=== PATIENT | male | born 1960 | race Caucasian/White ===

== ENCOUNTER 2016-04-23 15:05 | Outpatient (CLI) | payer BC | END 2016-04-23 15:06 | disposition home or self-care (01) | DX: R23.4 Changes in skin texture (principal) ==

== ENCOUNTER 2016-09-26 16:27 | Outpatient (CLI) | payer BC ==
--- NOTE | 2016-09-27 14:02 | MRI Report ---
EXAM: RIGHT SHOULDER MRI WITHOUT CONTRAST EXAM DATE: 09/26/2016 06:11 PM. CLINICAL HISTORY: Complete rotator cuff tear or rupture. COMPARISON: None. TECHNIQUE: Multiplanar, multisequence T1-weighted and fluid-sensitive sequences of the shoulder witho ut contrast. Other: None. FINDINGS: Acromioclavicular Region: The acromion is type III. There is moderate acromioclavicular joint osteoar thritis and joint effusion. There is a moderate-sized bursal effusion. Glenohumeral Region: The humeral head is superiorly subluxed in keeping with the rotator cuff tears. There is mild to moderate thickening of the glenohumeral hyaline cartilage. Humeral head osteophytes are noted. The findings are consistent with osteoarthritis. Bone Marrow: No fracture, marrow edema or bone lesions. Labrum: The labrum is unremarkable on this nonarthrographic study. Musculature/Rotator Cuff: There is severe tendinosis and high-grade partial-thickness tearing of both the humeral and bursal surface fibers of supraspinatus. There is a 10 x 10 mm full-thickness tear of the anteriormost fibers of supraspinatus. There is high-grade partial thickness tearing of the deep and superficial fibers of subscapularis. Infraspinatus appears unremarkable. There is moderate atroph y of both supraspinatus and subscapularis. Biceps Tendon: The long head of biceps tendon is medially subluxed out of the bicipital groove, with high-grade partial-thickness tearing. Other: The subcutaneous tissues are unremarkable. IMPRESSION: 1. Type III acromion. Moderate acromioclavicular joint osteoarthritis with a joint effusion. 2. High-grade partial-thickness tear of supraspinatus with small full-thickness component and moderat e atrophy. 3. High-grade partial-thickness tear of subscapularis with medial subluxation and tearing of the long head of biceps. 4. Superior subluxation of the humeral head with mild glenohumeral osteoarthritis. 5. Moderate acromioclavicular joint osteoarthritis. [facility] MUSCULOSKELETAL RADIOLOGY SECTION Referring Provider Line: [phone] SITE ID: [id number]
== END 2016-09-26 16:28 | disposition home or self-care (01) ==
LOC: DI 16:27
PROVIDERS: ATTEND Orthopaedic Surgery
DX: M75.121 Complete rotator cuff tear or rupture of right shoulder, not specified as traumatic (principal); M19.011 Primary osteoarthritis, right shoulder; M25.511 Pain in right shoulder; M75.101 Unspecified rotator cuff tear or rupture of right shoulder, not specified as traumatic; S46.811A Strain of other muscles, fascia and tendons at shoulder and upper arm level, right arm, initial encounter; S46.111A Strain of muscle, fascia and tendon of long head of biceps, right arm, initial encounter; M25.411 Effusion, right shoulder

== ENCOUNTER 2016-10-13 15:10 | Outpatient (CLI) | payer BC ==
--- NOTE | 2016-10-14 10:10 | Ultrasound Report ---
RENAL ULTRASOUND: 10/13/2016 CLINICAL INDICATION: Neurogenic bladder. TECHNIQUE: Real-time scanning was performed with ambulatory service representative static images obtained. FINDINGS: The right kidney measures 12.0 x 5.9 x 5.3 cm. There is a 1.5 cm parapelvic cyst. No hyd ronephrosis or solid renal lesion is seen. The left kidney measures 11.5 x 5.6 x 5.2 cm. Multiple parapelvic cysts and cortical cysts are prese nt, the largest measuring 1.3 cm. No hydronephrosis or solid renal lesion is appreciated. The urinary bladder measures 13.1 x 10.6 x 6.8 cm, yielding a volume of 494 mL. Bilateral ureteral j ets are visualized. No focal bladder wall lesion is seen. The patient did not bring catheterization supplies, so a post-catheterization image could not be obtained. IMPRESSION: NO EVIDENCE OF HYDRONEPHROSIS. NO FOCAL RENAL LESION. JOB #: [id number] EXT JOB #:[id number]
== END 2016-10-13 15:11 | disposition home or self-care (01) ==
LOC: DI 15:10
PROVIDERS: ATTEND Internal Medicine
DX: N31.9 Neuromuscular dysfunction of bladder, unspecified (principal)
CPT/HCPCS: 76770

== ENCOUNTER 2017-05-05 17:02 | Inpatient (IN) | payer MEDICARE, BC ==
--- NOTE | 2017-05-05 18:09 | ED Physician Documentation ---
PD HPI SKIN - Stated complaint Stated Complaint: L ANKLE WOUND - Chief complaint Chief Complaint: Wound - History obtained from History obtained from: Patient - History of Present Illness Timing - onset: Today (he just noted redness and swelling of the left ankle today when a sore broke open and leaked a lot of pus and blood. He then noted skin red as well up to davidson. He was not aware of it prior as has cord injury with normally no sensation nor movement from thoracic area down. So he does not know how long it has been developing.) Timing - details: Gradual onset Location: LLE (around ankle medially and lower leg) Quality / character: Discolored (red), Swelling, Draining Associated symptoms: Myalgias. No: Fever, N/V/D Similar symptoms before: Has not had sx before Recently seen: Clinic (went to PMD today and referred to ER.) Review of Systems Constitutional: reports: Myalgias. denies: Fever, Chills Nose: denies: Rhinorrhea / runny nose, Congestion Throat: denies: Sore throat Cardiac: denies: Chest pain / pressure Respiratory: denies: Cough GI: denies: Nausea, Vomiting Skin: reports: Lesions (at the ankle) PD PAST MEDICAL HISTORY - Past Medical History Cardiovascular: Hypertension Neuro: Other : Other Musculoskeletal: Paraplegia, Other - Past Surgical History Ortho: Spine surgery - Present Medications Home Medications: Ambulatory Orders Medication Instructions Recorded Confirmed Baclofen 15 mg PO BID 01/05/17 01/05/17 Cholecalciferol (Vitamin D3) 2,000 unit PO DAILY 01/05/17 01/05/17 [Vitamin D] Furosemide 20 mg PO QDBREAKFAST 01/05/17 01/05/17 Gabapentin 900 mg PO BID 01/05/17 01/05/17 Lisinopril 40 mg PO DAILY 01/05/17 01/05/17 Multivitamin [Multiple Vitamins] 1 ea PO DAILY 01/05/17 01/05/17 Sennosides/Docusate Sodium [Stool 1 each PO DAILY 01/05/17 01/05/17 Softener-Stimulant Lax] Solifenacin Succinate [Vesicare] 10 mg PO DAILY 01/05/17 01/05/17 amLODIPine [Norvasc] 5 mg PO DAILY 01/05/17 01/05/17 - Allergies Allergies/Adverse Reactions: Allergies Allergy/AdvReac Type Severity Reaction Status Date / Time carbenicillin Allergy Respiratory Verified 01/05/17 15:55 [From Geocillin] clindamycin Allergy Rash Verified 01/05/17 15:55 Latex, Natural Rubber Allergy Unknown Verified 01/05/17 15:55 - Social History Smoking Status: Smoker current status unk PD ED PE NORMAL - Vitals Vital signs reviewed: Yes - General General: Alert and oriented X 3, Well developed/nourished (wheelchair bound. ) - Cardiac Cardiac: RRR, No murmur - Respiratory Respiratory: Clear bilaterally - Derm Derm: Normal color (generally but with notable cellulitis left ankle and lower leg up to mid tibial area. ), Warm and dry - Extremities Extremities: Other (left medial high ankle with area of skin erosion and drainage of bloody/purulent material. There is a fingertip sized hole present. Local swelling which extends up to davidson and the foot is also with some edema. ) - Neuro Neuro: Alert and oriented X 3, Other (he has cord injury so normally without sensation nor movement of the legs/feet. ) Results - Vitals Vitals: Vital Signs - 24 hr 05/05/17 05/05/17 17:20 20:12 Temperature 36.4 C L 36.4 C L Heart Rate 93 87 Respiratory 18 19 Rate Blood Pressure 131/80 H 146/77 H O2 Saturation 99 98 Oxygen O2 Source Room air - Labs Labs: Microbiology 05/05/17 18:24 Wound Culture - Preliminary Foot - Left Laboratory Tests 05/05/17 05/05/17 05/05/17 18:51 18:51 18:51 WBC 15.1 H RBC 4.63 L Hgb 13.2 L Hct 40.5 L MCV 87.4 MCH 28.4 MCHC 32.5 RDW 15.1 H Plt Count 272 MPV 7.6 Neut # 10.9 H Lymph # 2.7 [place] # 1.1 H Eos # 0.1 Baso # 0.2 H Absolute Nucleated RBC 0.00 Nucleated RBC % 0.0 ESR 66 H Sodium 134 L Potassium 3.6 Chloride 99 L Carbon Dioxide 23 Anion Gap 12.0 BUN 9 Creatinine 0.6 Estimated GFR (MDRD) 139 Glucose 91 Calcium 8.6 Total Bilirubin 0.6 AST 24 ALT 23 Alkaline Phosphatase 83 Total Protein 7.7 Albumin 3.4 Globulin 4.3 H Albumin/Globulin Ratio 0.8 L Lipase 14 L - Rads (name of study) ankle Radiology: Prelim report reviewed, EMP read contemporaneously (no bony lesions; soft tissue swelling) PD MEDICAL DECISION MAKING - ED course Complexity details: reviewed results, considered differential (there is more than adequate opening for the abscess so no further I&D needed. Culture obtained. I am concerned for degree of cellulitis, elevated WBC, and the abscess itself (which might benefit from debridement, could consult Ortho). I feel he needs IV meds and further evaluation in hospital. ), d/w patient Departure - Departure Disposition: [address] [facility] DC/Xfer Clinical Impression: Ankle abscess, Cellulitis, leg Discharge Date/Time: 05/05/17 21:05
[2017-05-05] MEDS ORDERED: VANCOMYCIN INJ 1 GM in SODIUM CHLORIDE 0.9% 250 ML IV STA (18:20)
[2017-05-05] MEDS ORDERED: cefTRIAXone 1 GM VIAL IVP STA (18:20)
[2017-05-05 19:03] LABS: BASOPHILS # (AUTO) 0.2 10^3/uL (0.0-0.1); BASOPHILS % (AUTO) 1.5 %; EOSINOPHILS # (AUTO) 0.1 10^3/uL (0.0-0.7); HGB - HEMOGLOBIN 13.2 g/dL (14.0-18.0); LYMPHOCYTES # (AUTO) 2.7 10^3/uL (1.5-3.5); LYMPHOCYTES % (AUTO) 17.7 %; MEAN CORPUSCULAR HEMOGLOBIN 28.4 pg (27.0-31.0); MEAN CORPUSCULAR HGB CONC 32.5 g/dL (32.0-36.0); MEAN CORPUSCULAR VOLUME 87.4 fL (80.0-94.0); MEAN PLATELET VOLUME 7.6 fL (7.4-11.4); MONOCYTES # (AUTO) 1.1 10^3/uL (0.0-1.0); MONOCYTES % (AUTO) 7.6 %; NEUTROPHILS # (AUTO) 10.9 10^3/uL (1.5-6.6); NEUTROPHILS % (AUTO) 72.2 %; PLT - PLATELET COUNT 272 10^3/uL (130-450); RED BLOOD COUNT 4.63 10^6/uL (4.70-6.10); RED CELL DISTRIBUTION WIDTH 15.1 % (12.0-15.0); WHITE BLOOD COUNT 15.1 x10^3/uL (4.8-10.8)
[2017-05-05 19:13] LABS: ALBUMIN 3.4 g/dL (3.2-5.5); ALBUMIN/GLOBULIN RATIO 0.8 (1.0-2.2); BILIRUBIN,TOTAL 0.6 mg/dL (0.2-1.0); CALCIUM 8.6 mg/dL (8.5-10.3); CREATININE 0.6 mg/dL (0.6-1.2); TOTAL PROTEIN 7.7 g/dL (6.7-8.2)
--- NOTE | 2017-05-05 19:13 | XRAY Preliminary Report ---
Exam: XR ANKLE 3 VIEW LT IMPRESSION: No evidence of osteomyelitis or acute bony abnormality. [facility] SITE ID: [id number]
--- NOTE | 2017-05-05 19:14 | XRAY Report ---
EXAM: LEFT ANKLE RADIOGRAPHY EXAM DATE: 05/05/2017 06:54 PM. CLINICAL HISTORY: Heel wound and drainage. COMPARISON: None. TECHNIQUE: 3 views. FINDINGS: Bones: No evidence of fracture. No destructive bone lesions. Joints: Normal. No effusion. No subluxations. The ankle mortise is normally aligned. Soft Tissues: Diffuse soft tissue swelling. There is a soft tissue defect plantar aspect of the heel. IMPRESSION: No evidence of osteomyelitis or acute bony abnormality. [facility] Referring Provider Line: [phone] SITE ID: [id number]
[2017-05-05] MEDS ORDERED: ONDANSETRON 4 MG/2 ML VIAL IVP PRN (20:31)
[2017-05-05] MEDS ORDERED: TEMAZEPAM 15 MG CAPSULE PO PRN (20:31)
[2017-05-05] MEDS ORDERED: SODIUM CHLORIDE FLUSH 0.9% 10 ML SYRINGE IVP PRN (20:31)
[2017-05-05] MEDS ORDERED: HYDROmorphone 1 MG/ML SYRINGE IVP PRN (20:31)
[2017-05-05] MEDS ORDERED: ACETAMINOPHEN 325 MG TABLET PO PRN (20:31)
[2017-05-05] MEDS: BACLOFEN 10 MG TABLET PO SCH (22:20)
[2017-05-05] MEDS: GABAPENTIN 300 MG CAPSULE PO SCH (22:21)
[2017-05-05] MEDS: NICOTINE 21 MG PATCH TOP SCH (23:46)
--- NOTE | 2017-05-06 00:40 | HISTORY & PHYSICAL EXAMINATION ---
DATE OF SERVICE: 05/05/2017 Physician: Michell Salvador MD HISTORY OF PRESENT ILLNESS: This is a 57-year-old white male with a history of paraplegia, hypertension, prior spinal surgery and abscesses around his anus. The patient has been seen in this [facility] once for a left heel wound and states that he did not follow the advice and care for that wound. This morning he awoke with an open draining area near the left medial malleolus area. He states that "the leg is in pain because he can see how it is twitching," but he does not feel any pain because of his paraplegia. He denies any fever or rigors. He presented to the emergency room and has been admitted for treatment of cellulitis and the wound. REVIEW OF SYSTEMS: A comprehensive review of systems was performed and the pertinent positives are as above, all others are negative. FAMILY HISTORY: Positive family history of heart disease in his father and lung cancer in his sister. ALLERGIES 1. CARBENICILLIN. 2. CLINDAMYCIN. 3. LATEX. 4. NATURAL RUBBER. MEDICATIONS AT HOME 1. Amlodipine 5 mg daily. 2. Lisinopril 40 mg daily. 3. Gabapentin 900 p.o. b.i.d. 4. Furosemide 20 mg daily. 5. Vitamin D3 2000 units daily. 6. Baclofen 15 mg p.o. b.i.d. 7. VESIcare 10 mg p.o. daily. 8. Stool softener. SOCIAL HISTORY: The patient smokes 1 pack per day, uses no drugs and no alcohol. The patient lives independently and alone, he has a wheelchair with additional functions that make him independent. 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 PHYSICAL EXAMINATION GENERAL: White male in no distress, sitting upright in bed. VITAL SIGNS: Blood pressure 145/75, pulse of 108, afebrile, room air saturation 97%. HEENT: Reveals pa complexion. Oral mucosa is moist. NECK: No JVD or carotid bruits. LUNGS: Clear. HEART: Heart sounds normal. No audible murmurs. ABDOMEN: Soft, decreased bowel sounds, nontender. EXTREMITIES: 2+ edema with warmth of the left lower extremity to the knee. Trace edema of the right foot and ankle. The left ankle is bandaged with gauze and there is red serous drainage saturating through the bandage on the medial aspect. NEUROLOGIC: No sensation or movement below the mid abdomen. Otherwise, grossly intact. LABORATORY DATA: Sodium 134, potassium 3.6. Normal BUN and creatinine. Normal liver tests. White blood count 15.1 with a left shift, hemoglobin 13.2, platelet count normal at 272. No INR was done. No chest x-ray was done. Left ankle x-ray showed diffuse soft tissue swelling and a soft tissue defect on the plantar aspect of the heel. IMPRESSION/DIAGNOSES: 1. Open, draining wound of the left ankle and recent wound of the left heel. Rule out osteomyelitis. 2. Cellulitis with asymmetrical swelling and warmth of the left davidson. 3. Hypertension, on medications, well controlled. 4. Paraplegia. 5. Tobacco use. PLAN: Admit the patient for IV antibiotics. Continue with IV ceftriaxone and IV vancomycin as administered starting in the emergency room. We obtained a wound culture and will also obtain blood cultures. Follow his CBC. Obtain a foot MRI to evaluate for osteomyelitis. Continue his blood pressure medications and a low salt diet. A Nicoderm patch will be ordered for nicotine urges. DEEP VENOUS THROMBOSIS PROPHYLAXIS: Sequential compression devices. CODE STATUS: FULL CODE. ATTESTATION: The patient is expected to be discharged or transferred to another facility within 96 hours: Yes. TD: 05/06/2017 00:38 LIEN
[2017-05-06 05:30] LABS: BASOPHILS # (AUTO) 0.1 10^3/uL (0.0-0.1); BASOPHILS % (AUTO) 0.6 %; EOSINOPHILS # (AUTO) 0.4 10^3/uL (0.0-0.7); EOSINOPHILS % (AUTO) 3.8 %; HGB - HEMOGLOBIN 11.8 g/dL (14.0-18.0); LYMPHOCYTES # (AUTO) 2.3 10^3/uL (1.5-3.5); LYMPHOCYTES % (AUTO) 25.1 %; MEAN CORPUSCULAR HEMOGLOBIN 29.3 pg (27.0-31.0); MEAN CORPUSCULAR HGB CONC 32.9 g/dL (32.0-36.0); MEAN CORPUSCULAR VOLUME 89.2 fL (80.0-94.0); MEAN PLATELET VOLUME 7.5 fL (7.4-11.4); MONOCYTES # (AUTO) 0.9 10^3/uL (0.0-1.0); MONOCYTES % (AUTO) 9.3 %; NEUTROPHILS # (AUTO) 5.6 10^3/uL (1.5-6.6); NEUTROPHILS % (AUTO) 61.2 %; PLT - PLATELET COUNT 251 10^3/uL (130-450); RED BLOOD COUNT 4.02 10^6/uL (4.70-6.10); RED CELL DISTRIBUTION WIDTH 15.3 % (12.0-15.0); WHITE BLOOD COUNT 9.2 x10^3/uL (4.8-10.8)
[2017-05-06] MEDS: SODIUM CHLORIDE FLUSH 0.9% 10 ML SYRINGE IVP SCH ×3 (06:43→17:51)
[2017-05-06] MEDS ORDERED: GADOBUTROL 10 MMOL/10 ML VIAL ONE (07:57)
[2017-05-06] MEDS: VANCOMYCIN 1.5 GM/NS 500 ML 1.5 GM/500 ML BAG IV SCH ×2 (08:29→19:52)
[2017-05-06] MEDS: NICOTINE 21 MG PATCH TOP SCH (09:52)
[2017-05-06] MEDS: FAMOTIDINE 20 MG TABLET PO SCH (09:53)
[2017-05-06] MEDS: MULTIVITAMIN TABLET PO SCH (09:53)
[2017-05-06] MEDS: BACLOFEN 10 MG TABLET PO SCH ×2 (09:53→20:14)
[2017-05-06] MEDS: LISINOPRIL 20 MG TABLET PO SCH (09:53)
[2017-05-06] MEDS: amLODIPine 5 MG TABLET PO SCH (09:53)
[2017-05-06] MEDS: GABAPENTIN 300 MG CAPSULE PO SCH ×2 (09:53→20:14)
[2017-05-06] MEDS: CHOLECALCIFEROL 1,000 UNIT TABLET PO SCH (09:53)
[2017-05-06] MEDS: POLYETHYLENE GLYCOL 3350 17 GM PACKET PO SCH (09:54)
[2017-05-06] MEDS ORDERED: BISACODYL 10 MG SUPP PR SCH ×2 (11:00→12:00)
[2017-05-06] MEDS ORDERED: GADOBUTROL 10 MMOL/10 ML VIAL IVP ONE (16:01)
--- NOTE | 2017-05-06 16:59 | PROVIDER PROGRESS NOTE ---
Subjective - Prog Note Date Prog Note Date: 05/06/17 Prog Note Time: 14:20 - Subjective Pt reports feeling: No change (The patient is a paraplegic and cannot feel his lower extremities.He denies any new problems, fever or chills. He has been eating and moving his bowels.) Current Medications - Current Medications Current Medications: Acetaminophen, amlodipine, baclofen, ceftriaxone, cholecalciferol, famotidine, gabapentin, hydromorphone, lisinopril, multivitamin, nicotine patch, ondansetron , polyethylene glycol, sodium chloride,Temazepam, vancomycin Objective - Vital Signs/Intake & Output Reviewed Vital Signs: Yes Intake & Output: Intake & Output 05/03/17 05/04/17 05/05/17 05/06/17 23:59 23:59 23:59 23:59 Intake Total 450 960 Output Total 475 700 Balance -25 260 - Objective General Appearance: positive: No acute distress, Alert Eyes Bilateral: positive: Normal inspection, PERRL, EOMI, No lid inflammation, Conjunctivae nml, No scleral icterus ENT: positive: ENT inspection nml, Pharynx nml, No signs of dehydration Neck: positive: Nml inspection, Thyroid nml, No JVD, Trachea midline. negative : Thyromegaly Respiratory: positive: Chest non-tender, No respiratory distress, Breath sounds nml. negative: Wheezes, Rales, Rhonchi Cardiovascular: positive: Regular rate & rhythm, No murmur, No gallop Abdomen: positive: Non-tender, No organomegaly, Nml bowel sounds, No distention. negative: Guarding, Rebound Back: positive: Nml inspection. negative: CVA tenderness (R), CVA tenderness (L ) Skin: positive: Color nml, No rash, Warm, Dry. negative: Cyanosis Extremities: positive: Non-tender, Full ROM, Nml appearance, Pedal edema Neurologic/Psychiatric: positive: Oriented x3, CN's nml (2-12), Other (The patient is a paraplegic since age 16) - Lab Results Fish Bones: 05/06/17 05:10 05/05/17 18:51 Other Labs: Lab Results x24hrs 05/06/17 Range/Units 05:10 WBC 9.2 (4.8-10.8) x10^3/uL RBC 4.02 L (4.70-6.10) 10^6/uL Hgb 11.8 L (14.0-18.0) g/dL Hct 35.9 L (42.0-52.0) % MCV 89.2 (80.0-94.0) fL MCH 29.3 (27.0-31.0) pg MCHC 32.9 (32.0-36.0) g/dL RDW 15.3 H (12.0-15.0) % Plt Count 251 (130-450) 10^3/uL MPV 7.5 (7.4-11.4) fL Neut # 5.6 (1.5-6.6) 10^3/uL Lymph # 2.3 (1.5-3.5) 10^3/uL [place] # 0.9 (0.0-1.0) 10^3/uL Eos # 0.4 (0.0-0.7) 10^3/uL Baso # 0.1 (0.0-0.1) 10^3/uL Absolute Nucleated RBC 0.01 x10^3/uL Nucleated RBC % 0.1 /100WBC - Diagnostic Imaging Diagnostic Imaging Results: positive: Final report reviewed Diagnostic Imaging Comments: EXAM: LEFT ANKLE RADIOGRAPHY EXAM DATE: 05/05/2017 06:54 PM. CLINICAL HISTORY: Heel wound and drainage. COMPARISON: None. TECHNIQUE: 3 views. FINDINGS: Bones: No evidence of fracture. No destructive bone lesions. Joints: Normal. No effusion. No subluxations. The ankle mortise is normally aligned. Soft Tissues: Diffuse soft tissue swelling. There is a soft tissue defect plantar aspect of the heel. IMPRESSION: No evidence of osteomyelitis or acute bony abnormality. Assessment/Plan - Problem List (1) Cellulitis of left foot Impression: The wound to the top of the malleolus and the very superficial decubitus ulcer to the patient's heel appear to be communicating. I am awaiting the results of the MRI to see whether or not there is any bone involvement at this time. Currently the patient is taking vancomycin and ceftriaxone and these appear to be preventing the cellulitis from getting any worse but it is too early to see any improvement yet. I am awaiting the wound culture results and will tailor the antibiotics to the sensitivities as they arise. Otherwise continue present care. (2) Hypertension Impression: Blood pressure 134/70. Continue lisinopril and amlodipine. (3) History of paraplegia Impression: Patient states that he knew he had a decubitus ulcer on his left heel however choose to do nothing about this until he had the abscess which spurted blood and purulent drainage shortly before his admission. We have the patient on SCDs and DAWSON hose for DVT prophylaxis.
[2017-05-06] MEDS ORDERED: cefTRIAXone 1 GM in SODIUM CHLORIDE 0.9% MINIBAG 100 ML IV SCH (18:00)
--- NOTE | 2017-05-06 18:06 | MRI Report ---
EXAM: LEFT MIDFOOT AND HINDFOOT MRI WITHOUT AND WITH CONTRAST EXAM DATE: 05/06/2017 04:14 PM. CLINICAL HISTORY: Eval for osteomyelitis. COMPARISON: 3 views left foot 05/05/2017.. TECHNIQUE: Multiplanar, multisequence T1-weighted and fluid-sensitive sequences of the midfoot and hi ndfoot before and after administration of intravenous contrast. IV contrast: 9 cc Gadavist. Other: No ne. FINDINGS: Bones: Osteolysis inferior calcaneal tuberosity. Associated decreased marrow signal inferior calcanea l tuberosity T1-weighted sequence without contrast with adjacent marrow edema and enhancement followi ng contrast. Findings are consistent with inferior calcaneal tuberosity osteomyelitis. Joints: Small fluid collection anterior ankle. Small fluid collection subtalar joint. Tendons: The flexor and extensor tendons are unremarkable. Musculature: Diffuse muscle atrophy and fatty replacement. Other: Extensive edema dorsum of foot with no discrete abscess identified. There is a large 5.0 x 2.6 cm in transverse dimension (image 29 series 1601) and 10 cm in height abscess posterior aspect of th e Achilles tendon. Partial disruption of proximal plantar aponeurosis. IMPRESSION: 1. Full-thickness ulceration and osteomyelitis with osteolysis calcaneal tuberosity. 2. At the posterior medial ankle and heel is a large subcutaneous 10 cm in height and 5.0 x 2.6 cm in transverse dimension abscess which is superficial to the Achilles tendon at the lateral aspect absce ss. 3. Extensive dorsum foot cellulitis with no discrete abscess identified. [facility] MUSCULOSKELETAL RADIOLOGY SECTION Referring Provider Line: [phone] SITE ID: [id number]
[2017-05-06] MEDS: SOLIFENACIN SUCCINATE 10 MG PO SCH (18:34)
[2017-05-06] MEDS ORDERED: VANCOMYCIN PER PHARMACY 100 GM in SODIUM CHLORIDE 0.9% 250 ML IV SCH (19:00)
[2017-05-07] MEDS: SODIUM CHLORIDE FLUSH 0.9% 10 ML SYRINGE IVP SCH ×2 (00:32→10:29)
[2017-05-07 07:44] LABS: CALCIUM 8.2 mg/dL (8.5-10.3); CREATININE 0.5 mg/dL (0.6-1.2)
[2017-05-07 07:46] LABS: HGB - HEMOGLOBIN 11.7 g/dL (14.0-18.0); MEAN CORPUSCULAR HEMOGLOBIN 29.1 pg (27.0-31.0); MEAN CORPUSCULAR HGB CONC 33.3 g/dL (32.0-36.0); MEAN CORPUSCULAR VOLUME 87.4 fL (80.0-94.0); MEAN PLATELET VOLUME 7.4 fL (7.4-11.4); RED BLOOD COUNT 4.04 10^6/uL (4.70-6.10); RED CELL DISTRIBUTION WIDTH 15.2 % (12.0-15.0); WHITE BLOOD COUNT 7.6 x10^3/uL (4.8-10.8)
[2017-05-07] MEDS: LISINOPRIL 20 MG TABLET PO SCH (09:16)
[2017-05-07] MEDS: CHOLECALCIFEROL 1,000 UNIT TABLET PO SCH (09:16)
[2017-05-07] MEDS: GABAPENTIN 300 MG CAPSULE PO SCH ×2 (09:16→22:43)
[2017-05-07] MEDS: BACLOFEN 10 MG TABLET PO SCH ×2 (09:16→22:44)
[2017-05-07] MEDS: amLODIPine 5 MG TABLET PO SCH (09:17)
[2017-05-07] MEDS: MULTIVITAMIN TABLET PO SCH (09:17)
[2017-05-07] MEDS: FAMOTIDINE 20 MG TABLET PO SCH (09:17)
[2017-05-07] MEDS: NICOTINE 21 MG PATCH TOP SCH (10:28)
[2017-05-07] MEDS: VANCOMYCIN 1.5 GM/NS 500 ML 1.5 GM/500 ML BAG IV SCH ×2 (10:28→23:33)
[2017-05-07] MEDS: POLYETHYLENE GLYCOL 3350 17 GM PACKET PO SCH (10:28)
[2017-05-07] MEDS: SOLIFENACIN SUCCINATE 10 MG PO SCH (10:29)
[2017-05-07] MEDS ORDERED: cefTRIAXone 1 GM in SODIUM CHLORIDE 0.9% MINIBAG 100 ML IV SCH ×2 (11:04→18:00)
--- NOTE | 2017-05-07 14:31 | PROVIDER PROGRESS NOTE ---
Subjective - Prog Note Date Prog Note Date: 05/07/17 Prog Note Time: 13:10 - Subjective Pt reports feeling: No change (The patient feels well. He has never had any discomfort in his lower extremities as he has paraplegia. He says he has been eating well and moving his bowels, he says he slept fairly well last night and he denies any shortness of breath.) Current Medications - Current Medications Current Medications: Acetaminophen, amlodipine, baclofen, ceftriaxone, cholecalciferol, famotidine, gabapentin, hydromorphone, lisinopril, multivitamin, nicotine patch, ondansetron , polyethylene glycol, sodium chloride,Temazepam, vancomycin Objective - Vital Signs/Intake & Output Reviewed Vital Signs: Yes Vital Signs: Vital Signs x48h Temp Pulse Resp BP Pulse Ox 05/07/17 07:45 36.5 C 85 20 136/78 H 95 Intake & Output: Intake & Output 05/04/17 05/05/17 05/06/17 05/07/17 23:59 23:59 23:59 23:59 Intake Total 450 2078 600 Output Total 475 1700 Balance -25 378 600 - Objective General Appearance: positive: No acute distress, Alert, Mild distress Eyes Bilateral: positive: Normal inspection, PERRL, EOMI, No lid inflammation, Conjunctivae nml, No scleral icterus ENT: positive: ENT inspection nml, Pharynx nml, No signs of dehydration Neck: positive: Nml inspection, Thyroid nml, No JVD, Trachea midline. negative : Thyromegaly Respiratory: positive: Chest non-tender, No respiratory distress, Breath sounds nml. negative: Wheezes, Rales, Rhonchi Cardiovascular: positive: Regular rate & rhythm, No murmur, No gallop Abdomen: positive: Non-tender, No organomegaly, Nml bowel sounds, No distention. negative: Tenderness Back: positive: Nml inspection. negative: CVA tenderness (R), CVA tenderness (L ) Skin: positive: Color nml, No rash, Warm, Dry. negative: Cyanosis Extremities: positive: Non-tender, Full ROM, Nml appearance, Other (Swelling and drainage to the patient's left foot) Neurologic/Psychiatric: positive: Oriented x3, CN's nml (2-12), Motor nml, Sensation nml, Mood/affect nml - Lab Results Fish Bones: 05/07/17 07:28 05/07/17 07:28 Other Labs: Lab Results x24hrs 05/07/17 05/07/17 Range/Units 07:28 07:28 WBC 7.6 (4.8-10.8) x10^3/uL RBC 4.04 L (4.70-6.10) 10^6/uL Hgb 11.7 L (14.0-18.0) g/dL Hct 35.3 L (42.0-52.0) % MCV 87.4 (80.0-94.0) fL MCH 29.1 (27.0-31.0) pg MCHC 33.3 (32.0-36.0) g/dL RDW 15.2 H (12.0-15.0) % Plt Count 254 (130-450) 10^3/uL MPV 7.4 (7.4-11.4) fL Sodium 138 (135-145) mmol/L Potassium 3.7 (3.5-5.0) mmol/L Chloride 107 (101-111) mmol/L Carbon Dioxide 23 (21-32) mmol/L Anion Gap 8.0 (6-13) BUN 8 (6-20) mg/dL Creatinine 0.5 L (0.6-1.2) mg/dL Estimated GFR (MDRD) 171 (>89) Glucose 114 H (70-100) mg/dL Calcium 8.2 L (8.5-10.3) mg/dL - Diagnostic Imaging Diagnostic Imaging Comments: EXAM: LEFT MIDFOOT AND HINDFOOT MRI WITHOUT AND WITH CONTRAST EXAM DATE: 05/06/2017 04:14 PM. CLINICAL HISTORY: Eval for osteomyelitis. COMPARISON: 3 views left foot 05/05/2017.. TECHNIQUE: Multiplanar, multisequence T1-weighted and fluid-sensitive sequences of the midfoot and hindfoot before and after administration of intravenous contrast. IV contrast: 9 cc Gadavist. Other : None. FINDINGS: Bones: Osteolysis inferior calcaneal tuberosity. Associated decreased marrow signal inferior calcaneal tuberosity T1-weighted sequence without contrast with adjacent marrow edema and enhancement following contrast. Findings are consistent with inferior calcaneal tuberosity osteomyelitis. Joints: Small fluid collection anterior ankle. Small fluid collection subtalar joint. Tendons: The flexor and extensor tendons are unremarkable. Musculature: Diffuse muscle atrophy and fatty replacement. Other: Extensive edema dorsum of foot with no discrete abscess identified. There is a large 5.0 x 2.6 cm in transverse dimension (image 29 series 1601) and 10 cm in height abscess posterior aspect of the Achilles tendon. Partial disruption of proximal plantar aponeurosis. IMPRESSION: 1. Full-thickness ulceration and osteomyelitis with osteolysis calcaneal tuberosity. 2. At the posterior medial ankle and heel is a large subcutaneous 10 cm in height and 5.0 x 2.6 cm in transverse dimension abscess which is superficial to the Achilles tendon at the lateral aspect abscess. 3. Extensive dorsum foot cellulitis with no discrete abscess identified. Assessment/Plan - Problem List (1) Osteomyelitis of ankle or foot, left, acute Impression: Patient has a large communicating wound from the left heel to the left medial malleolus and associated swelling and tenderness. This has come back positive for osteomyelitis in the left foot and ankle and we will start the patient on IV antibiotics, namely ceftriaxone and vancomycin. The patient will be discharged to a half-way facility or will have to come into the mobile ambulatory clinic for 6 weeks of IV antibiotics. (2) Hypertension Impression: Blood pressure is well-managed, 136/78. Continue present care. (3) History of paraplegia Impression: Patient states that he knew he had a decubitus ulcer on his left heel however choose to do nothing about this until he had the abscess which spurted blood and purulent drainage shortly before his admission. We have the patient on SCDs and DAWSON hose for DVT prophylaxis.
[2017-05-07 19:36] LABS: VANCOMYCIN,TROUGH 12.8 ug/mL (5.0-15.0)
[2017-05-07] MEDS ORDERED: VANCOMYCIN 1 GM VIAL ONE (23:19)
[2017-05-07] MEDS ORDERED: SODIUM CHLORIDE 0.9% 500 ML IV ONE (23:20)
[2017-05-08] MEDS: SODIUM CHLORIDE FLUSH 0.9% 10 ML SYRINGE IVP SCH ×3 (01:14→09:50)
[2017-05-08 06:11] LABS: CALCIUM 8.3 mg/dL (8.5-10.3); CREATININE 0.4 mg/dL (0.6-1.2)
[2017-05-08 06:12] LABS: HGB - HEMOGLOBIN 11.7 g/dL (14.0-18.0); MEAN CORPUSCULAR HEMOGLOBIN 29.6 pg (27.0-31.0); MEAN CORPUSCULAR VOLUME 89.8 fL (80.0-94.0); MEAN PLATELET VOLUME 7.3 fL (7.4-11.4); RED BLOOD COUNT 3.94 10^6/uL (4.70-6.10); RED CELL DISTRIBUTION WIDTH 14.9 % (12.0-15.0); WHITE BLOOD COUNT 9.3 x10^3/uL (4.8-10.8)
[2017-05-08 08:04] VITALS: BP 148/82
[2017-05-08] MEDS: NICOTINE 21 MG PATCH TOP SCH (09:49)
[2017-05-08] MEDS: amLODIPine 5 MG TABLET PO SCH (09:49)
[2017-05-08] MEDS: FAMOTIDINE 20 MG TABLET PO SCH (09:49)
[2017-05-08] MEDS: LISINOPRIL 20 MG TABLET PO SCH (09:49)
[2017-05-08] MEDS: GABAPENTIN 300 MG CAPSULE PO SCH (09:49)
[2017-05-08] MEDS: MULTIVITAMIN TABLET PO SCH (09:49)
[2017-05-08] MEDS: BACLOFEN 10 MG TABLET PO SCH (09:49)
[2017-05-08] MEDS: CHOLECALCIFEROL 1,000 UNIT TABLET PO SCH (09:50)
[2017-05-08] MEDS: POLYETHYLENE GLYCOL 3350 17 GM PACKET PO SCH (09:50)
[2017-05-08] MEDS: SOLIFENACIN SUCCINATE 10 MG PO SCH (09:51)
--- NOTE | 2017-05-08 10:46 | Discharge Plan ---
Discharge Plan Disposition: 01 Home, Self Care Condition: Fair Prescriptions: Ciprofloxacin [Cipro] 750 mg PO BID #84 tablet Diet: Regular Activity Restrictions: Activity as Tolerated Shower Restrictions: No Driving Restrictions: No Assistance Devices: Wheelchair Weight Bearing: Pt is paraplegic No Smoking: If you smoke, Please STOP! Call for help. Follow-up with: Ruby Varghese MD [Primary Care Provider] -
[2017-05-08] MEDS ORDERED: CIPROFLOXACIN 250 MG TABLET PO SCH (11:00)
[2017-05-08] MEDS: VANCOMYCIN 1.5 GM/NS 500 ML 1.5 GM/500 ML BAG IV SCH (11:18)
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
== END 2017-05-08 12:12 | disposition home or self-care (01) | DRG 539 ==
LOC: ED 17:02 → MS2 20:31
PROVIDERS: ADMIT Internal Medicine; ATTEND Hospitalist
DX: L02.416 Cutaneous abscess of left lower limb (principal); M86.172 Other acute osteomyelitis, left ankle and foot; L89.623 Pressure ulcer of left heel, stage 3; L03.116 Cellulitis of left lower limb; G82.20 Paraplegia, unspecified; Z99.3 Dependence on wheelchair; L02.612 Cutaneous abscess of left foot; S91.002A Unspecified open wound, left ankle, initial encounter; X58.XXXA Exposure to other specified factors, initial encounter; B95.1 Streptococcus, group B, as the cause of diseases classified elsewhere; I10 Essential (primary) hypertension; Z72.0 Tobacco use; T14.8XXS Other injury of unspecified body region, sequela
CPT/HCPCS: 36415; 80048; 80053; 82947; 83036; 83690; 85025; 85651; 87040; 87070; 87205; 87640; 96365; 96375; 99283; 99284

== ENCOUNTER 2017-05-06 08:00 | Outpatient (CLI) | payer MEDICARE, BC ==
[2017-05-06 09:34] LABS: HB2 TOTAL 12.1 g/dL; HEMOGLOBIN A1C 0.43 g/dL; HEMOGLOBIN A1C % 5.4 % (4.6-6.2)
== END 2017-05-06 08:01 ==
LOC: LAB.R 08:00
PROVIDERS: ATTEND Internal Medicine
DX: I73.01 Raynaud's syndrome with gangrene (principal); R73.01 Impaired fasting glucose
CPT/HCPCS: 82947; 83036

== ENCOUNTER 2017-06-30 14:39 | Emergency (ER) | payer MEDICARE, BC ==
--- NOTE | 2017-06-30 16:30 | ED Physician Documentation ---
PD HPI SKIN - Stated complaint Stated Complaint: LEFT HEAL WOUND CHECK - Chief complaint Chief Complaint: Wound - History obtained from History obtained from: Patient - History of Present Illness Associated symptoms: No: Fever, Myalgias Similar symptoms before: Diagnosis (ongoing foot ulcer with recurrent infection. ) Recently seen: Clinic (had had staph MSSA infection and on Cipro and seemed clearer. Then culture from office showing staph epidermidis, and not sure if contaminant or true infection, so his ID specialist put him on DOxy based on C& S results. Just started that yesterday. Seen at [facility] wound care and had large amount of purulent drainage from wound so sent to ER. The wound was irrigated some there but not alot.) Review of Systems Constitutional: denies: Fever, Chills GI: denies: Nausea, Vomiting, Diarrhea PD PAST MEDICAL HISTORY - Past Medical History Cardiovascular: Hypertension Respiratory: None Neuro: Other Endocrine/Autoimmune: None GI: None : Other HEENT: None Psych: None Musculoskeletal: Paraplegia, Other Derm: None - Past Surgical History Past Surgical History: Yes Ortho: Spine surgery - Present Medications Home Medications: Ambulatory Orders Medication Instructions Recorded Confirmed Baclofen 15 mg PO BID 01/05/17 05/12/17 Cholecalciferol (Vitamin D3) 2,000 unit PO DAILY 01/05/17 05/12/17 [Vitamin D3] Gabapentin 900 mg PO BID 01/05/17 05/12/17 Lisinopril 40 mg PO DAILY 01/05/17 05/12/17 Multivitamin [Multiple Vitamins] 1 tab PO DAILY 01/05/17 05/12/17 Solifenacin Succinate [Vesicare] 10 mg PO DAILY 01/05/17 05/12/17 amLODIPine [Norvasc] 5 mg PO DAILY 01/05/17 05/12/17 Docusate Sodium 100 mg PO DAILY 05/06/17 05/12/17 Levofloxacin [Levaquin] 1 tab PO UD 05/12/17 05/12/17 - Allergies Allergies/Adverse Reactions: Allergies Allergy/AdvReac Type Severity Reaction Status Date / Time carbenicillin Allergy Respiratory Verified 06/30/17 14:54 [From Geocillin] clindamycin Allergy Rash Verified 06/30/17 14:54 Latex, Natural Rubber Allergy Unknown Verified 06/30/17 14:54 - Social History Does the pt smoke?: No Smoking Status: Current every day smoker PD ED PE NORMAL - Vitals Vital signs reviewed: Yes - General General: Alert and oriented X 3, Well developed/nourished - Derm Derm: Normal color, Warm and dry - Extremities Extremities: Other (left ankle with deep ulcerative lesion with some brown/ creamy drainage that was cultured in [facility] today. It is irrigated by nursing here. There is small hole above that about 5 cm with drainage too, and palpation along the line between them gets pus out either end, so c/w fistulous tract. ) - Neuro Neuro: Other (has no motor nor sensation c/w prior paraplegia. ) Results - Vitals Vitals: Vital Signs - 24 hr 06/30/17 06/30/17 14:48 17:31 Temperature 36.2 C L Heart Rate 76 69 Respiratory 15 15 Rate Blood Pressure 143/88 H 170/98 H O2 Saturation 100 98 Oxygen O2 Source Room air PD MEDICAL DECISION MAKING - ED course Complexity details: considered differential (seems like deep ulceration with infection, and has fistula tract to up higher. I could not pass probe the length of it, but did get some iodoform into both ends to act as wicking. Presume surgically will want to have channel cleansed and likely tubing or such to keep channel patent/draining, but Dr. Kim will take care of that tomorrow. ), d/w technical marketing consultant (Dr. Kim [phone] Cell, office - He would like us to give IV dose Daptomycin based off culture result from his office from last week. Has appt in office tomorrow and Dr. Kim will see if he thinks needs debridement/continued IV dosing/etc. Culture was obtained at [facility] clinic today and prelim is showing Gram of Gram possitive cocci. ) Departure - Departure Disposition: 01 Home, Self Care Clinical Impression: History of paraplegia, Ankle abscess Condition: Stable Record reviewed to determine appropriate education?: Yes Comments: Continue the doxycycline he had been prescribed. Follow-up with Dr. Kim tomorrow as planned. Keep the area dressing on intact. Discharge Date/Time: 06/30/17 18:50
[2017-06-30 17:32] VITALS: BP 170/98
== END 2017-06-30 18:50 | disposition home or self-care (01) ==
LOC: ED 14:39
DX: L02.416 Cutaneous abscess of left lower limb (principal); I10 Essential (primary) hypertension; G82.20 Paraplegia, unspecified; F17.200 Nicotine dependence, unspecified, uncomplicated
CPT/HCPCS: 96365; 99283

== ENCOUNTER 2017-12-14 13:44 | Outpatient (CLI) | payer MEDICARE, BC | END 2017-12-14 13:45 | disposition home or self-care (01) | LOC: SC 13:44 | PROVIDERS: ATTEND Internal Medicine Pulmonary Disease | DX: G47.33 Obstructive sleep apnea (adult) (pediatric) (principal); G47.20 Circadian rhythm sleep disorder, unspecified type | CPT/HCPCS: 99203; G0463; 99212 ==

== ENCOUNTER 2018-01-31 15:31 | Inpatient (IN) | payer MEDICARE, BC ==
[2018-01-31] MEDS ORDERED: SODIUM CHLORIDE 0.9% 2,700 ML IV ONE (15:45)
[2018-01-31 16:02] LABS: INR 1.3 (0.8-1.2); PT - PROTHROMBIN TIME 14.5 secs (9.9-12.6)
[2018-01-31 16:10] LABS: ALBUMIN 3.5 g/dL (3.2-5.5); ALBUMIN/GLOBULIN RATIO 0.9 (1.0-2.2); BILIRUBIN,TOTAL 1.9 mg/dL (0.2-1.0); CALCIUM 8.3 mg/dL (8.5-10.3); CREATININE 1.6 mg/dL (0.6-1.2); TOTAL PROTEIN 7.2 g/dL (6.7-8.2)
--- NOTE | 2018-01-31 16:11 | ED Physician Documentation ---
History of Present Illness - Stated complaint Stated Complaint: SHAKY - Chief complaint Chief Complaint: Fever - History obtained from History obtained from: Patient - History of Present Illness Timing: How many days ago (2) Pain level max: 0 Pain level now: 0 Improved by: nothing Worsened by: nothing - Additonal information Additional information: 57-year-old male, paraplegic who self catheterizes. Noted chills for the past 2 days. Worsen shaking today. Came in for evaluation. States he has had a mild cough. No vomiting. No changes in his medications. Nothing makes it better or worse Review of Systems Ten Systems: 10 systems reviewed and negative Constitutional: reports: Fever, Chills Ears: denies: Ear pain Nose: denies: Rhinorrhea / runny nose, Congestion Throat: denies: Sore throat Cardiac: denies: Chest pain / pressure Respiratory: reports: Cough GI: denies: Vomiting Skin: reports: Other (skin breakdown on buttocks from wheelchair) Musculoskeletal: denies: Neck pain, Back pain Neurologic: denies: Headache PD PAST MEDICAL HISTORY - Past Medical History Past Medical History: Yes Cardiovascular: Hypertension Respiratory: None Endocrine/Autoimmune: None GI: None : Other HEENT: None Psych: None Musculoskeletal: Paraplegia, Other Derm: None - Past Surgical History Past Surgical History: Yes Ortho: Spine surgery - Present Medications Home Medications: Ambulatory Orders Medication Instructions Recorded Confirmed Baclofen 15 mg PO BID 01/05/17 07/08/17 Cholecalciferol (Vitamin D3) 2,000 unit PO DAILY 01/05/17 07/08/17 [Vitamin D3] Gabapentin 900 mg PO BID 01/05/17 07/08/17 Lisinopril 40 mg PO DAILY 01/05/17 07/08/17 Multivitamin [Multiple Vitamins] 1 tab PO DAILY 01/05/17 07/08/17 Solifenacin Succinate [Vesicare] 10 mg PO DAILY 01/05/17 07/08/17 amLODIPine [Norvasc] 5 mg PO DAILY 01/05/17 07/08/17 - Allergies Allergies/Adverse Reactions: Allergies Allergy/AdvReac Type Severity Reaction Status Date / Time carbenicillin Allergy Respiratory Verified 01/31/18 15:43 [From Geocillin] clindamycin Allergy Rash Verified 01/31/18 15:43 Latex, Natural Rubber Allergy Unknown Verified 01/31/18 15:43 - Social History Does the pt smoke?: No Smoking Status: Never smoker Does the pt drink ETOH?: No Does the pt have substance abuse?: No - Immunizations Immunizations are current?: Yes - POLST Patient has POLST: No PD ED PE NORMAL - Vitals Vital signs reviewed: Yes - General General: Alert and oriented X 3, No acute distress - HEENT HEENT: Moist mucous membranes - Neck Neck: Supple, no meningeal sign - Cardiac Cardiac: Other (tachycardic) - Respiratory Respiratory: No respiratory distress, Clear bilaterally - Abdomen Abdomen: Soft, Non tender, Non distended - Back Back: No CVA TTP, No spinal TTP - Derm Derm: Warm and dry - Extremities Extremities: Other (mild skin breakdown on the buttocks.) - Neuro Neuro: Alert and oriented X 3 Results - Vitals Vitals: Vital Signs - 24 hr 01/31/18 01/31/18 01/31/18 15:40 16:03 16:24 Temperature 103.2 C H 39.9 C H Heart Rate 152 H 147 H 135 H Respiratory 24 23 28 H Rate Blood Pressure 160/62 H 124/83 H 135/92 H O2 Saturation 92 95 95 01/31/18 16:25 Temperature Heart Rate 138 H Respiratory 32 H Rate Blood Pressure 107/90 H O2 Saturation 94 Oxygen O2 Source Room air - Labs Labs: Laboratory Tests 01/31/18 01/31/18 01/31/18 15:50 15:50 15:50 WBC 5.2 RBC 4.61 L Hgb 13.3 L Hct 40.9 L MCV 88.6 MCH 28.9 MCHC 32.6 RDW 16.5 H Plt Count 149 MPV 7.9 Neut # (Auto) Not Reportable Lymph # (Auto) Not Reportable [place] # (Auto) Not Reportable Eos # (Auto) Not Reportable Baso # (Auto) Not Reportable Absolute Nucleated RBC Not Reportable Total Counted 100 Band Neuts % (Manual) 29 H Abnorm Lymph % (Manual) 0 Metamyelocytes % 1 H Nucleated RBC % Not Reportable Neutrophils # (Manual) 3.9 Lymphocytes # (Manual) 1.1 L Monocytes # (Manual) 0.1 Eosinophils # (Manual) 0.1 Basophils # (Manual) 0.0 Differential Comment MANUAL DIFFERENTIAL Manual Slide Review Indicated Platelet Estimate NORMAL (130-450,000) Platelet Morphology 1+ GIANT PLATELETS RBC Morph Micro Appear NORMAL APPEARANCE PT 14.5 H INR 1.3 H APTT 28.8 Sodium 134 L Potassium 3.9 Chloride 99 L Carbon Dioxide 19 L Anion Gap 16.0 H BUN 27 H Creatinine 1.6 H Estimated GFR (MDRD) 45 L Glucose 109 H Lactic Acid Calcium 8.3 L Total Bilirubin 1.9 H AST 45 H ALT 24 Alkaline Phosphatase 96 Total Protein 7.2 Albumin 3.5 Globulin 3.7 Albumin/Globulin Ratio 0.9 L Lipase 23 Urine Color Urine Clarity Urine pH Ur Specific [place] Urine Protein Urine Glucose (UA) Urine Ketones Urine Occult Blood Urine Nitrite Urine Bilirubin Urine Urobilinogen Ur Leukocyte Esterase Urine RBC Urine WBC Ur Squamous Epith Cells Urine Bacteria Ur Microscopic Review Urine Culture Comments 01/31/18 01/31/18 15:50 16:21 WBC RBC Hgb Hct MCV MCH MCHC RDW Plt Count MPV Neut # (Auto) Lymph # (Auto) [place] # (Auto) Eos # (Auto) Baso # (Auto) Absolute Nucleated RBC Total Counted Band Neuts % (Manual) Abnorm Lymph % (Manual) Metamyelocytes % Nucleated RBC % Neutrophils # (Manual) Lymphocytes # (Manual) Monocytes # (Manual) Eosinophils # (Manual) Basophils # (Manual) Differential Comment Manual Slide Review Platelet Estimate Platelet Morphology RBC Morph Micro Appear PT INR APTT Sodium Potassium Chloride Carbon Dioxide Anion Gap BUN Creatinine Estimated GFR (MDRD) Glucose Lactic Acid 5.3 H* Calcium Total Bilirubin AST ALT Alkaline Phosphatase Total Protein Albumin Globulin Albumin/Globulin Ratio Lipase Urine Color YELLOW Urine Clarity SL. CLOUDY Urine pH 6.0 Ur Specific [place] 1.020 Urine Protein 30 H Urine Glucose (UA) NEGATIVE Urine Ketones NEGATIVE Urine Occult Blood MODERATE H Urine Nitrite NEGATIVE Urine Bilirubin NEGATIVE Urine Urobilinogen 0.2 (NORMAL) Ur Leukocyte Esterase MODERATE H Urine RBC 0-5 Urine WBC >25 H Ur Squamous Epith Cells RARE Squamous Urine Bacteria Rare Ur Microscopic Review INDICATED Urine Culture Comments INDICATED PD MEDICAL DECISION MAKING - ED course Complexity details: reviewed results, re-evaluated patient, considered differential, d/w patient, d/w freight traffic consultant ED course: 57-year-old male with urosepsis. 2 IV lines were placed, blood cultures drawn. Elevated lactate present. Given 30 mL/kg boluses of IV fluids. Started on broad-spectrum antibiotics. Will admit the patient to the ICU for sepsis. Discussed the case with Dr. Salvador, hospitalist who accepts. This document was made in part using voice recognition software. While efforts are made to proofread this document, sound alike and grammatical errors may occur. - Critical Care Time(min): 45 Time Includes: Direct patient care, Document care, Coordinate care, Medical consult Data interpretation: See progress note Procedures included in critical care time: See progress note Procedures excluded from critical care time: See progress note - Sepsis Event Current Stage of Sepsis: Sepsis Possible source of Sepsis: Genitourinary Mental/Cognitive Status: Alert/Oriented X3 Capillary refill: Less than 2 seconds Departure - Departure Disposition: 66 [facility] DC/Xfer Clinical Impression: Fever Qualifiers: Fever type: unspecified Qualified Code(s): R50.9 - Fever, unspecified Sepsis Qualifiers: Sepsis type: sepsis due to unspecified organism Qualified Code(s): A41.9 - Sepsis, unspecified organism UTI (urinary tract infection) Qualifiers: Urinary tract infection type: acute cystitis Hematuria presence: without hematuria Qualified Code(s): N30.00 - Acute cystitis without hematuria Condition: Stable
[2018-01-31] MEDS ORDERED: SODIUM CHLORIDE 0.9% 1,000 ML IV ONE ×2 (16:21→23:16)
[2018-01-31 16:24] LABS: ABNORMAL LYMPHS % (MANUAL) 0 %; BASOPHILS % (AUTO) 0.6 %; EOSINOPHILS % (AUTO) 0.1 %; HGB - HEMOGLOBIN 13.3 g/dL (14.0-18.0); LYMPHOCYTES % (AUTO) 15.6 %; MEAN CORPUSCULAR HEMOGLOBIN 28.9 pg (27.0-31.0); MEAN CORPUSCULAR HGB CONC 32.6 g/dL (32.0-36.0); MEAN CORPUSCULAR VOLUME 88.6 fL (80.0-94.0); MEAN PLATELET VOLUME 7.9 fL (7.4-11.4); MONOCYTES % (AUTO) 0.9 %; NEUTROPHILS % (AUTO) 82.8 %; PLT - PLATELET COUNT 149 10^3/uL (130-450); RED BLOOD COUNT 4.61 10^6/uL (4.70-6.10); RED CELL DISTRIBUTION WIDTH 16.5 % (12.0-15.0); WHITE BLOOD COUNT 5.2 x10^3/uL (4.8-10.8)
[2018-01-31] MEDS ORDERED: VANCOMYCIN INJ 2.25 GM in SODIUM CHLORIDE 0.9% 500 ML IV STA (16:24)
[2018-01-31 16:25] LABS: BAND NEUTROPHILS % (MANUAL) 29 %; EOSINOPHILS # (MANUAL) 0.1 10^3/uL (0-0.7); LYMPHOCYTES # (MANUAL) 1.1 10^3/uL (1.5-3.5); LYMPHOCYTES % (MANUAL) 22 %; METAMYELOCYTES % (MANUAL) 1 %; MONOCYTES # (MANUAL) 0.1 10^3/uL (0.0-1.0); NEUTROPHILS # (MANUAL) 3.9 10^3/uL (1.5-6.6); NEUTROPHILS % (MANUAL) 46 %
[2018-01-31 16:26] LABS: DIFFERENTIAL COMMENT MANUAL DIFFERENTIAL; PLATELET ESTIMATE, MANUAL NORMAL (130-450,000) (NORMAL); PLATELET MORPHOLOGY 1+ GIANT PLATELETS (NORMAL); RBC MORPHOLOGY (MULTIPLE) NORMAL APPEARANCE (NORMAL)
--- NOTE | 2018-01-31 16:29 | XRAY Report ---
Reason: fever Procedure Date: 01/31/2018 Accession Number: [id number] / [id number] Procedure: XR - Chest 1 View X-Ray CPT Code: 40440 FULL RESULT: EXAM: CHEST RADIOGRAPHY EXAM DATE: 01/31/2018 04:04 PM. CLINICAL HISTORY: Fever. COMPARISON: None available. TECHNIQUE: 1 view. FINDINGS: Cardiac leads overlie the chest. Heart size is normal. Small calcified plaques in the aortic arch. Lung volumes are low. There are patchy and streaky opacities in the left lung base, which likely represent atelectasis and/or scarring. Dextroconvex scoliotic curvature of the thoracic spine. Tendon anchor devices project over the left humeral head. IMPRESSION: Low lung volumes. Streaky opacities in the left lung base, likely atelectasis and/or scarring. No evidence of focal pneumonia. RADIA
[2018-01-31 16:32] LABS: BILIRUBIN,URINE NEGATIVE (NEGATIVE); GLUCOSE, URINE (UA) NEGATIVE (NEGATIVE); KETONES,URINE (UA) NEGATIVE (NEGATIVE); LEUKOCYTE ESTERASE, URINE MODERATE (NEGATIVE); NITRITE,URINE NEGATIVE (NEGATIVE); OCCULT BLOOD,URINE MODERATE (NEGATIVE); PROTEIN,URINE 30 mg/dL (NEGATIVE); UROBILINOGEN,URINE 0.2 (NORMAL) E.U./dL (NORMAL)
[2018-01-31] MEDS ORDERED: CEFEPIME 2 GM in SODIUM CHLORIDE 0.9% MINIBAG 100 ML IV STA (16:33)
[2018-01-31] MEDS ORDERED: metroNIDAZOLE 500 MG/100 ML 500 MG/100 ML BAG IV STA ×2 (16:33→17:45)
[2018-01-31 16:47] LABS: CLARITY,URINE SL. CLOUDY (CLEAR)
[2018-01-31 16:48] LABS: BACTERIA,URINE Rare /HPF (None Seen); RBC,URINE 0-5 /HPF (0-5); SQUAMOUS EPITHELIAL CELL,UR RARE Squamous (<= Few)
[2018-01-31] MEDS ORDERED: CEFEPIME 2 GM in SODIUM CHLORIDE 0.9% MINIBAG 100 ML IV SCH ×2 (17:00→23:55)
[2018-01-31] MEDS ORDERED: metroNIDAZOLE 500 MG/100 ML 500 MG/100 ML BAG IV SCH (17:00)
[2018-01-31] MEDS ORDERED: PROCHLORPERAZINE 10 MG/2 ML VIAL IVP PRN (17:37)
[2018-01-31] MEDS ORDERED: VANCOMYCIN PER PHARMACY 0.1 GM in SODIUM CHLORIDE 0.9% 250 ML IV SCH (17:45)
[2018-01-31] MEDS: diltiaZEM 30 MG TABLET PO SCH (20:50)
[2018-01-31] MEDS: ACETAMINOPHEN 325 MG TABLET PO PRN (20:55)
[2018-01-31] MEDS: GABAPENTIN 300 MG CAPSULE PO SCH (20:55)
[2018-01-31] MEDS: BACLOFEN 10 MG TABLET PO SCH (20:55)
[2018-01-31] MEDS: PANTOPRAZOLE 40 MG VIAL IVP SCH (20:56)
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
[2018-01-31] MEDS ORDERED: SODIUM CHLORIDE 0.9% 500 ML IV ONE (21:44)
[2018-01-31] MEDS ORDERED: SODIUM CHLORIDE 0.9% 1,000 ML IV SCH ×2 (22:00→23:17)
[2018-02-01] MEDS: SODIUM CHLORIDE FLUSH 0.9% 10 ML SYRINGE IVP SCH ×4 (02:09→21:20)
[2018-02-01] MEDS: metroNIDAZOLE 500 MG/100 ML 500 MG/100 ML BAG IV SCH ×3 (03:00→19:30)
[2018-02-01] MEDS: CEFEPIME 2 GM in SODIUM CHLORIDE 0.9% MINIBAG 100 ML IV SCH ×2 (05:08→16:50)
[2018-02-01 05:36] LABS: BASOPHILS % (AUTO) 0.3 %; HGB - HEMOGLOBIN 11.3 g/dL (14.0-18.0); LYMPHOCYTES # (AUTO) 1.3 10^3/uL (1.5-3.5); LYMPHOCYTES % (AUTO) 9.1 %; MEAN CORPUSCULAR HEMOGLOBIN 29.9 pg (27.0-31.0); MEAN CORPUSCULAR HGB CONC 32.1 g/dL (32.0-36.0); MEAN CORPUSCULAR VOLUME 93.1 fL (80.0-94.0); MEAN PLATELET VOLUME 8.3 fL (7.4-11.4); MONOCYTES # (AUTO) 0.9 10^3/uL (0.0-1.0); MONOCYTES % (AUTO) 6.5 %; NEUTROPHILS # (AUTO) 11.9 10^3/uL (1.5-6.6); NEUTROPHILS % (AUTO) 84.1 %; PLT - PLATELET COUNT 104 10^3/uL (130-450); RED BLOOD COUNT 3.78 10^6/uL (4.70-6.10); RED CELL DISTRIBUTION WIDTH 16.8 % (12.0-15.0); WHITE BLOOD COUNT 14.1 x10^3/uL (4.8-10.8)
[2018-02-01 05:48] LABS: ALBUMIN 2.7 g/dL (3.2-5.5); ALBUMIN/GLOBULIN RATIO 0.9 (1.0-2.2); BILIRUBIN,TOTAL 1.2 mg/dL (0.2-1.0); CALCIUM 7.1 mg/dL (8.5-10.3); CREATININE 1.3 mg/dL (0.6-1.2); MAGNESIUM 1.8 mg/dL (1.7-2.8); PHOSPHORUS 3.4 mg/dL (2.5-4.6); TOTAL PROTEIN 5.6 g/dL (6.7-8.2)
[2018-02-01] MEDS: SODIUM CHLORIDE 0.9% 1,000 ML IV SCH ×3 (07:35→19:30)
[2018-02-01] MEDS ORDERED: PSYLLIUM PACKET PO PRN (07:52)
[2018-02-01] MEDS ORDERED: MIN OIL/DIMETHICON/COCONUT OIL 92 GM TUBE TOP PRN (08:03)
[2018-02-01] MEDS: BACLOFEN 10 MG TABLET PO SCH ×2 (08:16→21:22)
[2018-02-01] MEDS: GABAPENTIN 300 MG CAPSULE PO SCH ×2 (08:17→21:21)
[2018-02-01] MEDS: PANTOPRAZOLE 40 MG VIAL IVP SCH ×2 (08:20→21:20)
[2018-02-01] MEDS: diltiaZEM 30 MG TABLET PO SCH ×2 (08:21→21:21)
[2018-02-01] MEDS: ENOXAPARIN 40 MG/0.4 ML SYRINGE SUBQ SCH (08:21)
[2018-02-01] MEDS ORDERED: BISACODYL 5 MG TABLET PO SCH (09:00)
[2018-02-01] MEDS ORDERED: BISACODYL 10 MG SUPP PR SCH (09:00)
--- NOTE | 2018-02-01 10:33 | PROVIDER PROGRESS NOTE ---
Assessment/Plan - Problem List (1) Septic shock Assessment/Plan: He had a normal BP at presentation in the ER, but developed shock in the ICU overnight. The BP responded to large amounts of iv crystalloids (he got >3L in 6-8 hours). This am his BP is normal and HR is slightly better as well. Continue to monitor lactic acid levels, which did increase this am, after starting to correct initially. Continue broad-spectrum iv antibiotics. Await urine and blood culture results and adjust antibiotics accordingly. Continue iv fluids at a slower rate (250/hr >> 150/hr). Remain in ICU, as he was in critical condition overnight. (2) Gram-negative bacteremia Assessment/Plan: Blood culture turned (+) in < 12 hours. The UTI appears to be the source. Continue broad-spectrum iv antibiotics. Await urine and blood culture results and adjust antibiotics accordingly. (3) UTI (urinary tract infection) Qualifiers: Urinary tract infection type: acute cystitis Hematuria presence: without hematuria Qualified Code(s): N30.00 - Acute cystitis without hematuria Assessment/Plan: This appears to be the source of the bacteremia and sepsis, causing septic shock. He currently has a Lombardo and no need to self-catheterize. Continue iv antibiotics. (4) Thrombocytopenia Assessment/Plan: This most likely is hemodilutional, since he required >3L of crystalloids for resuscitation when he was in shock. But consider DIC, since he has (+) bacteremia. He is on Lovenox, not Heparin, to consider HIT. Monitor CBC daily. (5) JOANNE (acute kidney injury) Assessment/Plan: Improved BUN/creat after volume replacement and treating the infection. Avoid nephrotoxins. Continue iv hydration. (6) Hypomagnesemia Assessment/Plan: Low-normal Mg, probably due to hemodilution. Monitor daily Mag. The Chemist Instrumentation also recommended MOV with minerals and Vit D daily. (7) Paraplegia Assessment/Plan: Stable (8) Wound, open, toe Qualifiers: Encounter type: initial encounter Qualified Code(s): S91.109A - Unspecified open wound of unspecified toe(s) without damage to nail, initial encounter Assessment/Plan: The ICU nurse reported several open wounds: toes bilaterally, sacrum, R davidson. He reported a wound opening in a crease in his groin. Will request Wound Care consult. (9) Neurogenic bladder Assessment/Plan: He now has a Lombardo. Self-catheterization creates his risk for UTIs, unfortunately. (10) Neurogenic bowel Assessment/Plan: The patient uses Dulcolax supp QOD, and Metamucil bid scheduled, not prn. Will order these. (11) Hx of essential hypertension Assessment/Plan: Currently all his BP meds are on hold, due to shock. Will resume these as vital signs necessitate. - Current Meds Current Meds: Current Medications Generic Name Dose Route Start Last Admin Trade Name Freq PRN Reason Stop Dose Admin Acetaminophen 650 mg 01/31/18 17:37 01/31/18 20:55 Tylenol PO 650 mg Q4HR PRN Administration Pain or Fever > 38C (100.4F) Baclofen 15 mg 01/31/18 21:00 02/01/18 08:16 Lioresal PO 15 mg BID EMORY Administration Bisacodyl 10 mg 02/01/18 09:00 02/01/18 08:49 Dulcolax PO Not Given DAILY EMORY Bisacodyl 10 mg 02/01/18 09:00 02/01/18 09:04 Dulcolax Supp NM 10 mg DAILY EMORY Administration Diltiazem HCl 60 mg 01/31/18 21:00 02/01/18 08:21 Cardizem PO 60 mg BID EMORY Administration Enoxaparin Sodium 40 mg 02/01/18 09:00 02/01/18 08:21 Lovenox SUBQ 40 mg DAILY EMORY Administration Gabapentin 900 mg 01/31/18 21:00 02/01/18 08:17 Neurontin PO 900 mg BID EMORY Administration Metronidazole 500 mg in 100 mls @ 100 mls/hr 02/01/18 03:00 02/01/18 06:53 Flagyl 500 Mg/100 Ml IV Infused Q8H EMORY Infusion Cefepime HCl 2 gm/ Sodium 100 mls @ 200 mls/hr 02/01/18 05:00 02/01/18 06:53 Chloride IV Infused Q12H EMORY Infusion Sodium Chloride 1,000 mls @ 150 mls/hr 02/01/18 06:57 02/01/18 09:07 Normal Saline 0.9% IV 150 mls/hr .Q6H40M EMORY Administration Pantoprazole Sodium 40 mg 01/31/18 21:00 02/01/18 08:20 Protonix IVP 40 mg BID EMORY Administration Psyllium Hydrophilic Mucilloid 1 packet 02/01/18 07:52 02/01/18 09:04 Metamucil PO 1 packet DAILY PRN Administration Constipation Sodium Chloride 10 ml 02/01/18 01:00 02/01/18 08:21 Normal Saline Flush 0.9% IVP 10 ml 0100,0900,1700 EMORY Administration - Lab Result Fish Bone Diagrams: 02/01/18 05:26 02/01/18 05:26 - Additional Planning My Orders: My Active Orders 01/31/18 17:37 Activity Orders [RC] Routine Daily Weight [RC] 0600 IO [RC] Q1HR IV Insert [RC] ONCE Initiate Bowel Care Protocol [RC] QSHIFT Initiate ICU Electrolyte Prot. [RC] .protocol Initiate Line Care Protocol [RC] .protocol Initiate Line Care Protocol [RC] .protocol Initiate Personal Care Protoco [RC] .protocol Vital Signs [RC] Q1HR Acetaminophen [Tylenol] 650 mg PO Q4HR PRN Prochlorperazine Inj [Compazine Inj] 10 mg IVP Q6HR PRN Sodium Chloride Flush 0.9% [Normal Saline Flush 0.9%] 10 ml IVP PRN PRN Code Status [OTHERS] Routine Condition of Patient [OTHERS] Routine DVT Prophylaxis [OTHERS] Routine 01/31/18 17:41 Lombardo Insertion [RC] Routine Oral Care - Nursing [RC] Routine Oxygen Therapy [RC] .PRN Telemetry- [RC] Routine 01/31/18 17:45 Vancomycin Per Pharmacy [Vancomycin-Pharmacy To Dose] 0.1 gm Sodium Chloride 0.9% [Normal Saline 0.9%] 250 ml IV Q24H 01/31/18 21:00 Baclofen [Lioresal] 15 mg PO BID Gabapentin [Neurontin] 900 mg PO BID Pantoprazole [Protonix] 40 mg IVP BID diltiaZEM [Cardizem] 60 mg PO BID 01/31/18 21:17 Nutrition Consult [CONS] Routine 01/31/18 Dinner Low Sodium Diet [DIET] 02/01/18 01:00 Sodium Chloride Flush 0.9% [Normal Saline Flush 0.9%] 10 ml IVP 0100,0900,1700 02/01/18 03:00 metroNIDAZOLE 500 MG/100 ML [Flagyl 500 mg/100 ml] 500 mg in 100 ml IV Q8H 02/01/18 05:00 Cefepime 2 gm Sodium Chloride 0.9% Minibag [Normal Saline 0.9% Minibag] 100 ml IV Q12H 02/01/18 08:03 Min Oil/Dimeth/Coconut Oil Crm [Cavilon] 1 applic TOP PRN PRN 02/01/18 09:00 Bisacodyl Supp [Dulcolax Supp] 10 mg NM DAILY Enoxaparin [Lovenox] 40 mg SUBQ DAILY 02/01/18 11:00 Vancomycin Inj [Vancomycin] 1.25 gm Sodium Chloride 0.9% [Normal Saline 0.9%] 250 ml IV Q18H 02/02/18 05:00 CBC - COMP BLD CT W/AUTO DIFF [HEME] DAILYLAB COMPREHENSIVE METABOLIC PANEL [CHEM] DAILYLAB MAGNESIUM [CHEM] DAILYLAB 02/03/18 05:00 CBC - COMP BLD CT W/AUTO DIFF [HEME] DAILYLAB COMPREHENSIVE METABOLIC PANEL [CHEM] DAILYLAB 02/04/18 05:00 CBC - COMP BLD CT W/AUTO DIFF [HEME] DAILYLAB COMPREHENSIVE METABOLIC PANEL [CHEM] DAILYLAB 02/05/18 05:00 CBC - COMP BLD CT W/AUTO DIFF [HEME] DAILYLAB COMPREHENSIVE METABOLIC PANEL [CHEM] DAILYLAB Subjective - Subjective Patient Reports: Feeling Better, Other (His own grunting awakens him. He cannot remember bits and pieces of the past [address] did drive himself here yesterday, in the ER at 4pm.) Objective Vital Signs: Vital Signs - 24 hr 01/31/18 01/31/18 01/31/18 15:40 16:03 16:24 Temperature 103.2 C H 39.9 C H Heart Rate 152 H 147 H 135 H Heart Rate [ Monitoring electrodes] Respiratory 24 23 28 H Rate Blood Pressure 160/62 H 124/83 H 135/92 H Blood Pressure [Right Brachial artery] O2 Saturation 92 95 95 01/31/18 01/31/18 01/31/18 16:25 16:54 17:24 Temperature Heart Rate 138 H 126 H 121 H Heart Rate [ Monitoring electrodes] Respiratory 32 H 33 H 33 H Rate Blood Pressure 107/90 H 157/86 H 139/83 H Blood Pressure [Right Brachial artery] O2 Saturation 94 93 91 L 01/31/18 01/31/18 01/31/18 17:30 18:00 18:06 Temperature 102.4 C H Heart Rate 121 H 125 H 129 H Heart Rate [ Monitoring electrodes] Respiratory 32 H 30 H 32 H Rate Blood Pressure 139/83 H 149/80 H 149/80 H Blood Pressure [Right Brachial artery] O2 Saturation 94 93 95 01/31/18 01/31/18 01/31/18 18:30 19:00 19:58 Temperature 41.3 C H Heart Rate 125 H 133 H 136 H Heart Rate [ Monitoring electrodes] Respiratory 34 H 32 H 29 H Rate Blood Pressure 149/80 H 137/92 H 138/66 H Blood Pressure [Right Brachial artery] O2 Saturation 93 93 93 01/31/18 01/31/18 01/31/18 20:35 20:45 20:50 Temperature 39.5 C H Heart Rate Heart Rate [ 138 H 135 H Monitoring electrodes] Respiratory 33 H 36 H Rate Blood Pressure 92/57 L Blood Pressure 90/58 L 92/57 L [Right Brachial artery] O2 Saturation 94 93 01/31/18 01/31/18 01/31/18 21:00 21:15 21:30 Temperature Heart Rate Heart Rate [ 127 H 126 H 119 H Monitoring electrodes] Respiratory 34 H 21 33 H Rate Blood Pressure Blood Pressure 86/60 L 91/56 L 86/59 L [Right Brachial artery] O2 Saturation 93 93 93 01/31/18 01/31/18 01/31/18 22:00 22:45 23:00 Temperature 39.0 C H Heart Rate Heart Rate [ 116 H 102 H 99 Monitoring electrodes] Respiratory 33 H 23 20 Rate Blood Pressure Blood Pressure 81/63 L 77/51 L 88/54 L [Right Brachial artery] O2 Saturation 95 93 96 01/31/18 01/31/18 02/01/18 23:19 23:34 00:00 Temperature 36.8 C Heart Rate Heart Rate [ 99 99 90 Monitoring electrodes] Respiratory 19 21 15 Rate Blood Pressure Blood Pressure 94/61 106/71 94/64 [Right Brachial artery] O2 Saturation 94 93 94 02/01/18 02/01/18 02/01/18 01:00 02:00 03:00 Temperature Heart Rate Heart Rate [ 83 79 78 Monitoring electrodes] Respiratory 10 L 10 L 10 L Rate Blood Pressure Blood Pressure 101/65 91/61 103/70 [Right Brachial artery] O2 Saturation 95 95 94 02/01/18 02/01/18 02/01/18 04:00 05:00 06:00 Temperature 36.8 C Heart Rate Heart Rate [ 74 83 86 Monitoring electrodes] Respiratory 12 20 22 Rate Blood Pressure Blood Pressure 99/69 113/88 H 106/71 [Right Brachial artery] O2 Saturation 95 97 96 02/01/18 02/01/18 02/01/18 07:30 08:21 09:00 Temperature 37.1 C Heart Rate Heart Rate [ 89 99 Monitoring electrodes] Respiratory 25 H 22 Rate Blood Pressure 139/84 H Blood Pressure 104/60 133/70 H [Right Brachial artery] O2 Saturation 95 95 02/01/18 10:00 Temperature Heart Rate Heart Rate [ 95 Monitoring electrodes] Respiratory 22 Rate Blood Pressure Blood Pressure 140/67 H [Right Brachial artery] O2 Saturation 96 Oxygen O2 Source Nasal cannula I&O (Last 24 Hrs): Intake and Output Totals x24h 01/30/18 01/31/18 02/01/18 23:59 23:59 23:59 Intake Total 3760 5515 Output Total 710 1820 Balance 3050 3695 General: Alert, Oriented x3 HEENT: Mucous membr. moist/pink Neck: Supple, No JVD Neuro: Other (Paraplegia) Cardiovascular: Regular rate, No murmurs Respiratory: No respiratory distress, Breath sounds nml Abdomen: Soft Extremities: Other (1+ edema) - Results Results: Laboratory Results WBC 14.1 x10^3/uL (4.8-10.8) H 02/01/18 05:26 RBC 3.78 10^6/uL (4.70-6.10) L 02/01/18 05:26 Hgb 11.3 g/dL (14.0-18.0) L 02/01/18 05:26 Hct 35.2 % (42.0-52.0) L 02/01/18 05:26 MCV 93.1 fL (80.0-94.0) 02/01/18 05:26 MCH 29.9 pg (27.0-31.0) 02/01/18 05:26 MCHC 32.1 g/dL (32.0-36.0) 02/01/18 05:26 RDW 16.8 % (12.0-15.0) H 02/01/18 05:26 Plt Count 104 10^3/uL (130-450) L 02/01/18 05:26 MPV 8.3 fL (7.4-11.4) 02/01/18 05:26 Neut # (Auto) 11.9 10^3/uL (1.5-6.6) H 02/01/18 05:26 Lymph # (Auto) 1.3 10^3/uL (1.5-3.5) L 02/01/18 05:26 [place] # (Auto) 0.9 10^3/uL (0.0-1.0) 02/01/18 05:26 Eos # (Auto) 0.0 10^3/uL (0.0-0.7) 02/01/18 05:26 Baso # (Auto) 0.0 10^3/uL (0.0-0.1) 02/01/18 05:26 Absolute Nucleated RBC 0.00 x10^3/uL 02/01/18 05:26 Total Counted 100 01/31/18 15:50 Band Neuts % (Manual) 29 % (0-10) H 01/31/18 15:50 Abnorm Lymph % (Manual) 0 % 01/31/18 15:50 Metamyelocytes % 1 % (-0) H 01/31/18 15:50 Nucleated RBC % 0.0 /100WBC 02/01/18 05:26 Neutrophils # (Manual) 3.9 10^3/uL (1.5-6.6) 01/31/18 15:50 Lymphocytes # (Manual) 1.1 10^3/uL (1.5-3.5) L 01/31/18 15:50 Monocytes # (Manual) 0.1 10^3/uL (0.0-1.0) 01/31/18 15:50 Eosinophils # (Manual) 0.1 10^3/uL (0-0.7) 01/31/18 15:50 Basophils # (Manual) 0.0 10^3/uL (0-0.1) 01/31/18 15:50 Differential Comment MANUAL DIFFERENTIAL 01/31/18 15:50 Manual Slide Review Indicated 01/31/18 15:50 Platelet Estimate NORMAL (130-450,000) (NORMAL) 01/31/18 15:50 Platelet Morphology 1+ GIANT PLATELETS (NORMAL) 01/31/18 15:50 RBC Morph Micro Appear NORMAL APPEARANCE (NORMAL) 01/31/18 15:50 PT 14.5 secs (9.9-12.6) H 01/31/18 15:50 INR 1.3 (0.8-1.2) H 01/31/18 15:50 APTT 28.8 secs (24.9-33.3) 01/31/18 15:50 Sodium 138 mmol/L (135-145) 02/01/18 05:26 Potassium 3.6 mmol/L (3.5-5.0) 02/01/18 05:26 Chloride 110 mmol/L (101-111) 02/01/18 05:26 Carbon Dioxide 20 mmol/L (21-32) L 02/01/18 05:26 Anion Gap 8.0 (6-13) 02/01/18 05:26 BUN 23 mg/dL (6-20) H 02/01/18 05:26 Creatinine 1.3 mg/dL (0.6-1.2) H 02/01/18 05:26 Estimated GFR (MDRD) 57 (>89) L 02/01/18 05:26 Glucose 103 mg/dL (70-100) H 02/01/18 05:26 Lactic Acid 2.0 mmol/L (0.5-2.2) 02/01/18 05:26 Calcium 7.1 mg/dL (8.5-10.3) L 02/01/18 05:26 Phosphorus 3.4 mg/dL (2.5-4.6) 02/01/18 05:26 Magnesium 1.8 mg/dL (1.7-2.8) 02/01/18 05:26 Total Bilirubin 1.2 mg/dL (0.2-1.0) H 02/01/18 05:26 AST 68 IU/L (10-42) H 02/01/18 05:26 ALT 31 IU/L (10-60) 02/01/18 05:26 Alkaline Phosphatase 55 IU/L (42-121) 02/01/18 05:26 C-Reactive Protein 22.2 mg/dL (0-1.0) H 01/31/18 15:44 Total Protein 5.6 g/dL (6.7-8.2) L 02/01/18 05:26 Albumin 2.7 g/dL (3.2-5.5) L 02/01/18 05:26 Globulin 2.9 g/dL (2.1-4.2) 02/01/18 05:26 Albumin/Globulin Ratio 0.9 (1.0-2.2) L 02/01/18 05:26 Lipase 23 U/L (22-51) 01/31/18 15:50 Urine Color YELLOW 01/31/18 16:21 Urine Clarity SL. CLOUDY (CLEAR) 01/31/18 16:21 Urine pH 6.0 PH (5.0-7.5) 01/31/18 16:21 Ur Specific [place] 1.020 (1.002-1.030) 01/31/18 16:21 Urine Protein 30 mg/dL (NEGATIVE) H 01/31/18 16:21 Urine Glucose (UA) NEGATIVE mg/dL (NEGATIVE) 01/31/18 16:21 Urine Ketones NEGATIVE mg/dL (NEGATIVE) 01/31/18 16:21 Urine Occult Blood MODERATE (NEGATIVE) H 01/31/18 16:21 Urine Nitrite NEGATIVE (NEGATIVE) 01/31/18 16:21 Urine Bilirubin NEGATIVE (NEGATIVE) 01/31/18 16:21 Urine Urobilinogen 0.2 (NORMAL) E.U./dL (NORMAL) 01/31/18 16:21 Ur Leukocyte Esterase MODERATE (NEGATIVE) H 01/31/18 16:21 Urine RBC 0-5 /HPF (0-5) 01/31/18 16:21 Urine WBC >25 /HPF (0-3) H 01/31/18 16:21 Ur Squamous Epith Cells RARE Squamous (<= Few) 01/31/18 16:21 Urine Bacteria Rare /HPF (None Seen) 01/31/18 16:21 Ur Microscopic Review INDICATED 01/31/18 16:21 Urine Culture Comments INDICATED 01/31/18 16:21 Sepsis Event Note (H) - Evaluation Possible source of Sepsis: positive: Genitourinary
[2018-02-01] MEDS ORDERED: VANCOMYCIN INJ 1.25 GM in SODIUM CHLORIDE 0.9% 250 ML IV SCH ×5 (11:00→12:00)
[2018-02-01] MEDS: ACETAMINOPHEN 325 MG TABLET PO PRN ×3 (11:50→21:22)
[2018-02-01] MEDS: BISACODYL 10 MG SUPP PR SCH (12:34)
[2018-02-01] MEDS: SACCHAROMYCES BOULARDII 250 MG CAPSULE PO SCH ×2 (12:38→16:50)
[2018-02-01] MEDS: MULTIVITAMIN W/MINERALS TABLET PO SCH (12:38)
[2018-02-01] MEDS: CHOLECALCIFEROL 1,000 UNIT TABLET PO SCH (12:38)
[2018-02-01] MEDS: PSYLLIUM PACKET PO SCH (21:21)
[2018-02-02] MEDS: VANCOMYCIN INJ 1 GM in SODIUM CHLORIDE 0.9% 250 ML IV SCH ×2 (00:01→11:57)
[2018-02-02] MEDS: ACETAMINOPHEN 325 MG TABLET PO PRN (01:53)
[2018-02-02] MEDS: SODIUM CHLORIDE 0.9% 1,000 ML IV SCH ×3 (02:59→14:14)
[2018-02-02] MEDS: metroNIDAZOLE 500 MG/100 ML 500 MG/100 ML BAG IV SCH ×2 (02:59→10:49)
[2018-02-02] MEDS: CEFEPIME 2 GM in SODIUM CHLORIDE 0.9% MINIBAG 100 ML IV SCH ×2 (04:52→16:36)
[2018-02-02] MEDS: LORazepam 2 MG/ML VIAL IVP PRN ×5 (04:52→20:53)
[2018-02-02 05:13] LABS: BASOPHILS # (AUTO) 0.1 10^3/uL (0.0-0.1); BASOPHILS % (AUTO) 0.7 %; EOSINOPHILS # (AUTO) 0.1 10^3/uL (0.0-0.7); EOSINOPHILS % (AUTO) 0.7 %; HGB - HEMOGLOBIN 10.8 g/dL (14.0-18.0); LYMPHOCYTES # (AUTO) 0.8 10^3/uL (1.5-3.5); MEAN CORPUSCULAR VOLUME 90.9 fL (80.0-94.0); MEAN PLATELET VOLUME 8.2 fL (7.4-11.4); MONOCYTES # (AUTO) 0.9 10^3/uL (0.0-1.0); MONOCYTES % (AUTO) 9.8 %; NEUTROPHILS # (AUTO) 7.3 10^3/uL (1.5-6.6); NEUTROPHILS % (AUTO) 79.8 %; PLT - PLATELET COUNT 86 10^3/uL (130-450); RED BLOOD COUNT 3.61 10^6/uL (4.70-6.10); RED CELL DISTRIBUTION WIDTH 16.5 % (12.0-15.0); WHITE BLOOD COUNT 9.1 x10^3/uL (4.8-10.8)
[2018-02-02 05:27] LABS: ALBUMIN 2.5 g/dL (3.2-5.5); ALBUMIN/GLOBULIN RATIO 0.8 (1.0-2.2); BILIRUBIN,TOTAL 0.9 mg/dL (0.2-1.0); CALCIUM 7.3 mg/dL (8.5-10.3); CREATININE 0.9 mg/dL (0.6-1.2); MAGNESIUM 1.9 mg/dL (1.7-2.8); TOTAL PROTEIN 5.5 g/dL (6.7-8.2)
[2018-02-02] MEDS: SODIUM CHLORIDE FLUSH 0.9% 10 ML SYRINGE IVP SCH ×2 (08:00→16:40)
[2018-02-02] MEDS: diltiaZEM 30 MG TABLET PO SCH ×2 (08:37→20:53)
[2018-02-02] MEDS: GABAPENTIN 300 MG CAPSULE PO SCH ×2 (08:37→20:53)
[2018-02-02] MEDS: MULTIVITAMIN W/MINERALS TABLET PO SCH (08:39)
[2018-02-02] MEDS: BACLOFEN 10 MG TABLET PO SCH ×2 (08:39→20:55)
[2018-02-02] MEDS: SACCHAROMYCES BOULARDII 250 MG CAPSULE PO SCH ×2 (08:39→16:42)
[2018-02-02] MEDS: CHOLECALCIFEROL 1,000 UNIT TABLET PO SCH (08:39)
[2018-02-02] MEDS: ENOXAPARIN 40 MG/0.4 ML SYRINGE SUBQ SCH ×2 (08:40→10:53)
[2018-02-02] MEDS: PANTOPRAZOLE 40 MG VIAL IVP SCH ×2 (08:41→20:59)
[2018-02-02] MEDS: PSYLLIUM PACKET PO SCH ×2 (08:41→21:00)
[2018-02-02 11:45] LABS: VANCOMYCIN,TROUGH 13.2 ug/mL (10.0-20.0)
--- NOTE | 2018-02-02 13:46 | PROVIDER PROGRESS NOTE ---
Subjective - Prog Note Date Prog Note Date: 02/02/18 Prog Note Time: 13:58 - Subjective Subjective: He was asleep when I walked into the ICU this morning. When I asked him how he was feeling he said he was just short of breath. He said that was his main problem over the last couple of days. He just feels like he cannot breathe and is getting more more short of breath just sitting in this bed. He is sleeping upright. I asked him if he always sleeps upright and he says he does. He says is too much of an exertion to get in and out of bed at home so he sleeps upright in a chair. He denies chest pain, palpitations. He is developed a new mild int ermittent cough. Nonproductive. No fever no chills. 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 Abdullahi Kim, call from [facility]. Mr. Slater had wanted to make sure we knew about his previous infections and Dr. Kim had some recommendations as dictated below in the assessment and plan. Mr. Slater has now been hemodynamically stable for 24 hours since being in the ICU, and decompensating with septic shock. Current Medications - Current Medications Current Medications: Active Medications Acetaminophen (Tylenol) 650 mg PO Q4HR PRN PRN Reason: Pain or Fever > 38C (100.4F) Last Admin: 02/02/18 01:53 Dose: 650 mg Baclofen (Lioresal) 15 mg PO BID [facility] Last Admin: 02/02/18 08:39 Dose: 15 mg Bisacodyl (Dulcolax Supp) 10 mg AK Q48H [facility] Last Admin: 02/01/18 12:34 Dose: Not Given Cholecalciferol (Vitamin D3) 1,000 unit PO DAILY [facility] Last Admin: 02/02/18 08:39 Dose: 1,000 unit Diltiazem HCl (Cardizem) 60 mg PO BID [facility] Last Admin: 02/02/18 08:37 Dose: 60 mg Enoxaparin Sodium (Lovenox) 40 mg SUBQ DAILY [facility] Gabapentin (Neurontin) 900 mg PO BID [facility] Last Admin: 02/02/18 08:37 Dose: 900 mg Cefepime HCl 2 gm/ Sodium (Chloride) 100 mls @ 200 mls/hr IV Q12H [facility] Last Infusion: 02/02/18 05:27 Dose: Infused Vancomycin HCl 1 gm/ Sodium (Chloride) 250 mls @ 167 mls/hr IV Q12H [facility] Last Admin: 02/02/18 11:57 Dose: 167 mls/hr Sodium Chloride (Normal Saline 0.9%) 1,000 mls @ 85 mls/hr IV .[id number] [facility] Last Admin: 02/02/18 09:46 Dose: 85 mls/hr Lorazepam (Ativan Inj (Vial)) 1 mg IVP Q2H PRN PRN Reason: Anxiety Last Admin: 02/02/18 08:00 Dose: 1 mg Mineral Oil (Cavilon) 1 applic TOP PRN PRN PRN Reason: Skin Care Multivitamins/Minerals (Theragran M) 1 tab PO DAILYWM [facility] Last Admin: 02/02/18 08:39 Dose: 1 tab Pantoprazole Sodium (Protonix) 40 mg IVP BID [facility] Last Admin: 02/02/18 08:41 Dose: 40 mg Prochlorperazine Edisylate (Compazine Inj) 10 mg IVP Q6HR PRN PRN Reason: Nausea / Vomiting Psyllium Hydrophilic Mucilloid (Metamucil) 1 packet PO BID [facility] Last Admin: 02/02/18 08:41 Dose: 1 packet Saccharomyces Boulardii (Florastor) 500 mg PO BIDWM [facility] Last Admin: 02/02/18 08:39 Dose: 500 mg Sodium Chloride (Normal Saline Flush 0.9%) 10 ml IVP 0100,0900,1700 [facility] Last Admin: 02/02/18 08:00 Dose: 10 ml Sodium Chloride (Normal Saline Flush 0.9%) 10 ml IVP PRN PRN PRN Reason: NEEDED PER PROVIDER ORDERS Baclofen 15 mg PO BID 01/05/17 Cholecalciferol (Vitamin D3) [Vitamin D3] 2,000 unit PO DAILY 01/05/17 Gabapentin 900 mg PO TID 01/05/17 Lisinopril 40 mg PO DAILY 01/05/17 Multivitamin [Multiple Vitamins] 1 tab PO DAILY 01/05/17 Solifenacin Succinate [Vesicare] 10 mg PO DAILY 01/05/17 amLODIPine [Norvasc] 5 mg PO DAILY 01/05/17 Furosemide 20 mg PO DAILY 02/01/18 Objective - Vital Signs/Intake & Output Reviewed Vital Signs: Yes Vital Signs: Vital Signs Temp Pulse Resp BP Pulse Ox 02/02/18 12:47 37.1 C 90 24 134/78 H 94 Intake & Output: Intake & Output 01/30/18 01/31/18 02/01/18 02/02/18 23:59 23:59 23:59 23:59 Intake Total 3760 8575 3430 Output Total 710 3420 1490 Balance 3050 5155 1940 - Objective General Appearance: positive: Alert, Mild distress (From cough and shortness of breath at rest) Eyes Bilateral: positive: PERRL, EOMI ENT: positive: Dry mucous membranes Neck: positive: No JVD. negative: Stiff neck, Carotid bruit Respiratory: positive: Chest non-tender, Rales, Rhonchi. negative: Wheezes Cardiovascular: positive: Regular rate & rhythm, Systolic murmur. negative: Gallop/S4, Friction rub Abdomen: positive: Non-tender, No organomegaly, Nml bowel sounds, No distention, Other (Lombardo in place from neurogenic bladder) Skin: positive: Pallor, Other (Skin tear is noted by RN. Discussion with wound clinic nurse read) Extremities: positive: Non-tender, Pedal edema Neurologic/Psychiatric: positive: Oriented x3, CN's nml (2-12). negative: Motor nml (Legs are weak from paraplegia) - Lab Results Fish Bones: 02/02/18 04:57 02/02/18 04:57 Other Labs: Lab Results x24hrs 02/02/18 02/02/18 02/02/18 Range/Units 11:25 11:25 04:57 WBC (4.8-10.8) x10^3/uL RBC (4.70-6.10) 10^6/uL Hgb (14.0-18.0) g/dL Hct (42.0-52.0) % MCV (80.0-94.0) fL MCH (27.0-31.0) pg MCHC (32.0-36.0) g/dL RDW (12.0-15.0) % Plt Count (130-450) 10^3/uL MPV (7.4-11.4) fL Neut # (Auto) (1.5-6.6) 10^3/uL Lymph # (Auto) (1.5-3.5) 10^3/uL Pacific # (Auto) (0.0-1.0) 10^3/uL Eos # (Auto) (0.0-0.7) 10^3/uL Baso # (Auto) (0.0-0.1) 10^3/uL Absolute Nucleated RBC x10^3/uL Nucleated RBC % /100WBC Sodium 138 (135-145) mmol/L Potassium 3.5 (3.5-5.0) mmol/L Chloride 111 (101-111) mmol/L Carbon Dioxide 18 L (21-32) mmol/L Anion Gap 9.0 (6-13) BUN 17 (6-20) mg/dL Creatinine 0.9 (0.6-1.2) mg/dL Estimated GFR (MDRD) 87 L (>89) Glucose 118 H (70-100) mg/dL Calcium 7.3 L (8.5-10.3) mg/dL Magnesium 1.9 (1.7-2.8) mg/dL Total Bilirubin 0.9 (0.2-1.0) mg/dL AST 57 H (10-42) IU/L ALT 37 (10-60) IU/L Alkaline Phosphatase 65 (42-121) IU/L B-Natriuretic Peptide 170 H (5-100) pg/mL Total Protein 5.5 L (6.7-8.2) g/dL Albumin 2.5 L (3.2-5.5) g/dL Globulin 3.0 (2.1-4.2) g/dL Albumin/Globulin Ratio 0.8 L (1.0-2.2) Last Dose Date 02/02/18 Last Dose Time 11:57 Vancomycin Trough 13.2 (10.0-20.0) ug/mL 02/02/18 Range/Units 04:57 WBC 9.1 (4.8-10.8) x10^3/uL RBC 3.61 L (4.70-6.10) 10^6/uL Hgb 10.8 L (14.0-18.0) g/dL Hct 32.8 L (42.0-52.0) % MCV 90.9 (80.0-94.0) fL MCH 30.0 (27.0-31.0) pg MCHC 33.0 (32.0-36.0) g/dL RDW 16.5 H (12.0-15.0) % Plt Count 86 L (130-450) 10^3/uL MPV 8.2 (7.4-11.4) fL Neut # (Auto) 7.3 H (1.5-6.6) 10^3/uL Lymph # (Auto) 0.8 L (1.5-3.5) 10^3/uL Pacific # (Auto) 0.9 (0.0-1.0) 10^3/uL Eos # (Auto) 0.1 (0.0-0.7) 10^3/uL Baso # (Auto) 0.1 (0.0-0.1) 10^3/uL Absolute Nucleated RBC 0.00 x10^3/uL Nucleated RBC % 0.0 /100WBC Sodium (135-145) mmol/L Potassium (3.5-5.0) mmol/L Chloride (101-111) mmol/L Carbon Dioxide (21-32) mmol/L Anion Gap (6-13) BUN (6-20) mg/dL Creatinine (0.6-1.2) mg/dL Estimated GFR (MDRD) (>89) Glucose (70-100) mg/dL Calcium (8.5-10.3) mg/dL Magnesium (1.7-2.8) mg/dL Total Bilirubin (0.2-1.0) mg/dL AST (10-42) IU/L ALT (10-60) IU/L Alkaline Phosphatase (42-121) IU/L B-Natriuretic Peptide (5-100) pg/mL Total Protein (6.7-8.2) g/dL Albumin (3.2-5.5) g/dL Globulin (2.1-4.2) g/dL Albumin/Globulin Ratio (1.0-2.2) Last Dose Date Last Dose Time Vancomycin Trough (10.0-20.0) ug/mL Sepsis Event Note (H) - Evaluation Possible source of Sepsis: positive: Genitourinary Assessment/Plan - Problem List (1) Septic shock Impression: Resolved. He had a normal BP at presentation in the ER, but developed shock in the ICU overnight. The BP responded to large amounts of iv crystalloids (he got >3L in 6-8 hours). By 12/10 am BP was normal and HR is slightly better as well.He has remained hemodynamically stable now for 24 hours. Lactic acid 5.3> 2.3> 1.2> 2.0> 2.0 On broad-spectrum iv antibiotics with cefipime and flagyl. Urine culture is now showing Klebsiella. Resistant to ampicillin and inte rmediate response to nitrofurantoin. But sensitive to all else. His blood culture showed gram-negative bacilli with identity still pending on all 4 bottles. Continue iv fluids at a slower rate (250/hr >> 150/hr). Transfer from ICU to [facility]. (2) Gram-negative bacteremia Assessment/Plan: Blood culture turned (+) in < 12 hours. Gram neg baccili. 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 Abdullahi Kim, call from [facility] today. I discussed the case with him. He feels that cefepime, at this time, is enough for what we are seen. We can stop the Flagyl and the vancomycin. If he were not doing well hemodynamically he would request a change to ertapenem. But he seems stable to continue the cefepime, day #3 The UTI appears to be the source. Klebsiella is the organism. Sensitivities as above (3) Klebsiella UTI (urinary tract infection) Qualifiers: Urinary tract infection type: acute cystitis Hematuria presence: without hematuria Qualified Code(s): N30.00 - Acute cystitis without hematuria Assessment/Plan: This appears to be the source of the bacteremia and sepsis, causing septic shock. He currently has a Lombardo and no need to self-catheterize. Continue iv antibiotics. (4) Thrombocytopenia Assessment/Plan: This most likely is hemodilutional, since he required >3L of crystalloids for resuscitation when he was in shock. But consider DIC, since he has (+) bacteremia. He is on Lovenox, not Heparin, to consider HIT. Platelets continue to drop. He was initially 149, then 104-day #2, and is now 86-day #3. Stop Lovenox and use DAWSON hose and sequential compression device Monitor CBC daily. (5) JOANNE (acute kidney injury) Assessment/Plan: Improved BUN/creat after volume replacement and treating the infection.Creatinine 1.6> 1.3> 0.9 today Avoid nephrotoxins. Continue iv hydration. (6) Hypomagnesemia Assessment/Plan: Low-normal Mg, probably due to hemodilution. Monitor daily Mag. Normal today. The Regional Marketing Manager also recommended MOV with minerals and Vit D daily. (7) Paraplegia Assessment/Plan: Stable (8) Wound, open, toe Qualifiers: Encounter type: initial encounter Qualified Code(s): S91.109A - Unspecified open wound of unspecified toe(s) without damage to nail, initial encounter Assessment/Plan: The ICU nurse reported several open wounds: toes bilaterally, sacrum, R davidson. He reported a wound opening in a crease in his groin. 02/01/18 14:54 - MAC Note by Giuliana Becker Num: [id number] : 1960 Patient Age: 57 1430: Spoke with BECCA Null about wound consult request. Tennille said I did not need to see pt as she was able to apply barrier cream to buttocks and tips of toes. She placed a Mepitel 1 on davidson wound and covered which seems appropriate after seeing photos in notes. Tennille also reports there is a superficial tear on buttocks after bedpan use today. Advised to use barrier cream and monitor. May need to use Mepitel 1 on this wound as well. (9) Neurogenic bladder Assessment/Plan: He now has a Lombardo. Self-catheterization creates his risk for UTIs, unfortunately. (10) Neurogenic bowel Assessment/Plan: The patient uses Dulcolax supp QOD, and Metamucil bid scheduled, not prn. Will order these. (11) Hx of essential hypertension Assessment/Plan: Currently all his BP meds are on hold, due to shock. Will resume these as vital signs necessitate. Yesterday and today his blood pressure has been stable in the 112-125 region. This afternoon he is 134 systolic. We will keep a close eye on this. If he starts creeping above 138 systolic will resume his amlodipine 5 mg daily. If blood pressure still warranted will also resume lisinopril 40 mg daily. Last to be resumed will be the Lasix 20 mg daily. (12) Shortness of breath. He says this is a chronic complaint for him. He is always short of breath if he tries to do anything too hard. Right now he lives alone, and is managed to transfer himself to a wheelchair to than do his activities of daily living. Right now he is too weak he cannot even move up and down the bed without the nurse help being him. He prefers to sleep upright in a chair. He says that getting in and out of the bed is too much of an exertion for him so he sleeps in a chair at home. Plan: This seems to be some acuteness to this shortness of breath this admission. D- dimer will be elevated because of infection. We will go ahead and order CT pulmonary angiogram for making sure he does not have a PE BNP is minimally elevated at 170. I do not suspect him to have congestive heart failure Check chest x-ray to make sure patchy infiltrate seen on admission are not wo rsening
[2018-02-02] MEDS ORDERED: SODIUM CHLORIDE FLUSH 0.9% 10 ML SYRINGE ONE (14:04)
[2018-02-02] MEDS ORDERED: IOVERSOL 320 100 ML VIAL IVP ONE ×2 (14:16→15:05)
--- NOTE | 2018-02-02 15:48 | CT Report ---
Reason: new shortness of breath Procedure Date: 02/02/2018 Accession Number: [id number] / [id number] Procedure: CT - Chest Angio (PE) CPT Code: FULL RESULT: EXAM: CT ANGIOGRAM CHEST EXAM DATE: 02/02/2018 02:52 PM. CLINICAL HISTORY: New shortness of breath. COMPARISON: None. TECHNIQUE: Routine helical imaging was performed through the chest in the pulmonary arterial phase. IV Contrast: 72 mL of Optiray 320. Reconstructions: Coronal 3-D MIP reconstructions.Sagittal and coronal. In accordance with CT protocol optimization, one or more of the following dose reduction techniques were utilized for this exam: automated exposure control, adjustment of mA and/or KV based on patient size, or use of iterative reconstructive technique. FINDINGS: Pulmonary Arteries: Diagnostic quality: Adequate through the proximal segmental arteries for occlusive thrombus. There is no large proximal pulmonary embolism. Limitations stem from photon attenuation due to patient body habitus as well as contrast bolus timing. RV/LV is within normal limits. There is no interventricular septal bowing. There is no reflux of contrast material in the IVC. Lungs/Pleura: There is bilateral groundglass opacity in a nondependent distribution as well as dependent consolidation and moderate bilateral pleural effusions, mildly loculated in the right fissure. Mediastinum: There is biventricular cardiomegaly in the setting of a borderline enlarged main pulmonary artery, 3 cm. No pericardial effusion. Thoracic Aorta: Unremarkable. Upper Abdomen: Unremarkable. Other: None. IMPRESSION: Bilateral pulmonary consolidation with pleural effusions. Biventricular cardiomegaly and proximal pulmonary arterial enlargement. Limited study with no occlusive proximal pulmonary embolism to the level of the proximal segmental arteries. RADIA
[2018-02-03] MEDS: VANCOMYCIN INJ 1 GM in SODIUM CHLORIDE 0.9% 250 ML IV SCH (00:47)
[2018-02-03] MEDS: SODIUM CHLORIDE FLUSH 0.9% 10 ML SYRINGE IVP PRN ×2 (00:58→05:00)
[2018-02-03] MEDS: LORazepam 2 MG/ML VIAL IVP PRN ×3 (00:59→18:50)
[2018-02-03] MEDS: SODIUM CHLORIDE FLUSH 0.9% 10 ML SYRINGE IVP SCH ×3 (02:46→17:48)
[2018-02-03] MEDS: CEFEPIME 2 GM in SODIUM CHLORIDE 0.9% MINIBAG 100 ML IV SCH ×2 (04:32→17:48)
[2018-02-03 05:09] LABS: BASOPHILS # (AUTO) 0.1 10^3/uL (0.0-0.1); BASOPHILS % (AUTO) 0.5 %; EOSINOPHILS % (AUTO) 0.1 %; HGB - HEMOGLOBIN 11.9 g/dL (14.0-18.0); LYMPHOCYTES % (AUTO) 9.6 %; MEAN CORPUSCULAR HEMOGLOBIN 30.1 pg (27.0-31.0); MEAN CORPUSCULAR HGB CONC 32.8 g/dL (32.0-36.0); MEAN CORPUSCULAR VOLUME 91.7 fL (80.0-94.0); MEAN PLATELET VOLUME 8.4 fL (7.4-11.4); MONOCYTES # (AUTO) 0.9 10^3/uL (0.0-1.0); MONOCYTES % (AUTO) 9.3 %; NEUTROPHILS # (AUTO) 8.2 10^3/uL (1.5-6.6); NEUTROPHILS % (AUTO) 80.5 %; PLT - PLATELET COUNT 115 10^3/uL (130-450); RED BLOOD COUNT 3.96 10^6/uL (4.70-6.10); RED CELL DISTRIBUTION WIDTH 16.4 % (12.0-15.0); WHITE BLOOD COUNT 10.2 x10^3/uL (4.8-10.8)
[2018-02-03 05:17] LABS: ALBUMIN 2.8 g/dL (3.2-5.5); ALBUMIN/GLOBULIN RATIO 0.8 (1.0-2.2); BILIRUBIN,TOTAL 1.2 mg/dL (0.2-1.0); CALCIUM 7.8 mg/dL (8.5-10.3); TOTAL PROTEIN 6.4 g/dL (6.7-8.2)
[2018-02-03 05:37] LABS: PLATELET ESTIMATE, MANUAL NORMAL (130-450,000) (NORMAL); PLATELET MORPHOLOGY NORMAL APPEARANCE (NORMAL)
--- NOTE | 2018-02-03 07:50 | PROVIDER PROGRESS NOTE ---
Subjective - Prog Note Date Prog Note Date: 02/03/18 Prog Note Time: 10:18 - Subjective Subjective: He has been having grunting respirations during the day as he struggles to breathe. That was yesterday. He has a little bit during sleep. He was transferred from the ICU to the floor and I find him asleep again. A little bit of use of accessory muscles with his abdominal wall but no grunting. He is a mouth breather when asleep, and a nose breather when awake. Mask is being adjusted accordingly to maintain sats. When I wake him up, he continues to complain that he just cannot breathe. He does share with me that he has no diaphragmatic excursion because of his T-spine injury and paraplegia. So when he gets short of breath and struggles to breathe he has to use his abdominal wall muscles. That is getting steadily worse. He is maintaining his O2 sats, and I am not having to increase oxygen need. I did a CT pulmonary angiogram yesterday looking for pulmonary emboli. He does not have that but he does have bilateral pleural effusions, lung consolidation, and groundglass opacities. Current Medications - Current Medications Current Medications: Active Medications Acetaminophen (Tylenol) 650 mg PO Q4HR PRN PRN Reason: Pain or Fever > 38C (100.4F) Last Admin: 02/02/18 01:53 Dose: 650 mg Baclofen (Lioresal) 15 mg PO BID [facility] Last Admin: 02/03/18 08:14 Dose: 15 mg Bisacodyl (Dulcolax Supp) 10 mg [place] Q48H [facility] Last Admin: 02/01/18 12:34 Dose: Not Given Cholecalciferol (Vitamin D3) 1,000 unit PO DAILY [facility] Last Admin: 02/03/18 08:16 Dose: 1,000 unit Diltiazem HCl (Cardizem) 60 mg PO BID [facility] Last Admin: 02/03/18 08:16 Dose: 60 mg Enoxaparin Sodium (Lovenox) 40 mg SUBQ DAILY [facility] Last Admin: 02/03/18 08:16 Dose: 40 mg Gabapentin (Neurontin) 900 mg PO BID [facility] Last Admin: 02/03/18 08:15 Dose: 900 mg Cefepime HCl 2 gm/ Sodium (Chloride) 100 mls @ 200 mls/hr IV Q12H [facility] Last Admin: 02/03/18 04:32 Dose: 200 mls/hr Vancomycin HCl 1 gm/ Sodium (Chloride) 250 mls @ 167 mls/hr IV Q12H [facility] Last Infusion: 02/03/18 02:20 Dose: Infused Sodium Chloride (Normal Saline 0.9%) 1,000 mls @ 85 mls/hr IV .[id number] [facility] Last Admin: 02/03/18 07:52 Dose: 85 mls/hr Lorazepam (Ativan Inj (Vial)) 1 mg IVP Q2H PRN PRN Reason: Anxiety Last Admin: 02/03/18 05:00 Dose: 1 mg Mineral Oil (Cavilon) 1 applic TOP PRN PRN PRN Reason: Skin Care Multivitamins/Minerals (Theragran M) 1 tab PO DAILYWM [facility] Last Admin: 02/03/18 08:16 Dose: 1 tab Pantoprazole Sodium (Protonix) 40 mg IVP BID [facility] Last Admin: 02/03/18 08:16 Dose: 40 mg Prochlorperazine Edisylate (Compazine Inj) 10 mg IVP Q6HR PRN PRN Reason: Nausea / Vomiting Psyllium Hydrophilic Mucilloid (Metamucil) 1 packet PO BID [facility] Last Admin: 02/03/18 08:17 Dose: 1 packet Saccharomyces Boulardii (Florastor) 500 mg PO BIDWM [facility] Last Admin: 02/03/18 08:15 Dose: 500 mg Sodium Chloride (Normal Saline Flush 0.9%) 10 ml IVP 0100,0900,1700 [facility] Last Admin: 02/03/18 08:17 Dose: 10 ml Sodium Chloride (Normal Saline Flush 0.9%) 10 ml IVP PRN PRN PRN Reason: NEEDED PER PROVIDER ORDERS Last Admin: 02/03/18 05:00 Dose: 10 ml Baclofen 15 mg PO BID 01/05/17 Cholecalciferol (Vitamin D3) [Vitamin D3] 2,000 unit PO DAILY 01/05/17 Gabapentin 900 mg PO TID 01/05/17 Lisinopril 40 mg PO DAILY 01/05/17 Multivitamin [Multiple Vitamins] 1 tab PO DAILY 01/05/17 Solifenacin Succinate [Vesicare] 10 mg PO DAILY 01/05/17 amLODIPine [Norvasc] 5 mg PO DAILY 01/05/17 Furosemide 20 mg PO DAILY 02/01/18 Objective - Vital Signs/Intake & Output Reviewed Vital Signs: Yes Vital Signs: Vital Signs x48h Temp Pulse Pulse Resp BP Pulse Ox 02/03/18 05:08 90 134/75 H 02/03/18 04:41 36.7 C 105 H 20 155/90 H 97 02/03/18 00:50 37.2 C 108 H 21 157/81 H 95 Intake & Output: Intake & Output 01/31/18 02/01/18 02/02/18 02/03/18 23:59 23:59 23:59 23:59 Intake Total 3760 8575 4669.667 550 Output Total 710 3420 1740 2200 Balance 3050 5155 2929.606 -3790 - Objective General Appearance: positive: Alert, Mild distress Eyes Bilateral: positive: PERRL ENT: positive: Pharynx nml Neck: positive: No JVD. negative: Stiff neck, Carotid bruit Respiratory: positive: Chest non-tender, Rales, Rhonchi, Other (Grunting respiration when awake and trying to talk. He can only order 2 or 3 words before he runs out of breath and asked to take a grunting breath in and try and speak again. When he is asleep, he is much calmer, minimal use of accessory muscles.). negative: Wheezes Cardiovascular: positive: Regular rate & rhythm, Systolic murmur. negative: Gallop/S4, Friction rub Abdomen: positive: Non-tender, No organomegaly, Nml bowel sounds Skin: positive: Warm, Dry, Other (Cheeks are red. Better color than yesterday) Extremities: positive: Full ROM, Pedal edema Neurologic/Psychiatric: positive: Oriented x3, CN's nml (2-12), Weakness (At home he is able to transfer himself from a chair to a wheelchair and then use his arms to manipulate the wheelchair. Right now he is too weak to transfer himself.). negative: Motor nml (Paraplegia of lower extremities starting at T- spine. He is not able to use his diaphragm for deep breathing) - Lab Results Fish Bones: 02/03/18 04:35 02/03/18 04:35 Other Labs: Lab Results x24hrs 02/03/18 02/03/18 02/02/18 Range/Units 04:35 04:35 11:25 WBC 10.2 (4.8-10.8) x10^3/uL RBC 3.96 L (4.70-6.10) 10^6/uL Hgb 11.9 L (14.0-18.0) g/dL Hct 36.4 L (42.0-52.0) % MCV 91.7 (80.0-94.0) fL MCH 30.1 (27.0-31.0) pg MCHC 32.8 (32.0-36.0) g/dL RDW 16.4 H (12.0-15.0) % Plt Count 115 L (130-450) 10^3/uL MPV 8.4 (7.4-11.4) fL Neut # (Auto) 8.2 H (1.5-6.6) 10^3/uL Lymph # (Auto) 1.0 L (1.5-3.5) 10^3/uL [place] # (Auto) 0.9 (0.0-1.0) 10^3/uL Eos # (Auto) 0.0 (0.0-0.7) 10^3/uL Baso # (Auto) 0.1 (0.0-0.1) 10^3/uL Absolute Nucleated RBC 0.00 x10^3/uL Nucleated RBC % 0.0 /100WBC Platelet Estimate NORMAL (130-450,000) (NORMAL) Platelet Morphology NORMAL APPEARANCE (NORMAL) Sodium 137 (135-145) mmol/L Potassium 3.5 (3.5-5.0) mmol/L Chloride 111 (101-111) mmol/L Carbon Dioxide 18 L (21-32) mmol/L Anion Gap 8.0 (6-13) BUN 15 (6-20) mg/dL Creatinine 1.0 (0.6-1.2) mg/dL Estimated GFR (MDRD) 77 L (>89) Glucose 105 H (70-100) mg/dL Calcium 7.8 L (8.5-10.3) mg/dL Total Bilirubin 1.2 H (0.2-1.0) mg/dL AST 40 (10-42) IU/L ALT 39 (10-60) IU/L Alkaline Phosphatase 92 (42-121) IU/L B-Natriuretic Peptide 170 H (5-100) pg/mL Total Protein 6.4 L (6.7-8.2) g/dL Albumin 2.8 L (3.2-5.5) g/dL Globulin 3.6 (2.1-4.2) g/dL Albumin/Globulin Ratio 0.8 L (1.0-2.2) Last Dose Date Last Dose Time Vancomycin Trough (10.0-20.0) ug/mL 02/02/18 Range/Units 11:25 WBC (4.8-10.8) x10^3/uL RBC (4.70-6.10) 10^6/uL Hgb (14.0-18.0) g/dL Hct (42.0-52.0) % MCV (80.0-94.0) fL MCH (27.0-31.0) pg MCHC (32.0-36.0) g/dL RDW (12.0-15.0) % Plt Count (130-450) 10^3/uL MPV (7.4-11.4) fL Neut # (Auto) (1.5-6.6) 10^3/uL Lymph # (Auto) (1.5-3.5) 10^3/uL [place] # (Auto) (0.0-1.0) 10^3/uL Eos # (Auto) (0.0-0.7) 10^3/uL Baso # (Auto) (0.0-0.1) 10^3/uL Absolute Nucleated RBC x10^3/uL Nucleated RBC % /100WBC Platelet Estimate (NORMAL) Platelet Morphology (NORMAL) Sodium (135-145) mmol/L Potassium (3.5-5.0) mmol/L Chloride (101-111) mmol/L Carbon Dioxide (21-32) mmol/L Anion Gap (6-13) BUN (6-20) mg/dL Creatinine (0.6-1.2) mg/dL Estimated GFR (MDRD) (>89) Glucose (70-100) mg/dL Calcium (8.5-10.3) mg/dL Total Bilirubin (0.2-1.0) mg/dL AST (10-42) IU/L ALT (10-60) IU/L Alkaline Phosphatase (42-121) IU/L B-Natriuretic Peptide (5-100) pg/mL Total Protein (6.7-8.2) g/dL Albumin (3.2-5.5) g/dL Globulin (2.1-4.2) g/dL Albumin/Globulin Ratio (1.0-2.2) Last Dose Date 02/02/18 Last Dose Time 11:57 Vancomycin Trough 13.2 (10.0-20.0) ug/mL ABX Reporting Has patient been on IV antibiotics over the past 48 hours?: Yes Sepsis Event Note (H) - Evaluation Current Stage of Sepsis: Resolved Possible source of Sepsis: positive: Genitourinary Assessment/Plan - Problem List (1) Septic shock Impression: Resolved. Transferred from ICU status to [facility] status 02/02 He had a normal BP at presentation in the ER, but developed shock in the ICU overnight. The BP responded to large amounts of iv crystalloids (he got >3L in 6-8 hours). By 12 am BP was normal and HR is slightly better as well.He has remained hemodynamically stable now for 48 hours. Lactic acid 5.3> 2.3> 1.2> 2.0> 2.0 On broad-spectrum iv antibiotics with cefipime and flagyl. see below. Urine culture is now showing Klebsiella. Resistant to ampicillin and intermediate response to nitrofurantoin. But sensitive to all else. His blood culture showed gram-negative bacilli with identity that was pending on all 4 bottles. Today identity is Klebsiella Continue iv fluids at a slower rate (250/hr >> 150/hr>>85 cc). Transferred from ICU to [facility] on 02/02. today he is stable but still struggles w O2 requirement (2) Klebsiella bacteremia Assessment/Plan: Blood culture turned (+) in < 12 hours. Gram neg baccili that was identified as Klebsiella this morning. Same sensitivites as urine results. He is infectious disease statistical consultant, Dr. Abdullahi Kim, called from [facility] 02/02. I discussed the case with him. He feels that cefepime, at this time, is enough for what we are seen. We can stop the Flagyl and the vancomycin. If he were not doing well hemodynamically he would request a change to ertapenem. But he seems stable to continue the cefepime, day #4. Plan for 7-10 days depending on his clinical course The UTI appears to be the source. Klebsiella is the organism. Sensitivities as above (3) Klebsiella UTI (urinary tract infection) Qualifiers: Urinary tract infection type: acute cystitis Hematuria presence: without hematuria Qualified Code(s): N30.00 - Acute cystitis without hematuria Assessment/Plan: This appears to be the source of the bacteremia and sepsis, causing septic shock. He currently has a Lombardo and no need to self-catheterize. Continue iv antibiotics. (4) Thrombocytopenia Assessment/Plan: This most likely is hemodilutional, since he required >3L of crystalloids for resuscitation when he was in shock. But considered DIC, since he has (+) bacteremia. He is on Lovenox, not Heparin, to consider HIT. Platelets continued to drop. He was initially 149, then 104-day #2, then 86-day #3. Today 115. I considered stopping Lovenox and using DAWSON hose and sequential compression device but kept him on lovenox. Monitor CBC daily. (5) JOANNE (acute kidney injury) Assessment/Plan: Improved BUN/creat after volume replacement and treating the infection.Creatinine 1.6> 1.3> 0.9>1.0 today Avoid nephrotoxins. Continue iv hydration. (6) Hypomagnesemia Assessment/Plan: Low-normal Mg, probably due to hemodilution. Monitor daily Mag. Normal today. The Psychic Reader also recommended MOV with minerals and Vit D daily. (7) Paraplegia Assessment/Plan: Stable (8) Wound, open, toe Qualifiers: Encounter type: initial encounter Qualified Code(s): S91.109A - Unspecified open wound of unspecified toe(s) without damage to nail, initial encounter Assessment/Plan: The ICU nurse reported several open wounds: toes bilaterally, sacrum, R davidson. He reported a wound opening in a crease in his groin. 02/01/18 14:54 - MAC Note by Giuliana Becker Acct Num: [id number] : 1960 Patient Age: 57 1430: Spoke with BECCA Null about wound consult request. Tennille said I did not need to see pt as she was able to apply barrier cream to buttocks and tips of toes. She placed a Mepitel 1 on davidson wound and covered which seems appropriate after seeing photos in notes. Tennille also reports there is a superficial tear on buttocks after bedpan use today. Advised to use barrier cream and monitor. May need to use Mepitel 1 on this wound as well. (9) Neurogenic bladder Assessment/Plan: He now has a Lombardo. Self-catheterization creates his risk for UTIs, unfortunately. (10) Neurogenic bowel Assessment/Plan: The patient uses Dulcolax supp QOD, and Metamucil bid scheduled, not prn. Will order these. (11) Hx of essential hypertension Assessment/Plan: Currently all his BP meds are on hold, due to shock. Will resume these as vital signs necessitate. 02/01 and 02/02 his blood pressure had been stable in the 112-125 region. Yesterday afternoon he was 134 systolic. If he started creeping above 138 systolic will resume his amlodipine 5 mg daily. It was 153-155 systolic by last night. If blood pressure still warranted will also resume lisinopril 40 mg karen y. Last to be resumed will be the Lasix 20 mg daily. (12) Pneumonia with shortness of breath with hypoxia. He says this is a chronic complaint for him. He is always short of breath if he tries to do anything too hard. Right now he lives alone, and is managed to transfer himself to a wheelchair to than do his activities of daily living. Right now he is too weak he cannot even move up and down the bed without the nurse help being him. He prefers to sleep upright in a chair. He says that getting in and out of the bed is too much of an exertion for him so he sleeps in a chair at home. This seems to be some acuteness to this shortness of breath this admission. D-dimer will be elevated because of infection so I didn't order. I went ahead and ordered CT pulmonary angiogram for making sure he does not have a PE and no PE but he did have ground glass opacities and consolidation indicating pneumonia. BNP is minimally elevated at 170. I do not suspect him to have congestive heart failure He is starting to get a little bit more confused. Struggles to breathe more. So even though his sepsis has resolved and his bacteremia is adequately being treated with a correct antibiotic, I think his lung status is starting to slowly deteriorate. His lack of diaphragmatic excursion certainly is not helping. I do believe he is beyond the capacity of our respiratory therapy team, and our overall program to be able to take care of him here. I am going to start se eking out possible transfer solution.
[2018-02-03] MEDS: SODIUM CHLORIDE 0.9% 1,000 ML IV SCH (07:52)
[2018-02-03] MEDS: BACLOFEN 10 MG TABLET PO SCH (08:14)
[2018-02-03] MEDS: GABAPENTIN 300 MG CAPSULE PO SCH (08:15)
[2018-02-03] MEDS: SACCHAROMYCES BOULARDII 250 MG CAPSULE PO SCH (08:15)
[2018-02-03] MEDS: MULTIVITAMIN W/MINERALS TABLET PO SCH (08:16)
[2018-02-03] MEDS: PANTOPRAZOLE 40 MG VIAL IVP SCH (08:16)
[2018-02-03] MEDS: CHOLECALCIFEROL 1,000 UNIT TABLET PO SCH (08:16)
[2018-02-03] MEDS: diltiaZEM 30 MG TABLET PO SCH (08:16)
[2018-02-03] MEDS: PSYLLIUM PACKET PO SCH (08:17)
[2018-02-03] MEDS ORDERED: ENOXAPARIN 40 MG/0.4 ML SYRINGE SUBQ SCH (09:00)
[2018-02-03] MEDS: BISACODYL 10 MG SUPP PR SCH (14:14)
--- NOTE | 2018-02-03 16:31 | Discharge Plan ---
Discharge Plan Disposition: 02 Transfer Acute Care Hosp Condition: Fair Diet: Regular Activity Restrictions: Activity as Tolerated Assistance Devices: Wheelchair No Smoking: If you smoke, Please STOP! Call for help. Follow-up with: Ruby Varghese MD [Primary Care Provider] -
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
[2018-02-03 18:44] VITALS: BP 156/80
== END 2018-02-03 20:05 | disposition short-term general hospital (02) | DRG 871 ==
LOC: ED 15:31 → ICU 17:37 → MS2 02-02 10:30 → ICU 02-02 10:50 → MS2 02-02 14:30
PROVIDERS: ADMIT Internal Medicine; ATTEND Internal Medicine
DX: A41.89 Other specified sepsis (principal); R65.21 Severe sepsis with septic shock; J15.9 Unspecified bacterial pneumonia; N17.9 Acute kidney failure, unspecified; N30.00 Acute cystitis without hematuria; G82.20 Paraplegia, unspecified; K59.2 Neurogenic bowel, not elsewhere classified; I10 Essential (primary) hypertension; D69.6 Thrombocytopenia, unspecified; E83.42 Hypomagnesemia; S91.109A Unspecified open wound of unspecified toe(s) without damage to nail, initial encounter; S24.109S Unspecified injury at unspecified level of thoracic spinal cord, sequela; X58.XXXS Exposure to other specified factors, sequela; Z99.3 Dependence on wheelchair; N31.9 Neuromuscular dysfunction of bladder, unspecified; R09.02 Hypoxemia
CPT/HCPCS: 36415; 51700; 51702; 71045; 71275; 80053; 80202; 81001; 81003; 82803; 83605; 83690; 83735; 83880; 84100; 85025; 85610; 85730; 86140; 87040; 87077; 87086; 87150; 87181; 93005; 93306; 96365; 96367; 99284; 99291

== ENCOUNTER 2018-03-18 12:13 | Outpatient (CLI) | payer MEDICARE, BC ==
[2018-03-18 13:01] LABS: BASOPHILS # (AUTO) 0.1 10^3/uL (0.0-0.1); BASOPHILS % (AUTO) 0.8 %; EOSINOPHILS % (AUTO) 0.2 %; HGB - HEMOGLOBIN 11.3 g/dL (14.0-18.0); LYMPHOCYTES # (AUTO) 2.1 10^3/uL (1.5-3.5); LYMPHOCYTES % (AUTO) 16.7 %; MEAN CORPUSCULAR HEMOGLOBIN 30.7 pg (27.0-31.0); MEAN CORPUSCULAR HGB CONC 34.1 g/dL (32.0-36.0); MEAN CORPUSCULAR VOLUME 90.1 fL (80.0-94.0); MONOCYTES # (AUTO) 1.1 10^3/uL (0.0-1.0); MONOCYTES % (AUTO) 8.9 %; NEUTROPHILS % (AUTO) 73.4 %; PLT - PLATELET COUNT 187 10^3/uL (130-450); RED BLOOD COUNT 3.67 10^6/uL (4.70-6.10); RED CELL DISTRIBUTION WIDTH 17.1 % (12.0-15.0); WHITE BLOOD COUNT 12.3 x10^3/uL (4.8-10.8)
[2018-03-18 13:20] LABS: BILIRUBIN,URINE NEGATIVE (NEGATIVE); GLUCOSE, URINE (UA) NEGATIVE (NEGATIVE); KETONES,URINE (UA) TRACE mg/dL (NEGATIVE); LEUKOCYTE ESTERASE, URINE LARGE (NEGATIVE); NITRITE,URINE NEGATIVE (NEGATIVE); OCCULT BLOOD,URINE SMALL (NEGATIVE); PROTEIN,URINE TRACE mg/dL (NEGATIVE); UROBILINOGEN,URINE 0.2 (NORMAL) E.U./dL (NORMAL)
[2018-03-18 13:22] LABS: CLARITY,URINE CLOUDY (CLEAR)
[2018-03-18 13:44] LABS: BACTERIA,URINE Few /HPF (None Seen); RBC,URINE 0-5 /HPF (0-5); SQUAMOUS EPITHELIAL CELL,UR FEW Squamous (<= Few)
== END 2018-03-18 12:14 | disposition home or self-care (01) ==
LOC: LAB 12:13
PROVIDERS: ATTEND Internal Medicine
DX: R50.9 Fever, unspecified (principal)
CPT/HCPCS: 36415; 81001; 81003; 85025; 87040; 87086

== ENCOUNTER 2018-03-18 13:03 | Outpatient (CLI) | payer MEDICARE, BC ==
--- NOTE | 2018-03-18 15:32 | XRAY Report ---
Reason: FEVER Procedure Date: 03/18/2018 Accession Number: [id number] / [id number] Procedure: XR - Chest 2 View X-Ray CPT Code: 40270 FULL RESULT: EXAM: CHEST RADIOGRAPHY EXAM DATE: 03/18/2018 01:29 PM. CLINICAL HISTORY: FEVER. COMPARISON: CHEST 1 VIEW 01/31/2018 3:55 PM. TECHNIQUE: 2 views. FINDINGS: Lungs/Pleura: No focal opacities evident. No pleural effusion. No pneumothorax. Normal volumes. Mediastinum: Heart and mediastinal contours are unremarkable. Other: There is scoliotic curvature and focal kyphosis of the mid thoracic spine. IMPRESSION: No acute intrathoracic plain film abnormality. RADIA
== END 2018-03-18 13:04 | disposition home or self-care (01) ==
LOC: DI 13:03
PROVIDERS: ATTEND Internal Medicine
DX: R50.9 Fever, unspecified (principal)
CPT/HCPCS: 36415; 71046; 81001; 85025; 87040; 87077; 87086; 87181

== ENCOUNTER 2018-03-19 14:14 | Inpatient (IN) | payer MEDICARE, BC ==
[2018-03-19 14:38] LABS: BASOPHILS # (AUTO) 0.2 10^3/uL (0.0-0.1); BASOPHILS % (AUTO) 1.3 %; EOSINOPHILS % (AUTO) 0.1 %; HGB - HEMOGLOBIN 10.9 g/dL (14.0-18.0); LYMPHOCYTES % (AUTO) 14.1 %; MEAN CORPUSCULAR HEMOGLOBIN 29.8 pg (27.0-31.0); MEAN CORPUSCULAR HGB CONC 33.9 g/dL (32.0-36.0); MEAN CORPUSCULAR VOLUME 88.1 fL (80.0-94.0); MEAN PLATELET VOLUME 7.8 fL (7.4-11.4); MONOCYTES # (AUTO) 1.5 10^3/uL (0.0-1.0); MONOCYTES % (AUTO) 10.8 %; NEUTROPHILS # (AUTO) 10.5 10^3/uL (1.5-6.6); NEUTROPHILS % (AUTO) 73.7 %; PLT - PLATELET COUNT 197 10^3/uL (130-450); RED BLOOD COUNT 3.66 10^6/uL (4.70-6.10); RED CELL DISTRIBUTION WIDTH 16.8 % (12.0-15.0); WHITE BLOOD COUNT 14.3 x10^3/uL (4.8-10.8)
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
[2018-03-19] MEDS ORDERED: ONDANSETRON 4 MG/2 ML VIAL IVP PRN (14:43)
[2018-03-19] MEDS ORDERED: ONDANSETRON ODT 4 MG TABLET TL PRN (14:43)
[2018-03-19] MEDS ORDERED: ACETAMINOPHEN 325 MG TABLET PO PRN (14:43)
[2018-03-19] MEDS ORDERED: oxyCODONE 5 MG TABLET PO PRN (14:43)
[2018-03-19 14:51] LABS: ALBUMIN 3.1 g/dL (3.2-5.5); ALBUMIN/GLOBULIN RATIO 0.8 (1.0-2.2); BILIRUBIN,TOTAL 0.7 mg/dL (0.2-1.0); CALCIUM 8.3 mg/dL (8.5-10.3); CREATININE 1.3 mg/dL (0.6-1.2); TOTAL PROTEIN 7.2 g/dL (6.7-8.2)
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
[2018-03-19] MEDS: SODIUM CHLORIDE 0.9% 1,000 ML IV SCH (16:01)
[2018-03-19] MEDS: SODIUM CHLORIDE FLUSH 0.9% 10 ML SYRINGE IVP PRN (16:02)
[2018-03-19] MEDS: levoFLOXacin 750 MG/150 ML 750 MG/150 ML BAG IV SCH (16:02)
[2018-03-19] MEDS: SODIUM CHLORIDE FLUSH 0.9% 10 ML SYRINGE IVP SCH (17:10)
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
[2018-03-19] MEDS ORDERED: CHERRY SYRUP 10 ML UDC PO ONE (20:45)
[2018-03-19] MEDS: BACLOFEN 10 MG TABLET PO SCH (21:59)
[2018-03-19] MEDS: GABAPENTIN 300 MG CAPSULE PO SCH (21:59)
[2018-03-19] MEDS: MIN OIL/DIMETHICON/COCONUT OIL 92 GM TUBE TOP PRN (22:23)
[2018-03-20] MEDS: IBUPROFEN 400 MG TABLET PO PRN (02:42)
[2018-03-20] MEDS: SODIUM CHLORIDE 0.9% 1,000 ML IV SCH (02:46)
[2018-03-20] MEDS: SODIUM CHLORIDE FLUSH 0.9% 10 ML SYRINGE IVP SCH ×3 (02:48→16:26)
[2018-03-20] MEDS: GABAPENTIN 300 MG CAPSULE PO SCH ×3 (06:09→22:07)
[2018-03-20 06:44] LABS: BASOPHILS # (AUTO) 0.1 10^3/uL (0.0-0.1); BASOPHILS % (AUTO) 1.2 %; EOSINOPHILS # (AUTO) 0.1 10^3/uL (0.0-0.7); EOSINOPHILS % (AUTO) 0.5 %; HGB - HEMOGLOBIN 10.5 g/dL (14.0-18.0); LYMPHOCYTES # (AUTO) 2.3 10^3/uL (1.5-3.5); LYMPHOCYTES % (AUTO) 22.2 %; MEAN CORPUSCULAR HEMOGLOBIN 29.3 pg (27.0-31.0); MEAN CORPUSCULAR HGB CONC 32.9 g/dL (32.0-36.0); MEAN CORPUSCULAR VOLUME 89.2 fL (80.0-94.0); MEAN PLATELET VOLUME 8.1 fL (7.4-11.4); MONOCYTES % (AUTO) 10.2 %; NEUTROPHILS # (AUTO) 6.7 10^3/uL (1.5-6.6); NEUTROPHILS % (AUTO) 65.9 %; PLT - PLATELET COUNT 189 10^3/uL (130-450); RED BLOOD COUNT 3.58 10^6/uL (4.70-6.10); RED CELL DISTRIBUTION WIDTH 16.5 % (12.0-15.0); WHITE BLOOD COUNT 10.2 x10^3/uL (4.8-10.8)
[2018-03-20 06:53] LABS: CALCIUM 8.1 mg/dL (8.5-10.3); CREATININE 1.2 mg/dL (0.6-1.2)
[2018-03-20] MEDS: amLODIPine 5 MG TABLET PO SCH (09:06)
[2018-03-20] MEDS: BACLOFEN 10 MG TABLET PO SCH ×2 (09:06→22:05)
[2018-03-20] MEDS: MULTIVITAMIN TABLET PO SCH (09:08)
[2018-03-20] MEDS: CHOLECALCIFEROL 1,000 UNIT TABLET PO SCH (09:08)
[2018-03-20] MEDS: LISINOPRIL 20 MG TABLET PO SCH (09:08)
[2018-03-20] MEDS: TOLTERODINE LA 2 MG CAPSULE PO SCH (09:09)
[2018-03-20] MEDS: POLYETHYLENE GLYCOL 3350 17 GM PACKET PO SCH (09:11)
[2018-03-20 09:17] LABS: MEAN RETIC VALUE 97.2; RED BLOOD COUNT 3.45 10^6/uL (4.70-6.10)
[2018-03-20 09:37] LABS: % IRON SATURATION 11 % (20-50); IRON 21 ug/dL (45-182); TOTAL IRON BINDING CAPACITY 196 ug/dL (250-450); TRANSFERRIN 140 mg/dL (180-329)
--- NOTE | 2018-03-20 11:20 | PROVIDER PROGRESS NOTE ---
Subjective - Prog Note Date Prog Note Date: 03/20/18 Prog Note Time: 11:26 - Subjective Subjective: he feels like he's been run over. Tired. Mild aches all over. Fever last night. Cultures reviewed and they are growing out Klebsiella likely did in January. Nurses have observed him doing poor hygiene technique for self-catheterization. May be the source of the problem. I asked about doing a rectal exam today and he is still not wanting me to do that but would like to discuss bowel protocol. Current Medications - Current Medications Current Medications: Active Medications Acetaminophen (Tylenol) 650 mg PO Q4HR PRN PRN Reason: Pain 1 to 4 Last Admin: 03/20/18 00:39 Dose: 650 mg Amlodipine Besylate (Norvasc) 5 mg PO DAILY [facility] Last Admin: 03/20/18 09:06 Dose: 5 mg Baclofen (Lioresal) 15 mg PO BID [facility] Last Admin: 03/20/18 09:06 Dose: 15 mg Cholecalciferol (Vitamin D3) 2,000 unit PO DAILY [facility] Last Admin: 03/20/18 09:08 Dose: 2,000 unit Gabapentin (Neurontin) 900 mg PO TID [facility] Last Admin: 03/20/18 06:09 Dose: 900 mg Levofloxacin (Levaquin 750 Mg/150 Ml) 750 mg in 150 mls @ 100 mls/hr IV Q24H [facility] Last Infusion: 03/19/18 17:32 Dose: Infused Ibuprofen (Motrin) 400 mg PO Q6HR PRN PRN Reason: FEVER > 100.5 F Last Admin: 03/20/18 02:42 Dose: 400 mg Lisinopril (Zestril) 40 mg PO DAILY [facility] Last Admin: 03/20/18 09:08 Dose: 40 mg Mineral Oil (Cavilon) 1 applic TOP PRN PRN PRN Reason: Skin Care Stop: 03/26/18 16:14 Last Admin: 03/19/18 22:23 Dose: 1 applic Multivitamins (Theragran) 1 tab PO DAILYWM [facility] Last Admin: 03/20/18 09:08 Dose: 1 tab Ondansetron HCl (Zofran Inj) 4 mg IVP Q6HR PRN PRN Reason: Nausea / Vomiting Ondansetron HCl (Zofran Odt) 4 mg TL Q6HR PRN PRN Reason: Nausea / Vomiting Oxycodone HCl (Roxicodone) 5 mg PO Q4HR PRN PRN Reason: Pain 5 to 7 Polyethylene Glycol (Miralax) 17 gm PO DAILY [facility] Last Admin: 03/20/18 09:11 Dose: Not Given Sodium Chloride (Normal Saline Flush 0.9%) 10 ml IVP PRN PRN PRN Reason: NEEDED PER PROVIDER ORDERS Last Admin: 03/19/18 16:02 Dose: 10 ml Sodium Chloride (Normal Saline Flush 0.9%) 10 ml IVP 0100,0900,1700 [facility] Last Admin: 03/20/18 02:48 Dose: Not Given Tolterodine Tartrate (Detrol La) 4 mg PO DAILY [facility] Last Admin: 03/20/18 09:09 Dose: 4 mg Baclofen 15 mg PO BID 01/05/17 Cholecalciferol (Vitamin D3) [Vitamin D3] 2,000 unit PO DAILY 01/05/17 Gabapentin 900 mg PO TID 01/05/17 Lisinopril 40 mg PO DAILY 01/05/17 Multivitamin [Multiple Vitamins] 1 tab PO DAILY 01/05/17 Solifenacin Succinate [Vesicare] 10 mg PO DAILY 01/05/17 amLODIPine [Norvasc] 5 mg PO DAILY 01/05/17 Furosemide 20 mg PO DAILY 02/01/18 Objective - Vital Signs/Intake & Output Reviewed Vital Signs: Yes Vital Signs: Vital Signs x48h Temp Pulse Resp BP Pulse Ox 03/20/18 08:00 36.4 C L 76 14 114/65 94 03/20/18 03:54 37.5 C Intake & Output: Intake & Output 03/17/18 03/18/18 03/19/18 03/20/18 23:59 23:59 23:59 23:59 Intake Total 4930.252 6550.333 Output Total 500 1000 Balance 588.667 423.333 - Objective General Appearance: positive: No acute distress, Alert Eyes Bilateral: positive: PERRL, EOMI ENT: positive: Pharynx nml Neck: positive: No JVD. negative: Stiff neck, Carotid bruit Respiratory: positive: Chest non-tender, No respiratory distress, Rales (At the very beginning. By the third breath they have cleared. They were present in both lung bases.). negative: Wheezes, Rhonchi Cardiovascular: positive: Regular rate & rhythm. negative: Systolic murmur, Gallop/S4, Friction rub Abdomen: positive: No organomegaly, Nml bowel sounds, No distention Skin: positive: Warm, Dry Extremities: positive: No pedal edema Neurologic/Psychiatric: positive: Oriented x3, CN's nml (2-12). negative: Motor nml (Plegia of lower extremities), Facial droop, Slurred/abnml speech - Lab Results Fish Bones: 03/20/18 06:27 03/20/18 06:27 Other Labs: Lab Results x24hrs 03/20/18 03/20/18 03/20/18 Range/Units 09:07 09:07 09:07 WBC (4.8-10.8) x10^3/uL RBC 3.45 L (4.70-6.10) 10^6/uL Hgb (14.0-18.0) g/dL Hct (42.0-52.0) % MCV (80.0-94.0) fL MCH (27.0-31.0) pg MCHC (32.0-36.0) g/dL RDW (12.0-15.0) % Plt Count (130-450) 10^3/uL MPV (7.4-11.4) fL Reticulocyte % (Auto) 1.32 (0.5-2.3) % Neut # (Auto) (1.5-6.6) 10^3/uL Lymph # (Auto) (1.5-3.5) 10^3/uL [place] # (Auto) (0.0-1.0) 10^3/uL Eos # (Auto) (0.0-0.7) 10^3/uL Baso # (Auto) (0.0-0.1) 10^3/uL Absolute Nucleated RBC x10^3/uL Nucleated RBC % /100WBC Absolute Retic 0.046 (0.020-0.110) 10^6/uL Sodium (135-145) mmol/L Potassium (3.5-5.0) mmol/L Chloride (101-111) mmol/L Carbon Dioxide (21-32) mmol/L Anion Gap (6-13) BUN (6-20) mg/dL Creatinine (0.6-1.2) mg/dL Estimated GFR (MDRD) (>89) Glucose (70-100) mg/dL Lactic Acid (0.5-2.2) mmol/L Calcium (8.5-10.3) mg/dL Iron 21 L (45-182) ug/dL TIBC 196 L (250-450) ug/dL % Saturation 11 L (20-50) % Transferrin 140 L (180-329) mg/dL Ferritin (23.9-336.2) ng/mL Total Bilirubin (0.2-1.0) mg/dL AST (10-42) IU/L ALT (10-60) IU/L Alkaline Phosphatase (42-121) IU/L Lactate Dehydrogenase (91-225) IU/L Total Protein (6.7-8.2) g/dL Albumin (3.2-5.5) g/dL Globulin (2.1-4.2) g/dL Albumin/Globulin Ratio (1.0-2.2) Lipase (22-51) U/L PSA Screen (0.000-2.000) ng/mL Vitamin B12 294 (180-914) pg/mL 03/20/18 03/20/18 03/20/18 Range/Units 06:27 06:27 06:27 WBC (4.8-10.8) x10^3/uL RBC (4.70-6.10) 10^6/uL Hgb (14.0-18.0) g/dL Hct (42.0-52.0) % MCV (80.0-94.0) fL MCH (27.0-31.0) pg MCHC (32.0-36.0) g/dL RDW (12.0-15.0) % Plt Count (130-450) 10^3/uL MPV (7.4-11.4) fL Reticulocyte % (Auto) (0.5-2.3) % Neut # (Auto) (1.5-6.6) 10^3/uL Lymph # (Auto) (1.5-3.5) 10^3/uL [place] # (Auto) (0.0-1.0) 10^3/uL Eos # (Auto) (0.0-0.7) 10^3/uL Baso # (Auto) (0.0-0.1) 10^3/uL Absolute Nucleated RBC x10^3/uL Nucleated RBC % /100WBC Absolute Retic (0.020-0.110) 10^6/uL Sodium 137 (135-145) mmol/L Potassium 4.1 (3.5-5.0) mmol/L Chloride 107 (101-111) mmol/L Carbon Dioxide 22 (21-32) mmol/L Anion Gap 8.0 (6-13) BUN 24 H (6-20) mg/dL Creatinine 1.2 (0.6-1.2) mg/dL Estimated GFR (MDRD) 62 L (>89) Glucose 121 H (70-100) mg/dL Lactic Acid (0.5-2.2) mmol/L Calcium 8.1 L (8.5-10.3) mg/dL Iron (45-182) ug/dL TIBC (250-450) ug/dL % Saturation (20-50) % Transferrin (180-329) mg/dL Ferritin 245.2 (23.9-336.2) ng/mL Total Bilirubin (0.2-1.0) mg/dL AST (10-42) IU/L ALT (10-60) IU/L Alkaline Phosphatase (42-121) IU/L Lactate Dehydrogenase 133 (91-225) IU/L Total Protein (6.7-8.2) g/dL Albumin (3.2-5.5) g/dL Globulin (2.1-4.2) g/dL Albumin/Globulin Ratio (1.0-2.2) Lipase (22-51) U/L PSA Screen (0.000-2.000) ng/mL Vitamin B12 (180-914) pg/mL 03/20/18 03/20/18 03/19/18 Range/Units 06:27 06:27 14:35 WBC 10.2 (4.8-10.8) x10^3/uL RBC 3.58 L (4.70-6.10) 10^6/uL Hgb 10.5 L (14.0-18.0) g/dL Hct 32.0 L (42.0-52.0) % MCV 89.2 (80.0-94.0) fL MCH 29.3 (27.0-31.0) pg MCHC 32.9 (32.0-36.0) g/dL RDW 16.5 H (12.0-15.0) % Plt Count 189 (130-450) 10^3/uL MPV 8.1 (7.4-11.4) fL Reticulocyte % (Auto) (0.5-2.3) % Neut # (Auto) 6.7 H (1.5-6.6) 10^3/uL Lymph # (Auto) 2.3 (1.5-3.5) 10^3/uL [place] # (Auto) 1.0 (0.0-1.0) 10^3/uL Eos # (Auto) 0.1 (0.0-0.7) 10^3/uL Baso # (Auto) 0.1 (0.0-0.1) 10^3/uL Absolute Nucleated RBC 0.00 x10^3/uL Nucleated RBC % 0.0 /100WBC Absolute Retic (0.020-0.110) 10^6/uL Sodium (135-145) mmol/L Potassium (3.5-5.0) mmol/L Chloride (101-111) mmol/L Carbon Dioxide (21-32) mmol/L Anion Gap (6-13) BUN (6-20) mg/dL Creatinine (0.6-1.2) mg/dL Estimated GFR (MDRD) (>89) Glucose (70-100) mg/dL Lactic Acid 1.9 (0.5-2.2) mmol/L Calcium (8.5-10.3) mg/dL Iron (45-182) ug/dL TIBC (250-450) ug/dL % Saturation (20-50) % Transferrin (180-329) mg/dL Ferritin (23.9-336.2) ng/mL Total Bilirubin (0.2-1.0) mg/dL AST (10-42) IU/L ALT (10-60) IU/L Alkaline Phosphatase (42-121) IU/L Lactate Dehydrogenase (91-225) IU/L Total Protein (6.7-8.2) g/dL Albumin (3.2-5.5) g/dL Globulin (2.1-4.2) g/dL Albumin/Globulin Ratio (1.0-2.2) Lipase (22-51) U/L PSA Screen 0.844 (0.000-2.000) ng/mL Vitamin B12 (180-914) pg/mL 03/19/18 03/19/18 Range/Units 14:35 14:35 WBC 14.3 H (4.8-10.8) x10^3/uL RBC 3.66 L (4.70-6.10) 10^6/uL Hgb 10.9 L (14.0-18.0) g/dL Hct 32.2 L (42.0-52.0) % MCV 88.1 (80.0-94.0) fL MCH 29.8 (27.0-31.0) pg MCHC 33.9 (32.0-36.0) g/dL RDW 16.8 H (12.0-15.0) % Plt Count 197 (130-450) 10^3/uL MPV 7.8 (7.4-11.4) fL Reticulocyte % (Auto) (0.5-2.3) % Neut # (Auto) 10.5 H (1.5-6.6) 10^3/uL Lymph # (Auto) 2.0 (1.5-3.5) 10^3/uL [place] # (Auto) 1.5 H (0.0-1.0) 10^3/uL Eos # (Auto) 0.0 (0.0-0.7) 10^3/uL Baso # (Auto) 0.2 H (0.0-0.1) 10^3/uL Absolute Nucleated RBC 0.02 x10^3/uL Nucleated RBC % 0.1 /100WBC Absolute Retic (0.020-0.110) 10^6/uL Sodium 133 L (135-145) mmol/L Potassium 3.5 (3.5-5.0) mmol/L Chloride 100 L (101-111) mmol/L Carbon Dioxide 24 (21-32) mmol/L Anion Gap 9.0 (6-13) BUN 25 H (6-20) mg/dL Creatinine 1.3 H (0.6-1.2) mg/dL Estimated GFR (MDRD) 57 L (>89) Glucose 127 H (70-100) mg/dL Lactic Acid (0.5-2.2) mmol/L Calcium 8.3 L (8.5-10.3) mg/dL Iron (45-182) ug/dL TIBC (250-450) ug/dL % Saturation (20-50) % Transferrin (180-329) mg/dL Ferritin (23.9-336.2) ng/mL Total Bilirubin 0.7 (0.2-1.0) mg/dL AST 31 (10-42) IU/L ALT 28 (10-60) IU/L Alkaline Phosphatase 82 (42-121) IU/L Lactate Dehydrogenase (91-225) IU/L Total Protein 7.2 (6.7-8.2) g/dL Albumin 3.1 L (3.2-5.5) g/dL Globulin 4.1 (2.1-4.2) g/dL Albumin/Globulin Ratio 0.8 L (1.0-2.2) Lipase 27 (22-51) U/L PSA Screen (0.000-2.000) ng/mL Vitamin B12 (180-914) pg/mL ABX Reporting Has patient been on IV antibiotics over the past 48 hours?: Yes Assessment/Plan - Problem List (1) Bacteremia due to Klebsiella pneumoniae Impression: Source in blood cultures and urine cultures is Klebsiella Plan: Inpatient status IV antibiotic therapy with Levaquin, today will be day #2 Sensitivities show quinolone is appropriate. Make sure gram-negative bacteremia is not from another source such as prostate and will need to do rectal exam. He is not happy about that again and wants to defer. Can't say why. Aim for IV antibiotic therapy until he is afebrile, transition to oral. I do n ot think he still need IV antibiotic therapy for the duration of 10 days for bacteremia since the source is known and po Levaquin will have good soft tissue penetration. I sent a copy of H&P note to Dr. Abdullahi Kim, his infectious disease visit physician from [facility] that took care of him with his previous episode of sepsis with UTI. (2) UTI due to Klebsiella species Impression: Source on blood cultures and urine cultures appears to be gram-negative, as sociated with urinary pathogens in view of the positive UTI. Plan: Inpatient status IV antibiotic therapy with Levaquin, today will be day #1 Adjust antibiotics on the basis of this current sensitivities. I chose my antibiotics in the basis of January sensitivities Make sure gram-negative bacteremia is not from another source such as prostate and will do rectal exam. He is not happy about that. Aim for IV antibiotic therapy until he is afebrile, transition to oral. I do not think he still need IV antibiotic therapy for the duration of 10 days for bacteremia since the source is known and Levaquin will have good soft tissue penetration. He would like me to send a copy of this note to Dr. Abdullahi Kim, his infectious disease visit physician from [facility] that took care of him with his previous episode of sepsis with UTI. He declines a PICC line at this time As in problem #1, I made sure prostate is not involved in a patient who is sedentary and sits in a chair all day long. PSA today is low so not prostatitis. I am also going to look for fistula in a patient who sits in chair all day long, has hx of perirectal abcess. He is not comfortable with me doing a rectal exam yesterday or today. I asked if I could order a CT pelvis w contrast and he wants to discuss further. Qualifiers: Urinary tract infection type: acute cystitis Hematuria presence: without hematuria Qualified Code(s): N30.00 - Acute cystitis without hematuria (3) JOANNE (acute kidney injury) Conclusion/Plan: Most likely cause is going to be fever, fluid loss from insensate losses in the face of fever. There is no hypotension. Plan: Started IV fluids. Give 2 L max. BMP in the morning shows a creat of 1.2 Since there is improvement in BUN and creatinine, no imaging study to evaluate for hydronephrosis. 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 Patient lives alone and is independent. Has a regular bowel protocol that he will explained to the nurses so we can follow that here. He also self catheterizes. The nurses have observed him doing his self cath. He is not doing it under hygienic techniques. This may be the source of his bladder infection. ACP conversation under separate notes. Plan: Emphasized need for sterile technique for self-catheterization Emphasized need for continued exercise and to get off of his coccyx (5) Hypertension Conclusion/Plan: Resume his usual Norvasc and lisinopril. Monitor blood pressure every shift. If becomes hypotensive will hold medication. Will hold for systolic less than 110 and diastolic less than 60 Qualifiers: Hypertension type: essential hypertension Qualified Code(s): I10 - Essential (primary) hypertension (6) Normocytic anemia Conclusion/Plan: April 2017 he was 13 g of hemoglobin. He stayed anywhere between 11-13. In January he dropped to 10.8, and today's 10.9. Both of these were associated with severe infection. He may have bone marrow suppression from infection. Laboratory Tests 03/20/18 03/20/18 03/20/18 06:27 06:27 09:07 Reticulocyte % (Auto) 1.32 Absolute Retic 0.046 Iron TIBC % Saturation Transferrin Ferritin 245.2 Lactate Dehydrogenase 133 Vitamin B12 03/20/18 03/20/18 09:07 09:07 Reticulocyte % (Auto) Absolute Retic Iron 21 L TIBC 196 L % Saturation 11 L Transferrin 140 L Ferritin Lactate Dehydrogenase Vitamin B12 294 Plan: start iron supplement and request he follow up with his PCP for colonscopy, EGD and if those are negative, reassess his diet (7) CLAUDIO (obstructive sleep apnea) Conclusion/Plan: will report to pm RN to watch for signs and symptoms. If severe, may need overnight oxymetry . (8) Coccyx decubiti Conclusion/Plan: due to patient sitting it chair or falling asleep in chair. Wound care consult with Wound service.
[2018-03-20] MEDS: levoFLOXacin 750 MG/150 ML 750 MG/150 ML BAG IV SCH (16:26)
[2018-03-21] MEDS: IBUPROFEN 400 MG TABLET PO PRN (00:52)
[2018-03-21] MEDS: SODIUM CHLORIDE FLUSH 0.9% 10 ML SYRINGE IVP SCH ×4 (00:53→23:48)
[2018-03-21] MEDS: MIN OIL/DIMETHICON/COCONUT OIL 92 GM TUBE TOP PRN ×2 (00:56→13:12)
[2018-03-21 06:28] LABS: BASOPHILS % (AUTO) 0.6 %; EOSINOPHILS # (AUTO) 0.1 10^3/uL (0.0-0.7); EOSINOPHILS % (AUTO) 1.5 %; HGB - HEMOGLOBIN 10.2 g/dL (14.0-18.0); LYMPHOCYTES # (AUTO) 1.8 10^3/uL (1.5-3.5); LYMPHOCYTES % (AUTO) 27.3 %; MEAN CORPUSCULAR HEMOGLOBIN 29.6 pg (27.0-31.0); MEAN CORPUSCULAR HGB CONC 32.4 g/dL (32.0-36.0); MEAN CORPUSCULAR VOLUME 91.2 fL (80.0-94.0); MONOCYTES # (AUTO) 0.6 10^3/uL (0.0-1.0); MONOCYTES % (AUTO) 9.4 %; NEUTROPHILS # (AUTO) 4.1 10^3/uL (1.5-6.6); NEUTROPHILS % (AUTO) 61.2 %; PLT - PLATELET COUNT 185 10^3/uL (130-450); RED BLOOD COUNT 3.45 10^6/uL (4.70-6.10); RED CELL DISTRIBUTION WIDTH 16.6 % (12.0-15.0); WHITE BLOOD COUNT 6.7 x10^3/uL (4.8-10.8)
[2018-03-21 06:35] LABS: CALCIUM 8.3 mg/dL (8.5-10.3)
--- NOTE | 2018-03-21 07:39 | PROVIDER PROGRESS NOTE ---
Subjective - Prog Note Date Prog Note Date: 03/21/18 Prog Note Time: 08:03 - Subjective Pt reports feeling: Improved Subjective: He says and other than being tired, he feels okay. It is time for his bowel protocol and he would like to do bisacodyl 10 mg per rectum today. And asked me to order that. Overnight vitals been stable, no fever spikes. No events. Current Medications - Current Medications Current Medications: Active Medications Acetaminophen (Tylenol) 650 mg PO Q4HR PRN PRN Reason: Pain 1 to 4 Last Admin: 03/20/18 00:39 Dose: 650 mg Amlodipine Besylate (Norvasc) 5 mg PO DAILY [facility] Last Admin: 03/20/18 09:06 Dose: 5 mg Ascorbic Acid (Vitamin C) 500 mg PO DAILY [facility] Baclofen (Lioresal) 15 mg PO BID [facility] Last Admin: 03/20/18 22:05 Dose: 15 mg Bisacodyl (Dulcolax Supp) 10 mg CA ONCE ONE Stop: 03/21/18 08:04 Cholecalciferol (Vitamin D3) 2,000 unit PO DAILY [facility] Last Admin: 03/20/18 09:08 Dose: 2,000 unit Ferrous Gluconate (Fergon) 324 mg PO DAILYWM [facility] Gabapentin (Neurontin) 900 mg PO BID [facility] Ibuprofen (Motrin) 400 mg PO Q6HR PRN PRN Reason: FEVER > 100.5 F Last Admin: 03/21/18 00:52 Dose: 400 mg Levofloxacin (Levaquin) 750 mg PO DAILY@1200 [facility] Lisinopril (Zestril) 40 mg PO DAILY [facility] Last Admin: 03/20/18 09:08 Dose: 40 mg Mineral Oil (Cavilon) 1 applic TOP PRN PRN PRN Reason: Skin Care Stop: 03/26/18 16:14 Last Admin: 03/21/18 00:56 Dose: 1 applic Multivitamins (Theragran) 1 tab PO DAILYWM [facility] Last Admin: 03/20/18 09:08 Dose: 1 tab Ondansetron HCl (Zofran Inj) 4 mg IVP Q6HR PRN PRN Reason: Nausea / Vomiting Ondansetron HCl (Zofran Odt) 4 mg TL Q6HR PRN PRN Reason: Nausea / Vomiting Oxycodone HCl (Roxicodone) 5 mg PO Q4HR PRN PRN Reason: Pain 5 to 7 Polyethylene Glycol (Miralax) 17 gm PO DAILY [facility] Last Admin: 03/20/18 09:11 Dose: Not Given Sodium Chloride (Normal Saline Flush 0.9%) 10 ml IVP PRN PRN PRN Reason: NEEDED PER PROVIDER ORDERS Last Admin: 03/19/18 16:02 Dose: 10 ml Sodium Chloride (Normal Saline Flush 0.9%) 10 ml IVP 0100,0900,1700 [facility] Last Admin: 03/21/18 00:53 Dose: 10 ml Tolterodine Tartrate (Detrol La) 4 mg PO DAILY [facility] Last Admin: 03/20/18 09:09 Dose: 4 mg Baclofen 15 mg PO BID 01/05/17 Cholecalciferol (Vitamin D3) [Vitamin D3] 2,000 unit PO DAILY 01/05/17 Gabapentin 900 mg PO TID 01/05/17 Lisinopril 40 mg PO DAILY 01/05/17 Multivitamin [Multiple Vitamins] 1 tab PO DAILY 01/05/17 Solifenacin Succinate [Vesicare] 10 mg PO DAILY 01/05/17 amLODIPine [Norvasc] 5 mg PO DAILY 01/05/17 Furosemide 20 mg PO DAILY 02/01/18 Objective - Vital Signs/Intake & Output Reviewed Vital Signs: Yes Vital Signs: Vital Signs x48h Temp Pulse Resp BP Pulse Ox 03/20/18 23:35 37.5 C 96 20 112/51 L 93 Intake & Output: Intake & Output 03/18/18 03/19/18 03/20/18 03/21/18 23:59 23:59 23:59 23:59 Intake Total 3471.021 1225.333 Output Total 500 2500 500 Balance 588.667 473.333 -500 - Objective General Appearance: positive: No acute distress, Alert, Other (angry affect, abrupt dismissive to aid and RN. gets very impatient when they try to help) Eyes Bilateral: positive: PERRL, EOMI ENT: positive: Pharynx nml Neck: positive: No JVD. negative: Stiff neck, Carotid bruit Respiratory: positive: Chest non-tender. negative: Wheezes, Rales, Rhonchi Cardiovascular: positive: Regular rate & rhythm. negative: Gallop/S4, Friction rub Abdomen: positive: No organomegaly, Nml bowel sounds, No distention Rectal: positive: Other (Exam that was done yesterday. He has large area of verrucous growth surrounding his entire anus for at least 3-4 cm. Outside of that platinum of growth, at the 10 to 12 o'clock position he has a stage I ulcer that is closed, healing. At the 2 o'clock position 1 of these verrucous gross has a stage I ulcer. No cellulitis no warmth. No fluctuance of the perineal tissue, no fluctuance of the buttocks or anus. No stool in the vault.) Skin: positive: Warm, Dry Extremities: positive: Pedal edema Neurologic/Psychiatric: positive: Oriented x3, CN's nml (2-12). negative: Motor nml (Plegic from the waist down. Legs are flaccid. He has to move them around using his hands and arms. But he is able to roll over on the bed, pull up sheets, reposition his legs.), Facial droop, Slurred/abnml speech - Lab Results Fish Bones: 03/21/18 06:13 03/21/18 06:13 Other Labs: Lab Results x24hrs 03/21/18 03/21/18 03/20/18 Range/Units 06:13 06:13 09:07 WBC 6.7 (4.8-10.8) x10^3/uL RBC 3.45 L (4.70-6.10) 10^6/uL Hgb 10.2 L (14.0-18.0) g/dL Hct 31.5 L (42.0-52.0) % MCV 91.2 (80.0-94.0) fL MCH 29.6 (27.0-31.0) pg MCHC 32.4 (32.0-36.0) g/dL RDW 16.6 H (12.0-15.0) % Plt Count 185 (130-450) 10^3/uL MPV 8.0 (7.4-11.4) fL Reticulocyte % (Auto) (0.5-2.3) % Neut # (Auto) 4.1 (1.5-6.6) 10^3/uL Lymph # (Auto) 1.8 (1.5-3.5) 10^3/uL Tift # (Auto) 0.6 (0.0-1.0) 10^3/uL Eos # (Auto) 0.1 (0.0-0.7) 10^3/uL Baso # (Auto) 0.0 (0.0-0.1) 10^3/uL Absolute Nucleated RBC 0.00 x10^3/uL Nucleated RBC % 0.1 /100WBC Absolute Retic (0.020-0.110) 10^6/uL Sodium 140 (135-145) mmol/L Potassium 3.9 (3.5-5.0) mmol/L Chloride 104 (101-111) mmol/L Carbon Dioxide 25 (21-32) mmol/L Anion Gap 11.0 (6-13) BUN 16 (6-20) mg/dL Creatinine 1.0 (0.6-1.2) mg/dL Estimated GFR (MDRD) 77 L (>89) Glucose 97 (70-100) mg/dL Calcium 8.3 L (8.5-10.3) mg/dL Iron (45-182) ug/dL TIBC (250-450) ug/dL % Saturation (20-50) % Transferrin (180-329) mg/dL Ferritin (23.9-336.2) ng/mL PSA Screen (0.000-2.000) ng/mL Vitamin B12 294 (180-914) pg/mL 03/20/18 03/20/18 03/20/18 Range/Units 09:07 09:07 06:27 WBC (4.8-10.8) x10^3/uL RBC 3.45 L (4.70-6.10) 10^6/uL Hgb (14.0-18.0) g/dL Hct (42.0-52.0) % MCV (80.0-94.0) fL MCH (27.0-31.0) pg MCHC (32.0-36.0) g/dL RDW (12.0-15.0) % Plt Count (130-450) 10^3/uL MPV (7.4-11.4) fL Reticulocyte % (Auto) 1.32 (0.5-2.3) % Neut # (Auto) (1.5-6.6) 10^3/uL Lymph # (Auto) (1.5-3.5) 10^3/uL Tift # (Auto) (0.0-1.0) 10^3/uL Eos # (Auto) (0.0-0.7) 10^3/uL Baso # (Auto) (0.0-0.1) 10^3/uL Absolute Nucleated RBC x10^3/uL Nucleated RBC % /100WBC Absolute Retic 0.046 (0.020-0.110) 10^6/uL Sodium (135-145) mmol/L Potassium (3.5-5.0) mmol/L Chloride (101-111) mmol/L Carbon Dioxide (21-32) mmol/L Anion Gap (6-13) BUN (6-20) mg/dL Creatinine (0.6-1.2) mg/dL Estimated GFR (MDRD) (>89) Glucose (70-100) mg/dL Calcium (8.5-10.3) mg/dL Iron 21 L (45-182) ug/dL TIBC 196 L (250-450) ug/dL % Saturation 11 L (20-50) % Transferrin 140 L (180-329) mg/dL Ferritin 245.2 (23.9-336.2) ng/mL PSA Screen (0.000-2.000) ng/mL Vitamin B12 (180-914) pg/mL 03/20/18 Range/Units 06:27 WBC (4.8-10.8) x10^3/uL RBC (4.70-6.10) 10^6/uL Hgb (14.0-18.0) g/dL Hct (42.0-52.0) % MCV (80.0-94.0) fL MCH (27.0-31.0) pg MCHC (32.0-36.0) g/dL RDW (12.0-15.0) % Plt Count (130-450) 10^3/uL MPV (7.4-11.4) fL Reticulocyte % (Auto) (0.5-2.3) % Neut # (Auto) (1.5-6.6) 10^3/uL Lymph # (Auto) (1.5-3.5) 10^3/uL Tift # (Auto) (0.0-1.0) 10^3/uL Eos # (Auto) (0.0-0.7) 10^3/uL Baso # (Auto) (0.0-0.1) 10^3/uL Absolute Nucleated RBC x10^3/uL Nucleated RBC % /100WBC Absolute Retic (0.020-0.110) 10^6/uL Sodium (135-145) mmol/L Potassium (3.5-5.0) mmol/L Chloride (101-111) mmol/L Carbon Dioxide (21-32) mmol/L Anion Gap (6-13) BUN (6-20) mg/dL Creatinine (0.6-1.2) mg/dL Estimated GFR (MDRD) (>89) Glucose (70-100) mg/dL Calcium (8.5-10.3) mg/dL Iron (45-182) ug/dL TIBC (250-450) ug/dL % Saturation (20-50) % Transferrin (180-329) mg/dL Ferritin (23.9-336.2) ng/mL PSA Screen 0.844 (0.000-2.000) ng/mL Vitamin B12 (180-914) pg/mL ABX Reporting Has patient been on IV antibiotics over the past 48 hours?: Yes Assessment/Plan - Problem List (1) Bacteremia due to Klebsiella pneumoniae Impression: Source in blood cultures and urine cultures is Klebsiella Plan: Inpatient status IV antibiotic therapy with Levaquin, He has had 2 days of IV and I will switch to po levaquin. Sensitivities show quinolone is appropriate. Make sure gram-negative bacteremia is not from another source such as prostate and he did not want me to do rectal exam. Yesterday, he was taken to the shower so he could have a bath. He said it was okay for me to examine him then. He has a large cauliflower deformation of the soft tissue area around his anus. 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 2 of the cauliflower growth have stage I ulcers. Between 1 0:00 and 12:00 approximately 1 cm away from the large cauliflower deformation he has superficial loss of skin that is dry, healing. PSA is normal. There is no surrounding fluctuance of the perineum or soft tissue around the anus or cauliflower deformity. He is afebrile and WBC nml for 24-36 hours, I will transition to oral. I do not think he still need IV antibiotic therapy for the duration of 10 days for bacteremia since the source is known and po Levaquin will have good soft tissue penetration. I sent a copy of H&P note to Dr. Abdullahi Kim, his infectious disease visit physician from [facility] that took care of him with his previous episode of sepsis with UTI. If afebrile today after po antiobiotics, home tomorrow. (2) UTI due to Klebsiella species Impression: Source of positive blood cultures Plan: Inpatient status IV antibiotic therapy with Levaquin, he is s/p 2 days of IV to be switched to po today. PSA negative. No fistula seen on exam yesterday and vault was negative of stool. He would like me to send a copy of this note to Dr. Abdullahi Kim, his infectious disease visit physician from [facility] that took care of him with his previous ep isode of sepsis with UTI. He declines a PICC line at this time No CT of pelvis since I was able to examine him. Qualifiers: Urinary tract infection type: acute cystitis Hematuria presence: without hematuria Qualified Code(s): N30.00 - Acute cystitis without hematuria (3) JOANNE (acute kidney injury) Conclusion/Plan: Most likely cause is going to be fever, fluid loss from insensate losses in the face of fever. There is no hypotension. Plan: Started IV fluids. Give 2 L max. Creat 1.3>1.2>1.0 today Since there is improvement in BUN and creatinine, no imaging study to evaluate for hydronephrosis. 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 Patient lives alone and is ind ependent. Has a regular bowel protocol that he will explained to the nurses so we can follow that here. He also self catheterizes. The nurses have observed him doing his self cath. He is not doing it under hygienic techniques. This may be the source of his bladder infection. ACP conversation under separate notes. Wishes to resume his usual bowel protocol Plan: Bisacodyl suppository today Emphasized need for sterile technique for self-catheterization Emphasized need for continued exercise and to get off of his coccyx I have also emphasized that he is starting to have some elements of self neglect. He is not doing his exercises, and he is sitting too long developing decubitus ulcers. He recognizes that. He cannot explain why. He denies being depressed. He also does not want any help in the home. He promises to reinvest in better self-care environmental services lead was already met with him. He is interested in seeking psychological help and stand, our social science research assistant has given him referrals. (5) Hypertension Conclusion/Plan: Resume his usual Norvasc and lisinopril. Monitor blood pressure every shift. If becomes hypotensive will hold medication. Will hold for systolic less than 110 and diastolic less than 60 Qualifiers: Hypertension type: essential hypertension Qualified Code(s): I10 - Essential (primary) hypertension (6) Normocytic anemia Conclusion/Plan: April 2017 he was 13 g of hemoglobin. He stayed anywhere between 11-13. In January he dropped to 10.8, and today's 10.9. Both of these were associated with severe infection. He may have bone marrow suppression from infection. Laboratory Tests 03/20/18 03/20/18 03/20/18 06:27 06:27 09:07 Reticulocyte % (Auto) 1.32 Absolute Retic 0.046 Iron TIBC % Saturation Transferrin Ferritin 245.2 Lactate Dehydrogenase 133 Vitamin B12 03/20/18 03/20/18 09:07 09:07 Reticulocyte % (Auto) Absolute Retic Iron 21 L TIBC 196 L % Saturation 11 L Transferrin 140 L Ferritin Lactate Dehydrogenase Vitamin B12 294 Plan: start iron supplement and request he follow up with his PCP for colonscopy, EGD and if those are negative, reassess his diet (7) CLAUDIO (obstructive sleep apnea) Conclusion/Plan: will report to pm RN to watch for signs and symptoms. If severe, may need overnight oxymetry . (8) Coccyx decubiti Conclusion/Plan: due to patient sitting it chair or falling asleep in chair. Wound care consult with Wound service.
[2018-03-21] MEDS ORDERED: BISACODYL 10 MG SUPP PR ONE (08:03)
[2018-03-21] MEDS: TOLTERODINE LA 2 MG CAPSULE PO SCH (08:52)
[2018-03-21] MEDS: LISINOPRIL 20 MG TABLET PO SCH (08:53)
[2018-03-21] MEDS: GABAPENTIN 300 MG CAPSULE PO SCH ×2 (08:53→22:05)
[2018-03-21] MEDS: MULTIVITAMIN TABLET PO SCH (08:53)
[2018-03-21] MEDS: CHOLECALCIFEROL 1,000 UNIT TABLET PO SCH (08:53)
[2018-03-21] MEDS: BACLOFEN 10 MG TABLET PO SCH ×2 (08:54→22:05)
[2018-03-21] MEDS: amLODIPine 5 MG TABLET PO SCH (08:55)
[2018-03-21] MEDS: FERROUS GLUCONATE 324 MG TABLET PO SCH (08:55)
[2018-03-21] MEDS: ASCORBIC ACID CHEW 500 MG TABLET PO SCH (08:56)
[2018-03-21] MEDS: SODIUM CHLORIDE FLUSH 0.9% 10 ML SYRINGE IVP PRN (09:01)
[2018-03-21] MEDS: POLYETHYLENE GLYCOL 3350 17 GM PACKET PO SCH (09:05)
[2018-03-21] MEDS ORDERED: BACITRACIN OINT TOP PRN (11:23)
[2018-03-21] MEDS ORDERED: CARBOXYMETHYLCELLULOSE OPHTH DROPS EACHEYE PRN (11:52)
[2018-03-21] MEDS ORDERED: levoFLOXacin 250 MG TABLET PO SCH (12:00)
[2018-03-22 05:28] LABS: BASOPHILS # (AUTO) 0.1 10^3/uL (0.0-0.1); BASOPHILS % (AUTO) 0.8 %; EOSINOPHILS # (AUTO) 0.1 10^3/uL (0.0-0.7); LYMPHOCYTES # (AUTO) 1.7 10^3/uL (1.5-3.5); LYMPHOCYTES % (AUTO) 24.3 %; MEAN CORPUSCULAR HEMOGLOBIN 29.5 pg (27.0-31.0); MEAN CORPUSCULAR HGB CONC 32.6 g/dL (32.0-36.0); MEAN CORPUSCULAR VOLUME 90.6 fL (80.0-94.0); MEAN PLATELET VOLUME 7.9 fL (7.4-11.4); MONOCYTES # (AUTO) 0.7 10^3/uL (0.0-1.0); MONOCYTES % (AUTO) 10.6 %; NEUTROPHILS # (AUTO) 4.3 10^3/uL (1.5-6.6); NEUTROPHILS % (AUTO) 62.3 %; PLT - PLATELET COUNT 212 10^3/uL (130-450); RED BLOOD COUNT 3.39 10^6/uL (4.70-6.10); RED CELL DISTRIBUTION WIDTH 16.2 % (12.0-15.0); WHITE BLOOD COUNT 6.9 x10^3/uL (4.8-10.8)
[2018-03-22 05:34] LABS: CALCIUM 8.3 mg/dL (8.5-10.3); CREATININE 0.8 mg/dL (0.6-1.2)
--- NOTE | 2018-03-22 06:42 | Discharge Plan ---
Discharge Plan Disposition: Home Health Service Condition: Good Prescriptions: Ascorbic Acid [Vitamin C] 500 mg PO DAILY #30 tablet Ferrous Gluconate 240 mg PO DAILY #30 tablet levoFLOXacin [Levaquin] 750 mg PO DAILY@1200 #7 tablet Diet: Regular Activity Restrictions: Activity as Tolerated Shower Restrictions: No Driving Restrictions: No Additional Instructions or Follow Up instructions: You were brought into the hospital after being seen in your primary care provider office for fever. She found you to have a urinary tract infection and subsequent blood cultures were positive for Klebsiella. Both the urine and the blood are positive for Klebsiella bacteria. Your white cell count was elevated; you had a fever to 39.2; and you had a slightly elevated creatinine indicating dehydration. All of these problems resolved once were placed on antibiotics and intravenous fluids for hydration. We used the antibiobitc levaquin and it does covers Klebsiella nicely. The only other thing we found while you were in the hospital was iron deficiency anemia. Would like you to take an iron tablet daily as well as vitamin C capsule daily. We find that the 2 in combination work well to help with iron deficiency anemia as well as wound healing. On examination you have stage I decubiti around your anus. You have cauliflower skin deformity that may need to be examined with a biopsy to make sure it is not a infection or neoplasm. If you could please have your primary care provider refer you to general surgery for a biopsy in their office. She may also want to do further workup for the iron deficiency anemia. Complete all of your antibiotics. Take a probiotic capsule daily if you develop diarrhea. See Dr. Kim Varghese in 1-2 weeks for follow-up. Follow-Up Care: Home Health - RN, Home Health - No Smoking: If you smoke, Please STOP! Call for help. Follow-up with: Ruby Varghese MD [Primary Care Provider] -
[2018-03-22] MEDS: LISINOPRIL 20 MG TABLET PO SCH (08:23)
[2018-03-22] MEDS: ASCORBIC ACID CHEW 500 MG TABLET PO SCH (08:23)
[2018-03-22] MEDS: FERROUS GLUCONATE 324 MG TABLET PO SCH (08:23)
[2018-03-22] MEDS: GABAPENTIN 300 MG CAPSULE PO SCH (08:24)
[2018-03-22] MEDS: amLODIPine 5 MG TABLET PO SCH (08:24)
[2018-03-22] MEDS: CHOLECALCIFEROL 1,000 UNIT TABLET PO SCH (08:24)
[2018-03-22] MEDS: TOLTERODINE LA 2 MG CAPSULE PO SCH (08:25)
[2018-03-22] MEDS: MULTIVITAMIN TABLET PO SCH (08:26)
[2018-03-22] MEDS: BACLOFEN 10 MG TABLET PO SCH (08:26)
[2018-03-22] MEDS: POLYETHYLENE GLYCOL 3350 17 GM PACKET PO SCH (08:30)
[2018-03-22 08:31] VITALS: BP 131/71
[2018-03-22] MEDS: SODIUM CHLORIDE FLUSH 0.9% 10 ML SYRINGE IVP SCH (08:31)
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
== END 2018-03-22 10:30 | disposition home health service (06) | DRG 690 ==
LOC: ED 14:14 → MS2 14:43
PROVIDERS: ADMIT Specialist; ATTEND Specialist
DX: A41.9 Sepsis, unspecified organism (principal); N30.00 Acute cystitis without hematuria; R78.81 Bacteremia; Z88.1 Allergy status to other antibiotic agents; Z91.040 Latex allergy status; G82.20 Paraplegia, unspecified; N17.9 Acute kidney failure, unspecified; B96.1 Klebsiella pneumoniae [K. pneumoniae] as the cause of diseases classified elsewhere; T14.8XXS Other injury of unspecified body region, sequela; I10 Essential (primary) hypertension; V29.9XXS Motorcycle rider (driver) (passenger) injured in unspecified traffic accident, sequela; N31.9 Neuromuscular dysfunction of bladder, unspecified; D50.9 Iron deficiency anemia, unspecified; G47.33 Obstructive sleep apnea (adult) (pediatric); L89.151 Pressure ulcer of sacral region, stage 1; G47.30 Sleep apnea, unspecified; H54.7 Unspecified visual loss; F32.9 Major depressive disorder, single episode, unspecified
CPT/HCPCS: 36415; 80048; 80053; 82607; 82728; 83540; 83605; 83615; 83690; 84153; 84466; 85025; 85044; 87040; 87077; 87181; 99283; 99284

== ENCOUNTER 2018-07-13 13:58 | Outpatient (CLI) | payer MEDICARE, BC ==
[2018-07-13 14:32] LABS: BASOPHILS # (AUTO) 0.1 10^3/uL (0.0-0.1); BASOPHILS % (AUTO) 1.1 %; EOSINOPHILS # (AUTO) 0.2 10^3/uL (0.0-0.7); EOSINOPHILS % (AUTO) 2.3 %; HGB - HEMOGLOBIN 14.2 g/dL (14.0-18.0); LYMPHOCYTES # (AUTO) 2.2 10^3/uL (1.5-3.5); MEAN CORPUSCULAR HGB CONC 34.2 g/dL (32.0-36.0); MEAN CORPUSCULAR VOLUME 90.6 fL (80.0-94.0); MEAN PLATELET VOLUME 8.3 fL (7.4-11.4); MONOCYTES # (AUTO) 0.6 10^3/uL (0.0-1.0); MONOCYTES % (AUTO) 7.7 %; NEUTROPHILS # (AUTO) 4.3 10^3/uL (1.5-6.6); NEUTROPHILS % (AUTO) 58.9 %; PLT - PLATELET COUNT 208 10^3/uL (130-450); RED BLOOD COUNT 4.58 10^6/uL (4.70-6.10); RED CELL DISTRIBUTION WIDTH 15.5 % (12.0-15.0); WHITE BLOOD COUNT 7.3 x10^3/uL (4.8-10.8)
[2018-07-13 15:00] LABS: FERRITIN 38.9 ng/mL (23.9-336.2)
[2018-07-13 15:03] LABS: % IRON SATURATION 15 % (20-50); IRON 63 ug/dL (45-182); TOTAL IRON BINDING CAPACITY 414 ug/dL (250-450); TRANSFERRIN 296 mg/dL (180-329)
[2018-07-13 15:04] LABS: FOLATE 24.04 ng/mL (5.90 - >24.8)
== END 2018-07-13 13:59 | disposition home or self-care (01) ==
LOC: LAB 13:58
PROVIDERS: ATTEND Internal Medicine
DX: D64.9 Anemia, unspecified (principal)
CPT/HCPCS: 36415; 82607; 82728; 82746; 83540; 84466; 85025

== ENCOUNTER 2018-11-25 09:23 | Day surgery (SDC) | payer MEDICARE, BC ==
[2018-11-25] MEDS ORDERED: MIDAZOLAM 2 MG/2 ML VIAL IVP ONE (09:24)
[2018-11-25] MEDS ORDERED: fentaNYL 250 MCG/5 ML VIAL IVP ONE (09:24)
[2018-11-25] MEDS ORDERED: LACTATED RINGERS 1,000 ML IV ONE (09:30)
[2018-11-25 12:06] VITALS: BP 132/79
== END 2018-11-25 09:24 | disposition home or self-care (01) ==
LOC: SDS 09:23
PROVIDERS: ATTEND Surgery
PROC: 0DBL8ZZ Excision of Transverse Colon, Via Natural or Artificial Opening Endoscopic (ICD-10-PCS; principal; 2018-11-25 10:30)
DX: K62.89 Other specified diseases of anus and rectum (principal); D12.3 Benign neoplasm of transverse colon; K64.4 Residual hemorrhoidal skin tags; K64.8 Other hemorrhoids; G82.21 Paraplegia, complete; L89.622 Pressure ulcer of left heel, stage 2; D64.9 Anemia, unspecified; I10 Essential (primary) hypertension; F17.210 Nicotine dependence, cigarettes, uncomplicated; G47.30 Sleep apnea, unspecified; G56.00 Carpal tunnel syndrome, unspecified upper limb
CPT/HCPCS: 45380; J3010; J7120

== ENCOUNTER 2019-03-16 09:57 | Day surgery (SDC) | payer MEDICARE, BC ==
[2019-03-16] MEDS ORDERED: MIDAZOLAM 2 MG/2 ML VIAL IVP ONE (09:58)
[2019-03-16] MEDS ORDERED: fentaNYL 250 MCG/5 ML VIAL IVP ONE (09:58)
[2019-03-16] MEDS ORDERED: LACTATED RINGERS 1,000 ML IV ONE (10:22)
[2019-03-16 12:48] VITALS: BP 120/84
== END 2019-03-16 09:58 | disposition home or self-care (01) ==
LOC: SDS 09:57
PROVIDERS: ATTEND Surgery
PROC: 0DBL8ZZ Excision of Transverse Colon, Via Natural or Artificial Opening Endoscopic (ICD-10-PCS; 2019-03-16)
PROC: 0DBP8ZZ Excision of Rectum, Via Natural or Artificial Opening Endoscopic (ICD-10-PCS; principal; 2019-03-16 11:45)
DX: Z12.11 Encounter for screening for malignant neoplasm of colon (principal); D12.3 Benign neoplasm of transverse colon; D12.8 Benign neoplasm of rectum; I10 Essential (primary) hypertension; G47.30 Sleep apnea, unspecified; G82.20 Paraplegia, unspecified; D64.9 Anemia, unspecified; F17.210 Nicotine dependence, cigarettes, uncomplicated
CPT/HCPCS: 45380; J3010; J7120

== ENCOUNTER 2019-07-08 11:15 | Outpatient (CLI) | payer MEDICARE, BC ==
[2019-07-08 11:43] LABS: BILIRUBIN,URINE NEGATIVE (NEGATIVE); GLUCOSE, URINE (UA) NEGATIVE (NEGATIVE); KETONES,URINE (UA) TRACE mg/dL (NEGATIVE); LEUKOCYTE ESTERASE, URINE LARGE (NEGATIVE); NITRITE,URINE POSITIVE (NEGATIVE); OCCULT BLOOD,URINE MODERATE (NEGATIVE); PROTEIN,URINE NEGATIVE (NEGATIVE); UROBILINOGEN,URINE 0.2 (NORMAL) E.U./dL (NORMAL)
[2019-07-08 11:47] LABS: CLARITY,URINE SL. CLOUDY (CLEAR)
[2019-07-08 11:50] LABS: BACTERIA,URINE Few /HPF (None Seen); RBC,URINE 0-5 /HPF (0-5); SQUAMOUS EPITHELIAL CELL,UR NONE SEEN (<= Few)
== END 2019-07-08 11:16 | disposition home or self-care (01) ==
LOC: LAB 11:15
PROVIDERS: ATTEND Specialist
DX: R31.9 Hematuria, unspecified (principal)
CPT/HCPCS: 81001; 81003; 87077; 87086; 87181

== ENCOUNTER 2019-08-10 10:45 | Outpatient (CLI) | payer MEDICARE, BC ==
[2019-08-10 11:14] LABS: BASOPHILS # (AUTO) 0.1 10^3/uL (0.0-0.1); BASOPHILS % (AUTO) 0.8 %; EOSINOPHILS # (AUTO) 0.1 10^3/uL (0.0-0.7); EOSINOPHILS % (AUTO) 0.9 %; HGB - HEMOGLOBIN 15.4 g/dL (14.0-18.0); LYMPHOCYTES # (AUTO) 2.9 10^3/uL (1.5-3.5); LYMPHOCYTES % (AUTO) 26.2 %; MEAN CORPUSCULAR HEMOGLOBIN 33.2 pg (27.0-31.0); MEAN CORPUSCULAR HGB CONC 34.4 g/dL (32.0-36.0); MEAN CORPUSCULAR VOLUME 96.6 fL (80.0-94.0); MONOCYTES # (AUTO) 0.9 10^3/uL (0.0-1.0); MONOCYTES % (AUTO) 8.1 %; NEUTROPHILS # (AUTO) 7.1 10^3/uL (1.5-6.6); NEUTROPHILS % (AUTO) 63.5 %; PLT - PLATELET COUNT 231 10^3/uL (130-450); RED BLOOD COUNT 4.64 10^6/uL (4.70-6.10); RED CELL DISTRIBUTION WIDTH 16.3 % (12.0-15.0); WHITE BLOOD COUNT 11.1 x10^3/uL (4.8-10.8)
[2019-08-10 11:33] LABS: ALBUMIN/GLOBULIN RATIO 1.2 (1.0-2.2); BILIRUBIN,TOTAL 0.8 mg/dL (0.2-1.0); CALCIUM 9.2 mg/dL (8.5-10.3); CREATININE 0.7 mg/dL (0.6-1.2); TOTAL PROTEIN 7.3 g/dL (6.7-8.2)
== END 2019-08-10 10:46 | disposition home or self-care (01) ==
LOC: LAB 10:45
PROVIDERS: ATTEND Physical Medicine & Rehabilitation Spinal Cord Injury Medicine
DX: K59.2 Neurogenic bowel, not elsewhere classified (principal); D50.8 Other iron deficiency anemias; N31.9 Neuromuscular dysfunction of bladder, unspecified; E55.9 Vitamin D deficiency, unspecified; G82.20 Paraplegia, unspecified
CPT/HCPCS: 36415; 80053; 81599; 82306; 82728; 83540; 84402; 84403; 84466; 85025

== ENCOUNTER 2019-08-12 16:04 | Outpatient (CLI) | payer MEDICARE, BC ==
--- NOTE | 2019-08-13 10:30 | Ultrasound Report ---
PROCEDURE: Retroperitoneal INDICATIONS: NEUROGENIC BLADDER TECHNIQUE: Real-time scanning was performed of the retroperitoneal organs, with image documentation. COMPARISON: None. FINDINGS: Kidneys: Kidneys are normal in size. Right kidney measures 11 cm long; left kidney measures 11.6 cm long. Right renal cortical thickness is 1.0 cm; left renal cortical thickness is 1.2 cm. Multiple c ysts are seen scattered in right kidney measures up to 3.3 x 1.9 x 2.2 cm in size in the upper pole o f right kidney. Moderate right-sided hydronephrosis is noted. Dilatation of proximal right ureter is also seen. Tiny nonobstructing microcalcifications are noted in right renal parenchyma. No left-sided hydronephrosis or nephrolithiasis. Tiny cysts are seen scattered in left renal parenchyma. Urinary bladder is partially distended and measures 45.2 mL in volume. Bilateral ureteral jets are vi sualized. IMPRESSION: 1. Moderate right-sided hydronephrosis and hydroureter. No definite obstructing renal stone or ureter al stone is seen. Multiple right renal cysts as above. Tiny nonobstructing stones are seen in right r enal parenchyma. 2. Tiny left renal cysts. No left-sided hydronephrosis or renal stone. 3. No gross abnormality is seen in partially distended urinary bladder. Reviewed by: Ad Woodard MD on 08/13/2019 10:29 AM PDT Approved by: Ad Woodard MD on 08/13/2019 10:29 AM PDT Station ID: [id number]
== END 2019-08-12 16:05 | disposition home or self-care (01) ==
LOC: DI 16:04
PROVIDERS: ATTEND Physical Medicine & Rehabilitation Spinal Cord Injury Medicine
DX: N13.30 Unspecified hydronephrosis (principal); N13.4 Hydroureter; N20.0 Calculus of kidney; N28.1 Cyst of kidney, acquired
CPT/HCPCS: 76770

== ENCOUNTER 2019-08-12 17:21 | Outpatient (CLI) | payer MEDICARE, BC ==
[2019-08-12 18:01] LABS: BILIRUBIN,URINE NEGATIVE (NEGATIVE); GLUCOSE, URINE (UA) NEGATIVE (NEGATIVE); KETONES,URINE (UA) NEGATIVE (NEGATIVE); LEUKOCYTE ESTERASE, URINE LARGE (NEGATIVE); NITRITE,URINE POSITIVE (NEGATIVE); OCCULT BLOOD,URINE NEGATIVE (NEGATIVE); PROTEIN,URINE TRACE mg/dL (NEGATIVE); UROBILINOGEN,URINE 0.2 (NORMAL) E.U./dL (NORMAL)
[2019-08-12 18:10] LABS: CLARITY,URINE TURBID (CLEAR)
[2019-08-12 18:11] LABS: BACTERIA,URINE Many /HPF (None Seen); MUCUS,URINE Moderate Strands; RBC,URINE 0-5 /HPF (0-5); SQUAMOUS EPITHELIAL CELL,UR RARE Squamous (<= Few)
== END 2019-08-12 17:22 | disposition home or self-care (01) ==
LOC: LAB 17:21
PROVIDERS: ATTEND Internal Medicine
DX: R39.9 Unspecified symptoms and signs involving the genitourinary system (principal)
CPT/HCPCS: 81001; 81003; 87077; 87086; 87181

== ENCOUNTER 2019-09-13 10:34 | Outpatient (CLI) | payer MEDICARE, BC ==
--- NOTE | 2019-09-13 15:39 | XRAY Report ---
PROCEDURE: Foot 3 View RT INDICATIONS: RT FOOT WOUNDS,EDEMA TECHNIQUE: 3 views of the foot were acquired. COMPARISON: None FINDINGS: Bones: Subacute or chronic fracture of the head of the fifth metatarsal. No suspicious bony lesions. Small dorsal calcaneal bone spur. Mild midfoot osteoarthritis. No osseous erosive changes. No periost eal reaction. Soft tissues: No tibiotalar joint effusion. Achilles tendon appears normal. Extensive soft tissue s welling noted suspicious for cellulitis. No soft tissue gas. IMPRESSION: 1. No jessica evidence of osteomyelitis. Please note plain from radiographs can be insensitive to chandra es of osteomyelitis in the initial 15 days. If there is clinical concern for osteomyelitis, a three-p hase nuclear medicine bone scan should be considered for further evaluation. 2. Subacute or chronic fracture of the fifth metatarsal head. Recommend correlation for point tendern ess. Reviewed by: Charleen Thao MD, PhD on 09/13/2019 3:38 PM PDT Approved by: Charleen Thao MD, PhD on 09/13/2019 3:38 PM PDT Station ID: [id number]
--- NOTE | 2019-09-13 15:41 | XRAY Report ---
PROCEDURE: Tib/Fib RT INDICATIONS: WOUNDS R FOOD, EDEMA TECHNIQUE: 2 views of the tibia and fibula were acquired. COMPARISON: None FINDINGS: Bones: Chronic-appearing depressed medial tibial plateau fracture noted. No periosteal reaction. No f rank osseous erosive changes. Soft tissues: No suspicious soft tissue calcifications or masses. Extensive soft tissue swelling not ed suspicious for cellulitis. No soft tissue gas. IMPRESSION: 1. No jessica osteomyelitis. Please note plain from radiographs can be insensitive to changes of osteom yelitis in the initial 15 days. If there is clinical concern for osteomyelitis, a three-phase nuclear medicine bone scan should be considered for further evaluation. 2. Chronic appearing medial tibial plateau fracture. Reviewed by: Charleen Thao MD, PhD on 09/13/2019 3:40 PM PDT Approved by: Charleen Thao MD, PhD on 09/13/2019 3:40 PM PDT Station ID: [id number]
== END 2019-09-13 10:35 | disposition home or self-care (01) ==
LOC: DI 10:34
PROVIDERS: ATTEND Internal Medicine
DX: S91.331A Puncture wound without foreign body, right foot, initial encounter (principal); R60.0 Localized edema; S92.351A Displaced fracture of fifth metatarsal bone, right foot, initial encounter for closed fracture; S82.141A Displaced bicondylar fracture of right tibia, initial encounter for closed fracture

== ENCOUNTER 2019-10-04 08:00 | Outpatient (CLI) | payer MEDICARE, BC | END 2019-10-04 23:59 | disposition home or self-care (01) | LOC: LAB.R 08:00 | PROVIDERS: ATTEND Internal Medicine | DX: R19.5 Other fecal abnormalities (principal) | CPT/HCPCS: 81599; 83630; 87045; 87046; 87177; 87209; 87329; 87427; 87493 ==

== ENCOUNTER 2019-10-17 13:13 | Outpatient (CLI) | payer MEDICARE, BC ==
[2019-10-17 13:32] LABS: BILIRUBIN,URINE NEGATIVE (NEGATIVE); GLUCOSE, URINE (UA) NEGATIVE (NEGATIVE); KETONES,URINE (UA) NEGATIVE (NEGATIVE); LEUKOCYTE ESTERASE, URINE TRACE (NEGATIVE); NITRITE,URINE NEGATIVE (NEGATIVE); OCCULT BLOOD,URINE NEGATIVE (NEGATIVE); PROTEIN,URINE NEGATIVE (NEGATIVE); UROBILINOGEN,URINE 0.2 (NORMAL) E.U./dL (NORMAL)
[2019-10-17 13:34] LABS: CLARITY,URINE CLEAR (CLEAR)
[2019-10-17 13:45] LABS: BACTERIA,URINE Rare /HPF (None Seen); RBC,URINE 0-5 /HPF (0-5); SQUAMOUS EPITHELIAL CELL,UR FEW Squamous (<= Few)
== END 2019-10-17 13:14 | disposition home or self-care (01) ==
LOC: LAB 13:13
PROVIDERS: ATTEND Internal Medicine
DX: R31.9 Hematuria, unspecified (principal)
CPT/HCPCS: 81001; 87077; 87086

== ENCOUNTER 2019-10-20 14:51 | Outpatient (CLI) | payer MEDICARE, BC ==
--- NOTE | 2019-10-20 17:01 | CT Report ---
PROCEDURE: Abdomen/Pelvis WO INDICATIONS: CALCULUS OF KIDNEY TECHNIQUE: Noncontrast 5 mm thick sections acquired from the diaphragms to the symphysis. 5 mm coronal and sagi ttal reformats were then performed. For radiation dose reduction, the following was used: automated exposure control, adjustment of mA and/or kV according to patient size. COMPARISON: 08/12/2019 retroperitoneal ultrasound, 02/02/2018 CT chest angiogram.. FINDINGS: Image quality: Excellent. ABDOMEN: Lung bases: Lung bases are clear. Heart size is normal. Solid organs: Liver and spleen are normal in size. Gallbladder appears normal Pancreas is normal i n contours. No adrenal nodules. Kidneys are asymmetric, larger in size on the right than the left, associated with prominent right-sided hydronephrosis and nephrolithiasis. The hydronephrosis is mult iple calculi is up to 3 cm. No left-sided urinary tract stone is found. Peritoneum and bowel: Unenhanced bowel loops demonstrate normal wall thickness and caliber. No free fluid or air. Nodes and vessels: No retroperitoneal or mesenteric adenopathy by size criteria. Aorta and inferior vena cava are normal in caliber. Miscellaneous: No ventral hernias. PELVIS: Genitourinary: Bladder wall thickness is normal. Miscellaneous: No inguinal hernias or adenopathy. Thickening of the cutaneous surface over the cocc yx area in this paraplegic patient raises concern for potential development of decubitus ulceration. A similar pattern is noted inferior to the right issue Bones: No suspicious bony lesions. No vertebral body compression fractures. IMPRESSION: 1. Moderately severe to severe hydronephrosis on the right but without perinephric edema that would s uggest presence of superimposed urinary tract infection. 2. Note is made of multiple calculi within the lower third collecting system of the right kidney none of which appear obstructed. However, there are additional right-sided urinary tract stones within th e distal right ureter superimposed, measuring up to 1 cm in maximal dimension, and associated in a li near fashion over a craniocaudad length in the distal ureter about to 3 cm. This size generally will not pass without urologic intervention. 3. No right-sided urinary tract stone is found. No evidence of underlying infection or neoplasm throu gh the abdomen and pelvis. Paraplegic patient, incidental note is made of cutaneous thickening over t he coccyx area and the right hip/facial tuberosity, perhaps decubitus ulcerations potentially develo ping. Please correlate clinically. Reviewed by: Mark Anthony Mckinley MD on 10/20/2019 4:59 PM PDT Approved by: Mark Anthony Mckinley MD on 10/20/2019 4:59 PM PDT Station ID: [id number]
== END 2019-10-20 14:52 | disposition home or self-care (01) ==
LOC: DI 14:51
PROVIDERS: ATTEND Specialist
DX: N13.2 Hydronephrosis with renal and ureteral calculous obstruction (principal)
CPT/HCPCS: 74176

== ENCOUNTER 2019-11-14 13:16 | Outpatient (CLI) | payer MEDICARE, BC ==
--- NOTE | 2019-11-14 16:14 | XRAY Report ---
PROCEDURE: Abdomen 1 View X-Ray INDICATIONS: KIDNEY STONES TECHNIQUE: 1 view of the abdomen were acquired. COMPARISON: CT abdomen pelvis 10/20/2019 FINDINGS: Surgical changes and devices: Right ureterovesicular stent is present. Bowel: No pneumoperitoneum. The bowel gas pattern demonstrates moderately dilated loops of colon wi th stool. Soft tissues: No masses; visualized solid organ contours appear normal in size. No suspicious abdom inal calcifications. No definitive calcifications are noted overlying the renal or ureteral shadows. Bones: No suspicious bony abnormalities. IMPRESSION: 1. No visualized calcification overlying the renal or ureteral shadows. 2. Moderately dilated loops of colon with stool. Developing obstruction cannot be excluded. Reviewed by: Jany Burdick MD on 11/14/2019 4:13 PM PDT Approved by: Jany Burdick MD on 11/14/2019 4:13 PM PDT Station ID: [id number]
== END 2019-11-14 13:17 | disposition home or self-care (01) ==
LOC: DI 13:16
PROVIDERS: ATTEND Specialist
DX: N20.0 Calculus of kidney (principal)
CPT/HCPCS: 74018

== ENCOUNTER 2020-04-18 15:56 | Outpatient (CLI) | payer MEDICARE, BC | END 2020-04-18 15:57 | disposition EMS.NT | LOC: EMS 15:56 | DX: S91.312A Laceration without foreign body, left foot, initial encounter (principal); W26.8XXA Contact with other sharp object(s), not elsewhere classified, initial encounter; Y93.89 Activity, other specified; Y92.512 Supermarket, store or market as the place of occurrence of the external cause ==

== ENCOUNTER 2020-04-18 17:21 | Emergency (ER) | payer MEDICARE, BC ==
[2020-04-18 17:31] VITALS: BP 134/83
[2020-04-18] MEDS ORDERED: LIDOCAINE 1%-EPI 1:100000 20 ML MDV SUBQ STA (17:41)
[2020-04-18] MEDS ORDERED: TETANUS/DIPHTHERIA/PERTUSSIS 0.5 ML SYRINGE IM ONE (17:57)
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
== END 2020-04-18 18:05 | disposition home or self-care (01) ==
LOC: ED 17:21
DX: S91.312A Laceration without foreign body, left foot, initial encounter (principal); W26.8XXA Contact with other sharp object(s), not elsewhere classified, initial encounter; Y93.89 Activity, other specified; Y92.512 Supermarket, store or market as the place of occurrence of the external cause; Z99.3 Dependence on wheelchair; G82.20 Paraplegia, unspecified; I10 Essential (primary) hypertension; F17.200 Nicotine dependence, unspecified, uncomplicated
CPT/HCPCS: 12002; 90471; 99282; 99283

== ENCOUNTER 2022-05-07 14:26 | Outpatient (CLI) | payer MEDICARE, BC ==
--- NOTE | 2022-05-07 15:32 | XRAY Report ---
PROCEDURE: Calcaneus LT INDICATIONS: EVAL FOR OSTEOMYELITIS TECHNIQUE: Two views of the calcaneus were acquired. COMPARISON: Left ankle radiographs 05/05/2017. FINDINGS: Bones: No fractures or dislocations. No osseous erosion is identified. Irregularity at the distal ti aleena or fibular shafts. Bones appear osteopenic. Soft tissues: No suspicious calcifications. Achilles tendon appears normal. IMPRESSION: No osseous erosion is identified to suggest osteomyelitis. MRI or CT could be considered for further evaluation. Irregularity at the distal tibia or fibular shafts. This could be the sequelae of prior fracture. Oss eous lesion with periosteal reaction cannot be excluded. Consider dedicated radiographs of the distal tibia/fibula. Reviewed by: Mynor Edwards MD on 05/07/2022 3:30 PM PDT Approved by: Mynor Edwards MD on 05/07/2022 3:30 PM PDT Station ID: [id number]
== END 2022-05-07 14:27 | disposition home or self-care (01) ==
LOC: DI 14:26
PROVIDERS: ATTEND Family Medicine
DX: L89.624 Pressure ulcer of left heel, stage 4 (principal); R93.6 Abnormal findings on diagnostic imaging of limbs

== ENCOUNTER 2022-07-18 15:35 | Outpatient (CLI) | payer MEDICARE, BC | END 2022-07-18 23:59 | disposition EMS.NT | LOC: EMS 15:35 | DX: Z03.89 Encounter for observation for other suspected diseases and conditions ruled out (principal) ==

== ENCOUNTER 2022-09-01 16:16 | Emergency (ER) | payer MEDICARE, BC ==
[2022-09-01] MEDS ORDERED: BACITRACIN ZINC OINT 1 PACKET TOP STA (16:49)
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
[2022-09-01 17:29] LABS: CALCIUM 8.9 mg/dL (8.5-10.3); CREATININE 1.3 mg/dL (0.6-1.2); CRP - C-REACTIVE PROTEIN 5.2 mg/dL (0-1.0); POTASSIUM 3.6 mmol/L (3.5-5.0)
[2022-09-01 17:36] LABS: BASOPHILS % (AUTO) 0.2 %; EOSINOPHILS # (AUTO) 0.2 10^3/uL (0.0-0.7); EOSINOPHILS % (AUTO) 2.2 %; HCT - HEMATOCRIT 38.3 % (42.0-52.0); HGB - HEMOGLOBIN 12.3 g/dL (14.0-18.0); LYMPHOCYTES # (AUTO) 2.2 10^3/uL (1.5-3.5); LYMPHOCYTES % (AUTO) 26.9 %; MEAN CORPUSCULAR HEMOGLOBIN 28.2 pg (27.0-31.0); MEAN CORPUSCULAR HGB CONC 32.1 g/dL (32.0-36.0); MEAN CORPUSCULAR VOLUME 87.8 fL (80.0-94.0); MEAN PLATELET VOLUME 9.8 fL (7.4-11.4); MONOCYTES # (AUTO) 0.6 10^3/uL (0.0-1.0); MONOCYTES % (AUTO) 7.3 %; NEUTROPHILS # (AUTO) 5.2 10^3/uL (1.5-6.6); PLT - PLATELET COUNT 287 10^3/uL (130-450); RED BLOOD COUNT 4.36 10^6/uL (4.70-6.10); WHITE BLOOD COUNT 8.2 x10^3/uL (4.8-10.8)
[2022-09-01 18:27] VITALS: BP 110/65
== END 2022-09-01 18:24 | disposition home or self-care (01) ==
LOC: ED 16:16
DX: L89.114 Pressure ulcer of right upper back, stage 4 (principal); T24.201A Burn of second degree of unspecified site of right lower limb, except ankle and foot, initial encounter; Z87.891 Personal history of nicotine dependence
CPT/HCPCS: 36415; 80048; 84145; 85025; 85651; 86140; 99281; 99283; A9270

== ENCOUNTER 2022-09-03 14:47 | Outpatient (CLI) | payer MEDICARE, BC ==
--- NOTE | 2022-09-03 17:26 | CT Report ---
PROCEDURE: ABDOMEN/PELVIS WO INDICATIONS: NEPHROLITHIASIS TECHNIQUE: A CT scan of the abdomen and pelvis was performed without the use of intravenous contrast. Images we re recorded and evaluated at appropriate window settings. Reformats: coronal and sagittal. For radiat ion dose reduction, the following was used: automated exposure control, adjustment of mA and/or kV ac cording to patient size. COMPARISON: X-ray abdomen 05/07/2022, CT abdomen and pelvis 10/20/2019 FINDINGS: Image quality: Excellent. Lung bases and heart: Dependent changes/minimal effusions are present within the bases, left greater than right. Liver: No solid mass. Gallbladder and biliary tree: Not visualized. Spleen: No splenomegaly. Pancreas: No pancreatic ductal dilation. Adrenals: No adrenal nodule. Kidneys and ureters: No left renal stones. There are 3 calcifications identified within the right kid osvaldo the largest in the inferior pole measuring 6 mm, Hounsfield units 381. There is no obstruction. C ompared to 2019, there are 4 calcifications with 3 in the inferior pole the largest measuring 1.1 cm. . No renal cystic lesion which requires follow up. No solid mass. Bowel and peritoneum: No bowel distension. No pathologic free fluid. Lymph nodes: No central or retroperitoneal adenopathy. Vessels: No infrarenal aortic aneurysm. PELVIS Reproductive organs: Unremarkable. Bladder: No wall thickness, accounting for underdistention. Pelvic lymph nodes: No pelvic adenopathy by size criteria. Bones: No aggressive osseous abnormality. Other: No significant ventral or inguinal hernia. IMPRESSION: No hydronephrosis or obstructing renal stone. Nonobstructing right renal calculi are present smaller numbering decreased in size compared to prior exam. Reviewed by: Jany Burdick MD on 09/03/2022 5:25 PM PDT Approved by: Jany Burdick MD on 09/03/2022 5:25 PM PDT Station ID: [id number]
== END 2022-09-03 14:48 | disposition home or self-care (01) ==
LOC: DI 14:47
PROVIDERS: ATTEND Urology
DX: N20.0 Calculus of kidney (principal)

== ENCOUNTER 2022-11-07 15:38 | Emergency (ER) | payer MEDICARE, BC ==
[2022-11-07 15:53] VITALS: BP 115/58; O2SAT 94
[2022-11-07] MEDS ORDERED: AMOX/CLAV 875 MG/125 MG TABLET PO STA (18:49)
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
--- NOTE | 2022-11-10 10:08 | ED Physician Documentation ---
ED Addendum - Addendum Addendum: 11/10/22 10:07 The patient's wound cultures came back showing 2 organisms, Proteus mirabilis and Staph aureus. The patient was prescribed Augmentin twice daily for 10 days. The Proteus is sensitive to ampicillin and cephalosporins so adequate coverage. However the Staph aureus is resistant to penicillin. It is sensitive to tetracycline and ciprofloxacin. My preference would be doxycycline. I sent a prescription for the doxycycline to his preferred pharmacy. We will have nursing staff call him to notify to add the doxycycline to the current Augmentin and take both.
== END 2022-11-07 19:16 | disposition home or self-care (01) ==
LOC: ED 15:38
DX: L89.113 Pressure ulcer of right upper back, stage 3 (principal); B96.4 Proteus (mirabilis) (morganii) as the cause of diseases classified elsewhere; B95.61 Methicillin susceptible Staphylococcus aureus infection as the cause of diseases classified elsewhere; Z16.11 Resistance to penicillins; G82.20 Paraplegia, unspecified; I10 Essential (primary) hypertension; Z87.891 Personal history of nicotine dependence; Z79.899 Other long term (current) drug therapy
CPT/HCPCS: 87070; 87077; 87181; 87205; 99283; A9270

== ENCOUNTER 2023-03-31 15:23 | Outpatient (CLI) | payer MEDICARE, BC | END 2023-03-31 15:24 | disposition critical access hospital (66) | LOC: EMS 15:23 | DX: R50.9 Fever, unspecified (principal); R00.0 Tachycardia, unspecified; M25.511 Pain in right shoulder | CPT/HCPCS: A0425; A0427 ==

== ENCOUNTER 2023-03-31 15:40 | Inpatient (IN) | payer MEDICARE, BC ==
--- NOTE | 2023-03-31 16:02 | ED Physician Documentation ---
History of Present Illness - Stated complaint Stated Complaint: FEVER/WEAKNESS - Chief complaint Chief Complaint: Fever - History obtained from History obtained from: Patient, EMS - History of Present Illness Timing: How many days ago Pain level max: 10 Pain level now: 10 - Additonal information Additional information: Patient is a 63-year-old male, history of a spinal cord injury causing paraplegia. He presents to the emergency department with a fever. He states he has mostly had a fever at night for the past several days. He also complains of right shoulder pain. He has chronic wounds in his pelvic area that are being managed by wound care at this hospital. He states they have not been infected recently. He does have a history of urosepsis. He states he has not really been coughing. No nausea or vomiting. No headache. He has been feeling generally more tired and rundown. No recent antibiotics. 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 - Present Medications Home Medications: Ambulatory Orders Medication Instructions Recorded Confirmed Cholecalciferol (Vitamin D3) 2,000 unit PO DAILY 01/05/17 03/19/23 [Vitamin D3] Multivitamin [Multiple Vitamins] 1 tab PO DAILY 01/05/17 03/19/23 amLODIPine [Norvasc] 10 mg PO DAILY 01/05/17 03/19/23 lisinopriL [Lisinopril] 40 mg PO DAILY 01/05/17 03/19/23 Baclofen 20 mg PO TID 10/04/19 03/19/23 Acetaminophen [Aphen] 650 mg PO Q4HR PRN 05/29/21 03/19/23 Cranberry Fruit Extract [Cranberry] 1 tab PO DAILY 05/29/21 03/19/23 Ferrous Sulfate 1 tab PO DAILY 05/29/21 03/19/23 Furosemide [Lasix] 40 mg PO DAILY 05/07/22 03/19/23 Solifenacin Succinate 10 mg PO DAILY 05/07/22 03/19/23 Ketoconazole [Nizoral A-D] See Rx Instructions .ROUTE 07/02/22 03/19/23 .COMPLEX #120 ml Bacitracin Zinc Oint 1 applic TOP BID #1 each 09/01/22 03/19/23 Gabapentin [Neurontin] 200 mg PO TID 03/19/23 03/19/23 Potassium Citrate [Potassium 10 meq PO DAILY 03/19/23 03/19/23 Citrate ER] - Allergies Allergies/Adverse Reactions: Allergies Allergy/AdvReac Type Severity Reaction Status Date / Time carbenicillin Allergy Respiratory Verified 03/31/23 15:51 [From Geocillin] clindamycin Allergy Rash Verified 03/31/23 15:51 Latex, Natural Rubber Allergy Unknown Verified 03/31/23 15:51 - Social History Does the pt smoke?: No Smoking Status: Never smoker Does the pt drink ETOH?: No Does the pt have substance abuse?: No - Immunizations Immunizations are current?: Yes - POLST Patient has POLST: No POLST Status: Full Code PD ED PE NORMAL - Vitals Vital signs reviewed: Yes - General General: Alert and oriented X 3, No acute distress - HEENT HEENT: PERRL, Ears normal, Moist mucous membranes - Neck Neck: Supple, no meningeal sign - Cardiac Cardiac: RRR, Strong equal pulses - Respiratory Respiratory: No respiratory distress, Clear bilaterally - Abdomen Abdomen: Soft, Non tender, Non distended - Back Back: No CVA TTP, No spinal TTP - Derm Derm: Warm and dry - Extremities Extremities: Other (chornic wounds to the posterior scrotum, buttocks and post right thigh Do not appear acutely infected. Using the R shoulder without difficulty in the ER, but complains of pain when moved. ) - Neuro Neuro: Alert and oriented X 3 - Psych Psych: Normal mood, Normal affect Results - Vitals Vitals: Vital Signs - 24 hr 03/31/23 03/31/23 03/31/23 15:51 15:58 16:56 Temperature 39.4 C H 37.0 C Heart Rate 141 H Respiratory 24 20 Rate Blood Pressure 150/81 H O2 Saturation 96 03/31/23 03/31/23 03/31/23 17:02 17:14 17:16 Temperature Heart Rate 115 H 87 Respiratory 20 27 H 18 Rate Blood Pressure 135/84 H O2 Saturation 92 96 03/31/23 03/31/23 03/31/23 17:30 18:00 18:30 Temperature 37.0 C Heart Rate 112 H 102 H 103 H Respiratory 24 22 24 Rate Blood Pressure 109/61 92/57 L 107/61 O2 Saturation 93 93 92 Oxygen O2 Source Room air - Labs Labs: Laboratory Tests 03/31/23 03/31/23 03/31/23 16:11 16:11 16:11 WBC 14.3 H RBC 3.91 L Hgb 9.5 L Hct 32.8 L MCV 83.9 MCH 24.3 L MCHC 29.0 L RDW 18.7 H Plt Count 453 H MPV 9.3 Neut # (Auto) 12.9 H Lymph # (Auto) 0.6 L [place] # (Auto) 0.7 Eos # (Auto) 0.0 Baso # (Auto) 0.0 Absolute Nucleated RBC 0.00 Nucleated RBC % 0.0 PT 16.5 H INR 1.6 H APTT 34.5 H Sodium 131 L Potassium 4.7 H Chloride 95 L Carbon Dioxide 24 Anion Gap 12.0 BUN 17 Creatinine 0.8 Estimated GFR (MDRD) 98 Glucose 146 H Lactic Acid Calcium 8.7 Total Bilirubin 0.6 AST 109 H ALT 66 H Alkaline Phosphatase 101 Total Protein 7.2 Albumin 2.8 L Globulin 4.4 H Albumin/Globulin Ratio 0.6 L Lipase < 10 L Urine Color Urine Clarity Urine pH Ur Specific [place] Urine Protein Urine Glucose (UA) Urine Ketones Urine Occult Blood Urine Nitrite Urine Bilirubin Urine Urobilinogen Ur Leukocyte Esterase Urine RBC Urine WBC Ur Squamous Epith Cells Urine Bacteria Urine Mucus Ur Microscopic Review Urine Culture Comments Nasal Adenovirus (PCR) Nasal B. parapertussis DNA (PCR) Nasal Coronavir 229E PCR Nasal Coronavir HKU1 PCR Nasal Coronavir NL63 PCR Nasal Coronavir OC43 PCR Nasal Enterovir/Rhinovir PCR Nasal Influenza B PCR Nasal Influenza A PCR Nasal Parainfluen 1 PCR Nasal Parainfluen 2 PCR Nasal Parainfluen 3 PCR Nasal Parainfluen 4 PCR Nasal RSV (PCR) Nasal B.pertussis DNA PCR Nasal C.pneumoniae (PCR) [place] Human Metapneumo PCR Nasal M.pneumoniae (PCR) Nasal SARS-CoV-2 (PCR) 03/31/23 03/31/2303/31/24 16:11 16:30 17:45 WBC RBC Hgb Hct MCV MCH MCHC RDW Plt Count MPV Neut # (Auto) Lymph # (Auto) [place] # (Auto) Eos # (Auto) Baso # (Auto) Absolute Nucleated RBC Nucleated RBC % PT INR APTT Sodium Potassium Chloride Carbon Dioxide Anion Gap BUN Creatinine Estimated GFR (MDRD) Glucose Lactic Acid 4.1 H* Calcium Total Bilirubin AST ALT Alkaline Phosphatase Total Protein Albumin Globulin Albumin/Globulin Ratio Lipase Urine Color YELLOW Urine Clarity HAZY Urine pH 7.5 Ur Specific [place] 1.010 Urine Protein 30 H Urine Glucose (UA) NEGATIVE Urine Ketones 15 H Urine Occult Blood TRACE-LYSE Urine Nitrite POSITIVE H Urine Bilirubin NEGATIVE Urine Urobilinogen 2 H Ur Leukocyte Esterase SMALL H Urine RBC 6-10 H Urine WBC >25 H Ur Squamous Epith Cells FEW Squamous Urine Bacteria Many H Urine Mucus Few Strands Ur Microscopic Review INDICATED Urine Culture Comments INDICATED Nasal Adenovirus (PCR) NOT DETECTED Nasal B. parapertussis DNA (PCR) NOT DETECTED Nasal Coronavir 229E PCR NOT DETECTED Nasal Coronavir HKU1 PCR NOT DETECTED Nasal Coronavir NL63 PCR NOT DETECTED Nasal Coronavir OC43 PCR NOT DETECTED Nasal Enterovir/Rhinovir PCR NOT DETECTED Nasal Influenza B PCR NOT DETECTED Nasal Influenza A PCR NOT DETECTED Nasal Parainfluen 1 PCR NOT DETECTED Nasal Parainfluen 2 PCR NOT DETECTED Nasal Parainfluen 3 PCR NOT DETECTED Nasal Parainfluen 4 PCR NOT DETECTED Nasal RSV (PCR) NOT DETECTED Nasal B.pertussis DNA PCR NOT DETECTED Nasal C.pneumoniae (PCR) NOT DETECTED [place] Human Metapneumo PCR NOT DETECTED Nasal M.pneumoniae (PCR) NOT DETECTED Nasal SARS-CoV-2 (PCR) NOT DETECTED 03/31/23 19:29 WBC RBC Hgb Hct MCV MCH MCHC RDW Plt Count MPV Neut # (Auto) Lymph # (Auto) [place] # (Auto) Eos # (Auto) Baso # (Auto) Absolute Nucleated RBC Nucleated RBC % PT INR APTT Sodium Potassium Chloride Carbon Dioxide Anion Gap BUN Creatinine Estimated GFR (MDRD) Glucose Lactic Acid 0.5 Calcium Total Bilirubin AST ALT Alkaline Phosphatase Total Protein Albumin Globulin Albumin/Globulin Ratio Lipase Urine Color Urine Clarity Urine pH Ur Specific [place] Urine Protein Urine Glucose (UA) Urine Ketones Urine Occult Blood Urine Nitrite Urine Bilirubin Urine Urobilinogen Ur Leukocyte Esterase Urine RBC Urine WBC Ur Squamous Epith Cells Urine Bacteria Urine Mucus Ur Microscopic Review Urine Culture Comments Nasal Adenovirus (PCR) Nasal B. parapertussis DNA (PCR) Nasal Coronavir 229E PCR Nasal Coronavir HKU1 PCR Nasal Coronavir NL63 PCR Nasal Coronavir OC43 PCR Nasal Enterovir/Rhinovir PCR Nasal Influenza B PCR Nasal Influenza A PCR Nasal Parainfluen 1 PCR Nasal Parainfluen 2 PCR Nasal Parainfluen 3 PCR Nasal Parainfluen 4 PCR Nasal RSV (PCR) Nasal B.pertussis DNA PCR Nasal C.pneumoniae (PCR) [place] Human Metapneumo PCR Nasal M.pneumoniae (PCR) Nasal SARS-CoV-2 (PCR) - Rads (name of study) cxr Relevant Findings:: Final report received, See rad report ct abd pelv Relevant Findings:: Final report received, See rad report PD Medical Decision Making - ED course Complexity details: reviewed results, re-evaluated patient, considered differential, d/w patient ED course: 63-year-old male with what appears to be pneumonia and urosepsis. Complicated by ureteral stones causing hydronephrosis cyst. Given IV Rocephin and azithrom ycin. His perineal wounds are chronic and do not appear acutely infected. Do not think these are the source of his fever. I discussed the case with Dr. Pineda, urology on-call, he will come and take the patient to the OR for stent placement. I then discussed the case with the nighttime hospitalist who accepts for sepsis. Patient was given 2 L IV fluids, heart rate decreased. Tylenol given for fever. I reviewed the images from his prior wound care and his chronic wounds do appear similar. The patient will be admitted for urosepsis with possible pneumonia. No hypoxia or respiratory distress. The patient does complain of shoulder pain, but uses the shoulder quite well to move himself around in bed. I do not think that this represents a septic joint. There is no warmth, redness or swelling of the joint. This document was made in part using voice recognition software. While efforts are made to proofread this document, sound alike and grammatical errors may occur. - Sepsis Event Sepsis Onset Date: 03/31/23 Sepsis Onset Time: 17:15 Current Stage of Sepsis: Sepsis Initial Hypotension: Not hypotensive Possible source of Sepsis: Pulmonary, Genitourinary Mental/Cognitive Status: Alert/Oriented X3 Reason for not giving 30ml/kg crystalloid fluids: Not in septic shock Capillary refill: Less than 2 seconds Peripheral Pulse Strength: 2+ Slightly Diminished Peripheral Pulse Location: Radial Bedside ultrasound performed: No Departure - Departure Disposition: 66 [facility] DC/Xfer Clinical Impression: Ureteral stone Sepsis Qualifiers: Sepsis type: sepsis due to unspecified organism Sepsis acute organ dysfunction status: without acute organ dysfunction Qualified Code(s): A41.9 - Sepsis, unspecified organism UTI (urinary tract infection) Qualifiers: Urinary tract infection type: acute pyelonephritis Qualified Code(s): N10 - Acute pyelonephritis Pneumonia Qualifiers: Pneumonia type: due to unspecified organism Laterality: bilateral Lung location: unspecified part of lung Qualified Code(s): J18.9 - Pneumonia, unspecified organism Pressure ulcer Qualifiers: Pressure injury location: unspecified location Pressure injury stage: unspecified pressure injury stage Qualified Code(s): L89.90 - Pressure ulcer of unspecified site, unspecified stage Condition: Stable Discharge Date/Time: 03/31/23 20:30
--- NOTE | 2023-03-31 16:12 | XRAY Report ---
PROCEDURE: Chest 1V INDICATIONS: fever TECHNIQUE: One view of the chest was acquired. COMPARISON: 03/18/2018 FINDINGS: Surgical changes and devices: None. Lungs and pleura: No pleural effusions or pneumothorax. Mild patchy bibasilar opacity.. Mediastinum: Mediastinal contours appear normal. Heart size is normal. Bones and chest wall: No suspicious bony lesions. Overlying soft tissues appear unremarkable. IMPRESSION: Bibasilar pneumonia. Follow-up PA and lateral chest x-rays or chest CT is recommended to ensure resolution, and to exclude underlying neoplasm. Reviewed by: Nir Gutierrez MD on 03/31/2023 4:10 PM PST Approved by: Nir Gutierrez MD on 03/31/2023 4:10 PM PST Station ID: [id number]
[2023-03-31] MEDS: SODIUM CHLORIDE 0.9% 2,000 ML IV STA (16:25)
[2023-03-31 16:26] LABS: BASOPHILS % (AUTO) 0.3 %; HCT - HEMATOCRIT 32.8 % (42.0-52.0); HGB - HEMOGLOBIN 9.5 g/dL (14.0-18.0); LYMPHOCYTES # (AUTO) 0.6 10^3/uL (1.5-3.5); LYMPHOCYTES % (AUTO) 4.2 %; MEAN CORPUSCULAR HEMOGLOBIN 24.3 pg (27.0-31.0); MEAN CORPUSCULAR VOLUME 83.9 fL (80.0-94.0); MEAN PLATELET VOLUME 9.3 fL (7.4-11.4); MONOCYTES # (AUTO) 0.7 10^3/uL (0.0-1.0); NEUTROPHILS # (AUTO) 12.9 10^3/uL (1.5-6.6); NEUTROPHILS % (AUTO) 89.6 %; PLT - PLATELET COUNT 453 10^3/uL (130-450); RED BLOOD COUNT 3.91 10^6/uL (4.70-6.10); RED CELL DISTRIBUTION WIDTH 18.7 % (12.0-15.0); WHITE BLOOD COUNT 14.3 x10^3/uL (4.8-10.8)
[2023-03-31] MEDS: ACETAMINOPHEN 325 MG TABLET PO STA (16:26)
[2023-03-31 16:33] LABS: PARTIAL THROMBOPLASTIN TIME 34.5 secs (24.9-33.3)
[2023-03-31 16:37] LABS: INR 1.6 (0.8-1.2); PT - PROTHROMBIN TIME 16.5 secs (9.9-12.6)
[2023-03-31 16:41] LABS: ALBUMIN 2.8 g/dL (3.2-5.5); ALBUMIN/GLOBULIN RATIO 0.6 (1.0-2.2); ALKALINE PHOSPHATASE 101 IU/L (42-121); ALT ALANINE AMINOTRANSFERASE 66 IU/L (10-60); AST ASPARTATE AMINOTRANSFERASE 109 IU/L (10-42); BILIRUBIN,TOTAL 0.6 mg/dL (0.2-1.0); BUN - BLOOD UREA NITROGEN 17 mg/dL (6-20); CALCIUM 8.7 mg/dL (8.5-10.3); CARBON DIOXIDE - CO2 24 mmol/L (21-32); CHLORIDE 95 mmol/L (101-111); CREATININE 0.8 mg/dL (0.6-1.3); GFR - MDRD 98 (>89); GLUCOSE 146 mg/dL (74-104); POTASSIUM 4.7 mmol/L (3.5-4.5); SODIUM 131 mmol/L (135-145); TOTAL PROTEIN 7.2 g/dL (6.4-8.9)
[2023-03-31 17:10] LABS: LACTIC ACID, VENOUS 4.1 mmol/L (0.5-2.2); LIPASE < 10 U/L (11-82)
[2023-03-31] MEDS: HYDROmorphone 1 MG/ML CARPUJECT IVP STA ×2 (17:30→20:13)
[2023-03-31 17:54] LABS: BILIRUBIN,URINE NEGATIVE (NEGATIVE); GLUCOSE, URINE (UA) NEGATIVE (NEGATIVE); KETONES,URINE (UA) 15 mg/dL (NEGATIVE); LEUKOCYTE ESTERASE, URINE SMALL (NEGATIVE); NITRITE,URINE POSITIVE (NEGATIVE); OCCULT BLOOD,URINE TRACE-LYSE (NEGATIVE); PH,URINE 7.5 PH (5.0-7.5); PROTEIN,URINE 30 mg/dL (NEGATIVE); UROBILINOGEN,URINE 2 E.U./dL (NORMAL)
[2023-03-31 17:56] LABS: CLARITY,URINE HAZY (CLEAR)
[2023-03-31 18:02] LABS: BACTERIA,URINE Many /HPF (None Seen); MUCUS,URINE Few Strands; SQUAMOUS EPITHELIAL CELL,UR FEW Squamous (<= Few); WBC,URINE >25 /HPF (0-3)
[2023-03-31] MEDS: AZITHROMYCIN INJ 500 MG in SODIUM CHLORIDE 0.9% 250 ML IV STA (18:08)
[2023-03-31] MEDS: cefTRIAXone 1 GM VIAL IVP STA (18:09)
[2023-03-31 18:26] LABS: B. PARAPERTUSSIS- RESP PCR PAN NOT DETECTED; B. PERTUSSIS- RESP PCR PANEL NOT DETECTED; C. PNEUMONIAE- RESP PCR PANEL NOT DETECTED; CORONAVIRUS 229E-RESP PCR NOT DETECTED; CORONAVIRUS HKU1-RESP PCR NOT DETECTED; CORONAVIRUS NL63-RESP PCR NOT DETECTED; CORONAVIRUS OC43-RESP PCR NOT DETECTED; HUMAN METAPNEUMOVIRUS NOT DETECTED; INFLUENZA A- RESP PCR PANEL NOT DETECTED; INFLUENZA B - RESP PCR PANEL NOT DETECTED; M. PNEUMONIAE- RESP PCR PANEL NOT DETECTED; PARAINFLUENZA VIRUS 1 NOT DETECTED; PARAINFLUENZA VIRUS 2 NOT DETECTED; PARAINFLUENZA VIRUS 3 NOT DETECTED; PARAINFLUENZA VIRUS 4 NOT DETECTED; RHINOVIRUS/ENTEROVIRUS NOT DETECTED; RSV- RESP PCR PANEL NOT DETECTED; SARS-CoV-2 -RESP PCR PANEL NOT DETECTED
[2023-03-31] MEDS ORDERED: iohexoL-300 100 ML VIAL ONE (18:28)
[2023-03-31] MEDS: iohexoL-300 100 ML VIAL IVP ONE (18:55)
[2023-03-31] MEDS: SODIUM CHLORIDE 0.9% 1,000 ML IV STA (19:11)
--- NOTE | 2023-03-31 19:18 | CT Report ---
PROCEDURE: Abdomen/Pelvis W INDICATIONS: fever, UTI CONTRAST: 100mL Omni 300 TECHNIQUE: After the administration of intravenous contrast, a CT scan of the abdomen and pelvis was performed. Images were recorded and evaluated at appropriate window settings. Reformats: coronal and sagittal. F or radiation dose reduction, the following was used: automated exposure control, adjustment of mA and /or kV according to patient size. COMPARISON: 09/03/2022, a 2720 FINDINGS: Image quality: Diagnostic. Lower chest: There is a small right-sided pleural effusion, with associated presumed overlying enhanc ing atelectasis. A small hiatal hernia is incidentally noted. Liver: No solid mass. Gallbladder and biliary tree: Within normal limits. Spleen: No splenomegaly. Pancreas: No pancreatic ductal dilation. Adrenals: No adrenal nodule. Kidneys and ureters: There is moderate right-sided hydroureter and hydronephrosis. There is a series of obstructing stone seen within the distal right ureter, measuring nearly 3 cm craniocaudal, and jah sured together. The appearance is similar to 2019. No definite nonobstructing stones are seen. Stomach, bowel and peritoneum: No bowel distension. No pathologic free fluid. And anastomotic staple line can be seen involving the right lower quadrant. Lymph nodes: No central or retroperitoneal adenopathy. Vessels: No infrarenal aortic aneurysm. Atherosclerotic calcification is seen. PELVIS Reproductive organs: Unremarkable. Bladder: Generalized moderate bladder wall thickening can be seen. Pelvic lymph nodes: No pelvic adenopathy by size criteria. Bones: No aggressive osseous abnormality. Remote right posterior rib fractures can be seen. Other: No significant ventral or inguinal hernia. There is a significant decubitus ulcers seen involving the right buttock, with abnormal gas seen, ext ending down to the right ischium. No jessica bony erosion can be seen of the right ischium. There is ch ronic remodeling change seen of the ischiofemoral both sides, which appears similar to the prior CT. Generalized surrounding inflammatory change can be seen. No jessica drainable abscess can be seen. IMPRESSION: Significant right buttock decubitus ulcer, with gas seen down to the right ischium. No d rainable abscess is seen. Prominent stranding inflammatory change can be seen. No jessica bony erosion can be seen of the right ischium at this time. Moderate generalized bladder wall thickening is seen. Please consider UTI. There is a small right-sided pleural effusion seen, with overlying presumed atelectasis. Numerous stable stones can be seen involving the distal right ureter, with associated right-sided hyd roureter and hydronephrosis. Additional findings: Small hiatal hernia Remote right posterior rib fractures There is a right lower quadrant and anastomotic staple line Reviewed by: Alphonso Jiménez MD on 03/31/2023 6:17 PM [place] Approved by: Alphonso Jiménez MD on 03/31/2023 6:17 PM [facility] Station ID: [id number]
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
[2023-03-31] MEDS ORDERED: LIDOCAINE 2% URO-JET 5 ML SYRINGE UR ONE (20:37)
--- NOTE | 2023-03-31 20:37 | ANESTHESIA ---
Pre-Anesthesia VS, & Labs - Diagnosis Diagnosis Right ureteral stones with hydronephrosis Sepsis of likely urinary source - Procedure cystoscopy with stent placement Vital Signs: Temp Pulse Resp BP Pulse Ox O2 Flow Rate 37.0 C 103 H 24 107/61 92 03/31/23 18:00 03/31/23 18:30 03/31/23 18:30 03/31/23 18:30 03/31/23 18:30 Height: 5 ft 7 in Weight (kg): 76.2 kg Body Mass Index: 26.3 BMI Classification: Overweight - NPO Other (pt NPO solids, not NPO liquids. Drinking all day up until 30 min ago) - Lab Results Current Lab Results: Laboratory Tests 03/31/23 19:29: Lactic Acid 0.5 03/31/23 16:11: Lactic Acid 4.1 H* 03/31/23 16:11: Sodium 131 L, Potassium 4.7 H, Chloride 95 L, Carbon Dioxide 24, Anion Gap 12.0, BUN 17, Creatinine 0.8, Estimated GFR (MDRD) 98, Glucose 146 H, Calcium 8.7, Total Bilirubin 0.6, AST 109 H, ALT 66 H, Alkaline Phosphatase 101, Total Protein 7.2, Albumin 2.8 L, Globulin 4.4 H, Albumin/Globulin Ratio 0.6 L, Lipase < 10 L 03/31/23 16:11: PT 16.5 H, INR 1.6 H, APTT 34.5 H 03/31/23 16:11: WBC 14.3 H, RBC 3.91 L, Hgb 9.5 L, Hct 32.8 L, MCV 83.9, MCH 24.3 L, MCHC 29.0 L, RDW 18.7 H, Plt Count 453 H, MPV 9.3, Neut # (Auto) 12.9 H, Lymph # (Auto) 0.6 L, Caroline # (Auto) 0.7, Eos # (Auto) 0.0, Baso # (Auto) 0.0, Absolute Nucleated RBC 0.00, Nucleated RBC % 0.0 Fish Bones: 03/31/23 16:11 03/31/23 16:11 Home Medications and Allergies Active Medications Sodium Chloride (Normal Saline 0.9%) 1,000 mls @ 150 mls/hr IV .Q6H40M STA Stop: 03/31/23 22:39 Last Admin: 03/31/23 19:11 Dose: 150 mls/hr Cholecalciferol (Vitamin D3) [Vitamin D3] 2,000 unit PO DAILY 01/05/17 Multivitamin [Multiple Vitamins] 1 tab PO DAILY 01/05/17 amLODIPine [Norvasc] 10 mg PO DAILY 01/05/17 lisinopriL [Lisinopril] 40 mg PO DAILY 01/05/17 Baclofen 20 mg PO TID 10/04/19 Acetaminophen [Aphen] 650 mg PO Q4HR PRN 05/29/21 Cranberry Fruit Extract [Cranberry] 1 tab PO DAILY 05/29/21 Ferrous Sulfate 1 tab PO DAILY 05/29/21 Furosemide [Lasix] 40 mg PO DAILY 05/07/22 Solifenacin Succinate 10 mg PO DAILY 05/07/22 Gabapentin [Neurontin] 200 mg PO TID 03/19/23 Potassium Citrate [Potassium Citrate ER] 10 meq PO DAILY 03/19/23 Allergies/Adverse Reactions: Allergies Allergy/AdvReac Type Severity Reaction Status Date / Time carbenicillin Allergy Respiratory Verified 03/31/23 15:51 [From Geocillin] clindamycin Allergy Rash Verified 03/31/23 15:51 Latex, Natural Rubber Allergy Unknown Verified 03/31/23 15:51 Anes History & Medical History - Anesthetic History Anesthesia Complications: reports: No previous complications Family history of Anesthesia Complications: Denies Family history of Malignant Hyperthermia: Denies - Medical History Cardiovascular: reports: Hypertension Pulmonary: reports: Pneumonia, Sleep apnea Gastrointestinal: reports: Colon polyps Urinary: reports: Other Neuro: reports: Other Musculoskeletal: reports: Paraplegia, Other (pt reports current pain in R shoulder, torn RC per pt) Endocrine/Autoimmune: reports: None Blood Disorders: reports: None Skin: reports: Other (current decubitus) Smoking Status: Former smoker Psychosocial: reports: Cannabis, Other (reports he quit ETOH on ) - Surgical History General: reports: Other Urologic: reports: Bladder surgery Gynecologic: reports: Other Orthopedic: reports: Rotator cuff repair, Carpal Tunnel surgery, Spine surgery, Other Exam General: Alert, Oriented x3, Cooperative Dental: Poor dentition Mouth Openin Fingerbreadth Neck Mobility: Reduced Mallampati classification: II Thyromental Distance: 4-6 cm Respiratory: Rhonchi Cardiovascular: Regular rate Plan Anesthesia Type: MAC Consent for Procedure(s) Verified and Reviewed: Yes Code Status: Attempt Resuscitation ASA classification: 4-Incapacitating disease Is this case an emergency?: Yes
[2023-03-31] MEDS: LIDOCAINE 2% URO-JET 5 ML SYRINGE UR ONE (21:00)
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
--- NOTE | 2023-03-31 21:55 | PROVIDER PROGRESS NOTE ---
Shear Grinder Operator Note - Shear Grinder Operator Note Shear Grinder Operator Note: pt is paraplegic with no in abdomen or legs. He self catheterizes at home. Will order jarrett catheter as well as wound care. I performed this consultation using real-nitza telehealth tools including a live video connection between my location and the patient's location. As the provider for this telehealth service, I attest that I introduced myself to the patient and/or the family, provided my credentials, disclosed my location and determined that based on my review of patient's chart and/or discussion with members of the patient's treatment team, telemedicine via real time, 2 way, interactive audio and video platform is an appropriate and effective means of providing service. The patient/family and I mutually agree that this visit is appropriate for telemedicine as well. Patients have been informed of and agreed to telemedicine management by partnership of [facility] and hospital administration, knowing the limitations of telemedicine. Some elements of this visit were assisted with the audiovisual technology and the bedside nurse. Total time is 45 minutes of which greater than 50% was spent in direct patient care. I answered all medical questions to the best of my ability.
--- NOTE | 2023-03-31 22:57 | XRAY Report ---
PROCEDURE: Shoulder 2+V RT INDICATIONS: pain TECHNIQUE: 3 views of the shoulder were acquired. COMPARISON: None. FINDINGS: Bones: No visible fractures. Slight superior subluxation humeral head and the glenoid fossa. There a re mild hypertrophic degenerative changes at the acromial clavicular joint. There is probable undersu rface spurring of the lateral acromion. Soft tissues: There are several calcifications adjacent to the rotator cuff insertion site on the gr eater tuberosity. Soft tissues and visible right lung are otherwise normal. IMPRESSION: No acute fracture, dislocation, or separation. Changes of prominent chronic calcific tendinitis of the rotator cuff and probable chronic rotator cuf f tear. Reviewed by: Kami Garza MD on 03/31/2023 10:56 PM PST Approved by: Kami Garza MD on 03/31/2023 10:56 PM PST Station ID: [id number]
[2023-03-31] MEDS ORDERED: VANCOMYCIN 1 GM VIAL ONE (23:15)
[2023-03-31] MEDS: PIPERACILLIN/TAZOBACTAM 3.375 GM in SODIUM CHLORIDE 0.9% MINIBAG 100 ML IV SCH (23:49)
[2023-04-01] MEDS: ZOLPIDEM 5 MG TABLET PO PRN (00:31)
[2023-04-01] MEDS: ACETAMINOPHEN 325 MG TABLET PO PRN (00:31)
[2023-04-01] MEDS: oxyCODONE 5 MG TABLET PO PRN (00:31)
[2023-04-01] MEDS: SODIUM CHLORIDE FLUSH 0.9% 10 ML SYRINGE IVP SCH (00:32)
[2023-04-01] MEDS ORDERED: SODIUM CHLORIDE 0.9% 500 ML IV ONE (00:38)
[2023-04-01] MEDS: VANCOMYCIN INJ 1.5 GM in SODIUM CHLORIDE 0.9% 500 ML IV STA (00:51)
[2023-04-01] MEDS: SODIUM CHLORIDE 0.9% 1,000 ML IV SCH (04:21)
[2023-04-01 05:14] LABS: CALCIUM, IONIZED 1.03 mmol/L (1.15-1.33); VBG PH 7.467 (7.31-7.41)
[2023-04-01 05:16] LABS: BASOPHILS % (AUTO) 0.3 %; HCT - HEMATOCRIT 27.8 % (42.0-52.0); HGB - HEMOGLOBIN 8.8 g/dL (14.0-18.0); LYMPHOCYTES % (AUTO) 7.7 %; MEAN CORPUSCULAR HEMOGLOBIN 28.2 pg (27.0-31.0); MEAN CORPUSCULAR HGB CONC 31.7 g/dL (32.0-36.0); MEAN CORPUSCULAR VOLUME 89.1 fL (80.0-94.0); MEAN PLATELET VOLUME 9.5 fL (7.4-11.4); MONOCYTES % (AUTO) 9.9 %; NEUTROPHILS % (AUTO) 81.3 %; PLT - PLATELET COUNT 316 10^3/uL (130-450); RED BLOOD COUNT 3.12 10^6/uL (4.70-6.10); RED CELL DISTRIBUTION WIDTH 20.6 % (12.0-15.0); WHITE BLOOD COUNT 15.3 x10^3/uL (4.8-10.8)
[2023-04-01 05:19] LABS: ABNORMAL LYMPHS % (MANUAL) 0 %
[2023-04-01 05:30] LABS: CALCIUM 7.8 mg/dL (8.5-10.3); CREATININE 0.5 mg/dL (0.6-1.3); MAGNESIUM 1.6 mg/dL (1.7-2.3); PHOSPHORUS 3.1 mg/dL (2.5-5.0)
[2023-04-01 06:15] LABS: BAND NEUTROPHILS % (MANUAL) 6 %; LYMPHOCYTES # (MANUAL) 1.1 10^3/uL (1.5-3.5); LYMPHOCYTES % (MANUAL) 7 %; MONOCYTES # (MANUAL) 1.1 10^3/uL (0.0-1.0); NEUTROPHILS # (MANUAL) 13.2 10^3/uL (1.5-6.6)
[2023-04-01 06:16] LABS: DIFFERENTIAL COMMENT MANUAL DIFFERENTIAL; PLATELET ESTIMATE, MANUAL NORMAL (130-450,000) (NORMAL)
[2023-04-01] MEDS: PIPERACILLIN/TAZOBACTAM 3.375 GM in SODIUM CHLORIDE 0.9% MINIBAG 100 ML IV SCH (06:20)
[2023-04-01] MEDS: CALCIUM CARBONATE CHEW 500 MG TABLET PO SCH ×2 (06:25→18:02)
--- NOTE | 2023-04-01 08:28 | OPERATIVE REPORT ---
Operative Report - General Admit Date: 03/31/23 Procedure Date: 03/31/23 Planned Procedure: Cystoscopy, right ureteral stent Pre-Op Diagnosis: Right ureteral stone, sepsis, neurogenic bladder Procedure Performed: Cystoscopy right ureteral stent, Lombardo placement Post Op Diagnosis: Right ureteral stone, sepsis, neurogenic bladder - Procedure Note Primary Surgeon: Edwin Anesthesia Provider: MEGHA Taveras Anesthesia Technique: Local Pathology: none Findings: Diffusely narrow urethra but could accommodate 22 Japanese cystoscope Bladder with known ileal augmentation Right ureteral stent placed No fluoroscopy available Complications: No fluoroscopy available - Other Other Information/Narrative: After informed consent was obtained the patient was brought to the OR and laid in supine position. At that point in time the patient was then placed in the dorsolithotomy position and prepped and draped in usual sterile fashion. He did not have systemic anesthesia as he is insensate below the ribs and we did not want to increase the chance of an issue with his pneumonia. Fluoroscopy was not available to come to the OR that late in the night. A formal timeout was performed reconfirming the patient, procedure and laterality. A 22 Japanese cystoscope was advanced easily into the urinary bladder. His urethra was noted to be diffusely narrowed but could accommodate the cystoscope. His bladder was inspected there were no masses lesions or other concerns however the dome of the bladder was consistent with an augmentation. His right ureteral orifice was identified and cannulated with a sensor wire. This passed fairly easily without resistance. A 6 Japanese 26 cm double-J stent was placed with good curling noted in the bladder. There was a jesus of effluent. A 16 Japanese Lombardo catheter was then placed with 10 cc balloon. The patient tolerated procedure well and was brought to the floor without further incident. All counts were correct. He had no pain from the surgery or issues during the procedure. He will be admitted to the medical team for further management. He will need definitive stone management in the future. I will obtain an x-ray on the floor to confirm placement.
[2023-04-01 08:29] LABS: ALBUMIN 2.4 g/dL (3.2-5.5); ALKALINE PHOSPHATASE 76 IU/L (42-121); ALT ALANINE AMINOTRANSFERASE 47 IU/L (10-60); AST ASPARTATE AMINOTRANSFERASE 49 IU/L (10-42); BILIRUBIN,DIRECT < 0.10 mg/dL (0.03-0.18); BILIRUBIN,TOTAL 0.4 mg/dL (0.2-1.0)
--- NOTE | 2023-04-01 08:30 | XRAY Report ---
PROCEDURE: Abdomen 1 V INDICATIONS: confirm right stent in place TECHNIQUE: One view of the abdomen acquired. COMPARISON: None. FINDINGS: Double-J ureteral stent projects over the right flank with proximal pigtail in the region of the righ t kidney and partially unfurled distal pigtail in the region of the midline pelvis. Partially visuali zed Lombardo catheter projects over the midline nonobstructive bowel gas pattern. Degenerative changes of the spine and bilateral hips. IMPRESSION: Double-J ureteral stent projects over the right flank with proximal pigtail in the region of the righ t kidney and partially unfurled distal pigtail in the region of the midline pelvis. Reviewed by: Rachel Akbar MD on 04/01/2023 8:29 AM PST Approved by: Rachel Akbar MD on 04/01/2023 8:29 AM PST Station ID: [id number]
[2023-04-01] MEDS: MAGNESIUM OXIDE 400 MG TABLET PO ONE ×2 (08:50→17:25)
[2023-04-01] MEDS: AZITHROMYCIN INJ 500 MG in SODIUM CHLORIDE 0.9% 250 ML IV SCH (08:51)
[2023-04-01] MEDS: FAMOTIDINE 20 MG/2 ML VIAL IVP SCH (08:53)
[2023-04-01] MEDS: SODIUM CHLORIDE FLUSH 0.9% 10 ML SYRINGE IVP PRN (08:53)
[2023-04-01] MEDS: ENOXAPARIN 40 MG/0.4 ML SYRINGE SUBQ SCH (08:54)
[2023-04-01] MEDS ORDERED: HEPARIN 5,000 UNIT/ML VIAL SUBQ SCH (09:00)
[2023-04-01] MEDS: MULTIVITAMIN W/MINERALS TABLET PO SCH (10:59)
[2023-04-01] MEDS: VANCOMYCIN INJ 1 GM in SODIUM CHLORIDE 0.9% 500 ML IV SCH ×2 (11:03→21:18)
--- NOTE | 2023-04-01 11:36 | PHARMACY PROGRESS NOTE ---
- Best Possible Medication History Admit Date and Time: 03/31/232029 Processed by: Pharmacy Medication History completed: Yes Patient Interview: Completed Secondary Source(s): Insurance records As the person ultimately responsible for medication therapy, providers are able to order a medication from an existing home medication list in [facility] via the "Reconcile Routine" prior to Confirmation of that medication by customer support associate. Such practice is discouraged except when the physician, in their clinical judgment, deems that a medical need exists for a medication without regard to previous use.
[2023-04-01] MEDS: KETOROLAC 30 MG/ML VIAL IVP PRN (13:20)
[2023-04-01] MEDS: BISACODYL 10 MG SUPP PR PRN (13:21)
[2023-04-01 15:22] LABS: CALCIUM, IONIZED 1.1 mmol/L (1.15-1.33); VBG PH 7.453 (7.31-7.41)
[2023-04-01] MEDS: MINERAL OIL ENEMA 133 ML BOTTLE RC SCH (16:12)
--- NOTE | 2023-04-01 17:23 | PHARMACY PROGRESS NOTE ---
- Therapy Status Vancomycin regimen day #: 1 Therapy status: Awaiting steady state Basis for treatment: Empirical Treatment indication: SEPSIS Trough goal: 15-20 Concurrent antibiotics: AZITHROMYCIN, ZOSYN - JOANNE Risk Risk level for Acute Kidney Injury: High Acute Kidney Injury risk factors: Other nephrotoxic agents, Piperacillin/Tozobactam, Goal trough >15, Admission to ICU, Sepsis - Monitoring and Recommendation Clinical response to treatment: I&O Previous 24 hours 03/30/23 03/31/23 04/01/23 23:59 23:59 23:59 Intake Total 2250 4490.0 Output Total 600 800 Balance 1650 3690.0 Lab Results 04/01/23 03/31/23 05:06 16:11 BUN 11 17 Creatinine 0.5 L 0.8 Estimated GFR (MDRD) 168 98 Cultures 03/31/23 16:16 Blood - Right Arm Blood Culture - Preliminary NO GROWTH AFTER 1 DAY 03/31/23 16:11 Blood - Left Arm Blood Culture - Preliminary NO GROWTH AFTER 1 DAY 03/31/23 17:45 Urine,Catheterized Urine Culture - Preliminary Escherichia Coli Monitoring plan: Daily serum creatinine Areas for additional monitoring: IV to PO when appropriate, Therapy de- escalation based on culture results Pharmacy recommendation: Continue current regime
[2023-04-01] MEDS: ZINC SULFATE 220 MG CAPSULE PO SCH (17:24)
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
[2023-04-02 04:53] LABS: BASOPHILS % (AUTO) 0.2 %; EOSINOPHILS # (AUTO) 0.1 10^3/uL (0.0-0.7); EOSINOPHILS % (AUTO) 0.7 %; HCT - HEMATOCRIT 27.6 % (42.0-52.0); HGB - HEMOGLOBIN 8.2 g/dL (14.0-18.0); LYMPHOCYTES # (AUTO) 1.3 10^3/uL (1.5-3.5); LYMPHOCYTES % (AUTO) 10.5 %; MEAN CORPUSCULAR HEMOGLOBIN 24.8 pg (27.0-31.0); MEAN CORPUSCULAR HGB CONC 29.7 g/dL (32.0-36.0); MEAN CORPUSCULAR VOLUME 83.4 fL (80.0-94.0); MEAN PLATELET VOLUME 9.1 fL (7.4-11.4); MONOCYTES # (AUTO) 0.9 10^3/uL (0.0-1.0); MONOCYTES % (AUTO) 7.1 %; NEUTROPHILS # (AUTO) 9.8 10^3/uL (1.5-6.6); NEUTROPHILS % (AUTO) 80.8 %; PLT - PLATELET COUNT 312 10^3/uL (130-450); RED BLOOD COUNT 3.31 10^6/uL (4.70-6.10); RED CELL DISTRIBUTION WIDTH 17.4 % (12.0-15.0); VBG PH 7.508 (7.31-7.41); WHITE BLOOD COUNT 12.1 x10^3/uL (4.8-10.8)
[2023-04-02 04:54] LABS: CALCIUM, IONIZED 1.1 mmol/L (1.15-1.33)
[2023-04-02 05:14] LABS: ALBUMIN 2.1 g/dL (3.2-5.5); ALBUMIN/GLOBULIN RATIO 0.6 (1.0-2.2); BILIRUBIN,TOTAL 0.3 mg/dL (0.2-1.0); CREATININE 0.5 mg/dL (0.6-1.3); MAGNESIUM 1.8 mg/dL (1.7-2.3); PHOSPHORUS 2.5 mg/dL (2.5-5.0); POTASSIUM 3.4 mmol/L (3.5-4.5); TOTAL PROTEIN 5.5 g/dL (6.4-8.9)
[2023-04-02] MEDS: POTASSIUM CHLORIDE 20 MEQ TABLET PO SCH (07:56)
--- NOTE | 2023-04-02 08:45 | PROVIDER PROGRESS NOTE ---
Subjective - General Admit Date: 03/31/23 Procedure Date: 03/31/23 Post Op Days: 2 Procedure Performed: Cystoscopy, right ureteral stent placement - Review of Systems General: positive: No symptoms Objective - Patient Data Reviewed Vital Signs: Yes Vital Signs: Vital Signs x48h Pulse Resp BP Pulse Ox 04/02/23 07:00 72 18 99/54 L 93 04/02/23 05:00 73 12 113/69 93 04/02/23 03:00 86 25 H 96/67 95 04/02/23 01:00 66 16 101/65 93 Weight: Weight 03/31/23 04/01/23 04/02/23 23:59 23:59 23:59 Weight (kg) 74 kg 74.5 kg 73.5 kg Intake & Output: Intake and Output Totals x24h 03/31/23 04/01/23 04/02/23 23:59 23:59 23:59 Intake Total 2250 4940.0 700 Output Total 600 2125 450 Balance 1650 2815.0 250 - Lab Results Lab Results: 04/02/23 04:46 04/02/23 04:46 Other Lab Results: Lab Results x24hrs 04/02/23 04/02/23 04/02/23 Range/Units 04:46 04:46 04:46 WBC 12.1 H (4.8-10.8) x10^3/uL RBC 3.31 L (4.70-6.10) 10^6/uL Hgb 8.2 L (14.0-18.0) g/dL Hct 27.6 L (42.0-52.0) % MCV 83.4 (80.0-94.0) fL MCH 24.8 L (27.0-31.0) pg MCHC 29.7 L (32.0-36.0) g/dL RDW 17.4 H (12.0-15.0) % Plt Count 312 (130-450) 10^3/uL MPV 9.1 (7.4-11.4) fL Neut # (Auto) 9.8 H (1.5-6.6) 10^3/uL Lymph # (Auto) 1.3 L (1.5-3.5) 10^3/uL [place] # (Auto) 0.9 (0.0-1.0) 10^3/uL Eos # (Auto) 0.1 (0.0-0.7) 10^3/uL Baso # (Auto) 0.0 (0.0-0.1) 10^3/uL Absolute Nucleated RBC 0.00 x10^3/uL Nucleated RBC % 0.0 /100WBC VBG pH 7.508 H (7.31-7.41) Ionized Calcium 1.10 L (1.15-1.33) mmol/L Sodium 136 (135-145) mmol/L Potassium 3.4 L (3.5-4.5) mmol/L Chloride 106 (101-111) mmol/L Carbon Dioxide 24 (21-32) mmol/L Anion Gap 6.0 (6-13) BUN 12 (6-20) mg/dL Creatinine 0.5 L (0.6-1.3) mg/dL Estimated GFR (MDRD) 168 (>89) Glucose 99 (74-104) mg/dL Calcium 8.0 L (8.5-10.3) mg/dL Phosphorus 2.5 (2.5-5.0) mg/dL Magnesium 1.8 (1.7-2.3) mg/dL Total Bilirubin 0.3 (0.2-1.0) mg/dL AST 16 (10-42) IU/L ALT 26 (10-60) IU/L Alkaline Phosphatase 63 (42-121) IU/L Total Protein 5.5 L (6.4-8.9) g/dL Albumin 2.1 L (3.2-5.5) g/dL Globulin 3.4 (2.1-4.2) g/dL Albumin/Globulin Ratio 0.6 L (1.0-2.2) Vitamin B12 (180-914) pg/mL 04/01/23 04/01/23 04/01/23 Range/Units 15:00 15:00 05:06 WBC (4.8-10.8) x10^3/uL RBC (4.70-6.10) 10^6/uL Hgb (14.0-18.0) g/dL Hct (42.0-52.0) % MCV (80.0-94.0) fL MCH (27.0-31.0) pg MCHC (32.0-36.0) g/dL RDW (12.0-15.0) % Plt Count (130-450) 10^3/uL MPV (7.4-11.4) fL Neut # (Auto) (1.5-6.6) 10^3/uL Lymph # (Auto) (1.5-3.5) 10^3/uL [place] # (Auto) (0.0-1.0) 10^3/uL Eos # (Auto) (0.0-0.7) 10^3/uL Baso # (Auto) (0.0-0.1) 10^3/uL Absolute Nucleated RBC x10^3/uL Nucleated RBC % /100WBC VBG pH 7.453 H (7.31-7.41) Ionized Calcium 1.10 L (1.15-1.33) mmol/L Sodium (135-145) mmol/L Potassium (3.5-4.5) mmol/L Chloride (101-111) mmol/L Carbon Dioxide (21-32) mmol/L Anion Gap (6-13) BUN (6-20) mg/dL Creatinine (0.6-1.3) mg/dL Estimated GFR (MDRD) (>89) Glucose (74-104) mg/dL Calcium (8.5-10.3) mg/dL Phosphorus (2.5-5.0) mg/dL Magnesium 1.6 L (1.7-2.3) mg/dL Total Bilirubin (0.2-1.0) mg/dL AST (10-42) IU/L ALT (10-60) IU/L Alkaline Phosphatase (42-121) IU/L Total Protein (6.4-8.9) g/dL Albumin (3.2-5.5) g/dL Globulin (2.1-4.2) g/dL Albumin/Globulin Ratio (1.0-2.2) Vitamin B12 599 (180-914) pg/mL - Current Medications Current Medications: Current Medications Generic Name Dose Route Start Last Admin Trade Name Freq PRN Reason Stop Dose Admin Acetaminophen 650 mg 04/01/23 00:12 04/01/23 21:18 Acetaminophen 325 Mg Tablet PO 650 mg Q6HR PRN Administration Pain or Fever > 38C (100.4F) Bisacodyl 10 mg 04/01/23 12:54 04/01/23 13:21 Bisacodyl 10 Mg Supp OK 10 mg DAILY PRN Administration Constipation Enoxaparin Sodium 40 mg 04/01/23 09:00 04/01/23 08:54 Enoxaparin 40 Mg/0.4 Ml Syringe SUBQ 40 mg DAILY EMORY Administration Famotidine 20 mg 04/01/23 09:00 04/01/23 21:17 Famotidine 20 Mg/2 Ml Vial IVP 20 mg BID EMORY Administration Azithromycin 500 mg/ Sodium 250 mls @ 250 mls/hr 04/01/23 09:00 04/01/23 09:55 Chloride IV Infused DAILY [facility] Infusion Piperacillin Sod/Tazobactam 100 mls @ 200 mls/hr 04/01/23 06:30 04/02/23 06:19 Sod 3.375 gm/ Sodium Chloride IV Infused Q6H [facility] Infusion Vancomycin HCl 1 gm/ Sodium 500 mls @ 250 mls/hr 04/01/23 22:00 04/02/23 05:26 Chloride IV Infused Q12H [facility] Infusion Ketorolac Tromethamine 30 mg 04/01/23 12:53 04/02/23 06:06 Ketorolac 30 Mg/Ml Vial IVP 04/06/23 12:52 30 mg Q6HR PRN Administration Severe Pain (Level 7-10) Multivitamins/Minerals 1 tab 04/01/23 10:00 04/02/23 07:53 Multivitamin W/Minerals Tablet PO 1 tab DAILYWM [facility]ORY Administration Potassium Chloride 20 meq 04/02/23 08:00 04/02/23 07:56 Potassium Chloride 20 Meq Tablet PO 04/02/23 10:01 Not Given Q2H [facility] Protocol Sodium Chloride 10 ml 04/01/23 01:00 04/02/23 01:25 Sodium Chloride Flush 0.9% 10 Ml Syringe IVP 10 ml 0100,0900,1700 EMORY Administration Sodium Chloride 10 ml 03/31/23 21:40 04/01/23 13:21 Sodium Chloride Flush 0.9% 10 Ml Syringe IVP 10 ml PRN PRN Administration NEEDED PER PROVIDER ORDERS Zinc Sulfate 220 mg 04/01/23 17:00 04/01/23 17:24 Zinc Sulfate 220 Mg Capsule PO 220 mg DAILY [facility] Administration Zolpidem Tartrate 5 mg 04/01/23 00:13 04/01/23 21:18 Zolpidem 5 Mg Tablet PO 5 mg QPM PRN Administration Insomnia - Physical Exam Abdomen: positive: Non-tender Impression/Plan - Problem List Problem List: Denny is slowly recovering from his sepsis episode. He is doing quite well. He remains in the ICU for advanced levels of care. He feels quite well except for his right shoulder which has been painful to him since before he presented to the hospital. His urine culture has grown out pansensitive E. coli. I recommend 2 weeks of antibiotics such as Keflex. I will have him follow-up with me in a few weeks. He has a ureteral stent in place on the right side. He will need definitive follow-up for his distal ureteral stones. his stent must be exchanged or removed within 3 months. He is aware of this His Lombardo catheter can be removed at the primary team discretion and he and the nursing team can start intermittent catheterization every 4-6 hours keeping residuals less than 400 cc. Urology signing off
[2023-04-02] MEDS: CALCIUM CARBONATE CHEW 500 MG TABLET PO SCH (09:21)
[2023-04-02] MEDS: CHOLECALCIFEROL 25 MCG TABLET PO SCH (09:22)
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
[2023-04-02] MEDS ORDERED: CHOLECALCIFEROL 25 MCG TABLET PO SCH (12:30)
[2023-04-02] MEDS ORDERED: NON FORMULARY MED (Ferrous Sulfate [Ferrous Sulfate] 325 MG Tablet.Dr) PO SCH (12:30)
[2023-04-02] MEDS ORDERED: NON FORMULARY MED (Multivitamin [Multivitamin] 1 EACH Tablet) PO SCH (12:30)
[2023-04-02] MEDS ORDERED: BACLOFEN 20 MG PO SCH (14:00)
[2023-04-02] MEDS: BISACODYL 10 MG SUPP PR SCH (14:11)
[2023-04-02] MEDS: POTASSIUM CITRATE 15 MEQ PO SCH (14:13)
[2023-04-02] MEDS: FERROUS SULFATE 325 MG TABLET PO SCH (14:24)
[2023-04-02] MEDS: BACLOFEN 10 MG TABLET PO SCH (14:25)
[2023-04-02] MEDS: GABAPENTIN 100 MG CAPSULE PO SCH (14:25)
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
[2023-04-02 18:38] LABS: CALCIUM, IONIZED 1.05 mmol/L (1.15-1.33); VBG PH 7.538 (7.31-7.41)
[2023-04-02] MEDS: FAMOTIDINE 20 MG TABLET PO SCH (22:41)
[2023-04-03 05:05] LABS: CALCIUM, IONIZED 1.08 mmol/L (1.15-1.33); VBG PH 7.533 (7.31-7.41)
[2023-04-03 05:06] LABS: BASOPHILS % (AUTO) 0.3 %; EOSINOPHILS # (AUTO) 0.1 10^3/uL (0.0-0.7); EOSINOPHILS % (AUTO) 0.5 %; HCT - HEMATOCRIT 22.6 % (42.0-52.0); HGB - HEMOGLOBIN 7.4 g/dL (14.0-18.0); LYMPHOCYTES # (AUTO) 1.6 10^3/uL (1.5-3.5); LYMPHOCYTES % (AUTO) 14.6 %; MEAN CORPUSCULAR HEMOGLOBIN 29.4 pg (27.0-31.0); MEAN CORPUSCULAR HGB CONC 32.7 g/dL (32.0-36.0); MEAN CORPUSCULAR VOLUME 89.7 fL (80.0-94.0); MEAN PLATELET VOLUME 9.1 fL (7.4-11.4); MONOCYTES # (AUTO) 0.6 10^3/uL (0.0-1.0); MONOCYTES % (AUTO) 5.8 %; NEUTROPHILS # (AUTO) 8.6 10^3/uL (1.5-6.6); NEUTROPHILS % (AUTO) 77.6 %; PLT - PLATELET COUNT 339 10^3/uL (130-450); RED BLOOD COUNT 2.52 10^6/uL (4.70-6.10); RED CELL DISTRIBUTION WIDTH 20.9 % (12.0-15.0); WHITE BLOOD COUNT 11.1 x10^3/uL (4.8-10.8)
[2023-04-03 05:11] LABS: SLIDE REVIEW? Indicated
[2023-04-03 05:23] LABS: ALBUMIN 2.1 g/dL (3.2-5.5); ALBUMIN/GLOBULIN RATIO 0.7 (1.0-2.2); BILIRUBIN,TOTAL 0.3 mg/dL (0.2-1.0); CALCIUM 7.9 mg/dL (8.5-10.3); CREATININE 0.6 mg/dL (0.6-1.3); MAGNESIUM 1.8 mg/dL (1.7-2.3); POTASSIUM 3.3 mmol/L (3.5-4.5); TOTAL PROTEIN 5.3 g/dL (6.4-8.9)
[2023-04-03 06:23] LABS: PLATELET ESTIMATE, MANUAL NORMAL (130-450,000) (NORMAL)
[2023-04-03] MEDS ORDERED: SOLIFENACIN SUCCINATE 10 MG PO SCH (09:00)
[2023-04-03] MEDS: SOLIFENACIN SUCCINATE 5 MG TABLET PO SCH (09:35)
[2023-04-03] MEDS: BACLOFEN 10 MG TABLET PO SCH (09:35)
[2023-04-03] MEDS: MULTIVITAMIN TABLET PO SCH (09:35)
[2023-04-03] MEDS: SACCHAROMYCES BOULARDII 250 MG CAPSULE PO SCH (10:32)
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
[2023-04-03] MEDS: MAGNESIUM SULFATE 2 GRAM 2 GM/50 ML BAG IV ONE (14:24)
[2023-04-04 05:42] LABS: BASOPHILS # (AUTO) 0.1 10^3/uL (0.0-0.1); BASOPHILS % (AUTO) 0.6 %; EOSINOPHILS # (AUTO) 0.2 10^3/uL (0.0-0.7); EOSINOPHILS % (AUTO) 2.5 %; HCT - HEMATOCRIT 22.7 % (42.0-52.0); HGB - HEMOGLOBIN 7.9 g/dL (14.0-18.0); MEAN CORPUSCULAR HEMOGLOBIN 31.5 pg (27.0-31.0); MEAN CORPUSCULAR HGB CONC 34.8 g/dL (32.0-36.0); MEAN CORPUSCULAR VOLUME 90.4 fL (80.0-94.0); MEAN PLATELET VOLUME 8.8 fL (7.4-11.4); MONOCYTES # (AUTO) 0.6 10^3/uL (0.0-1.0); MONOCYTES % (AUTO) 6.5 %; NEUTROPHILS # (AUTO) 6.5 10^3/uL (1.5-6.6); NEUTROPHILS % (AUTO) 67.7 %; PLT - PLATELET COUNT 323 10^3/uL (130-450); RED BLOOD COUNT 2.51 10^6/uL (4.70-6.10); RED CELL DISTRIBUTION WIDTH 21.7 % (12.0-15.0); WHITE BLOOD COUNT 9.5 x10^3/uL (4.8-10.8)
[2023-04-04 05:55] LABS: SLIDE REVIEW? Indicated
[2023-04-04 06:51] LABS: BUN - BLOOD UREA NITROGEN 12 mg/dL (6-20); CALCIUM 8.2 mg/dL (8.5-10.3); CARBON DIOXIDE - CO2 24 mmol/L (21-32); CHLORIDE 112 mmol/L (101-111); CREATININE 0.5 mg/dL (0.6-1.3); GFR - MDRD 168 (>89); GLUCOSE 106 mg/dL (74-104); IRON < 10 ug/dL (50-212); PHOSPHORUS 2.8 mg/dL (2.5-5.0); POTASSIUM 3.5 mmol/L (3.5-4.5); SODIUM 141 mmol/L (135-145); TOTAL IRON BINDING CAPACITY 113 ug/dL (250-450); TRANSFERRIN 81 mg/dL (203-362)
[2023-04-04 07:11] LABS: RBC MORPHOLOGY (MULTIPLE) 1+ ANISOCYTOSIS (NORMAL)
[2023-04-04 07:12] LABS: PLATELET ESTIMATE, MANUAL NORMAL (130-450,000) (NORMAL); PLATELET MORPHOLOGY NORMAL APPEARANCE (NORMAL)
[2023-04-04] MEDS: IRON DEXTRAN 1,000 MG in SODIUM CHLORIDE 0.9% 250 ML IV ONE ×2 (10:39→13:43)
[2023-04-04] MEDS: POTASSIUM BICARB 25 MEQ TABLET PO SCH (11:01)
[2023-04-04] MEDS: POTASSIUM CITRATE 15 MEQ PO SCH (13:43)
[2023-04-04] MEDS: oxyCODONE 5 MG TABLET PO PRN (16:19)
--- NOTE | 2023-04-04 17:15 | XRAY Report ---
PROCEDURE: Shoulder 2+V RT INDICATIONS: R shoulder pain, smilar to old L rotator cuff tear TECHNIQUE: 2 views of the shoulder were acquired. COMPARISON: 03/31/2023 FINDINGS: Study limited by positioning Bones: No acute fractures or dislocations. No suspicious bony lesions. Visualized ribs appear inta ct. Old healed rib fractures Soft tissues: Supraspinatus tendon calcification IMPRESSION: No acute fracture or dislocation. Probable supraspinatus calcific tendinitis, similar to prior Reviewed by: Blaine Kim MD on 04/04/2023 4:13 PM [place] Approved by: Blaine Kim MD on 04/04/2023 4:13 PM [place] Station ID: [id number]
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
[2023-04-05 06:03] LABS: BASOPHILS # (AUTO) 0.1 10^3/uL (0.0-0.1); BASOPHILS % (AUTO) 0.7 %; EOSINOPHILS # (AUTO) 0.3 10^3/uL (0.0-0.7); EOSINOPHILS % (AUTO) 2.9 %; HCT - HEMATOCRIT 23.7 % (42.0-52.0); HGB - HEMOGLOBIN 7.8 g/dL (14.0-18.0); LYMPHOCYTES # (AUTO) 2.4 10^3/uL (1.5-3.5); LYMPHOCYTES % (AUTO) 25.3 %; MEAN CORPUSCULAR HEMOGLOBIN 28.8 pg (27.0-31.0); MEAN CORPUSCULAR HGB CONC 32.9 g/dL (32.0-36.0); MEAN CORPUSCULAR VOLUME 87.5 fL (80.0-94.0); MEAN PLATELET VOLUME 8.8 fL (7.4-11.4); MONOCYTES # (AUTO) 0.6 10^3/uL (0.0-1.0); MONOCYTES % (AUTO) 6.3 %; NEUTROPHILS # (AUTO) 5.7 10^3/uL (1.5-6.6); NEUTROPHILS % (AUTO) 61.4 %; NRBC ABSOLUTE COUNT (AUTO) 0.02 x10^3/uL; NUCLEATED RED BLOOD CELLS AUTO 0.2 /100WBC; PLT - PLATELET COUNT 336 10^3/uL (130-450); RED BLOOD COUNT 2.71 10^6/uL (4.70-6.10); RED CELL DISTRIBUTION WIDTH 20.7 % (12.0-15.0); WHITE BLOOD COUNT 9.4 x10^3/uL (4.8-10.8)
[2023-04-05 06:21] LABS: CALCIUM 8.6 mg/dL (8.5-10.3); CREATININE 0.5 mg/dL (0.6-1.3)
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
[2023-04-05] MEDS: ONDANSETRON 4 MG/2 ML VIAL IVP PRN (09:44)
[2023-04-05] MEDS ORDERED: PROCHLORPERAZINE 10 MG/2 ML VIAL IVP PRN (11:40)
[2023-04-05] MEDS: FUROSEMIDE 20 MG/2 ML VIAL IVP STA (14:56)
--- NOTE | 2023-04-05 15:59 | XRAY Report ---
PROCEDURE: Abdomen 1 V INDICATIONS: KUB, N/V TECHNIQUE: 3 view of the abdomen acquired. COMPARISON: 03/31/2023. FINDINGS: Surgical changes and devices: Right-sided ureteral stent and Lombardo catheter positions unchanged.. Bowel: Bowel gas pattern is nonspecific. No gross peritoneal free air. Soft tissues: No suspicious abdominal calcifications. Visualized solid organ contours appear normal in size. Bones: No suspicious bony lesions. IMPRESSION: Nonspecific gas pattern. No gross pneumoperitoneum. Right-sided ureteral stent and Lombardo catheter in place. Reviewed by: Ad Woodard MD on 04/05/2023 3:57 PM PST Approved by: Ad Woodard MD on 04/05/2023 3:57 PM PST Station ID: [id number]
--- NOTE | 2023-04-05 16:00 | XRAY Report ---
PROCEDURE: Chest 1V INDICATIONS: N/V TECHNIQUE: One view of the chest was acquired. COMPARISON: None. FINDINGS: Surgical changes and devices: None. Lungs and pleura: There is mild pulmonary vascular congestion. Small bilateral pleural effusion are seen. No definite focal infiltrate. No pneumothorax. Mediastinum: Mediastinal contours appear normal. Heart size is enlarged. Bones and chest wall: Marked rightward curvature of thoracic spine is seen centered at T8 level. No s uspicious bony lesions. Overlying soft tissues appear unremarkable. IMPRESSION: Congestive changes and suggestion of trace bilateral pleural effusion. No definite focal infiltrate. No pneumothorax. Reviewed by: Ad Woodard MD on 04/05/2023 3:58 PM PST Approved by: Ad Woodard MD on 04/05/2023 3:58 PM PST Station ID: [id number]
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
[2023-04-06 05:43] LABS: BASOPHILS # (AUTO) 0.1 10^3/uL (0.0-0.1); BASOPHILS % (AUTO) 0.5 %; EOSINOPHILS # (AUTO) 0.2 10^3/uL (0.0-0.7); EOSINOPHILS % (AUTO) 1.9 %; HCT - HEMATOCRIT 20.7 % (42.0-52.0); HGB - HEMOGLOBIN 7.7 g/dL (14.0-18.0); LYMPHOCYTES % (AUTO) 24.8 %; MEAN CORPUSCULAR HEMOGLOBIN 33.2 pg (27.0-31.0); MEAN CORPUSCULAR HGB CONC 37.2 g/dL (32.0-36.0); MEAN CORPUSCULAR VOLUME 89.2 fL (80.0-94.0); MEAN PLATELET VOLUME 8.6 fL (7.4-11.4); MONOCYTES % (AUTO) 7.1 %; NEUTROPHILS % (AUTO) 62.9 %; PLT - PLATELET COUNT 328 10^3/uL (130-450); RED BLOOD COUNT 2.32 10^6/uL (4.70-6.10); RED CELL DISTRIBUTION WIDTH 21.2 % (12.0-15.0); WHITE BLOOD COUNT 9.4 x10^3/uL (4.8-10.8)
[2023-04-06 05:52] LABS: SLIDE REVIEW? Indicated
[2023-04-06 05:57] LABS: CALCIUM 8.5 mg/dL (8.5-10.3); CREATININE 0.5 mg/dL (0.6-1.3); POTASSIUM 3.9 mmol/L (3.5-4.5)
[2023-04-06 06:05] LABS: LYMPHOCYTES # (AUTO) 2.4 10^3/uL (1.5-3.5); MONOCYTES # (AUTO) 0.8 10^3/uL (0.0-1.0); NEUTROPHILS # (AUTO) 6.5 10^3/uL (1.5-6.6); NRBC ABSOLUTE COUNT (AUTO) 0.02 x10^3/uL; NUCLEATED RED BLOOD CELLS AUTO 0.2 /100WBC
[2023-04-06] MEDS: BACLOFEN 10 MG TABLET PO SCH (09:07)
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
[2023-04-06] MEDS: LIDOCAINE PATCH 4% TOP SCH (14:02)
--- NOTE | 2023-04-06 17:49 | PROVIDER PROGRESS NOTE ---
Subjective - Prog Note Date Prog Note Date: 04/06/23 Prog Note Time: 17:47 - Subjective Pt reports feeling: No change (Still complaining of right shoulder pain) Objective - Vital Signs/Intake & Output Vital Signs: Vital Signs x48h Temp Pulse Resp BP Pulse Ox 04/06/23 15:51 36.6 C 58 L 18 155/82 H 95 04/06/23 12:36 36.8 C 78 16 108/74 94 Intake & Output: Intake & Output 04/03/23 04/04/23 04/05/23 04/06/23 23:59 23:59 23:59 23:59 Intake Total 2750 2680 2320 1980 Output Total 2950 4100 6000 2325 Balance -472 -5785 -8820 -345 - Lab Results Fish Bones: 04/06/23 05:28 04/06/23 05:28 Other Labs: Lab Results x24hrs 04/06/23 04/06/23 Range/Units 05:28 05:28 WBC 9.4 (4.8-10.8) x10^3/uL RBC 2.32 L (4.70-6.10) 10^6/uL Hgb 7.7 L (14.0-18.0) g/dL Hct 20.7 L (42.0-52.0) % MCV 89.2 (80.0-94.0) fL MCH 33.2 H (27.0-31.0) pg MCHC 37.2 H (32.0-36.0) g/dL RDW 21.2 H (12.0-15.0) % Plt Count 328 (130-450) 10^3/uL MPV 8.6 (7.4-11.4) fL Neut # (Auto) 6.5 (1.5-6.6) 10^3/uL Lymph # (Auto) 2.4 (1.5-3.5) 10^3/uL [place] # (Auto) 0.8 (0.0-1.0) 10^3/uL Eos # (Auto) 0.2 (0.0-0.7) 10^3/uL Baso # (Auto) 0.1 (0.0-0.1) 10^3/uL Absolute Nucleated RBC 0.02 x10^3/uL Nucleated RBC % 0.2 /100WBC Manual Slide Review Indicated Sodium 140 (135-145) mmol/L Potassium 3.9 (3.5-4.5) mmol/L Chloride 108 (101-111) mmol/L Carbon Dioxide 27 (21-32) mmol/L Anion Gap 5.0 L (6-13) BUN 10 (6-20) mg/dL Creatinine 0.5 L (0.6-1.3) mg/dL Estimated GFR (MDRD) 168 (>89) Glucose 92 (74-104) mg/dL Calcium 8.5 (8.5-10.3) mg/dL - Other Results/Comments Other Results/Comments: Examination: Patient is moving his right shoulder spontaneously much more comfortably than 2 days ago. Palpation around the shoulder shows no area of tenderness on today's examination. This is in carson contrast to his presentation 2 days ago. Able to passively move his shoulder with some limited range of motion but much less painful than it was 2 days ago. Neurovascularly still intact distally. Sepsis Event Note (H) - Evaluation Possible source of Sepsis: positive: Pulmonary, Genitourinary Assessment/Plan - Problem List (1) Calcific tendinitis of shoulder Impression: Plan: Since the patient is still in-house we will plan on initiating an in-house physical therapy to work on shoulder rehabilitation. They will do active assisted range of motion of the shoulder and some rotator cuff strengthening. Continuing with oral anti-inflammatory medications. Qualifiers: Laterality: right Qualified Code(s): M75.31 - Calcific tendinitis of right shoulder
[2023-04-07 06:41] LABS: CALCIUM 8.9 mg/dL (8.5-10.3); CREATININE 0.5 mg/dL (0.6-1.3); POTASSIUM 3.9 mmol/L (3.5-4.5)
[2023-04-07 06:46] LABS: BASOPHILS # (AUTO) 0.1 10^3/uL (0.0-0.1); BASOPHILS % (AUTO) 0.5 %; EOSINOPHILS # (AUTO) 0.2 10^3/uL (0.0-0.7); EOSINOPHILS % (AUTO) 1.8 %; HCT - HEMATOCRIT 30.4 % (42.0-52.0); HGB - HEMOGLOBIN 8.4 g/dL (14.0-18.0); LYMPHOCYTES # (AUTO) 2.2 10^3/uL (1.5-3.5); LYMPHOCYTES % (AUTO) 21.4 %; MEAN CORPUSCULAR HEMOGLOBIN 22.9 pg (27.0-31.0); MEAN CORPUSCULAR HGB CONC 27.6 g/dL (32.0-36.0); MEAN CORPUSCULAR VOLUME 82.8 fL (80.0-94.0); MEAN PLATELET VOLUME 9.3 fL (7.4-11.4); MONOCYTES # (AUTO) 0.8 10^3/uL (0.0-1.0); MONOCYTES % (AUTO) 7.7 %; NEUTROPHILS # (AUTO) 6.8 10^3/uL (1.5-6.6); NEUTROPHILS % (AUTO) 66.3 %; NRBC ABSOLUTE COUNT (AUTO) 0.03 x10^3/uL; NUCLEATED RED BLOOD CELLS AUTO 0.3 /100WBC; PLT - PLATELET COUNT 389 10^3/uL (130-450); RED BLOOD COUNT 3.67 10^6/uL (4.70-6.10); RED CELL DISTRIBUTION WIDTH 17.6 % (12.0-15.0); WHITE BLOOD COUNT 10.3 x10^3/uL (4.8-10.8)
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
--- NOTE | 2023-04-07 18:36 | CT Report ---
PROCEDURE: Head W/WO INDICATIONS: new confusion, involuntary movement TECHNIQUE: 4.5 mm thick angled axial sections acquired from the foramen magnum to the vertex before and after th e administration of intravenous contrast. For radiation dose reduction, the following was used: aut omated exposure control, adjustment of mA and/or kV according to patient size. CONTRAST: 100mL Omni 300 COMPARISON: None. FINDINGS: Image quality: Excellent. CSF Spaces: Basal cisterns are patent. No extra-axial fluid collections. Ventricles are normal in size and shape. Brain: No midline shift. No intracranial bleeds or masses. No abnormal intracranial enhancement. Carmona-white interface appears normal. Skull and face: Calvarium and visualized facial bones appear intact, without suspicious lesions. Sinuses: There is a mucous retention cyst seen within the posterior right maxillary sinus. Visualize d sinuses and mastoids are otherwise relatively clear. IMPRESSION: Unremarkable intracranial study for age. To the limits of CT, no findings of masses or abnormal enhancement can be seen. Reviewed by: Alphonso Jiménez MD on 04/07/2023 5:35 PM [facility] Approved by: Alphonso Jiménez MD on 04/07/2023 5:35 PM [facility] Station ID: [id number]
[2023-04-07] MEDS ORDERED: iohexoL-300 100 ML VIAL ONE (18:40)
[2023-04-07] MEDS: iohexoL-300 100 ML VIAL IVP ONE (19:39)
[2023-04-07] MEDS: FERRIC GLUCONATE 125 MG in SODIUM CHLORIDE 0.9% 100ML 100 ML IV SCH (21:13)
[2023-04-08 05:48] LABS: CALCIUM 8.6 mg/dL (8.5-10.3); CREATININE 0.5 mg/dL (0.6-1.3); POTASSIUM 3.7 mmol/L (3.5-4.5)
[2023-04-08 06:17] LABS: BASOPHILS # (AUTO) 0.1 10^3/uL (0.0-0.1); BASOPHILS % (AUTO) 0.7 %; EOSINOPHILS # (AUTO) 0.1 10^3/uL (0.0-0.7); EOSINOPHILS % (AUTO) 0.8 %; HCT - HEMATOCRIT 31.3 % (42.0-52.0); HGB - HEMOGLOBIN 8.7 g/dL (14.0-18.0); LYMPHOCYTES # (AUTO) 1.9 10^3/uL (1.5-3.5); LYMPHOCYTES % (AUTO) 20.7 %; MEAN CORPUSCULAR HGB CONC 27.8 g/dL (32.0-36.0); MEAN CORPUSCULAR VOLUME 82.6 fL (80.0-94.0); MEAN PLATELET VOLUME 9.4 fL (7.4-11.4); MONOCYTES # (AUTO) 0.7 10^3/uL (0.0-1.0); NEUTROPHILS # (AUTO) 6.3 10^3/uL (1.5-6.6); NEUTROPHILS % (AUTO) 68.8 %; NRBC ABSOLUTE COUNT (AUTO) 0.02 x10^3/uL; NUCLEATED RED BLOOD CELLS AUTO 0.2 /100WBC; PLT - PLATELET COUNT 340 10^3/uL (130-450); RED BLOOD COUNT 3.79 10^6/uL (4.70-6.10); RED CELL DISTRIBUTION WIDTH 18.6 % (12.0-15.0); WHITE BLOOD COUNT 9.2 x10^3/uL (4.8-10.8)
[2023-04-08] MEDS: PRENATAL VITAMIN TABLET PO SCH (08:31)
[2023-04-08] MEDS: FERRIC GLUCONATE 125 MG in SODIUM CHLORIDE 0.9% 100ML 100 ML IV SCH (15:04)
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
[2023-04-09 05:24] LABS: CALCIUM 8.8 mg/dL (8.5-10.3); CREATININE 0.5 mg/dL (0.6-1.3); POTASSIUM 3.8 mmol/L (3.5-4.5)
[2023-04-09 05:39] LABS: BASOPHILS % (AUTO) 0.4 %; EOSINOPHILS # (AUTO) 0.1 10^3/uL (0.0-0.7); EOSINOPHILS % (AUTO) 0.8 %; HGB - HEMOGLOBIN 8.5 g/dL (14.0-18.0); LYMPHOCYTES # (AUTO) 2.2 10^3/uL (1.5-3.5); LYMPHOCYTES % (AUTO) 21.2 %; MEAN CORPUSCULAR HEMOGLOBIN 23.4 pg (27.0-31.0); MEAN CORPUSCULAR HGB CONC 28.3 g/dL (32.0-36.0); MEAN CORPUSCULAR VOLUME 82.6 fL (80.0-94.0); MEAN PLATELET VOLUME 8.9 fL (7.4-11.4); MONOCYTES % (AUTO) 9.7 %; NEUTROPHILS # (AUTO) 6.8 10^3/uL (1.5-6.6); NEUTROPHILS % (AUTO) 66.8 %; PLT - PLATELET COUNT 326 10^3/uL (130-450); RED BLOOD COUNT 3.63 10^6/uL (4.70-6.10); RED CELL DISTRIBUTION WIDTH 19.2 % (12.0-15.0); WHITE BLOOD COUNT 10.2 x10^3/uL (4.8-10.8)
--- NOTE | 2023-04-09 12:33 | PROVIDER PROGRESS NOTE ---
Subjective - Prog Note Date Prog Note Date: 04/09/23 Prog Note Time: 12:31 - Subjective Pt reports feeling: Improved (feeling better cognitively, shoulder is painful, he is frustrated because he uses a power chair and needs his arms to navigate. Denies chest pain, dyspnea, abdominal pain, nausea. On his usual QOD bowel regimen of Dulcolax [place].) Current Medications - Current Medications Current Medications: Active Medications Acetaminophen (Acetaminophen 325 Mg Tablet) 650 mg PO Q6HR PRN PRN Reason: Pain or Fever > 38C (100.4F) Last Admin: 04/09/23 04:10 Dose: 650 mg Bisacodyl (Bisacodyl 10 Mg Supp) 10 mg DE DAILY PRN PRN Reason: Constipation Last Admin: 04/01/23 13:21 Dose: 10 mg Bisacodyl (Bisacodyl 10 Mg Supp) 10 mg DE Q48H [facility] Last Admin: 04/08/23 11:50 Dose: 10 mg Cholecalciferol (Cholecalciferol 25 Mcg Tablet) 50 mcg PO DAILY [facility] Last Admin: 04/09/23 09:07 Dose: 50 mcg Enoxaparin Sodium (Enoxaparin 40 Mg/0.4 Ml Syringe) 40 mg SUBQ DAILY [facility] Last Admin: 04/09/23 09:08 Dose: 40 mg Famotidine (Famotidine 20 Mg Tablet) 20 mg PO BID [facility] Last Admin: 04/09/23 09:07 Dose: 20 mg Ferrous Sulfate (Ferrous Sulfate 325 Mg Tablet) 325 mg PO DAILY [facility] Last Admin: 04/09/23 09:07 Dose: 325 mg Gabapentin (Gabapentin 100 Mg Capsule) 200 mg PO TID [facility] Last Admin: 04/09/23 06:23 Dose: 200 mg Lidocaine (Lidocaine Patch 4%) 1 patch TOP DAILY [facility] Last Admin: 04/08/23 10:17 Dose: 1 patch Ondansetron HCl (Ondansetron 4 Mg/2 Ml Vial) 4 mg IVP Q4HR PRN PRN Reason: Nausea / Vomiting Last Admin: 04/05/23 09:44 Dose: 4 mg Patient Own Med Potassium Citrate 15meq Po Tid 1 each PO TID [facility] Last Admin: 04/09/23 06:36 Dose: 1 each Multivit/Folic Acid/Iron ( Vitamin Tablet) 1 tab PO DAILYWM [facility] Last Admin: 04/09/23 09:07 Dose: 1 tab Prochlorperazine Edisylate (Prochlorperazine 10 Mg/2 Ml Vial) 10 mg IVP Q6HR PRN PRN Reason: Nausea / Vomiting Saccharomyces Boulardii (Saccharomyces Boulardii 250 Mg Capsule) 250 mg PO BIDWM [facility] Last Admin: 04/09/23 09:07 Dose: 250 mg Sodium Chloride (Sodium Chloride Flush 0.9% 10 Ml Syringe) 10 ml IVP 0100,0900,1700 [facility] Last Admin: 04/09/23 09:09 Dose: 10 ml Sodium Chloride (Sodium Chloride Flush 0.9% 10 Ml Syringe) 10 ml IVP PRN PRN PRN Reason: NEEDED PER PROVIDER ORDERS Last Admin: 04/05/23 21:54 Dose: 10 ml Solifenacin (Solifenacin Succinate 5 Mg Tablet) 10 mg PO DAILY [facility] Last Admin: 04/09/23 09:07 Dose: 10 mg Zinc Sulfate (Zinc Sulfate 220 Mg Capsule) 220 mg PO DAILY [facility] Last Admin: 04/09/23 09:07 Dose: 220 mg Zolpidem Tartrate (Zolpidem 5 Mg Tablet) 5 mg PO QPM PRN PRN Reason: Insomnia Last Admin: 04/05/23 22:06 Dose: 5 mg amLODIPine [Norvasc] 10 mg PO DAILY 01/05/17 lisinopriL [Lisinopril] 40 mg PO DAILY 01/05/17 Baclofen 20 mg PO TID 10/04/19 Ferrous Sulfate 325 mg PO DAILY 05/29/21 Furosemide [Lasix] 40 mg PO DAILY 05/07/22 Solifenacin Succinate 10 mg PO DAILY 05/07/22 Gabapentin [Neurontin] 200 mg PO TID 03/19/23 Potassium Citrate [Potassium Citrate ER] 15 meq PO TID 03/19/23 Bisacodyl Supp [Dulcolax Supp] 10 mg RC Q48H 04/01/23 Cholecalciferol [Vitamin D3] 50 mcg PO DAILY 04/01/23 Multivitamin 1 tab PO DAILY 04/01/23 Objective - Vital Signs/Intake & Output Reviewed Vital Signs: Yes Vital Signs: Vital Signs x48h Temp Pulse Pulse Resp BP Pulse Ox 04/09/23 12:10 37.1 C 115 H 18 L 144/90 H 96 04/09/23 07:28 37.0 C 86 18 145/84 H 98 04/09/23 04:44 37.1 C 82 16 134/72 H 93 Intake & Output: Intake & Output 04/06/23 04/07/23 04/08/23 04/09/23 23:59 23:59 23:59 23:59 Intake Total 3190 1010 1580 960 Output Total 0159 5994 5301 817 Balance 960 -6142 -628 10 - Objective General Appearance: positive: No acute distress, Alert Eyes Bilateral: positive: Normal inspection Respiratory: positive: No respiratory distress, Breath sounds nml Cardiovascular: positive: Regular rate & rhythm, No murmur Peripheral Pulses: 1+ Dorsalis pedis (R), 1+ Dorsalis pedis (L) Abdomen: positive: Non-tender, Nml bowel sounds Skin: positive: Color nml Extremities: positive: Pedal edema (trace) Neurologic/Psychiatric: positive: Oriented x3 - Lab Results Fish Bones: 04/09/23 04:52 04/09/23 04:52 Other Labs: Lab Results x24hrs 04/09/23 04/09/23 Range/Units 04:52 04:52 WBC 10.2 (4.8-10.8) x10^3/uL RBC 3.63 L (4.70-6.10) 10^6/uL Hgb 8.5 L (14.0-18.0) g/dL Hct 30.0 L (42.0-52.0) % MCV 82.6 (80.0-94.0) fL MCH 23.4 L (27.0-31.0) pg MCHC 28.3 L (32.0-36.0) g/dL RDW 19.2 H (12.0-15.0) % Plt Count 326 (130-450) 10^3/uL MPV 8.9 (7.4-11.4) fL Neut # (Auto) 6.8 H (1.5-6.6) 10^3/uL Lymph # (Auto) 2.2 (1.5-3.5) 10^3/uL [place] # (Auto) 1.0 (0.0-1.0) 10^3/uL Eos # (Auto) 0.1 (0.0-0.7) 10^3/uL Baso # (Auto) 0.0 (0.0-0.1) 10^3/uL Absolute Nucleated RBC 0.00 x10^3/uL Nucleated RBC % 0.0 /100WBC Sodium 138 (135-145) mmol/L Potassium 3.8 (3.5-4.5) mmol/L Chloride 107 (101-111) mmol/L Carbon Dioxide 26 (21-32) mmol/L Anion Gap 5.0 L (6-13) BUN 12 (6-20) mg/dL Creatinine 0.5 L (0.6-1.3) mg/dL Estimated GFR (MDRD) 168 (>89) Glucose 93 (74-104) mg/dL Calcium 8.8 (8.5-10.3) mg/dL Sepsis Event Note (H) - Evaluation Possible source of Sepsis: positive: Genitourinary Assessment/Plan - Problem List (1) Altered mental state Impression: Had echolalia and repetitive movements, now resolved. Head CT 04/07 negative for acute findings. Patient feels this may be due to the combination of gabapentin and baclofen (he is on both at home). Plan: seems to be resolved and back to baseline. Continue gabapentin. Baclofen has been on hold. Qualifiers: Qualified Code(s): R41.82 - Altered mental status, unspecified (2) E. coli UTI Impression: Urine cx with pansensitive E coli, s/p 7d course of IV abx. Spiked fever /8, blood cx were neg. No need for further antibiotics. (3) Sepsis Impression: due to UTI and obstructive stone, resolved post treatment with antibiotics Qualifiers: Qualified Code(s): A41.9 - Sepsis, unspecified organism (4) Pressure ulcer Impression: Chronic. Goes to [facility] wound clinic for debridement and dressing changes. Has been getting dressing changes here. Plan for updated photos today. S/p empiric vanco on admission. Wound cx grew beta-hemolytic Strep. Unclear if this is colonization or infection. Not currently on antibiotics. Plan: Continue chronic dressing changes Qualifiers: Pressure injury location: sacral region Pressure injury stage: unspecified pressure injury stage Qualified Code(s): L89.159 - Pressure ulcer of sacral region, unspecified stage (5) Calcific tendinitis of shoulder Impression: Seen by ortho 04/06. Still has pain but it is improved. He however is still unable to use it to do his self-caths. Shoulder XR with calcific tendinosis. Plan: Tylenol, heat/ice prn. Add Voltaren gel. PT for ROM. Outpatient f/u with ortho. Will need SNF until he can self-cath on his own. Qualifiers: Laterality: right Qualified Code(s): M75.31 - Calcific tendinitis of right shoulder (6) Paraplegia Impression: Chronic, from spinal cord injury 47 years ago. Has caregivers at home and uses a power chair. Self-caths at home due to neurogenic bladder. Plan: SNF until he can resume self-cath (7) Ureteral stone Impression: see below (8) Acute urinary obstruction Impression: went from ED to OR s/p cystoscopy and stent 03/31 due to obstructive uropathy and sepsis from UTI. Lombardo was placed. Had plugging of the Lombardo that cleared with repeated flushing. Urology Dr Pineda recommended if Lombardo plugs again to replace it and place a new one. Plan: Keep Lombardo in place until pt able to self-cath (per urology) (9) History of bladder surgery Impression: s/p bladder augmentation 1996 using part of his small bowel that results in "intestinal sludge" in his bladder which is normally not a problem per patient report. Plan: Self-cath as above when able to do so (also self-caths due to neurogenic bladder from paraplegia). Continue Vesicare. (10) Anemia Impression: On admission 9.7, dropped to 7.7, now stable at 8.5. Did have ~8L fluids during hospitalization so could be dilutional component, inflammatory block also likely contributing. No signs of GI bleed. Plan: stable for outpatient management. Continue PO iron. Qualifiers: Anemia type: unspecified type Qualified Code(s): D64.9 - Anemia, unspecified (11) Acute respiratory failure with hypoxia Impression: resolved (12) N&V (nausea and vomiting) Impression: occurred 04/05. KUB was negative. Improved. Plan: anti-emetics prn, cont empiric Pepcid.
[2023-04-09] MEDS: KETOROLAC 30 MG/ML VIAL IVP PRN (16:22)
--- NOTE | 2023-04-09 16:53 | PROVIDER PROGRESS NOTE ---
Subjective - Prog Note Date Prog Note Date: 04/09/23 Prog Note Time: 16:49 - Subjective Pt reports feeling: No change (Still with right shoulder pain, grisel with motion) Objective - Vital Signs/Intake & Output Vital Signs: Vital Signs x48h Temp Pulse Pulse Resp BP Pulse Ox 04/09/23 16:09 37.5 C 102 H 20 139/66 H 93 04/09/23 12:10 37.1 C 115 H 18 L 144/90 H 96 Intake & Output: Intake & Output 04/06/23 04/07/23 04/08/23 04/09/23 23:59 23:59 23:59 23:59 Intake Total 3190 1010 1580 960 Output Total 3020 1023 5358 950 Balance 580 -1617 -183 10 - Lab Results Fish Bones: 04/09/23 04:52 04/09/23 04:52 Other Labs: Lab Results x24hrs 04/09/23 04/09/23 Range/Units 04:52 04:52 WBC 10.2 (4.8-10.8) x10^3/uL RBC 3.63 L (4.70-6.10) 10^6/uL Hgb 8.5 L (14.0-18.0) g/dL Hct 30.0 L (42.0-52.0) % MCV 82.6 (80.0-94.0) fL MCH 23.4 L (27.0-31.0) pg MCHC 28.3 L (32.0-36.0) g/dL RDW 19.2 H (12.0-15.0) % Plt Count 326 (130-450) 10^3/uL MPV 8.9 (7.4-11.4) fL Neut # (Auto) 6.8 H (1.5-6.6) 10^3/uL Lymph # (Auto) 2.2 (1.5-3.5) 10^3/uL [place] # (Auto) 1.0 (0.0-1.0) 10^3/uL Eos # (Auto) 0.1 (0.0-0.7) 10^3/uL Baso # (Auto) 0.0 (0.0-0.1) 10^3/uL Absolute Nucleated RBC 0.00 x10^3/uL Nucleated RBC % 0.0 /100WBC Sodium 138 (135-145) mmol/L Potassium 3.8 (3.5-4.5) mmol/L Chloride 107 (101-111) mmol/L Carbon Dioxide 26 (21-32) mmol/L Anion Gap 5.0 L (6-13) BUN 12 (6-20) mg/dL Creatinine 0.5 L (0.6-1.3) mg/dL Estimated GFR (MDRD) 168 (>89) Glucose 93 (74-104) mg/dL Calcium 8.8 (8.5-10.3) mg/dL - Other Results/Comments Other Results/Comments: Examination: Left shoulder still looks symmetrical to the right side. There is no abnormal swelling or discoloration or bruising seen. Today had some focal tenderness to the anterior aspect of the shoulder. Little more painful range of motion with forward flexion and rotation of the shoulder. Neurovascular appears to be intact. Sepsis Event Note (H) - Evaluation Possible source of Sepsis: positive: Genitourinary Assessment/Plan - Problem List (1) Calcific tendinitis of shoulder Impression: Subjectively little improved. Plan: Will try some Voltaren cream and see if this topical agent will relieve some of his right shoulder inflammation. Continue with physical therapy to work on shoulder rehabilitation. Qualifiers: Laterality: right Qualified Code(s): M75.31 - Calcific tendinitis of right shoulder
[2023-04-10] MEDS: DICLOFENAC SODIUM 1% GEL 50 GM TUBE TOP PRN (09:04)
--- NOTE | 2023-04-10 13:05 | PROVIDER PROGRESS NOTE ---
Subjective - Prog Note Date Prog Note Date: 04/10/23 Prog Note Time: 11:30 - Subjective Pt reports feeling: No change (States Voltaren and Toradol don't work, asks for Tylenol and ibuprofen at same time which has worked previously. Awaiting PASSR eval. Having issues with bowels, having leakage which has been going on for a few weeks but it interferes with his quality of life.) Subjective: Wants to see the social insurance administrator. Awaiting PASSR evaluation. Having fecal incontinence which is disruptive to his life (has been going for awhile), asks about taking fiber. Also asks for resumption of home health and OT to eval for hospital bed (they were to come out to do this at his home), this will need to happen at SNF. Current Medications - Current Medications Current Medications: Active Medications Generic Name Dose Route Start Last Admin Trade Name Freq PRN Reason Stop Dose Admin Acetaminophen 650 mg 04/01/23 00:12 04/09/23 21:25 Acetaminophen 325 Mg Tablet PO 650 mg Q6HR PRN Administration Pain or Fever > 38C (100.4F) Bisacodyl 10 mg 04/01/23 12:54 04/01/23 13:21 Bisacodyl 10 Mg Supp [place] 10 mg DAILY PRN Administration Constipation Bisacodyl 10 mg 04/02/23 13:00 04/08/23 11:50 Bisacodyl 10 Mg Supp [place] 10 mg Q48H [facility] Administration Cholecalciferol 50 mcg 04/02/23 09:00 04/10/23 09:02 Cholecalciferol 25 Mcg Tablet PO 50 mcg DAILY [facility] Administration Diclofenac Sodium 2 gm 04/10/23 08:28 04/10/23 12:05 Diclofenac Sodium 1% Gel 50 Gm Tube TOP 2 gm QID PRN Administration Mild Pain (Level 1-3) Enoxaparin Sodium 40 mg 04/01/23 09:00 04/10/23 09:02 Enoxaparin 40 Mg/0.4 Ml Syringe SUBQ 40 mg DAILY [facility] Administration Famotidine 20 mg 04/02/23 21:00 04/10/23 09:02 Famotidine 20 Mg Tablet PO 20 mg BID [facility] Administration Ferrous Sulfate 325 mg 04/02/23 13:00 04/10/23 09:02 Ferrous Sulfate 325 Mg Tablet PO 325 mg DAILY [facility] Administration Gabapentin 200 mg 04/02/23 14:00 04/10/23 06:01 Gabapentin 100 Mg Capsule PO 200 mg TID [facility] Administration Ketorolac Tromethamine 30 mg 04/09/23 15:47 04/10/23 06:02 Ketorolac 30 Mg/Ml Vial IVP 04/14/23 15:46 30 mg Q6HR PRN Administration Severe Pain (Level 7-10) Lidocaine 1 patch 04/06/23 13:23 04/10/23 12:58 Lidocaine Patch 4% TOP Not Given DAILY [facility] Ondansetron HCl 4 mg 04/05/23 09:22 04/05/23 09:44 Ondansetron 4 Mg/2 Ml Vial IVP 4 mg Q4HR PRN Administration Nausea / Vomiting Patient Own Med 1 each 04/04/23 14:00 04/10/23 06:01 Potassium Citrate PO 1 each 15meq Po Tid TID [facility] Administration Multivit/Folic Acid/Iron 1 tab 04/08/23 08:00 04/10/23 09:02 Vitamin Tablet PO 1 tab DAILYWM [facility] Administration Prochlorperazine Edisylate 10 mg 04/05/23 11:40 Prochlorperazine 10 Mg/2 Ml Vial IVP Q6HR PRN Nausea / Vomiting Saccharomyces Boulardii 250 mg 04/03/23 10:30 04/10/23 09:02 Saccharomyces Boulardii 250 Mg Capsule PO 250 mg BIDWM [facility] Administration Sodium Chloride 10 ml 04/01/23 01:00 04/10/23 09:03 Sodium Chloride Flush 0.9% 10 Ml Syringe IVP 10 ml 0100,0900,1700 [facility] Administration Sodium Chloride 10 ml 03/31/23 21:40 04/05/23 21:54 Sodium Chloride Flush 0.9% 10 Ml Syringe IVP 10 ml PRN PRN Administration NEEDED PER PROVIDER ORDERS Solifenacin 10 mg 04/03/23 09:00 04/10/23 09:02 Solifenacin Succinate 5 Mg Tablet PO 10 mg DAILY [facility] Administration Zolpidem Tartrate 5 mg 04/01/23 00:13 04/05/23 22:06 Zolpidem 5 Mg Tablet PO 5 mg QPM PRN Administration Insomnia amLODIPine [Norvasc] 10 mg PO DAILY 01/05/17 lisinopriL [Lisinopril] 40 mg PO DAILY 01/05/17 Baclofen 20 mg PO TID 10/04/19 Ferrous Sulfate 325 mg PO DAILY 05/29/21 Furosemide [Lasix] 40 mg PO DAILY 05/07/22 Solifenacin Succinate 10 mg PO DAILY 05/07/22 Gabapentin [Neurontin] 200 mg PO TID 03/19/23 Potassium Citrate [Potassium Citrate ER] 15 meq PO TID 03/19/23 Bisacodyl Supp [Dulcolax Supp] 10 mg RC Q48H 04/01/23 Cholecalciferol [Vitamin D3] 50 mcg PO DAILY 04/01/23 Multivitamin 1 tab PO DAILY 04/01/23 Objective - Vital Signs/Intake & Output Reviewed Vital Signs: Yes Vital Signs: Vital Signs x48h Temp Pulse Resp BP Pulse Ox 04/10/23 11:37 36.2 C L 97 16 111/59 L 94 04/10/23 07:35 36.4 C L 79 18 128/82 H 95 04/10/23 06:05 36.8 C 69 16 126/65 94 Intake & Output: Intake & Output 04/07/23 04/08/23 04/09/23 04/10/23 23:59 23:59 23:59 23:59 Intake Total 1010 1580 1610 1240 Output Total 5225 2325 1450 300 Balance -4215 -745 160 940 - Objective General Appearance: positive: No acute distress, Alert Respiratory: positive: Chest non-tender, No respiratory distress Cardiovascular: positive: Regular rate & rhythm, No murmur Abdomen: positive: Non-tender Skin: positive: Color nml, No rash, Warm Extremities: positive: Other (Painful ROM with right shoulder) Neurologic/Psychiatric: positive: Oriented x3 - Lab Results Fish Bones: 04/09/23 04:52 04/09/23 04:52 Sepsis Event Note (H) - Evaluation Possible source of Sepsis: positive: Genitourinary Assessment/Plan - Problem List (1) Altered mental state Impression: Had echolalia and repetitive movements earlier in stay, now resolved. Head CT 04/07 negative for acute findings. Patient feels this may be due to the combination of gabapentin and baclofen (he is on both at home). Plan: resolved Qualifiers: Qualified Code(s): R41.82 - Altered mental status, unspecified (2) E. coli UTI Impression: Urine cx with pansensitive E coli, s/p 7d course of IV abx. Spiked fever 04/02, blood cx were neg. No need for further antibiotics. (3) Sepsis Impression: due to UTI and obstructive stone, resolved post treatment with antibiotics Qualifiers: Qualified Code(s): A41.9 - Sepsis, unspecified organism; R65.20 - Severe sepsis without septic shock (4) Pressure ulcer Impression: Chronic. Goes to [facility] wound clinic for debridement and dressing changes. Has been getting dressing changes here. Plan for updated photos today. S/p empiric vanco on admission. Wound cx grew beta-hemolytic Strep. Unclear if this is colonization or infection. Not currently on antibiotics. Plan: Continue chronic dressing changes Qualifiers: Pressure injury location: sacral region Pressure injury stage: unspecified pressure injury stage Qualified Code(s): L89.159 - Pressure ulcer of sacral region, unspecified stage (5) Calcific tendinitis of shoulder Impression: Seen by ortho 04/06. Still has pain but it is improved. He however is still unable to use it to do his self-caths. Shoulder XR with calcific tendinosis. Plan: Tylenol, ibuprofen, heat/ice prn. No improvement with Toradol or Voltaren gel. PT for ROM. Outpatient f/u with ortho. Will need SNF until he can self-cath on his own. Qualifiers: Laterality: right Qualified Code(s): M75.31 - Calcific tendinitis of right shoulder (6) Paraplegia Impression: Chronic, from spinal cord injury 47 years ago. Has caregivers at home and uses a power chair. Self-caths at home due to neurogenic bladder. Plan: SNF until he can resume self-cath Pt is medically cleared for discharge to SNF as of 04/09/23 (7) Ureteral stone Impression: see below (8) Acute urinary obstruction Impression: went from ED to OR s/p cystoscopy and stent 03/31 due to obstructive uropathy and sepsis from UTI. Lombardo was placed. Had plugging of the Lombardo that cleared with repeated flushing. Urology Dr Pineda recommended if Lombardo plugs again to replace it and place a new one. Plan: Keep Lombardo in place until pt able to self-cath (per urology) (9) History of bladder surgery Impression: s/p bladder augmentation 1996 using part of his small bowel that results in "intestinal sludge" in his bladder which is normally not a problem per patient report. Plan: Self-cath as above when able to do so (also self-caths due to neurogenic bladder from paraplegia). Continue Vesicare. (10) Anemia Impression: On admission 9.7, dropped to 7.7, now stable at 8.5. Did have ~8L fluids during hospitalization so could be dilutional component, inflammatory block also likely contributing. No signs of GI bleed. Plan: stable for outpatient management. Continue PO iron. Qualifiers: Anemia type: unspecified type Qualified Code(s): D64.9 - Anemia, unspecified (11) Acute respiratory failure with hypoxia Impression: resolved (12) N&V (nausea and vomiting) Impression: occurred 04/05. KUB was negative. Improved. Plan: anti-emetics prn, cont empiric Pepcid. (13) Neurogenic bowel Impression: Since his SCI at age 15. Uses suppository Q48h. Having some fecal incontinence. Plan: Add fiber
[2023-04-10] MEDS: IBUPROFEN 400 MG TABLET PO SCH (17:28)
[2023-04-10] MEDS: ACETAMINOPHEN 325 MG TABLET PO SCH (17:28)
[2023-04-11] MEDS: MORPHINE 10 MG/ML VIAL IVP STA (01:04)
--- NOTE | 2023-04-11 09:13 | PROVIDER PROGRESS NOTE ---
Subjective - Prog Note Date Prog Note Date: 04/11/23 Prog Note Time: 09:10 - Subjective Pt reports feeling: Improved (The Tylenol with ibuprofen didn't do much, overnight had a dose of morphine and it helped but doesn't want to have to take it regularly, discussed possible steroid injection of his shoulder, has questions about his bowel regimen) Subjective: Medically clear as of 04/09/23. Current Medications - Current Medications Current Medications: Active Medications Generic Name Dose Route Start Last Admin Trade Name Freq PRN Reason Stop Dose Admin Acetaminophen 650 mg 04/10/23 17:00 04/11/23 05:55 Acetaminophen 325 Mg Tablet PO 650 mg Q6H EMORY Administration Bisacodyl 10 mg 04/01/23 12:54 04/01/23 13:21 Bisacodyl 10 Mg Supp [place] 10 mg DAILY PRN Administration Constipation Bisacodyl 10 mg 04/02/23 13:00 04/10/23 13:07 Bisacodyl 10 Mg Supp [place] 10 mg Q48H EMORY Administration Cholecalciferol 50 mcg 04/02/23 09:00 04/11/23 09:08 Cholecalciferol 25 Mcg Tablet PO 50 mcg DAILY EMORY Administration Enoxaparin Sodium 40 mg 04/01/23 09:00 04/11/23 09:09 Enoxaparin 40 Mg/0.4 Ml Syringe SUBQ 40 mg DAILY EMORY Administration Famotidine 20 mg 04/02/23 21:00 04/11/23 09:07 Famotidine 20 Mg Tablet PO 20 mg BID EMORY Administration Ferrous Sulfate 325 mg 04/02/23 13:00 04/11/23 09:09 Ferrous Sulfate 325 Mg Tablet PO 325 mg DAILY EMORY Administration Gabapentin 200 mg 04/02/23 14:00 04/11/23 05:55 Gabapentin 100 Mg Capsule PO 200 mg TID EMORY Administration Ibuprofen 400 mg 04/10/23 18:00 04/11/23 05:55 Ibuprofen 400 Mg Tablet PO 400 mg Q6HR EMORY Administration Lidocaine 1 patch 04/06/23 13:23 04/11/23 09:09 Lidocaine Patch 4% TOP 1 patch DAILY EMORY Administration Ondansetron HCl 4 mg 04/05/23 09:22 04/05/23 09:44 Ondansetron 4 Mg/2 Ml Vial IVP 4 mg Q4HR PRN Administration Nausea / Vomiting Patient Own Med 1 each 04/04/23 14:00 04/11/23 05:55 Potassium Citrate PO 1 each 15meq Po Tid TID EMORY Administration Multivit/Folic Acid/Iron 1 tab 04/08/23 08:00 04/11/23 09:09 Vitamin Tablet PO 1 tab DAILYWM EMORY Administration Prochlorperazine Edisylate 10 mg 04/05/23 11:40 Prochlorperazine 10 Mg/2 Ml Vial IVP Q6HR PRN Nausea / Vomiting Psyllium Hydrophilic Mucilloid 1 packet 04/10/23 17:00 Psyllium Packet PO DAILY PRN Constipation Saccharomyces Boulardii 250 mg 04/03/23 10:30 04/11/23 09:09 Saccharomyces Boulardii 250 Mg Capsule PO 250 mg BIDWM EMORY Administration Sodium Chloride 10 ml 04/01/23 01:00 04/11/23 09:10 Sodium Chloride Flush 0.9% 10 Ml Syringe IVP 10 ml 0100,0900,1700 EMORY Administration Sodium Chloride 10 ml 03/31/23 21:40 04/05/23 21:54 Sodium Chloride Flush 0.9% 10 Ml Syringe IVP 10 ml PRN PRN Administration NEEDED PER PROVIDER ORDERS Solifenacin 10 mg 04/03/23 09:00 04/11/23 09:08 Solifenacin Succinate 5 Mg Tablet PO 10 mg DAILY EMORY Administration Zolpidem Tartrate 5 mg 04/01/23 00:13 04/05/23 22:06 Zolpidem 5 Mg Tablet PO 5 mg QPM PRN Administration Insomnia amLODIPine [Norvasc] 10 mg PO DAILY 01/05/17 lisinopriL [Lisinopril] 40 mg PO DAILY 01/05/17 Baclofen 20 mg PO TID 10/04/19 Ferrous Sulfate 325 mg PO DAILY 05/29/21 Furosemide [Lasix] 40 mg PO DAILY 05/07/22 Solifenacin Succinate 10 mg PO DAILY 05/07/22 Gabapentin [Neurontin] 200 mg PO TID 03/19/23 Potassium Citrate [Potassium Citrate ER] 15 meq PO TID 03/19/23 Bisacodyl Supp [Dulcolax Supp] 10 mg RC Q48H 04/01/23 Cholecalciferol [Vitamin D3] 50 mcg PO DAILY 04/01/23 Multivitamin 1 tab PO DAILY 04/01/23 Objective - Vital Signs/Intake & Output Reviewed Vital Signs: Yes Vital Signs: Vital Signs x48h Temp Pulse Resp BP BP Pulse Ox 04/11/23 08:36 37.3 C 95 18 126/74 95 04/11/23 05:58 36.6 C 74 18 128/64 96 Intake & Output: Intake & Output 04/08/23 04/09/23 04/10/23 04/11/23 23:59 23:59 23:59 23:59 Intake Total 1580 1610 1890 860 Output Total 2325 1450 1400 450 Balance -745 160 490 410 - Objective General Appearance: positive: No acute distress, Alert Respiratory: positive: No respiratory distress, Breath sounds nml Cardiovascular: positive: Regular rate & rhythm Abdomen: positive: Non-tender Skin: positive: Color nml, No rash, Warm Neurologic/Psychiatric: positive: Oriented x3, Mood/affect nml - Lab Results Fish Bones: 04/09/23 04:52 04/09/23 04:52 ABX Reporting Has patient been on IV antibiotics over the past 48 hours?: No Sepsis Event Note (H) - Evaluation Possible source of Sepsis: positive: Genitourinary Assessment/Plan - Problem List (1) Altered mental state Impression: Resolved. Now at baseline. Had echolalia and repetitive movements earlier in stay. Head CT 04/07 negative for acute findings. Patient feels this may be due to the combination of gabapentin and baclofen (he is on both at home). Similar episodes happened in [place] in 2019 and at in 2022. Plan: obtain discharge summary from [facility] and Qualifiers: Qualified Code(s): R41.82 - Altered mental status, unspecified (2) E. coli UTI Impression: Resolved. Urine cx with pansensitive E coli, s/p 7d course of IV abx. Spiked fever 2/8, blood cx were neg. No need for further antibiotics. (3) Sepsis Impression: Resolved. Due to UTI and obstructive stone, completed treatment with antibiotics Qualifiers: Qualified Code(s): A41.9 - Sepsis, unspecified organism; R65.20 - Severe sepsis without septic shock (4) Pressure ulcer Impression: Chronic. Goes to [facility] wound clinic for debridement and dressing changes. Has been getting dressing changes here. Plan for updated photos today. S/p empiric vanco on admission. Wound cx grew beta-hemolytic Strep. Unclear if this is colonization or infection. Not currently on antibiotics. Plan: Continue chronic dressing changes Qualifiers: Pressure injury location: sacral region Pressure injury stage: unspecified pressure injury stage Qualified Code(s): L89.159 - Pressure ulcer of sacral region, unspecified stage (5) Calcific tendinitis of shoulder Impression: Seen by ortho 04/06. Still has pain, no significant improvement with Tylenol, ibuprofen, Voltaren gel, lidocaine patch, Toradol. Relief with a dose of prn morphine. Still unable to use it to do his self-caths. Shoulder XR with calcific tendinosis. Plan: Heat/ice prn. PT for ROM. Outpatient f/u with ortho. Consider steroid injection to shoulder today. Will need SNF until he can self-cath on his own. Qualifiers: Laterality: right Qualified Code(s): M75.31 - Calcific tendinitis of right shoulder (6) Paraplegia Impression: Chronic, from spinal cord injury 47 years ago. Has caregivers at home and uses a power chair. Self-caths at home due to neurogenic bladder. Plan: SNF until he can resume self-cath (7) Ureteral stone Impression: see below (8) Acute urinary obstruction Impression: Improved. Went from ED to OR s/p cystoscopy and stent 03/31 due to obstructive uropathy and sepsis from UTI. Lombardo was placed. Had plugging of the Lombardo that cleared with repeated flushing. Urology Dr Pineda recommended if Lombardo plugs again to replace it and place a new one. Plan: Keep Lombardo in place until pt able to self-cath (per urology) (9) History of bladder surgery Impression: s/p bladder augmentation 1996 using part of his small bowel that results in "intestinal sludge" in his bladder which is normally not a problem per patient report. Plan: Self-cath as above when able to do so (also self-caths due to neurogenic bladder from paraplegia). Continue Vesicare. (10) Anemia Impression: Stable. On admission 9.7, dropped to 7.7, now stable at 8.5. Did have ~8L fluids during hospitalization so could be dilutional component, inflammatory block also likely contributing. No signs of GI bleed. Plan: stable for outpatient management. Continue PO iron. Qualifiers: Anemia type: unspecified type Qualified Code(s): D64.9 - Anemia, unspecified (11) Acute respiratory failure with hypoxia Impression: Resolved (12) N&V (nausea and vomiting) Impression: Resolved. Occurred 04/05. KUB was negative. Plan: anti-emetics prn, cont empiric Pepcid. (13) Neurogenic bowel Impression: Since his SCI at age 15. Uses suppository Q48h. Having some fecal incontinence. Plan: Add fiber. Continue bowel regimen.
[2023-04-11] MEDS: BACLOFEN 10 MG TABLET PO SCH (14:18)
--- NOTE | 2023-04-11 16:25 | PROCEDURE REPORT ---
Hospitalist Procedure Note - Procedure Note Procedure Note: April 11, 2023 4:23 PM Patient has been complaining of significant shoulder pain since admission. He has been seen by orthopedic surgery. We have tried nonsteroidals orally, nonsteroidals IV, Tylenol. He has had a lidocaine patch applied. His relief fi janiya came in the form of opioids, 1 injection last night. But he is very leery of doing that on a regular basis. Wonders if there is any other option to relieve his pain. I explained to him that I could provide a steroid injection. I would combine it with the long-acting bupivacaine, short acting lidocaine. This would initially provide immediate relief followed by temporary relief of maybe a few days time. He said he would like to do that. Risk of infection discussed. Skin prepped with chlorhexidine. Then alcohol. 3 cc of bupivacaine 0.25%, 3 cc of 1% lidocaine, and 40 mg of Depo-Medrol mixed in a 10 cc syringe. Using a posterior approach this was injected into the bursa. Patient tolerated the procedure well. We will follow back with him later this afternoon to see if he has had adequate pain relief.
[2023-04-11] MEDS: BUPIVACAINE 0.25% PF 10 ML VIAL SUBQ ONE (16:36)
[2023-04-11] MEDS: methylPREDNISolone ACETATE 40 MG/ML VIAL IU ONE (16:36)
[2023-04-11] MEDS: BUFFERED LIDOCAINE 10 ML SYRINGE IU ONE (16:36)
[2023-04-11] MEDS: MORPHINE 2 MG/ML CARPUJECT IVP PRN (23:28)
--- NOTE | 2023-04-12 11:38 | PROVIDER PROGRESS NOTE ---
Subjective - Prog Note Date Prog Note Date: 04/12/23 Prog Note Time: 11:30 - Subjective Pt reports feeling: No change (No change. States the steroid injection didn't help. Understands there is not much else we can do other than analgesia and PT. Asks to speak to social work. Overnight required flushing of Lombardo and had drainage of 2.1L urine.) Subjective: Patient is here for the following problems, has been medically clear since 04/09/23. Current Medications - Current Medications Current Medications: Active Medications Generic Name Dose Route Start Last Admin Trade Name Freq PRN Reason Stop Dose Admin Acetaminophen 650 mg 04/10/23 17:00 04/12/23 05:53 Acetaminophen 325 Mg Tablet PO 650 mg Q6H EMORY Administration Baclofen 10 mg 04/11/23 14:00 04/12/23 05:54 Baclofen 10 Mg Tablet PO 10 mg TID EMORY Administration Bisacodyl 10 mg 04/01/23 12:54 04/01/23 13:21 Bisacodyl 10 Mg Supp [place] 10 mg DAILY PRN Administration Constipation Bisacodyl 10 mg 04/02/23 13:00 04/10/23 13:07 Bisacodyl 10 Mg Supp [place] 10 mg Q48H EMORY Administration Cholecalciferol 50 mcg 04/02/23 09:00 04/12/23 09:24 Cholecalciferol 25 Mcg Tablet PO 50 mcg DAILY EMORY Administration Enoxaparin Sodium 40 mg 04/01/23 09:00 04/12/23 09:23 Enoxaparin 40 Mg/0.4 Ml Syringe SUBQ 40 mg DAILY EMORY Administration Famotidine 20 mg 04/02/23 21:00 04/12/23 09:23 Famotidine 20 Mg Tablet PO 20 mg BID EMORY Administration Ferrous Sulfate 325 mg 04/02/23 13:00 04/12/23 09:24 Ferrous Sulfate 325 Mg Tablet PO 325 mg DAILY EMORY Administration Gabapentin 200 mg 04/02/23 14:00 04/12/23 05:53 Gabapentin 100 Mg Capsule PO 200 mg TID EMORY Administration Ibuprofen 400 mg 04/10/23 18:00 04/12/23 05:53 Ibuprofen 400 Mg Tablet PO 400 mg Q6HR EMORY Administration Lidocaine 1 patch 04/06/23 13:23 04/12/23 09:23 Lidocaine Patch 4% TOP 1 patch DAILY EMORY Administration Morphine Sulfate 2 mg 04/11/23 19:06 04/11/23 23:28 Morphine 2 Mg/Ml Carpuject IVP 2 mg Q6H PRN Administration Severe Pain (Level 7-10) Ondansetron HCl 4 mg 04/05/23 09:22 04/05/23 09:44 Ondansetron 4 Mg/2 Ml Vial IVP 4 mg Q4HR PRN Administration Nausea / Vomiting Patient Own Med 1 each 04/04/23 14:00 04/12/23 05:54 Potassium Citrate PO 1 each 15meq Po Tid TID EMORY Administration Multivit/Folic Acid/Iron 1 tab 04/08/23 08:00 04/12/23 09:23 Vitamin Tablet PO 1 tab DAILYWM EMORY Administration Prochlorperazine Edisylate 10 mg 04/05/23 11:40 Prochlorperazine 10 Mg/2 Ml Vial IVP Q6HR PRN Nausea / Vomiting Psyllium Hydrophilic Mucilloid 1 packet 04/10/23 17:00 Psyllium Packet PO DAILY PRN Constipation Saccharomyces Boulardii 250 mg 04/03/23 10:30 04/12/23 09:23 Saccharomyces Boulardii 250 Mg Capsule PO 250 mg BIDWM EMORY Administration Sodium Chloride 10 ml 04/01/23 01:00 04/12/23 09:24 Sodium Chloride Flush 0.9% 10 Ml Syringe IVP 10 ml 0100,0900,1700 EMORY Administration Sodium Chloride 10 ml 03/31/23 21:40 04/05/23 21:54 Sodium Chloride Flush 0.9% 10 Ml Syringe IVP 10 ml PRN PRN Administration NEEDED PER PROVIDER ORDERS Solifenacin 10 mg 04/03/23 09:00 04/12/23 09:23 Solifenacin Succinate 5 Mg Tablet PO 10 mg DAILY EMORY Administration Zolpidem Tartrate 5 mg 04/01/23 00:13 04/05/23 22:06 Zolpidem 5 Mg Tablet PO 5 mg QPM PRN Administration Insomnia amLODIPine [Norvasc] 10 mg PO DAILY 01/05/17 lisinopriL [Lisinopril] 40 mg PO DAILY 01/05/17 Baclofen 20 mg PO TID 10/04/19 Ferrous Sulfate 325 mg PO DAILY 05/29/21 Furosemide [Lasix] 40 mg PO DAILY 05/07/22 Solifenacin Succinate 10 mg PO DAILY 05/07/22 Gabapentin [Neurontin] 200 mg PO TID 03/19/23 Potassium Citrate [Potassium Citrate ER] 15 meq PO TID 03/19/23 Bisacodyl Supp [Dulcolax Supp] 10 mg RC Q48H 04/01/23 Cholecalciferol [Vitamin D3] 50 mcg PO DAILY 04/01/23 Multivitamin 1 tab PO DAILY 04/01/23 Objective - Vital Signs/Intake & Output Reviewed Vital Signs: Yes Vital Signs: Vital Signs x48h Temp Pulse Resp BP Pulse Ox 04/12/23 07:40 36.2 C L 83 18 143/81 H 95 04/12/23 06:04 36.5 C 89 18 126/71 94 Intake & Output: Intake & Output 04/09/23 04/10/23 04/11/23 04/12/23 23:59 23:59 23:59 23:59 Intake Total 1610 1890 1810 1290 Output Total 1450 1400 3405 900 Balance 160 490 -1595 390 - Objective General Appearance: positive: No acute distress, Alert, Other (well developed male, appears stated age) Respiratory: positive: Chest non-tender, No respiratory distress, Breath sounds nml Cardiovascular: positive: Regular rate & rhythm, No murmur Abdomen: positive: Non-tender, Nml bowel sounds, No distention Skin: positive: Color nml, No rash Extremities: positive: Non-tender Neurologic/Psychiatric: positive: Oriented x3, Mood/affect nml - Lab Results Fish Bones: 04/09/23 04:52 04/09/23 04:52 ABX Reporting Has patient been on IV antibiotics over the past 48 hours?: No Sepsis Event Note (H) - Evaluation Possible source of Sepsis: positive: Genitourinary Assessment/Plan - Problem List (1) Sepsis Impression: Resolved. Due to UTI and obstructive stone, completed treatment with antibiotics Qualifiers: Qualified Code(s): A41.9 - Sepsis, unspecified organism; R65.20 - Severe sepsis without septic shock (2) E. coli UTI Impression: Resolved. Urine cx with pansensitive E coli, s/p 7d course of IV abx. Spiked fever 2/8, blood cx were neg. No need for further antibiotics. (3) Pressure ulcer Impression: Chronic. Goes to [facility] wound clinic for debridement and dressing changes. Has been getting dressing changes here. Plan for updated photos today. S/p empiric vanco on admission. Wound cx grew beta-hemolytic Strep. Unclear if this is colonization or infection. Not currently on antibiotics. Plan: Continue chronic dressing changes Qualifiers: Pressure injury location: sacral region Pressure injury stage: unspecified pressure injury stage Qualified Code(s): L89.159 - Pressure ulcer of sacral region, unspecified stage (4) Calcific tendinitis of shoulder Impression: Seen by ortho 04/06. Still has pain, no significant improvement with Tylenol, ibuprofen, Voltaren gel, lidocaine patch, Toradol, steroid joint injection. Relief with a dose of prn morphine. Still unable to use it to do his self-caths. Shoulder XR with calcific tendinosis. Plan: Heat/ice prn. PT for ROM. Outpatient f/u with ortho. Will need SNF until he can self-cath on his own. Qualifiers: Laterality: right Qualified Code(s): M75.31 - Calcific tendinitis of right shoulder (5) Acute urinary obstruction Impression: Improved. Went from ED to OR s/p cystoscopy and stent 03/31 due to obstructive uropathy and sepsis from UTI. Lombardo was placed. Had plugging of the Lombardo that cleared with repeated flushing. Urology Dr Pineda recommended if Lombardo plugs again to replace it and place a new one. Plan: Keep Lombardo in place until pt able to self-cath (per urology). Flush as needed. (6) Paraplegia Impression: Chronic, from spinal cord injury 47 years ago. Has caregivers at home and uses a power chair. Self-caths at home due to neurogenic bladder. Plan: SNF until he can resume self-cath (7) History of bladder surgery Impression: s/p bladder augmentation 1996 using part of his small bowel that results in "intestinal sludge" in his bladder which is normally not a problem per patient report. Plan: Self-cath as above when able to do so (also self-caths due to neurogenic bladder from paraplegia). Continue Vesicare. (8) Anemia Impression: Stable. On admission 9.7, dropped to 7.7, now stable at 8.5. Did have ~8L fluids during hospitalization so could be dilutional component, inflammatory block also likely contributing. No signs of GI bleed. Plan: stable for outpatient management. Continue PO iron. Qualifiers: Anemia type: unspecified type Qualified Code(s): D64.9 - Anemia, unspecified (9) Altered mental state Impression: Resolved. Now at baseline. Had echolalia and repetitive movements earlier in stay. Head CT 04/07 negative for acute findings. Patient feels this may be due to the combination of gabapentin and baclofen (he is on both at home). Similar episodes happened in [place] in 2019 and at in 2022. Plan: obtain discharge summary from [facility] and Qualifiers: Qualified Code(s): R41.82 - Altered mental status, unspecified (10) Acute respiratory failure with hypoxia Impression: Resolved (11) N&V (nausea and vomiting) Impression: Resolved. Occurred 04/05. KUB was negative. Plan: anti-emetics prn, cont empiric Pepcid. Qualifiers: Qualified Code(s): R11.2 - Nausea with vomiting, unspecified (12) Neurogenic bowel Impression: Since his SCI at age 15. Uses suppository Q48h. Having some fecal incontinence. Plan: Continue fiber. Continue bowel regimen. (13) Ureteral stone Impression: as above
--- NOTE | 2023-04-13 08:21 | PROVIDER PROGRESS NOTE ---
Subjective - Prog Note Date Prog Note Date: 04/13/23 Prog Note Time: 08:19 - Subjective Pt reports feeling: No change (Asking what time the PASSR evaluation will be. Still wants to talk to social services counselor. Feels Lombardo just can be flushed prn, doesn't feel changing it will help the issue. Denies cp, sob, abd discomfort. Wants to try morphine during day as needed.) Subjective: Medically stable for discharge since 04/09/23 Current Medications - Current Medications Current Medications: Active Medications Generic Name Dose Route Start Last Admin Trade Name Freq PRN Reason Stop Dose Admin Acetaminophen 650 mg 04/10/23 17:00 04/13/23 05:34 Acetaminophen 325 Mg Tablet PO 650 mg Q6H EMORY Administration Baclofen 10 mg 04/11/23 14:00 04/13/23 05:35 Baclofen 10 Mg Tablet PO 10 mg TID EMORY Administration Bisacodyl 10 mg 04/01/23 12:54 04/01/23 13:21 Bisacodyl 10 Mg Supp WY 10 mg DAILY PRN Administration Constipation Bisacodyl 10 mg 04/02/23 13:00 04/12/23 12:27 Bisacodyl 10 Mg Supp WY 10 mg Q48H EMORY Administration Cholecalciferol 50 mcg 04/02/23 09:00 04/12/23 09:24 Cholecalciferol 25 Mcg Tablet PO 50 mcg DAILY EMORY Administration Enoxaparin Sodium 40 mg 04/01/23 09:00 04/12/23 09:23 Enoxaparin 40 Mg/0.4 Ml Syringe SUBQ 40 mg DAILY EMORY Administration Famotidine 20 mg 04/02/23 21:00 04/12/23 20:59 Famotidine 20 Mg Tablet PO 20 mg BID EMORY Administration Ferrous Sulfate 325 mg 04/02/23 13:00 04/12/23 09:24 Ferrous Sulfate 325 Mg Tablet PO 325 mg DAILY EMORY Administration Gabapentin 200 mg 04/02/23 14:00 04/13/23 05:35 Gabapentin 100 Mg Capsule PO 200 mg TID EMORY Administration Ibuprofen 400 mg 04/10/23 18:00 04/13/23 05:34 Ibuprofen 400 Mg Tablet PO 400 mg Q6HR EMORY Administration Lidocaine 1 patch 04/06/23 13:23 04/12/23 09:23 Lidocaine Patch 4% TOP 1 patch DAILY EMORY Administration Morphine Sulfate 2 mg 04/11/23 19:06 04/11/23 23:28 Morphine 2 Mg/Ml Carpuject IVP 2 mg Q6H PRN Administration Severe Pain (Level 7-10) Ondansetron HCl 4 mg 04/05/23 09:22 04/05/23 09:44 Ondansetron 4 Mg/2 Ml Vial IVP 4 mg Q4HR PRN Administration Nausea / Vomiting Patient Own Med 1 each 04/04/23 14:00 04/13/23 05:35 Potassium Citrate PO 1 each 15meq Po Tid TID EMORY Administration Multivit/Folic Acid/Iron 1 tab 04/08/23 08:00 04/12/23 09:23 Vitamin Tablet PO 1 tab DAILYWM EMORY Administration Prochlorperazine Edisylate 10 mg 04/05/23 11:40 Prochlorperazine 10 Mg/2 Ml Vial IVP Q6HR PRN Nausea / Vomiting Psyllium Hydrophilic Mucilloid 1 packet 04/10/23 17:00 Psyllium Packet PO DAILY PRN Constipation Saccharomyces Boulardii 250 mg 04/03/23 10:30 04/12/23 17:22 Saccharomyces Boulardii 250 Mg Capsule PO 250 mg BIDWM EMORY Administration Sodium Chloride 10 ml 04/01/23 01:00 04/12/23 23:27 Sodium Chloride Flush 0.9% 10 Ml Syringe IVP 10 ml 0100,0900,1700 EMORY Administration Sodium Chloride 10 ml 03/31/23 21:40 04/05/23 21:54 Sodium Chloride Flush 0.9% 10 Ml Syringe IVP 10 ml PRN PRN Administration NEEDED PER PROVIDER ORDERS Solifenacin 10 mg 04/03/23 09:00 04/12/23 09:23 Solifenacin Succinate 5 Mg Tablet PO 10 mg DAILY EMORY Administration Zolpidem Tartrate 5 mg 04/01/23 00:13 04/05/23 22:06 Zolpidem 5 Mg Tablet PO 5 mg QPM PRN Administration Insomnia amLODIPine [Norvasc] 10 mg PO DAILY 01/05/17 lisinopriL [Lisinopril] 40 mg PO DAILY 01/05/17 Baclofen 20 mg PO TID 10/04/19 Ferrous Sulfate 325 mg PO DAILY 05/29/21 Furosemide [Lasix] 40 mg PO DAILY 05/07/22 Solifenacin Succinate 10 mg PO DAILY 05/07/22 Gabapentin [Neurontin] 200 mg PO TID 03/19/23 Potassium Citrate [Potassium Citrate ER] 15 meq PO TID 03/19/23 Bisacodyl Supp [Dulcolax Supp] 10 mg RC Q48H 04/01/23 Cholecalciferol [Vitamin D3] 50 mcg PO DAILY 04/01/23 Multivitamin 1 tab PO DAILY 04/01/23 Objective - Vital Signs/Intake & Output Reviewed Vital Signs: Yes Vital Signs: Vital Signs x48h Temp Pulse Resp BP Pulse Ox 04/13/23 08:03 36.9 C 76 20 152/86 H 97 04/13/23 05:36 36.4 C L 71 18 137/69 H 96 Intake & Output: Intake & Output 04/10/23 04/11/23 04/12/23 04/13/23 23:59 23:59 23:59 23:59 Intake Total 1890 1810 2650 200 Output Total 1400 3405 2625 750 Balance 490 -1595 25 -550 - Objective General Appearance: positive: No acute distress, Alert, Other (pleasant male NAD, appears stated age) Respiratory: positive: Chest non-tender, No respiratory distress, Breath sounds nml Cardiovascular: positive: Regular rate & rhythm, No murmur Abdomen: positive: Non-tender, No distention Skin: positive: Color nml, No rash, Warm Extremities: positive: No pedal edema, Other (pain with ROM of R shoulder, intact sensation to RUE, diminshed sensation below umbilicus consistent with known paraplegia) Neurologic/Psychiatric: positive: Oriented x3, Mood/affect nml - Lab Results Fish Bones: 04/09/23 04:52 04/09/23 04:52 ABX Reporting Has patient been on IV antibiotics over the past 48 hours?: No Sepsis Event Note (H) - Evaluation Possible source of Sepsis: positive: Genitourinary Assessment/Plan - Problem List (1) Pressure ulcer Impression: Chronic. Goes to [facility] wound clinic for debridement and dressing changes. Stable. Photos in chart. S/p empiric vanco on admission. Wound cx grew beta-hemolytic Strep. Suspect colonization, no signs of acute infection. Not currently on antibiotics. Plan: Continue chronic dressing changes, monitor wound with occasional photos Qualifiers: Pressure injury location: sacral region Pressure injury stage: unspecified pressure injury stage Qualified Code(s): L89.159 - Pressure ulcer of sacral region, unspecified stage (2) Calcific tendinitis of shoulder Impression: Seen by ortho 04/06. Still has pain, no significant improvement with Tylenol, ibuprofen, Voltaren gel, lidocaine patch, Toradol, steroid joint injection. Relief with prn morphine. Currently unable to use it to do his self-caths. Shoulder XR with calcific tendinosis. Plan: Heat/ice prn. PT for ROM. Outpatient f/u with ortho. Will need SNF until he can self-cath on his own. Qualifiers: Laterality: right Qualified Code(s): M75.31 - Calcific tendinitis of right shoulder (3) Acute urinary obstruction Impression: Improved. Went from ED to OR s/p cystoscopy and stent 03/31 due to obstructive uropathy and sepsis from UTI. Lombardo placed. Has had intermittent plugging of Lombardo that clears with repeated flushing. Urology Dr Pineda recommended if Lombardo plugs again to replace it and place a new one; patient declined Lombardo replacement upon discussion 04/13. Plan: Keep Lombardo in place until pt able to self-cath (per urology). Flush as needed. 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 Has caregivers at home and uses a power chair. Self-caths at home due to neurogenic bladder. Plan: SNF until he can resume self-cath (5) Neurogenic bowel Impression: Chronic. Stable. Since his SCI at age 15. Uses suppository Q48h. Having some fecal incontinence. Plan: Continue fiber. Continue bowel regimen. (6) History of bladder surgery Impression: S/p bladder augmentation 1996 using part of his small bowel that results in "intestinal sludge" in his bladder which is normally not a problem per patient report. Plan: Self-cath as above when able to do so (also self-caths due to neurogenic bladder from paraplegia). Continue Vesicare. (7) Anemia Impression: Stable. On admission 9.7, dropped to 7.7, now stable ~8.5. Did have ~8L fluids during hospitalization so could be dilutional component, inflammatory block also likely contributing. No signs of GI bleed. Plan: Stable for outpatient management. Continue PO iron. Qualifiers: Anemia type: unspecified type Qualified Code(s): D64.9 - Anemia, unspecifi ed (8) Sepsis Impression: Resolved. Secondary to UTI and obstructive stone, s/p course of antibiotics Qualifiers: Qualified Code(s): A41.9 - Sepsis, unspecified organism; R65.20 - Severe sepsis without septic shock (9) E. coli UTI Impression: Resolved. Urine cx with pansensitive E coli, s/p 7d course of IV abx. Spiked fever 04/02, blood cx were neg. No need for further antibiotics. (10) Altered mental state Impression: Resolved. Now at baseline. Had echolalia and repetitive movements earlier in stay. Head CT 04/07 negative for acute findings. Patient feels this may be due to the combination of gabapentin and baclofen (he is on both at home). He reports similar episodes happened in [place] in 2019 and at in 2022; discharge summary from [place] does not mention this. Plan: awaiting records from Qualifiers: Qualified Code(s): R41.82 - Altered mental status, unspecified (11) Acute respiratory failure with hypoxia Impression: Resolved (12) N&V (nausea and vomiting) Impression: Resolved. Occurred 04/05. KUB was negative. Plan: anti-emetics prn, cont empiric Pepcid. Qualifiers: Qualified Code(s): R11.2 - Nausea with vomiting, unspecified (13) Ureteral stone Impression: as above
[2023-04-13] MEDS: PSYLLIUM PACKET PO PRN (10:06)
[2023-04-13] MEDS: LIDOCAINE PATCH 4% TOP SCH (20:51)
[2023-04-14] MEDS: IBUPROFEN 400 MG TABLET PO SCH (08:44)
[2023-04-14] MEDS: ACETAMINOPHEN 325 MG TABLET PO SCH (08:44)
--- NOTE | 2023-04-14 11:41 | Discharge Plan ---
Discharge Plan for SNF / ERA - Discharge Plan And Transition Orders Problem Reviewed?: Yes Disposition: 03 [facility] DC/Xfer Condition: Fair Allergies and Adverse Reactions: Allergies Allergy/AdvReac Type Severity Reaction Status Date / Time carbenicillin Allergy Respiratory Verified 03/31/23 15:51 [From Geocillin] clindamycin Allergy Rash Verified 03/31/23 15:51 Latex, Natural Rubber Allergy Unknown Verified 03/31/23 15:51 Health Concerns: Patient is a paraplegicc and was hospitalized with a UTI and needed a urologic procedure, and he also has a new problem of right shoulder pain caused by arthr itis/calcific tendinitis. He is unable to do urinary bladder self cathing because of pain in the R shoulder when he uses his R arm. Therefore a Lombardo catheter is being left in place. He needs rehab for that R shoulder at [facility]. Plan of Treatment: Continue daily scheduled meds. Continue daily sacral ulcer bandage changes. Continue routine Lombardo care. Care Goals: Improvement in symptoms and stabilization are the goals. Assessment: Patient understands and is agreeable with the plan. - SNF / CUSTODIAL Transition Orders Admit to (Facility): [facility] Under the care of (Name): Dr Ruby Varghese Discharge Diagnosis: (1) Sepsis Resolved with treatment of the UTI (2) E. coli UTI Antibiotic treatment completed (3) Altered mental state Resolved with improvement of his sepsis (4) N&V (nausea and vomiting) Resolved with improvement of his sepsis (5) Ureteral stone This was the likely cause of his UTI. He gets repeat stone formation and knows to decrease oxalate intake (6) Acute urinary obstruction Improved s/p cystoscopy and stent placed and Lombardo placed. He gets intermittent plugging of Lombardo that clears with repeated flushing. (7) Calcific tendinitis of shoulder Shoulder XR showed calcific tendinosis. Seen by Ortho on 04/06/23. Had no significant improvement with Tylenol, ibuprofen, Voltaren gel, lidocaine patch, Toradol, steroid joint injection. Gets relief with prn morphine. Currently unable to use it to do his self-caths. Needs heat/ice prn. Needs PT and OT for ROM, therefore needs SNF until he can self-cath on his own and return home. (8) Pressure ulcer Qualified Code(s): L89.159 - Pressure ulcer of sacral region, unspecified stage Needs ongoing care daily, and goes to [facility] every week. (9) Acute respiratory failure with hypoxia Caused by excessive IV fluid administration, cleared with 1 dose of iv Lasix (10) Paraplegia Chronic. Since his accident at age 15. He needs rehab at SNF until he can resume self-cath (11) Neurogenic bowel Chronic. Since his accident at age 15. Uses suppository Q48h. Has some fecal incontinence. (12) History of bladder surgery S/p bladder augmentation 1996 using part of his small bowel that results in "intestinal sludge" in his bladder which is normally not a problem per patient report. (13) Anemia Stable. Medicare Certification Statement: I certify that [facility] assisted care is medically necessary on a continuing basis for any of the conditions for which she/he is receiving care during hospitalization. Notify PCP of admission and forward orders to primary provider for signature. Weight on admission and: Weekly Call PCP immediately if weight increases by: 5 kg Other Notification Orders: Call PCP immediately if patient develops dyspnea, chest pain/tightness or edema. House Bowel Program: Yes Additional Bowel Program Orders: If no BM after 2 days, nurse may give M.O.M. 30ml PO PRN and/or ducolax Supp 1 CO and/or MATTHEW 250mg P.O., and/or senna 1-2 tabs PO. On day 3 nurse may give repeat above order until residents constipation is resolved. Annual Influenza Vaccine (between Oct 24 and May 23): Yes Two-step PPD per [facility] [id number] or approved exception documents: Yes Treatments & Other Orders: [facility] every week. Daily bandage changes of all his sacral and pressure ulcers. Lombardo care as per protocol. Medication Orders: PLEASE REFER TO THE DISCHARGE MEDICATION LIST. Insulin Orders?: No - Medications New Prescriptions: Zolpidem [Ambien] 5 mg PO QPM PRN #20 tab PRN Reason: Insomnia Hydromorphone HCl [Dilaudid] 2 mg PO Q12H PRN #12 tablet PRN Reason: Severe Pain (Level 7-10) Furosemide [Lasix] 40 mg PO DAILY #30 tab Lidocaine [Lidocan III] 1 each TP DAILY #30 patch Ibuprofen [Motrin] 400 mg PO Q6H PRN #120 tab PRN Reason: As Needed Per Provider Orders - Diet Type: No added salt Texture: Regular Liquids: Thin May have monthly special meal: Yes - Therapies | Activity Therapy: Evaluation | Treat if indicated: PT (to R shoulder and both arms for transferring), OT (to R shoulder and both arms for transferring) Activity: Transfr from bed to chair Weight Bearing: No Weight Assistance Devices: Wheelchair Follow Up: See PCP after discharge from SNF.
--- NOTE | 2023-04-14 12:11 | DISCHARGE SUMMARY ---
Discharge Summary Admit Date: 03/31/23 Discharge Date: 04/14/23 Discharging Provider: Dr Michell Salvador Primary Care Provider: Dr Ruby Varghese Condition at Discharge: Fair Discharge Disposition: 03 SNF DC/Xfer - HPI History of Present Illness: 63 y/o M presented to the ED with fever and generalized weakness. He was found to have fever and tachycardia and elevated LA as well as abnormal U/A and CT scan showed right nephrolithiasis and hydronephrosis. Pt is known to his urologi st who visited the patient in the ED and decided for admission here and immediate procedure for stent placement. He was also found to have possible infiltrate in CXR, suspicious for PNA and also has history of spinal injury, paraplegia and is wheelchair-bound with pressure sores that are followed at [facility] but are concerning for being infected. Pt's condition improved in the ED with ivf and antibiotics with normalization of HR and LA. I only saw the pt after urology procedure and pt feels better. Denies any other complains at this time except some right shoulder pain but is vague explaining it. - HOSPITAL COURSE Hospital Course: (1) Sepsis Resolved with treatment of the UTI (2) E. coli UTI Antibiotic treatment completed while here (3) Altered mental state Resolved with improvement of his sepsis (4) N&V (nausea and vomiting) Resolved with improvement of his sepsis (5) Ureteral stone This was the likely cause of his UTI. He gets repeat stone formation and knows to decrease oxalate intake, and to take Potassium Citrate for Potassium replacement. (6) Acute urinary obstruction Improved s/p cystoscopy and stent placed and Lombardo placed. He gets intermittent plugging of Lombardo that clears with repeated flushing. He was discharged with a Lombardo, since he cannot self cath due to R shoulder pain. (7) Calcific tendinitis of shoulder He had daily complaints of R shoulder pain, worse than any of his other symptoms. Shoulder XR showed calcific tendinosis. He was seen by Ortho on 04/06/23. Had no significant improvement with Tylenol, ibuprofen, Voltaren gel, lidocaine patch, Toradol, or steroid joint injection. Gets relief with prn morphine. Currently unable to use the R shoulder and R arm, to do his self- caths. Needs heat/ice prn. Needs PT and OT for ROM, therefore needs SNF until he can self-cath on his own and return home. (8) Pressure ulcer Qualified Code(s): L89.159 - Pressure ulcer of sacral region, unspecified stage Needs ongoing care daily, and goes to [facility] clinic every week. (9) Acute respiratory failure with hypoxia Caused by excessive IV fluid administration, cleared with 1 dose of iv Lasix (10) Paraplegia Chronic. Since his accident at age 15. He needs rehab at SNF until he can resume self-cath (11) Neurogenic bowel Chronic. Since his accident at age 15. Uses suppository Q48h. Has some fecal incontinence. (12) History of bladder surgery S/p bladder augmentation 1996 using part of his small bowel that results in "intestinal sludge" in his bladder which is normally not a problem per patient report. (13) Anemia Stable. - ALLERGIES Allergies/Adverse Reactions: Allergies Allergy/AdvReac Type Severity Reaction Status Date / Time carbenicillin Allergy Respiratory Verified 03/31/23 15:51 [From Geocillin] clindamycin Allergy Rash Verified 03/31/23 15:51 Latex, Natural Rubber Allergy Unknown Verified 03/31/23 15:51 - MEDICATIONS Home Medications: Ambulatory Orders Medication Instructions Recorded Confirmed amLODIPine [Norvasc] 10 mg PO DAILY 01/05/17 04/01/23 lisinopriL [Lisinopril] 40 mg PO DAILY 01/05/17 04/01/23 Baclofen 20 mg PO TID 10/04/19 04/01/23 Ferrous Sulfate 325 mg PO DAILY 05/29/21 04/01/23 Solifenacin Succinate 10 mg PO DAILY 05/07/22 04/01/23 Gabapentin [Neurontin] 200 mg PO TID 03/19/23 04/01/23 Potassium Citrate [Potassium 15 meq PO TID 03/19/23 04/01/23 Citrate ER] Bisacodyl Supp [Dulcolax Supp] 10 mg RC Q48H 04/01/23 04/01/23 Cholecalciferol [Vitamin D3] 50 mcg PO DAILY 04/01/23 04/01/23 Multivitamin 1 tab PO DAILY 04/01/23 04/01/23 Furosemide [Lasix] 40 mg PO DAILY #30 tab 04/14/23 Hydromorphone HCl [Dilaudid] 2 mg PO Q12H PRN #12 tablet 04/14/23 Ibuprofen [Motrin] 400 mg PO Q6H PRN #120 tab 04/14/23 Lidocaine [Lidocan III] 1 each TP DAILY #30 patch 04/14/23 Zolpidem [Ambien] 5 mg PO QPM PRN #20 tab 04/14/23 - PHYSICAL EXAM AT DISCHARGE General Appearance: positive: No acute distress, Alert Eyes Bilateral: positive: Normal inspection, EOMI ENT: positive: ENT inspection nml, No signs of dehydration Neck: positive: Nml inspection, No JVD Respiratory: positive: No respiratory distress, Breath sounds nml Cardiovascular: positive: Regular rate & rhythm, No murmur Abdomen: positive: Non-tender Skin: positive: Warm, Dry, Pallor Extremities: positive: Other (TRace pretibial edema) Neurologic/Psychiatric: positive: Other (Paraplegic) - LABS Result Diagrams: 04/09/23 04:52 04/09/23 04:52 - DIAGNOSTIC IMAGING Diagnostic Imaging Results: Final report reviewed - SEPSIS Possible source of Sepsis: Genitourinary - FOLLOW UP Follow Up: See PCP and Urologist, Dr Pineda, after discharge from SNF. - TIME SPENT Time Spent in Discharge (Minutes): 50
[2023-04-14 12:25] VITALS: BP 133/74; O2SAT 95
== END 2023-04-14 14:08 | DRG 853 ==
LOC: EDUNIT# → ED 15:40 → INTOOBSV 20:30 → OBSVTOIN 20:30 → MS2 20:30 → ICU 21:40 → MS2 04-02 18:00
PROVIDERS: ADMIT Hospitalist; ATTEND Internal Medicine
PROC: 0T768DZ Dilation of Right Ureter with Intraluminal Device, Via Natural or Artificial Opening Endoscopic (ICD-10-PCS; principal; 2023-03-31 21:00)
PROC: 3E0U33Z Introduction of Anti-inflammatory into Joints, Percutaneous Approach (ICD-10-PCS; 2023-04-11)
DX: A41.9 Sepsis, unspecified organism (principal); N10 Acute pyelonephritis; E43 Unspecified severe protein-calorie malnutrition; L89.40 Pressure ulcer of contiguous site of back, buttock and hip, unspecified stage; J18.9 Pneumonia, unspecified organism; J96.01 Acute respiratory failure with hypoxia; N39.0 Urinary tract infection, site not specified; N13.2 Hydronephrosis with renal and ureteral calculous obstruction; G82.20 Paraplegia, unspecified; K59.2 Neurogenic bowel, not elsewhere classified; J90 Pleural effusion, not elsewhere classified; J98.11 Atelectasis; J81.1 Chronic pulmonary edema; B96.20 Unspecified Escherichia coli [E. coli] as the cause of diseases classified elsewhere; R41.82 Altered mental status, unspecified; M75.31 Calcific tendinitis of right shoulder; L89.159 Pressure ulcer of sacral region, unspecified stage; T14.8XXS Other injury of unspecified body region, sequela; D64.9 Anemia, unspecified; R53.1 Weakness; M25.511 Pain in right shoulder; Z99.3 Dependence on wheelchair; I10 Essential (primary) hypertension; M19.011 Primary osteoarthritis, right shoulder; K59.00 Constipation, unspecified; R44.1 Visual hallucinations; E87.8 Other disorders of electrolyte and fluid balance, not elsewhere classified; R11.2 Nausea with vomiting, unspecified; Z68.26 Body mass index [BMI] 26.0-26.9, adult; B95.4 Other streptococcus as the cause of diseases classified elsewhere; R48.8 Other symbolic dysfunctions
CPT/HCPCS: 36415; 70470; 71045; 73030; 74018; 74177; 80048; 80053; 80076; 81001; 82330; 82607; 82746; 83540; 83605; 83690; 83735; 84100; 84466; 85025; 85610; 85730; 87040; 87070; 87077; 87086; 87150; 87181; 87205; 87633; 96365; 96375; 96376; 97110; 97162; 97166; 97530; 97535; 99284; 99285; A9270; C1758; C2617; J1030; J1170; J1650; J1750; J2916; J3370; Q9967; 81003

== ENCOUNTER 2023-04-29 12:32 | Outpatient (CLI) | payer MEDICARE, BC ==
--- NOTE | 2023-04-29 14:30 | XRAY Report ---
PROCEDURE: Sacrum/Coccyx INDICATIONS: OSTEOMYELITIS OF VERTEBRA, SACRAL AND SACROCOCCYGE TECHNIQUE: 2 views of the sacrum and coccyx acquired. COMPARISON: CT abdomen and pelvis dated 03/31/2023 which demonstrates a sacral decubitus ulcer with ex tension of abnormality to the level of the sacrococcygeal region. FINDINGS: Bones: Diffuse osteopenia decreases identification of significant bony lesions. Bilateral hip degener ative change. Soft tissues: Visualized bowel gas pattern is normal. No suspicious soft tissue densities. Right u reteral stent. IMPRESSION: Study not helpful for evaluating osteomyelitis. If suspect osteomyelitis, recommend MRI of the pelvis with and without contrast with focus on the sacrococcygeal region. Reviewed by: Josr Ramesh MD on 04/29/2023 2:29 PM PST Approved by: Josr Ramesh MD on 04/29/2023 2:29 PM PST Station ID: [id number]
== END 2023-04-29 12:33 | disposition home or self-care (01) ==
LOC: DI 12:32
PROVIDERS: ATTEND Registered Nurse
DX: M46.28 Osteomyelitis of vertebra, sacral and sacrococcygeal region (principal)

== ENCOUNTER 2023-05-01 09:21 | Day surgery (SDC) | payer MEDICARE, BC ==
[2023-05-01 09:52] VITALS: BP 107/61; O2SAT 97
--- NOTE | 2023-05-01 13:31 | ANESTHESIA PROCEDURE NOTE ---
Anesth Central Line Template - Central Line Central Line Preparation: Consent Obtained Central line location: Left Brachial Central line type: PICC Single Lumen Central line catheter tip site resides: Superior vena cava (SVC) Central line aftercare: Chlorhexidine disc placed, Secured, Placement confirmed, No complications (trimmed at 48cm, three exposed), Bundle checklist complete, Pt tolerated well
== END 2023-05-01 09:22 | disposition home or self-care (01) ==
LOC: SDS 09:21
PROVIDERS: ATTEND Nurse Anesthetist, Certified Registered
DX: M46.28 Osteomyelitis of vertebra, sacral and sacrococcygeal region (principal)
CPT/HCPCS: 36569; C1751

== ENCOUNTER 2023-05-13 13:12 | Day surgery (SDC) | payer MEDICARE, BC ==
[2023-05-13 13:29] VITALS: BP 105/70; O2SAT 97
== END 2023-05-13 13:13 | disposition home or self-care (01) ==
LOC: SDS 13:12
PROVIDERS: ATTEND Nurse Anesthetist, Certified Registered
DX: Z53.9 Procedure and treatment not carried out, unspecified reason (principal)

== ENCOUNTER 2023-05-25 10:02 | Day surgery (SDC) | payer MEDICARE, BC ==
[2023-05-25] MEDS ORDERED: ceFAZolin 2 GM VIAL ONE (10:08)
[2023-05-25] MEDS: LACTATED RINGERS 1,000 ML IV ONE ×2 (10:28→14:25)
[2023-05-25 10:51] VITALS: O2SAT 99
--- NOTE | 2023-05-25 11:30 | ANESTHESIA ---
Pre-Anesthesia VS, & Labs - Diagnosis right kidney stone - Procedure cysto, rigid ureteroscopy, lazer lithotripsy, stent exchange Vital Signs: Temp Pulse Resp BP Pulse Ox O2 Flow Rate 36.5 C 80 16 129/70 99 05/25/23 10:30 05/25/23 10:30 05/25/23 10:30 05/25/23 10:30 05/25/23 10:30 Height: 5 ft 8 in Weight (kg): 95.25 kg Body Mass Index: 31.9 BMI Classification: Obese - NPO >8 hours Home Medications and Allergies Home Medications: Ambulatory Orders Amino Acids/Protein Hydrolys [Proteinex Liquid] 90 ml PO TID 05/18/23 Hydromorphone HCl [Dilaudid] 2 mg PO Q8HR PRN 05/18/23 Mineral Oil [Mineral Oil Enema] 1 ea RC PRN PRN 05/18/23 Naloxone HCl Nasal [Narcan Nasal] 4 mg NS ONCE PRN 05/18/23 Psyllium [Metamucil] 1 packet PO DAILY 05/18/23 Senna [Senokot] 2 tab PO DAILY PRN 05/18/23 Tolterodine Tartrate [Tolterodine Tartrate ER] 4 mg PO DAILY 05/18/23 cefTRIAXone [Rocephin 2 gram] 2 gm IV QPM 05/18/23 polyethylene glycoL 3350 [Miralax] 17 gm PO DAILY PRN 05/18/23 amLODIPine [Norvasc] 10 mg PO DAILY 01/05/17 lisinopriL [Lisinopril] 40 mg PO DAILY 01/05/17 Baclofen 20 mg PO TID 10/04/19 Ferrous Sulfate 325 mg PO DAILY 05/29/21 Gabapentin [Neurontin] 200 mg PO TID 03/19/23 Potassium Citrate [Potassium Citrate ER] 15 meq PO TID 03/19/23 Bisacodyl Supp [Dulcolax Supp] 10 mg RC Q48H 04/01/23 Cholecalciferol [Vitamin D3] 50 mcg PO DAILY 04/01/23 Multivitamin 1 tab PO DAILY 04/01/23 Amino Acids/Protein Hydrolys [Proteinex Liquid] 90 ml PO TID 05/18/23 Hydromorphone HCl [Dilaudid] 2 mg PO Q8HR PRN 05/18/23 Mineral Oil [Mineral Oil Enema] 1 ea RC PRN PRN 05/18/23 Naloxone HCl Nasal [Narcan Nasal] 4 mg NS ONCE PRN 05/18/23 Psyllium [Metamucil] 1 packet PO DAILY 05/18/23 Senna [Senokot] 2 tab PO DAILY PRN 05/18/23 Tolterodine Tartrate [Tolterodine Tartrate ER] 4 mg PO DAILY 05/18/23 cefTRIAXone [Rocephin 2 gram] 2 gm IV QPM 05/18/23 polyethylene glycoL 3350 [Miralax] 17 gm PO DAILY PRN 05/18/23 Allergies/Adverse Reactions: Allergies Allergy/AdvReac Type Severity Reaction Status Date / Time carbenicillin Allergy Respiratory Verified 05/25/23 10:51 [From Geocillin] clindamycin Allergy Rash Verified 05/25/23 10:51 Latex, Natural Rubber Allergy Unknown Verified 05/25/23 10:51 Anes History & Medical History - Medical History Cardiovascular: reports: Hypertension Pulmonary: reports: Sleep apnea Gastrointestinal: reports: Colon polyps Urinary: reports: Other Neuro: reports: Other Musculoskeletal: reports: Paraplegia, Other Endocrine/Autoimmune: reports: None Blood Disorders: reports: None Skin: reports: None Smoking Status: Former smoker - Surgical History General: reports: Other Urologic: reports: Bladder surgery Gynecologic: reports: Other Orthopedic: reports: Rotator cuff repair, Carpal Tunnel surgery, Spine surgery, Other Exam General: Alert, Oriented x3 Dental: WNL Mouth Opening: Greater than 4 Fingerbreadths Neck Mobility: Normal Mallampati classification: II Thyromental Distance: greater than 6 cm Respiratory: Lungs clear Cardiovascular: Regular rate Plan Anesthesia Type: MAC Consent for Procedure(s) Verified and Reviewed: Yes Code Status: Attempt Resuscitation ASA classification: 4-Incapacitating disease Is this case an emergency?: No
[2023-05-25] MEDS ORDERED: LIDOCAINE 2% URO-JET 5 ML SYRINGE UR ONE (11:33)
[2023-05-25] MEDS: LIDOCAINE 2% URO-JET 5 ML SYRINGE UR ONE (13:37)
--- NOTE | 2023-05-25 14:21 | Discharge Plan ---
Discharge Plan Problem Reviewed?: Yes Disposition: [facility] DC/Xfer Condition: Fair Activity Restrictions: No Restrictions Shower Restrictions: No (no bathing with catheter in place) Driving Restrictions: No Assistance Devices: Wheelchair Instruction Topics: Stents Ureteral Additional Instructions or Follow Up instructions: You will be contacted for follow-up in roughly [address] Edwin Xiao Smoking: If you smoke, Please STOP! Call for help. Follow-up with: Ruby Varghese MD [Primary Care Provider] -
--- NOTE | 2023-05-25 14:24 | OPERATIVE REPORT ---
Operative Report - General Procedure Date: 05/25/23 Planned Procedure: Cystoscopy, right ureteroscopy, laser lithotripsy, stent exchange Pre-Op Diagnosis: Right ureteral stone Procedure Performed: Cystoscopy, right ureteroscopy, laser lithotripsy, basket stone extraction, stent exchange Post Op Diagnosis: Right ureteral stone - Procedure Note Primary Surgeon: Edwin Anesthesia Provider: MEGHA Zhao Pathology: none Indications: Paraplegic patient with history of neurogenic bladder, sepsis and right ureteral stones with stent placed in March 2023 for large distal right stone burden. Findings: Challenging anatomy to reach the ureter Large burden of radiolucent stone in the distal ureter removed Ureteral stent left with string tied to Lombardo catheter Complications: none - Other Other Information/Narrative: After informed sent was obtained the patient brought to the OR and laid in the supine position. The patient was monitored by anesthesia and then placed in dorsolithotomy position. He was prepped and draped in usual sterile fashion. A timeout was performed reconfirming the patient, procedure and laterality. A 22 Kenyan cystoscope was advanced into urinary bladder. He was noted to have a distended bladder with an augmentation. A stent was emanating from his right ureteral orifice and was encrusted. Due to his complex anatomy it was difficult to maneuver over to the ureteral orifice to place a wire next to the stent and so his cystoscope was removed and a rigid ureteroscope was instead used to place the wire up next to the stent on the right, this was placed up into the kidney. He was noted to have a tortuous ureter. The cystoscope was replaced and the old stent was grasped and removed. It was mildly encrusted. A 16 Kenyan Lombardo catheter was then placed into the bladder to drain ureteroscopic fluid. The short semirigid ureteroscope was then advanced up the right ureter until a collection of stones all about 4 to 5 mm in size were seen there were perhaps 7 of them. Using a laser 200 m at a power of 0.5 and a rate of 20 we dusted the stone to small pieces. Using 1.9 Kenyan basket we grasped the stone pieces and placed them in the bladder. We then cleared his distal ureter under direct visualization and saw no further stones. His bladder was emptied and the Lombardo catheter was removed. Under fluoroscopic guidance a 6 Kenyan 28 cm double-J ureteral stent was placed good curling on the kidney and good curling noted in the bladder. The string was tied to a 16 Kenyan Lombardo catheter which was then placed into the bladder. This concluded the procedure the patient tolerated procedure well. He will be discharged home with catheter in place and have it removed in the office with a stent in 2 weeks time. All counts were correct
[2023-05-25 14:40] VITALS: BP 100/86
--- NOTE | 2023-05-25 15:44 | XRAY Report ---
PROCEDURE: OR C-Arm Procedure INDICATIONS: CYSTO, URETEROSCOPY, LASER LITHO, STENT EXCHANGE FLUORO TIME: 000.6 TECHNIQUE: Intraoperative fluoroscopy for urology service provided. Total dose of 13.2 mGy COMPARISON: None. FINDINGS: 3 intraoperative fluoroscopic spot images demonstrate retrograde wire and stent placement. IMPRESSION: Intraoperative fluoroscopy for urology service. Correlate with intraoperative findings. Reviewed by: aKmi Garza MD on 05/25/2023 3:43 PM PDT Approved by: Kami Garza MD on 05/25/2023 3:43 PM PDT Station ID: [id number]
== END 2023-05-25 10:03 | disposition home or self-care (01) ==
LOC: SDS 10:02
PROVIDERS: ATTEND Urology
DX: N20.1 Calculus of ureter (principal); G82.21 Paraplegia, complete; G47.30 Sleep apnea, unspecified; I10 Essential (primary) hypertension; E66.9 Obesity, unspecified; Z68.32 Body mass index [BMI] 32.0-32.9, adult
CPT/HCPCS: 52356; C1758; J7120

== ENCOUNTER 2023-06-05 13:15 | Outpatient (CLI) | payer MEDICARE, BC ==
[2023-06-05 13:39] LABS: ALBUMIN 3.5 g/dL (3.2-5.5); ALBUMIN/GLOBULIN RATIO 1.1 (1.0-2.2); BILIRUBIN,TOTAL 0.3 mg/dL (0.2-1.0); CALCIUM 9.8 mg/dL (8.5-10.3); CREATININE 0.6 mg/dL (0.6-1.3); CRP - C-REACTIVE PROTEIN 1.3 mg/dL (<0.5); POTASSIUM 3.8 mmol/L (3.5-4.5); TOTAL PROTEIN 6.8 g/dL (6.4-8.9)
[2023-06-05 13:52] LABS: BASOPHILS # (AUTO) 0.1 10^3/uL (0.0-0.1); BASOPHILS % (AUTO) 0.6 %; EOSINOPHILS # (AUTO) 0.2 10^3/uL (0.0-0.7); EOSINOPHILS % (AUTO) 2.9 %; HCT - HEMATOCRIT 38.2 % (42.0-52.0); HGB - HEMOGLOBIN 11.4 g/dL (14.0-18.0); LYMPHOCYTES # (AUTO) 2.2 10^3/uL (1.5-3.5); MEAN CORPUSCULAR HEMOGLOBIN 25.8 pg (27.0-31.0); MEAN CORPUSCULAR HGB CONC 29.8 g/dL (32.0-36.0); MEAN CORPUSCULAR VOLUME 86.4 fL (80.0-94.0); MEAN PLATELET VOLUME 10.3 fL (7.4-11.4); MONOCYTES # (AUTO) 0.8 10^3/uL (0.0-1.0); NEUTROPHILS # (AUTO) 4.6 10^3/uL (1.5-6.6); NEUTROPHILS % (AUTO) 58.2 %; PLT - PLATELET COUNT 257 10^3/uL (130-450); RED BLOOD COUNT 4.42 10^6/uL (4.70-6.10); RED CELL DISTRIBUTION WIDTH 18.6 % (12.0-15.0); WHITE BLOOD COUNT 7.8 x10^3/uL (4.8-10.8)
== END 2023-06-05 13:16 | disposition home or self-care (01) ==
LOC: LAB.R 13:15
PROVIDERS: ATTEND Registered Nurse
DX: M62.59 Muscle wasting and atrophy, not elsewhere classified, multiple sites (principal); D64.9 Anemia, unspecified; A49.9 Bacterial infection, unspecified; R70.0 Elevated erythrocyte sedimentation rate
CPT/HCPCS: 80053; 85025; 85651; 86140

== ENCOUNTER 2023-06-06 01:19 | Outpatient (CLI) | payer MEDICARE, BC | END 2023-06-06 23:59 | disposition critical access hospital (66) | LOC: EMS 01:19 | DX: T83.091A Other mechanical complication of indwelling urethral catheter, initial encounter (principal) | CPT/HCPCS: A0425; A0429 ==

== ENCOUNTER 2023-06-06 01:25 | Emergency (ER) | payer MEDICARE, BC ==
--- NOTE | 2023-06-06 01:53 | ED Physician Documentation ---
History of Present Illness - Stated complaint Stated Complaint: CATHETER ISSUE - Chief complaint Chief Complaint: General - History obtained from History obtained from: Patient - Additonal information Additional information: 63yM with pmh kidney stones s/p lithotripsy 1.5 weeks ago with R uteral stent placement, also with long time history of self catheterizing (paraplegic), PSH bladder augmentation, p/w jarrett catheter issue beto. patient had jarrett placed post lithotripsy and stent placement by Dr. Pineda and has had frequent issues with it becoming blocked, requiring him to regularly irrigate it. tonight he asked his nurse at [facility] to remove the catheter and she obliged but then found the ureter string attached to it and sent him to the ER for evaluation. denies back or abdominal pain, fever. he does have sensation of bladder fullness. 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 - Present Medications Home Medications: Ambulatory Orders Medication Instructions Recorded Confirmed amLODIPine [Norvasc] 10 mg PO DAILY 01/05/17 05/25/23 lisinopriL [Lisinopril] 40 mg PO DAILY 01/05/17 05/25/23 Baclofen 20 mg PO TID 10/04/19 05/25/23 Ferrous Sulfate 325 mg PO DAILY 05/29/21 05/18/23 Gabapentin [Neurontin] 200 mg PO TID 03/19/23 05/25/23 Potassium Citrate [Potassium 15 meq PO TID 03/19/23 05/18/23 Citrate ER] Bisacodyl Supp [Dulcolax Supp] 10 mg RC Q48H 04/01/23 05/18/23 Cholecalciferol [Vitamin D3] 50 mcg PO DAILY 04/01/23 05/18/23 Multivitamin 1 tab PO DAILY 04/01/23 05/18/23 Furosemide [Lasix] 40 mg PO DAILY #30 tab 04/14/23 05/18/23 Ibuprofen [Motrin] 400 mg PO Q6H PRN #120 tab 04/14/23 05/18/23 Lidocaine [Lidocan III] 1 each TP DAILY #30 patch 04/14/23 05/18/23 Amino Acids/Protein Hydrolys 90 ml PO TID 05/18/23 05/18/23 [Proteinex Liquid] Hydromorphone HCl [Dilaudid] 2 mg PO Q8HR PRN 05/18/23 05/18/23 Mineral Oil [Mineral Oil Enema] 1 ea RC PRN PRN 05/18/23 05/18/23 Naloxone HCl Nasal [Narcan Nasal] 4 mg NS ONCE PRN 05/18/23 05/18/23 Psyllium [Metamucil] 1 packet PO DAILY 05/18/23 05/18/23 Senna [Senokot] 2 tab PO DAILY PRN 05/18/23 05/18/23 Tolterodine Tartrate [Tolterodine 4 mg PO DAILY 05/18/23 05/18/23 Tartrate ER] cefTRIAXone [Rocephin 2 gram] 2 gm IV QPM 05/18/23 05/25/23 polyethylene glycoL 3350 [Miralax] 17 gm PO DAILY PRN 05/18/23 05/18/23 - Allergies Allergies/Adverse Reactions: Allergies Allergy/AdvReac Type Severity Reaction Status Date / Time carbenicillin Allergy Respiratory Verified 06/06/23 01:38 [From Geocillin] clindamycin Allergy Rash Verified 06/06/23 01:38 Latex, Natural Rubber Allergy Unknown Verified 06/06/23 01:38 - Social History Does the pt smoke?: No Smoking Status: Former smoker Does the pt drink ETOH?: No Does the pt have substance abuse?: No - Immunizations Immunizations are current?: Yes - POLST Patient has POLST: No POLST Status: Full Code PD ED PE NORMAL - Vitals Vital signs reviewed: Yes - General General: Alert and oriented X 3, No acute distress, Well developed/nourished - HEENT HEENT: Atraumatic, PERRL, EOMI, Moist mucous membranes, Pharynx benign - Neck Neck: Supple, no meningeal sign - Abdomen Abdomen: Non tender, Non distended, Other (suprapubic fullness appreciated) - Male Male : Other (jarrett catheter completely removed from penis with thin black string extruding from meatus and attached to tip of jarrett) - Back Back: No CVA TTP Results - Vitals Vitals: Vital Signs - 24 hr 06/06/23 01:25 Temperature 36.6 C Heart Rate 95 Respiratory 16 Rate Blood Pressure 120/70 O2 Saturation 97 Oxygen O2 Source Room air PD Medical Decision Making - ED course ED course: d/w sebas Garcia solution maker urologist who stated the string can be trimmed off the jarrett and patient may resume self cathing until seen by his urologist this Thursday. this was completed and patient was educated to maintain sterile conditions as per usual when self cathing. return precautions given. Departure - Departure Disposition: Home, Self Care Clinical Impression: Jarrett catheter problem Condition: Stable Instructions: Self Catheterization Men Comments: You were seen in the emergency department for catheter issue. You can self cath and follow up with Dr. Pineda on Thursday. Please return to the emergency department if you have any new or worsening symptoms or other concerns.
[2023-06-06 02:21] VITALS: BP 124/78; O2SAT 99
== END 2023-06-06 02:15 | disposition home or self-care (01) ==
LOC: EDUNIT# → ED 01:25
DX: T83.098A Other mechanical complication of other urinary catheter, initial encounter (principal); G82.20 Paraplegia, unspecified; I10 Essential (primary) hypertension; G47.30 Sleep apnea, unspecified; Z86.010 Personal history of colon polyps; Z79.899 Other long term (current) drug therapy
CPT/HCPCS: 99283; 99284

== ENCOUNTER 2023-06-06 02:17 | Outpatient (CLI) | payer MEDICARE, BC | END 2023-06-06 23:59 | LOC: EMS 02:17 | PROVIDERS: ATTEND Emergency Medicine | DX: Z46.6 Encounter for fitting and adjustment of urinary device (principal); G82.20 Paraplegia, unspecified; Z74.01 Bed confinement status | CPT/HCPCS: A0425; A0428 ==

== ENCOUNTER 2023-06-10 08:00 | Outpatient (CLI) | payer MEDICARE, BC ==
[2023-06-10 12:58] LABS: BASOPHILS # (AUTO) 0.1 10^3/uL (0.0-0.1); BASOPHILS % (AUTO) 0.8 %; EOSINOPHILS # (AUTO) 0.2 10^3/uL (0.0-0.7); EOSINOPHILS % (AUTO) 2.9 %; HCT - HEMATOCRIT 36.7 % (42.0-52.0); HGB - HEMOGLOBIN 11.1 g/dL (14.0-18.0); LYMPHOCYTES # (AUTO) 2.2 10^3/uL (1.5-3.5); LYMPHOCYTES % (AUTO) 27.1 %; MEAN CORPUSCULAR HEMOGLOBIN 26.6 pg (27.0-31.0); MEAN CORPUSCULAR HGB CONC 30.2 g/dL (32.0-36.0); MEAN PLATELET VOLUME 10.5 fL (7.4-11.4); MONOCYTES # (AUTO) 0.7 10^3/uL (0.0-1.0); MONOCYTES % (AUTO) 9.1 %; NEUTROPHILS # (AUTO) 4.7 10^3/uL (1.5-6.6); NEUTROPHILS % (AUTO) 59.8 %; PLT - PLATELET COUNT 247 10^3/uL (130-450); RED BLOOD COUNT 4.17 10^6/uL (4.70-6.10); RED CELL DISTRIBUTION WIDTH 18.7 % (12.0-15.0); WHITE BLOOD COUNT 7.9 x10^3/uL (4.8-10.8)
[2023-06-10 13:14] LABS: ALBUMIN 3.5 g/dL (3.2-5.5); ALBUMIN/GLOBULIN RATIO 1.1 (1.0-2.2); BILIRUBIN,TOTAL 0.3 mg/dL (0.2-1.0); CALCIUM 9.6 mg/dL (8.5-10.3); CREATININE 0.5 mg/dL (0.6-1.3); POTASSIUM 3.7 mmol/L (3.5-4.5); TOTAL PROTEIN 6.6 g/dL (6.4-8.9)
== END 2023-06-10 23:59 | disposition home or self-care (01) ==
LOC: LAB.R 08:00
PROVIDERS: ATTEND Registered Nurse
DX: D64.9 Anemia, unspecified (principal); M62.59 Muscle wasting and atrophy, not elsewhere classified, multiple sites; I10 Essential (primary) hypertension; M62.81 Muscle weakness (generalized)
CPT/HCPCS: 80053; 85025; 86140

== ENCOUNTER 2023-06-11 13:40 | Outpatient (CLI) | payer MEDICARE, BC | END 2023-06-11 13:41 | disposition home or self-care (01) | LOC: LAB.R 13:40 | PROVIDERS: ATTEND Registered Nurse | DX: L89.159 Pressure ulcer of sacral region, unspecified stage (principal); E43 Unspecified severe protein-calorie malnutrition; M62.59 Muscle wasting and atrophy, not elsewhere classified, multiple sites | CPT/HCPCS: 87070; 87077; 87181; 87205 ==

== ENCOUNTER 2023-06-12 18:01 | Emergency (ER) | payer MEDICARE, BC ==
[2023-06-12 18:10] VITALS: BP 146/83; O2SAT 98
--- NOTE | 2023-06-12 18:40 | ED Physician Documentation ---
History of Present Illness - Stated complaint Stated Complaint: PICC LINE ISSUE - Chief complaint Chief Complaint: General - History obtained from History obtained from: Patient - History of Present Illness Timing: Today Pain level max: 0 Pain level now: 0 - Additonal information Additional information: 63-year-old male presents to the emergency department Stating that [facility] the PICC line accidentally withdrew about 2-1/2 to 3 cm. Unclear why the patient was sent here. Patient has no complaints. 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 - Present Medications Home Medications: Ambulatory Orders Medication Instructions Recorded Confirmed amLODIPine [Norvasc] 10 mg PO DAILY 01/05/17 05/25/23 lisinopriL [Lisinopril] 40 mg PO DAILY 01/05/17 05/25/23 Baclofen 20 mg PO TID 10/04/19 05/25/23 Ferrous Sulfate 325 mg PO DAILY 05/29/21 05/18/23 Gabapentin [Neurontin] 200 mg PO TID 03/19/23 05/25/23 Potassium Citrate [Potassium 15 meq PO TID 03/19/23 05/18/23 Citrate ER] Bisacodyl Supp [Dulcolax Supp] 10 mg RC Q48H 04/01/23 05/18/23 Cholecalciferol [Vitamin D3] 50 mcg PO DAILY 04/01/23 05/18/23 Multivitamin 1 tab PO DAILY 04/01/23 05/18/23 Furosemide [Lasix] 40 mg PO DAILY #30 tab 04/14/23 05/18/23 Ibuprofen [Motrin] 400 mg PO Q6H PRN #120 tab 04/14/23 05/18/23 Lidocaine [Lidocan III] 1 each TP DAILY #30 patch 04/14/23 05/18/23 Amino Acids/Protein Hydrolys 90 ml PO TID 05/18/23 05/18/23 [Proteinex Liquid] Hydromorphone HCl [Dilaudid] 2 mg PO Q8HR PRN 05/18/23 05/18/23 Mineral Oil [Mineral Oil Enema] 1 ea RC PRN PRN 05/18/23 05/18/23 Naloxone HCl Nasal [Narcan Nasal] 4 mg NS ONCE PRN 05/18/23 05/18/23 Psyllium [Metamucil] 1 packet PO DAILY 05/18/23 05/18/23 Senna [Senokot] 2 tab PO DAILY PRN 05/18/23 05/18/23 Tolterodine Tartrate [Tolterodine 4 mg PO DAILY 05/18/23 05/18/23 Tartrate ER] cefTRIAXone [Rocephin 2 gram] 2 gm IV QPM 05/18/23 05/25/23 polyethylene glycoL 3350 [Miralax] 17 gm PO DAILY PRN 05/18/23 05/18/23 - Allergies Allergies/Adverse Reactions: Allergies Allergy/AdvReac Type Severity Reaction Status Date / Time carbenicillin Allergy Respiratory Verified 06/12/23 18:10 [From Geocillin] clindamycin Allergy Rash Verified 06/12/23 18:10 Latex, Natural Rubber Allergy Unknown Verified 06/12/23 18:10 - Social History Does the pt smoke?: No Smoking Status: Never smoker Does the pt drink ETOH?: No Does the pt have substance abuse?: No - Immunizations Immunizations are current?: Yes - POLST Patient has POLST: No POLST Status: Full Code PD ED PE NORMAL - Vitals Vital signs reviewed: Yes - General General: Alert and oriented X 3, No acute distress - HEENT HEENT: Moist mucous membranes - Derm Derm: Warm and dry - Neuro Neuro: Alert and oriented X 3 - Free text exam Free text exam: PICC line in left arm. No signs of infection Results - Vitals Vitals: Vital Signs - 24 hr 06/12/23 18:06 Temperature 37.2 C Heart Rate 95 Respiratory 18 Rate Blood Pressure 146/83 H O2 Saturation 98 Oxygen O2 Source Room air - Rads (name of study) cxr Relevant Findings:: Final report received, See rad report PD Medical Decision Making - ED course Complexity details: reviewed results, considered differential, d/w patient ED course: PICC line still in place on chest x-ray. No emergency medical condition at this time. [facility] Can follow-up with anesthesia as an outpatient with the PICC line needs to be replaced. This document was made in part using voice recognition software. While efforts are made to proofread this document, sound alike and grammatical errors may occur. Departure - Departure Disposition: 01 Home, Self Care Clinical Impression: PICC (peripherally inserted central catheter) in place Condition: Good Instructions: ED PICC Line Care Follow-Up: Ruby Varghese MD [Primary Care Provider] - Within 1 week Comments: Your PICC line is still in place. Please follow-up with anesthesia for any PICC line related issues. The PICC line can still be used.
--- NOTE | 2023-06-12 19:09 | XRAY Report ---
PROCEDURE: Chest for Line Placement INDICATIONS: picc line pulled out 3cm during dressing change TECHNIQUE: One view of the chest was acquired. COMPARISON: None. FINDINGS: Surgical changes and devices: A left-sided PICC line has been placed, with the tip overlying the sup erior aspect of the superior vena cava, 7 cm above the cavoatrial junction. Postoperative change of the right shoulder can be seen. Lungs and pleura: An incomplete inspiratory result is noted, with low lung volumes and crowding of t he vascular markings. No focal infiltrates are seen. No large pneumothorax or large pleural effusion can be seen. Mediastinum: Mediastinal contours appear normal. Heart size is normal. Bones and chest wall: No suspicious bony lesions. There is significant dextroconvex scoliosis. Age-a ppropriate degenerative changes are seen. Remote right-sided rib fractures are seen. Overlying soft tissues appear unremarkable. IMPRESSION: The tip of the left-sided PICC line can be seen overlying the superior aspect of the superior vena ca va. Reviewed by: Alphonso Jiménez MD on 06/12/2023 6:08 PM OZ Approved by: Alphonso Jiménez MD on 06/12/2023 6:08 PM OZ Station ID: [id number]
== END 2023-06-12 19:33 | disposition home or self-care (01) ==
LOC: EDUNIT# → ED 18:01
DX: Z71.1 Person with feared health complaint in whom no diagnosis is made (principal); Z95.828 Presence of other vascular implants and grafts; I10 Essential (primary) hypertension; G47.30 Sleep apnea, unspecified; G82.20 Paraplegia, unspecified; Z86.010 Personal history of colon polyps; Z79.899 Other long term (current) drug therapy
CPT/HCPCS: 99283

== ENCOUNTER 2023-06-17 08:28 | Outpatient (CLI) | payer MEDICARE, BC ==
[2023-06-17 08:53] LABS: ALBUMIN 3.5 g/dL (3.2-5.5); ALBUMIN/GLOBULIN RATIO 1.1 (1.0-2.2); BILIRUBIN,TOTAL 0.3 mg/dL (0.2-1.0); CALCIUM 9.4 mg/dL (8.5-10.3); CREATININE 0.5 mg/dL (0.6-1.3); CRP - C-REACTIVE PROTEIN 3.2 mg/dL (<0.5); TOTAL PROTEIN 6.6 g/dL (6.4-8.9)
[2023-06-17 09:24] LABS: BASOPHILS % (AUTO) 0.5 %; EOSINOPHILS # (AUTO) 0.3 10^3/uL (0.0-0.7); EOSINOPHILS % (AUTO) 3.2 %; HCT - HEMATOCRIT 36.7 % (42.0-52.0); HGB - HEMOGLOBIN 10.8 g/dL (14.0-18.0); LYMPHOCYTES % (AUTO) 25.3 %; MEAN CORPUSCULAR HEMOGLOBIN 25.5 pg (27.0-31.0); MEAN CORPUSCULAR HGB CONC 29.4 g/dL (32.0-36.0); MEAN CORPUSCULAR VOLUME 86.6 fL (80.0-94.0); MEAN PLATELET VOLUME 10.1 fL (7.4-11.4); MONOCYTES # (AUTO) 0.6 10^3/uL (0.0-1.0); MONOCYTES % (AUTO) 8.3 %; NEUTROPHILS # (AUTO) 4.8 10^3/uL (1.5-6.6); NEUTROPHILS % (AUTO) 62.4 %; PLT - PLATELET COUNT 240 10^3/uL (130-450); RED BLOOD COUNT 4.24 10^6/uL (4.70-6.10); RED CELL DISTRIBUTION WIDTH 17.2 % (12.0-15.0); WHITE BLOOD COUNT 7.7 x10^3/uL (4.8-10.8)
== END 2023-06-17 08:29 | disposition home or self-care (01) ==
LOC: LAB.R 08:28
PROVIDERS: ATTEND Registered Nurse
DX: I10 Essential (primary) hypertension (principal); R79.82 Elevated C-reactive protein (CRP); R74.8 Abnormal levels of other serum enzymes; D64.9 Anemia, unspecified
CPT/HCPCS: 80053; 82550; 85025; 86140

== ENCOUNTER 2023-06-18 08:00 | Outpatient (CLI) | payer MEDICARE, BC ==
[2023-06-18 18:20] LABS: BASOPHILS # (AUTO) 0.1 10^3/uL (0.0-0.1); BASOPHILS % (AUTO) 0.7 %; EOSINOPHILS # (AUTO) 0.3 10^3/uL (0.0-0.7); HCT - HEMATOCRIT 37.9 % (42.0-52.0); HGB - HEMOGLOBIN 11.2 g/dL (14.0-18.0); LYMPHOCYTES % (AUTO) 29.8 %; MEAN CORPUSCULAR HEMOGLOBIN 25.9 pg (27.0-31.0); MEAN CORPUSCULAR HGB CONC 29.6 g/dL (32.0-36.0); MEAN CORPUSCULAR VOLUME 87.5 fL (80.0-94.0); MEAN PLATELET VOLUME 10.1 fL (7.4-11.4); MONOCYTES # (AUTO) 0.6 10^3/uL (0.0-1.0); MONOCYTES % (AUTO) 8.5 %; NEUTROPHILS # (AUTO) 3.9 10^3/uL (1.5-6.6); NEUTROPHILS % (AUTO) 56.6 %; PLT - PLATELET COUNT 249 10^3/uL (130-450); RED BLOOD COUNT 4.33 10^6/uL (4.70-6.10); RED CELL DISTRIBUTION WIDTH 16.9 % (12.0-15.0); WHITE BLOOD COUNT 6.8 x10^3/uL (4.8-10.8)
[2023-06-18 18:21] LABS: ALBUMIN 3.6 g/dL (3.2-5.5); ALBUMIN/GLOBULIN RATIO 1.1 (1.0-2.2); BILIRUBIN,TOTAL 0.3 mg/dL (0.2-1.0); CALCIUM 9.4 mg/dL (8.5-10.3); CREATININE 0.4 mg/dL (0.6-1.3); CRP - C-REACTIVE PROTEIN 2.4 mg/dL (<0.5); POTASSIUM 3.6 mmol/L (3.5-4.5); TOTAL PROTEIN 6.8 g/dL (6.4-8.9)
== END 2023-06-18 23:59 | disposition home or self-care (01) ==
LOC: LAB.R 08:00
DX: I10 Essential (primary) hypertension (principal); R79.82 Elevated C-reactive protein (CRP); D64.9 Anemia, unspecified
CPT/HCPCS: 80053; 82550; 85025; 86140

== ENCOUNTER 2023-06-22 08:00 | Outpatient (CLI) | payer MEDICARE, BC ==
[2023-06-22 17:53] LABS: ALBUMIN 3.6 g/dL (3.2-5.5); ALBUMIN/GLOBULIN RATIO 1.3 (1.0-2.2); BILIRUBIN,TOTAL 0.4 mg/dL (0.2-1.0); CALCIUM 9.4 mg/dL (8.5-10.3); CREATININE 0.5 mg/dL (0.6-1.3); CRP - C-REACTIVE PROTEIN 1.4 mg/dL (<0.5); POTASSIUM 3.5 mmol/L (3.5-4.5); TOTAL PROTEIN 6.4 g/dL (6.4-8.9)
[2023-06-22 17:59] LABS: BASOPHILS # (AUTO) 0.1 10^3/uL (0.0-0.1); EOSINOPHILS # (AUTO) 0.5 10^3/uL (0.0-0.7); EOSINOPHILS % (AUTO) 7.4 %; HCT - HEMATOCRIT 37.6 % (42.0-52.0); HGB - HEMOGLOBIN 11.3 g/dL (14.0-18.0); LYMPHOCYTES # (AUTO) 2.4 10^3/uL (1.5-3.5); MEAN CORPUSCULAR HEMOGLOBIN 26.1 pg (27.0-31.0); MEAN CORPUSCULAR HGB CONC 30.1 g/dL (32.0-36.0); MEAN CORPUSCULAR VOLUME 86.8 fL (80.0-94.0); MEAN PLATELET VOLUME 10.3 fL (7.4-11.4); MONOCYTES # (AUTO) 0.8 10^3/uL (0.0-1.0); MONOCYTES % (AUTO) 11.6 %; NEUTROPHILS # (AUTO) 3.1 10^3/uL (1.5-6.6); NEUTROPHILS % (AUTO) 44.7 %; PLT - PLATELET COUNT 240 10^3/uL (130-450); RED BLOOD COUNT 4.33 10^6/uL (4.70-6.10); RED CELL DISTRIBUTION WIDTH 16.7 % (12.0-15.0); WHITE BLOOD COUNT 6.9 x10^3/uL (4.8-10.8)
== END 2023-06-22 23:59 | disposition home or self-care (01) ==
LOC: LAB.R 08:00
PROVIDERS: ATTEND Registered Nurse
DX: L89.159 Pressure ulcer of sacral region, unspecified stage (principal); B95.62 Methicillin resistant Staphylococcus aureus infection as the cause of diseases classified elsewhere
CPT/HCPCS: 80053; 82550; 85025; 86140

== ENCOUNTER 2023-06-25 08:00 | Outpatient (CLI) | payer MEDICARE, BC ==
[2023-06-25 16:46] LABS: ALBUMIN 3.6 g/dL (3.2-5.5); ALBUMIN/GLOBULIN RATIO 1.1 (1.0-2.2); BILIRUBIN,TOTAL 0.4 mg/dL (0.2-1.0); CALCIUM 9.3 mg/dL (8.5-10.3); CREATININE 0.6 mg/dL (0.6-1.3); CRP - C-REACTIVE PROTEIN 0.7 mg/dL (<0.5); POTASSIUM 3.4 mmol/L (3.5-4.5)
[2023-06-25 16:52] LABS: BASOPHILS # (AUTO) 0.1 10^3/uL (0.0-0.1); BASOPHILS % (AUTO) 0.9 %; EOSINOPHILS # (AUTO) 0.6 10^3/uL (0.0-0.7); HCT - HEMATOCRIT 38.4 % (42.0-52.0); HGB - HEMOGLOBIN 11.5 g/dL (14.0-18.0); LYMPHOCYTES # (AUTO) 2.4 10^3/uL (1.5-3.5); MEAN CORPUSCULAR HEMOGLOBIN 26.2 pg (27.0-31.0); MEAN CORPUSCULAR HGB CONC 29.9 g/dL (32.0-36.0); MEAN CORPUSCULAR VOLUME 87.5 fL (80.0-94.0); MEAN PLATELET VOLUME 10.1 fL (7.4-11.4); MONOCYTES # (AUTO) 0.8 10^3/uL (0.0-1.0); MONOCYTES % (AUTO) 10.2 %; NEUTROPHILS # (AUTO) 3.8 10^3/uL (1.5-6.6); NEUTROPHILS % (AUTO) 49.5 %; PLT - PLATELET COUNT 241 10^3/uL (130-450); RED BLOOD COUNT 4.39 10^6/uL (4.70-6.10); RED CELL DISTRIBUTION WIDTH 16.3 % (12.0-15.0); WHITE BLOOD COUNT 7.8 x10^3/uL (4.8-10.8)
== END 2023-06-25 23:59 | disposition home or self-care (01) ==
LOC: LAB.R 08:00
PROVIDERS: ATTEND Registered Nurse
DX: M87.38 Other secondary osteonecrosis, other site (principal); M86.18 Other acute osteomyelitis, other site; B95.62 Methicillin resistant Staphylococcus aureus infection as the cause of diseases classified elsewhere; M62.59 Muscle wasting and atrophy, not elsewhere classified, multiple sites
CPT/HCPCS: 80053; 82550; 85025; 86140

== ENCOUNTER 2023-07-03 08:44 | Outpatient (CLI) | payer OTHER ==
[2023-07-03 09:12] LABS: ALBUMIN 3.6 g/dL (3.2-5.5); ALBUMIN/GLOBULIN RATIO 1.1 (1.0-2.2); BILIRUBIN,TOTAL 0.5 mg/dL (0.2-1.0); CALCIUM 9.3 mg/dL (8.5-10.3); CREATININE 0.5 mg/dL (0.6-1.3); CRP - C-REACTIVE PROTEIN 2.6 mg/dL (<0.5); POTASSIUM 3.6 mmol/L (3.5-4.5); TOTAL PROTEIN 6.8 g/dL (6.4-8.9)
[2023-07-03 09:17] LABS: BASOPHILS # (AUTO) 0.1 10^3/uL (0.0-0.1); BASOPHILS % (AUTO) 0.8 %; EOSINOPHILS # (AUTO) 0.6 10^3/uL (0.0-0.7); EOSINOPHILS % (AUTO) 6.3 %; HCT - HEMATOCRIT 38.6 % (42.0-52.0); HGB - HEMOGLOBIN 11.2 g/dL (14.0-18.0); LYMPHOCYTES # (AUTO) 2.1 10^3/uL (1.5-3.5); LYMPHOCYTES % (AUTO) 23.6 %; MEAN CORPUSCULAR HEMOGLOBIN 25.6 pg (27.0-31.0); MEAN CORPUSCULAR VOLUME 88.3 fL (80.0-94.0); MEAN PLATELET VOLUME 10.8 fL (7.4-11.4); MONOCYTES # (AUTO) 0.9 10^3/uL (0.0-1.0); MONOCYTES % (AUTO) 9.9 %; NEUTROPHILS # (AUTO) 5.3 10^3/uL (1.5-6.6); PLT - PLATELET COUNT 228 10^3/uL (130-450); RED BLOOD COUNT 4.37 10^6/uL (4.70-6.10); RED CELL DISTRIBUTION WIDTH 16.8 % (12.0-15.0); WHITE BLOOD COUNT 8.9 x10^3/uL (4.8-10.8)
== END 2023-07-03 08:45 | disposition home or self-care (01) ==
LOC: LAB.R 08:44
PROVIDERS: ATTEND Registered Nurse
DX: M86.18 Other acute osteomyelitis, other site (principal); D64.9 Anemia, unspecified; B95.62 Methicillin resistant Staphylococcus aureus infection as the cause of diseases classified elsewhere
CPT/HCPCS: 80053; 82550; 85025; 86140

== ENCOUNTER 2023-07-06 13:24 | Outpatient (CLI) | payer OTHER ==
[2023-07-06 13:46] LABS: ALBUMIN 3.6 g/dL (3.2-5.5); BILIRUBIN,TOTAL 0.4 mg/dL (0.2-1.0); CALCIUM 9.1 mg/dL (8.5-10.3); CREATININE 0.6 mg/dL (0.6-1.3); CRP - C-REACTIVE PROTEIN 2.5 mg/dL (<0.5); POTASSIUM 3.7 mmol/L (3.5-4.5); TOTAL PROTEIN 7.1 g/dL (6.4-8.9)
[2023-07-06 13:50] LABS: BASOPHILS # (AUTO) 0.1 10^3/uL (0.0-0.1); BASOPHILS % (AUTO) 0.6 %; EOSINOPHILS # (AUTO) 0.4 10^3/uL (0.0-0.7); EOSINOPHILS % (AUTO) 4.9 %; HCT - HEMATOCRIT 37.9 % (42.0-52.0); HGB - HEMOGLOBIN 11.3 g/dL (14.0-18.0); LYMPHOCYTES # (AUTO) 2.2 10^3/uL (1.5-3.5); LYMPHOCYTES % (AUTO) 27.1 %; MEAN CORPUSCULAR HEMOGLOBIN 26.3 pg (27.0-31.0); MEAN CORPUSCULAR HGB CONC 29.8 g/dL (32.0-36.0); MEAN CORPUSCULAR VOLUME 88.1 fL (80.0-94.0); MEAN PLATELET VOLUME 10.8 fL (7.4-11.4); MONOCYTES # (AUTO) 0.7 10^3/uL (0.0-1.0); MONOCYTES % (AUTO) 8.8 %; NEUTROPHILS # (AUTO) 4.8 10^3/uL (1.5-6.6); PLT - PLATELET COUNT 250 10^3/uL (130-450); RED CELL DISTRIBUTION WIDTH 16.8 % (12.0-15.0); WHITE BLOOD COUNT 8.2 x10^3/uL (4.8-10.8)
== END 2023-07-06 13:25 | disposition home or self-care (01) ==
LOC: LAB.R 13:24
PROVIDERS: ATTEND Registered Nurse
DX: I10 Essential (primary) hypertension (principal); D64.9 Anemia, unspecified; M62.59 Muscle wasting and atrophy, not elsewhere classified, multiple sites; M62.81 Muscle weakness (generalized)
CPT/HCPCS: 80053; 82550; 85025; 86140

== ENCOUNTER 2023-07-07 11:07 | Outpatient (CLI) | payer MEDICARE, BC | END 2023-07-07 11:08 | disposition critical access hospital (66) | LOC: EMS 11:07 | DX: R33.9 Retention of urine, unspecified (principal); R45.4 Irritability and anger; G82.20 Paraplegia, unspecified | CPT/HCPCS: A0425; A0429 ==

== ENCOUNTER 2023-07-07 11:14 | Emergency (ER) | payer MEDICARE, BC ==
--- NOTE | 2023-07-07 11:30 | ED Physician Documentation ---
History of Present Illness - Stated complaint Stated Complaint: - Chief complaint Chief Complaint: General - Additonal information Additional information: 63-year-old male with history of kidney stones status post lithotripsy from May of this year with a right ureteral stent placement, paraplegia longtime history of self cathing, PSH bladder augmentation, on antibiotics for MRSA and pressure ulcer currently residing at [facility]. Patient presents via EMS to the emergency department for issues with self cathing. Patient normally self caths multiple times a day To drain the bladder and the last couple days has been noticing decreased urinary output with more mucus and sedimentation in urine and today for some reason not getting any urine anytime he self caths. He has quite a bit of abdominal/urinary retention, bladder scan is about 1500 upon initial arrival to the emergency department. We attempted to place a Lombardo catheter right away and we are getting minimal urinary output. He denies any pain or tenderness to the abdomen and he also denies any recent fevers chills nausea vomiting. 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 - Present Medications Home Medications: Ambulatory Orders Medication Instructions Recorded Confirmed amLODIPine [Norvasc] 10 mg PO DAILY 01/05/17 07/07/23 lisinopriL [Lisinopril] 40 mg PO DAILY 01/05/17 07/07/23 Baclofen 20 mg PO TID 10/04/19 07/07/23 Ferrous Sulfate 325 mg PO DAILY 05/29/21 07/07/23 Gabapentin [Neurontin] 200 mg PO TID 03/19/23 07/07/23 Potassium Citrate [Potassium 15 meq PO TID 03/19/23 07/07/23 Citrate ER] Bisacodyl Supp [Dulcolax Supp] 10 mg RC Q48H 04/01/23 07/07/23 Cholecalciferol [Vitamin D3] 50 mcg PO DAILY 04/01/23 07/07/23 Multivitamin 1 tab PO DAILY 04/01/23 07/07/23 Furosemide [Lasix] 40 mg PO DAILY #30 tab 04/14/23 07/07/23 Lidocaine [Lidocan III] 1 each TP DAILY #30 patch 04/14/23 07/07/23 Amino Acids/Protein Hydrolys 90 ml PO TID 05/18/23 07/07/23 [Proteinex Liquid] Hydromorphone HCl [Dilaudid] 2 mg PO Q8HR PRN 05/18/23 07/07/23 Mineral Oil [Mineral Oil Enema] 1 ea RC PRN PRN 05/18/23 07/07/23 Naloxone HCl Nasal [Narcan Nasal] 4 mg NS ONCE PRN 05/18/23 07/07/23 Psyllium [Metamucil] 1 packet PO DAILY 05/18/23 07/07/23 Senna [Senokot] 2 tab PO DAILY PRN 05/18/23 07/07/23 polyethylene glycoL 3350 [Miralax] 17 gm PO DAILY PRN 05/18/23 07/07/23 Bisacodyl Supp [Dulcolax Supp] 10 mg PA DAILY PRN 07/07/23 07/07/23 DAPTOmycin [Daptomycin] 550 mg IV DAILY 07/07/23 07/07/23 Melatonin 3 mg PO HS 07/07/23 07/07/23 Meloxicam 7.5 mg PO DAILY PRN 07/07/23 07/07/23 Meropenem 2 gm IV TID 07/07/23 07/07/23 Tolterodine Tartrate [Tolterodine 4 mg PO DAILY 07/07/23 07/07/23 Tartrate ER] - Allergies Allergies/Adverse Reactions: Allergies Allergy/AdvReac Type Severity Reaction Status Date / Time carbenicillin Allergy Respiratory Verified 07/07/23 11:19 [From Geocillin] clindamycin Allergy Rash Verified 07/07/23 11:19 Latex, Natural Rubber Allergy Unknown Verified 07/07/23 11:19 - Social History Does the pt smoke?: No Smoking Status: Never smoker Does the pt drink ETOH?: No Does the pt have substance abuse?: No - Immunizations Immunizations are current?: Yes - POLST Patient has POLST: No POLST Status: Full Code PD ED PE NORMAL - Vitals Vital signs reviewed: Yes - General General: Alert and oriented X 3, No acute distress, Well developed/nourished - Abdomen Abdomen: Normal bowel sounds, Other (severe abdominal distension). No: Non tender, Non distended - Derm Derm: Normal color, Warm and dry, No rash Results - Vitals Vitals: Vital Signs - 24 hr 07/07/23 07/07/23 07/07/23 11:19 12:32 14:00 Temperature 36.4 C L 36.8 C 36.8 C Heart Rate 91 81 82 Respiratory 16 16 16 Rate Blood Pressure 122/76 117/71 110/72 O2 Saturation 98 94 97 Oxygen O2 Source Room air - Labs Labs: Laboratory Tests 07/07/23 07/07/23 07/07/23 11:40 12:20 12:20 WBC 8.2 RBC 3.86 L Hgb 11.1 L Hct 34.6 L MCV 89.6 MCH 28.8 MCHC 32.1 RDW 18.7 H Plt Count 229 MPV 10.1 Neut # (Auto) 5.2 Lymph # (Auto) 1.7 [place] # (Auto) 0.8 Eos # (Auto) 0.4 Baso # (Auto) 0.1 Absolute Nucleated RBC 0.00 Nucleated RBC % 0.0 Sodium 138 Potassium 3.6 Chloride 105 Carbon Dioxide 30 Anion Gap 3.0 L BUN 37 H Creatinine 0.4 L Estimated GFR (MDRD) 217 Glucose 81 Calcium 9.0 Magnesium 2.0 Total Bilirubin 0.4 AST 17 ALT 11 Alkaline Phosphatase 84 Total Protein 6.7 Albumin 3.4 Globulin 3.3 Albumin/Globulin Ratio 1.0 Lipase 25 Urine Color YELLOW Urine Clarity CLEAR Urine pH 7.0 Ur Specific [place] 1.010 Urine Protein TRACE Urine Glucose (UA) NEGATIVE Urine Ketones NEGATIVE Urine Occult Blood TRACE-LYSE Urine Nitrite POSITIVE H Urine Bilirubin NEGATIVE Urine Urobilinogen 0.2 (NORMAL) Ur Leukocyte Esterase NEGATIVE Urine RBC 0-5 Urine WBC 6-10 H Ur Squamous Epith Cells NONE SEEN Urine Bacteria Few Ur Microscopic Review INDICATED Urine Culture Comments INDICATED - Rads (name of study) Chest x-ray for PICC line Relevant Findings:: Final report received, EMP independent interpretation of test, Other (Left PICC line with tip projecting over the right upper mediastinum similar to previous imaging) CT abdomen pelvis with contrast Relevant Findings:: Final report received, EMP independent interpretation of test, Other (Debris surrounding Lombardo balloon containing gas bladder is markedly distended, partially obstructing right distal ureter stones measuring up to 5 mm right delayed nephrogram indicating obstructive nephropathy) PD Medical Decision Making - ED course ED course: 63-year-old male presents emergency department for severe urinary retention. Patient attempted to do multiple straight caths at home he said that he would get a very small amount of urine out he attempted to irrigate as well as suction and was unable to get any urine out. Labs are complete while patient was here no leukocytosis no anemia no other significant electrolyte abnormalities. Urinalysis here was positive nitrates and positive WBCs, 6-10 with no leukocytes. Urine sent for further cultures. CT abdomen pelvis reveals significant debris surrounding the Lombardo balloon containing gas given that patient has had a bladder augmentation a leave of the debridement is most likely because of this. After swapping out his Lombardo multiple times and finally the 24 Pashto and the nurses able to irrigate with 60 cc normal saline and withdraw a very large amount of sedimentation that appeared to be white. The urine itself actually appears to be quite clean it was not cloudy there is no hematuria and it was not malodorous. I spoke with patient's urologist Dr. Pineda who said that there is no further interventions warranted at this time. I also reached out to patient's infectious disease doctor with [facility] I spoke with on-call infectious disease Dr. Cherry to go over the urinalysis and she said at this point in time this is most likely not a UTI and to hold off on starting patient on any additional antibiotics given the fact that he is already on meropenem and Dapto for his MRSA infection in his sacrum decubitus pressure ulcer. Patient is safe for discharge he has a follow- up appoint with urology this Thursday he is told to remove the Lombardo catheter morning to see how he is doing prior to going back to urology appointment Thursday. All questions answered return precautions given. Departure - Departure Disposition: Home, Self Care Clinical Impression: Urinary retention Instructions: Lombardo Catheter Remove, ED Catheter Care Lombardo Comments: Thank you for trusting us with your care we have removed about 2000 cc of urine from your bladder with a large amount of sedimentation and phlegm. Going home make sure that you are keeping track of how much urine output you are producing and make sure that you are keeping an eye on things if you are starting to notice urinary retention again go ahead and flush your Lombardo catheter with 60 cc of normal saline and withdraw to help remove the gunk. Remove your Lombardo catheter morning and see how your bladder is able to tolerate straight cathing for your follow-up appointment with Dr. Pineda on Thursday. Please come back to the emergency department if you notice any fevers or chills nausea vomiting or any other concerning symptoms. Chest x-ray: INDICATIONS: PICC placement TECHNIQUE: One view of the chest was acquired. COMPARISON: 06/12/2023. FINDINGS: Surgical changes and devices: Left PICC in place with tip projecting over the right upper mediastinum, similar versus minimally retracted when compared to prior. Surgical anchors within the left humeral head. Lungs and pleura: No pleural effusions or pneumothorax. Linear atelectasis versus scarring at the left base. Lungs are otherwise clear. Mediastinum: Mediastinal contours appear normal. Heart size is normal. Bones and chest wall: No suspicious bony lesions. Degenerative changes the spine with dextroscoliotic curvature. Old right-sided rib fractures are noted. Overlying soft tissues appear unremarkable. IMPRESSION: Left PICC with tip projecting over the right upper mediastinum, similar in position versus minimally retracted when compared to prior. CT results FINDINGS: Image quality: Diagnostic Lower chest: Similar bibasilar pulmonary scarring and pleural thickening with mild bronchiectasis. Possible trace hiatal hernia. Normal heart size Liver: Subcentimeter lesions are too small to characterize, usually cysts. These were seen previously. Gallbladder and biliary system: Unremarkable, nondilated Pancreas: No ductal dilation Spleen: Nonenlarged Adrenals: No discrete nodules Kidneys: Subcentimeter lesions are too small to characterize, usually cysts. Mild to moderate left pelviectasis, no obstructing stone is seen. Moderate to severe right hydronephrosis with delayed nephrogram. Small, likely partially obstructing stones are seen in the right distal ureter, measuring up to 5 mm. Vessels and lymph nodes: The main portal vein is patent. There are borderline enlarged pelvic and inguinal lymph nodes again seen, for example right external iliac chain jah suring 1 cm in short axis. These are indeterminate. Bowel and peritoneum: No evidence of small bowel obstruction. No pathologic ascites. Rectal stool ball is present. Body wall: Small fat and bowel containing umbilical hernia, without obstruction. Pelvis: Markedly distended bladder. A Lobmardo is in place. There is debris surrounding the Lombardo balloon, containing gas. Prostate is not well eval on this study, overall unremarkable CT appearance. Significant post sacral ulcer, with skin defect extending to the anal verge and right gluteal region. Bones: Advanced degenerative changes and deformity of the inferior obturator rings bilaterally. There may be erosive changes in the lower sacrum/coccyx. Pubic symphysis is fused. Likely nonacute right rib deformities. IMPRESSION: A Lombardo is in place. There is debris surrounding the Lombardo balloon containing gas. The bladder is markedly distended. Moderate to severe right and mild to moderate left pelviectasis. Partially obstructing right distal ureter stones are present measuring up to 5 mm. Right delayed nephrogram indicating obstructive n ephropathy. Consider urologic follow-up and possible cystoscopy if needed. Significant post sacral and right gluteal region posterior, with suspected sequelae of chronic osteomyelitis involving the ischio bones and lower sacrum/coccyx. Borderline enlarged pelvic lymph nodes, indeterminate, possibly reactive. Attention on follow-up. Other incidental and nonacute findings above. Reviewed by: Romaine Kwan MD on 07/07/2023 1:13 PM PDT Approved by: Romaine Kwan MD on 07/07/2023 1:13 PM PDT Station ID: [id number] Forms: PCP List Discharge Date/Time: 07/07/23 15:41
[2023-07-07] MEDS ORDERED: iohexoL-300 100 ML VIAL ONE (11:43)
[2023-07-07 12:02] LABS: BILIRUBIN,URINE NEGATIVE (NEGATIVE); GLUCOSE, URINE (UA) NEGATIVE (NEGATIVE); KETONES,URINE (UA) NEGATIVE (NEGATIVE); LEUKOCYTE ESTERASE, URINE NEGATIVE (NEGATIVE); NITRITE,URINE POSITIVE (NEGATIVE); OCCULT BLOOD,URINE TRACE-LYSE (NEGATIVE); PROTEIN,URINE TRACE mg/dL (NEGATIVE); UROBILINOGEN,URINE 0.2 (NORMAL) E.U./dL (NORMAL)
[2023-07-07 12:03] LABS: CLARITY,URINE CLEAR (CLEAR)
[2023-07-07 12:07] LABS: BACTERIA,URINE Few /HPF (None Seen); RBC,URINE 0-5 /HPF (0-5); SQUAMOUS EPITHELIAL CELL,UR NONE SEEN (<= Few)
[2023-07-07 12:30] LABS: BASOPHILS # (AUTO) 0.1 10^3/uL (0.0-0.1); BASOPHILS % (AUTO) 0.6 %; EOSINOPHILS # (AUTO) 0.4 10^3/uL (0.0-0.7); EOSINOPHILS % (AUTO) 4.3 %; HCT - HEMATOCRIT 34.6 % (42.0-52.0); HGB - HEMOGLOBIN 11.1 g/dL (14.0-18.0); LYMPHOCYTES # (AUTO) 1.7 10^3/uL (1.5-3.5); LYMPHOCYTES % (AUTO) 21.3 %; MEAN CORPUSCULAR HEMOGLOBIN 28.8 pg (27.0-31.0); MEAN CORPUSCULAR HGB CONC 32.1 g/dL (32.0-36.0); MEAN CORPUSCULAR VOLUME 89.6 fL (80.0-94.0); MEAN PLATELET VOLUME 10.1 fL (7.4-11.4); MONOCYTES # (AUTO) 0.8 10^3/uL (0.0-1.0); MONOCYTES % (AUTO) 9.4 %; NEUTROPHILS # (AUTO) 5.2 10^3/uL (1.5-6.6); NEUTROPHILS % (AUTO) 63.7 %; PLT - PLATELET COUNT 229 10^3/uL (130-450); RED BLOOD COUNT 3.86 10^6/uL (4.70-6.10); RED CELL DISTRIBUTION WIDTH 18.7 % (12.0-15.0); WHITE BLOOD COUNT 8.2 x10^3/uL (4.8-10.8)
[2023-07-07 12:50] LABS: ALBUMIN 3.4 g/dL (3.2-5.5); BILIRUBIN,TOTAL 0.4 mg/dL (0.2-1.0); CREATININE 0.4 mg/dL (0.6-1.3); POTASSIUM 3.6 mmol/L (3.5-4.5); TOTAL PROTEIN 6.7 g/dL (6.4-8.9)
--- NOTE | 2023-07-07 13:14 | CT Report ---
PROCEDURE: Abdomen/Pelvis W INDICATIONS: urinary retention CONTRAST: Omni 300 100ml TECHNIQUE: After the administration of intravenous contrast, a CT scan of the abdomen and pelvis was performed. Images were recorded and evaluated at appropriate window settings. Reformats: coronal and sagittal. F or radiation dose reduction, the following was used: automated exposure control, adjustment of mA and /or kV according to patient size. COMPARISON: 03/31/2023 FINDINGS: Image quality: Diagnostic Lower chest: Similar bibasilar pulmonary scarring and pleural thickening with mild bronchiectasis. Po ssible trace hiatal hernia. Normal heart size Liver: Subcentimeter lesions are too small to characterize, usually cysts. These were seen previously . Gallbladder and biliary system: Unremarkable, nondilated Pancreas: No ductal dilation Spleen: Nonenlarged Adrenals: No discrete nodules Kidneys: Subcentimeter lesions are too small to characterize, usually cysts. Mild to moderate left pe lviectasis, no obstructing stone is seen. Moderate to severe right hydronephrosis with delayed nephro gram. Small, likely partially obstructing stones are seen in the right distal ureter, measuring up to 5 mm. Vessels and lymph nodes: The main portal vein is patent. There are borderline enlarged pelvic and ing uinal lymph nodes again seen, for example right external iliac chain measuring 1 cm in short axis. Th truman are indeterminate. Bowel and peritoneum: No evidence of small bowel obstruction. No pathologic ascites. Rectal stool bal l is present. Body wall: Small fat and bowel containing umbilical hernia, without obstruction. Pelvis: Markedly distended bladder. A Lombardo is in place. There is debris surrounding the Lombardo balloo n, containing gas. Prostate is not well eval on this study, overall unremarkable CT appearance. Significant post sacral ulcer, with skin defect extending to the anal verge and right gluteal region. Bones: Advanced degenerative changes and deformity of the inferior obturator rings bilaterally. There may be erosive changes in the lower sacrum/coccyx. Pubic symphysis is fused. Likely nonacute right r ib deformities. IMPRESSION: A Lombardo is in place. There is debris surrounding the Lombardo balloon containing gas. The bladder is mar kedly distended. Moderate to severe right and mild to moderate left pelviectasis. Partially obstructing right distal u reter stones are present measuring up to 5 mm. Right delayed nephrogram indicating obstructive nephro alex. Consider urologic follow-up and possible cystoscopy if needed. Significant post sacral and right gluteal region posterior, with suspected sequelae of chronic osteom yelitis involving the ischio bones and lower sacrum/coccyx. Borderline enlarged pelvic lymph nodes, indeterminate, possibly reactive. Attention on follow-up. Other incidental and nonacute findings above. Reviewed by: Romaine Kwan MD on 07/07/2023 1:13 PM PDT Approved by: Romaine Kwan MD on 07/07/2023 1:13 PM PDT Station ID: [id number]
--- NOTE | 2023-07-07 13:15 | XRAY Report ---
PROCEDURE: Chest for Line Placement INDICATIONS: PICC placement TECHNIQUE: One view of the chest was acquired. COMPARISON: 06/12/2023. FINDINGS: Surgical changes and devices: Left PICC in place with tip projecting over the right upper mediastinu m, similar versus minimally retracted when compared to prior. Surgical anchors within the left sawyer l head. Lungs and pleura: No pleural effusions or pneumothorax. Linear atelectasis versus scarring at the l eft base. Lungs are otherwise clear. Mediastinum: Mediastinal contours appear normal. Heart size is normal. Bones and chest wall: No suspicious bony lesions. Degenerative changes the spine with dextroscolioti c curvature. Old right-sided rib fractures are noted. Overlying soft tissues appear unremarkable. IMPRESSION: Left PICC with tip projecting over the right upper mediastinum, similar in position versus minimally retracted when compared to prior. Reviewed by: Jermaine Matthew MD on 07/07/2023 1:14 PM PDT Approved by: Jermaine Matthew MD on 07/07/2023 1:14 PM PDT Station ID: [id number]
[2023-07-07 14:09] VITALS: BP 110/72; O2SAT 97
[2023-07-07] MEDS: iohexoL-300 100 ML VIAL IVP ONE (14:14)
[2023-07-07] MEDS: levoFLOXacin 750 MG TABLET PO STA (14:48)
== END 2023-07-07 15:41 | disposition home or self-care (01) ==
LOC: EDUNIT# → ED 11:14
DX: T83.098A Other mechanical complication of other urinary catheter, initial encounter (principal); R33.9 Retention of urine, unspecified; I10 Essential (primary) hypertension; G47.30 Sleep apnea, unspecified; G82.20 Paraplegia, unspecified; Z86.010 Personal history of colon polyps; Z87.442 Personal history of urinary calculi; Z79.899 Other long term (current) drug therapy
CPT/HCPCS: 36415; 51702; 74177; 80053; 81001; 83690; 83735; 85025; 87086; 99284; Q9967; 81003

== ENCOUNTER 2023-07-07 15:45 | Outpatient (CLI) | payer MEDICARE, BC | END 2023-07-07 15:46 | LOC: EMS 15:45 | PROVIDERS: ATTEND Nurse Practitioner | DX: Z46.6 Encounter for fitting and adjustment of urinary device (principal); Z74.01 Bed confinement status | CPT/HCPCS: A0425; A0428 ==

== ENCOUNTER 2023-07-10 09:41 | Outpatient (CLI) | payer MEDICARE, BC ==
[2023-07-10 10:25] LABS: BASOPHILS # (AUTO) 0.1 10^3/uL (0.0-0.1); BASOPHILS % (AUTO) 0.7 %; EOSINOPHILS # (AUTO) 0.7 10^3/uL (0.0-0.7); EOSINOPHILS % (AUTO) 7.8 %; HCT - HEMATOCRIT 37.4 % (42.0-52.0); HGB - HEMOGLOBIN 10.9 g/dL (14.0-18.0); LYMPHOCYTES % (AUTO) 22.9 %; MEAN CORPUSCULAR HEMOGLOBIN 25.3 pg (27.0-31.0); MEAN CORPUSCULAR HGB CONC 29.1 g/dL (32.0-36.0); MEAN PLATELET VOLUME 11.3 fL (7.4-11.4); MONOCYTES # (AUTO) 0.9 10^3/uL (0.0-1.0); MONOCYTES % (AUTO) 10.3 %; PLT - PLATELET COUNT 237 10^3/uL (130-450); RED CELL DISTRIBUTION WIDTH 16.1 % (12.0-15.0); WHITE BLOOD COUNT 8.6 x10^3/uL (4.8-10.8)
[2023-07-10 10:32] LABS: ALBUMIN 3.4 g/dL (3.2-5.5); BILIRUBIN,TOTAL 0.5 mg/dL (0.2-1.0); CALCIUM 9.5 mg/dL (8.5-10.3); CREATININE 0.5 mg/dL (0.6-1.3); CRP - C-REACTIVE PROTEIN 2.2 mg/dL (<0.5); POTASSIUM 3.9 mmol/L (3.5-4.5); TOTAL PROTEIN 6.8 g/dL (6.4-8.9)
== END 2023-07-10 09:42 | disposition home or self-care (01) ==
LOC: LAB.R 09:41
PROVIDERS: ATTEND Registered Nurse
DX: M62.59 Muscle wasting and atrophy, not elsewhere classified, multiple sites (principal); D64.9 Anemia, unspecified; B95.62 Methicillin resistant Staphylococcus aureus infection as the cause of diseases classified elsewhere
CPT/HCPCS: 80053; 82550; 85025; 86140

== ENCOUNTER 2023-07-29 16:17 | Outpatient (CLI) | payer MEDICARE, BC ==
[2023-07-29 16:40] LABS: BASOPHILS # (AUTO) 0.1 10^3/uL (0.0-0.1); BASOPHILS % (AUTO) 0.7 %; EOSINOPHILS # (AUTO) 0.7 10^3/uL (0.0-0.7); EOSINOPHILS % (AUTO) 8.9 %; HCT - HEMATOCRIT 37.7 % (42.0-52.0); LYMPHOCYTES # (AUTO) 2.2 10^3/uL (1.5-3.5); MEAN CORPUSCULAR HEMOGLOBIN 28.4 pg (27.0-31.0); MEAN CORPUSCULAR HGB CONC 31.8 g/dL (32.0-36.0); MEAN CORPUSCULAR VOLUME 89.3 fL (80.0-94.0); MEAN PLATELET VOLUME 9.6 fL (7.4-11.4); MONOCYTES # (AUTO) 0.8 10^3/uL (0.0-1.0); MONOCYTES % (AUTO) 9.4 %; NEUTROPHILS # (AUTO) 4.5 10^3/uL (1.5-6.6); NEUTROPHILS % (AUTO) 54.4 %; PLT - PLATELET COUNT 260 10^3/uL (130-450); RED BLOOD COUNT 4.22 10^6/uL (4.70-6.10); RED CELL DISTRIBUTION WIDTH 18.9 % (12.0-15.0); WHITE BLOOD COUNT 8.3 x10^3/uL (4.8-10.8)
[2023-07-29 16:57] LABS: ALBUMIN 3.5 g/dL (3.2-5.5); ALBUMIN/GLOBULIN RATIO 1.2 (1.0-2.2); BILIRUBIN,TOTAL 0.4 mg/dL (0.2-1.0); CALCIUM 9.4 mg/dL (8.5-10.3); CREATININE 0.7 mg/dL (0.6-1.3); CRP - C-REACTIVE PROTEIN 2.3 mg/dL (<0.5); POTASSIUM 3.6 mmol/L (3.5-4.5); TOTAL PROTEIN 6.4 g/dL (6.4-8.9)
== END 2023-07-29 16:18 | disposition home or self-care (01) ==
LOC: LAB 16:17
PROVIDERS: ATTEND Internal Medicine Infectious Disease
DX: M86.159 Other acute osteomyelitis, unspecified femur (principal)
CPT/HCPCS: 36415; 80053; 82550; 85025; 86140

== ENCOUNTER 2023-08-02 19:09 | Emergency (ER) | payer MEDICARE, BC ==
[2023-08-02 19:31] VITALS: BP 117/72
--- NOTE | 2023-08-02 20:45 | ED Physician Documentation ---
History of Present Illness - Stated complaint Stated Complaint: RT THIGH PX - Chief complaint Chief Complaint: Wound - History obtained from History obtained from: Patient - History of Present Illness Pain level max: 0 Pain level now: 0 - Additonal information Additional information: 63-year-old male states that he was told to come here by his home health nurse. He states that last week he suffered a skin tear on his buttocks. He states that on Thursday they told him he should come into the emergency department. He states he did not have time to come here until today. He is paraplegic, wheelchair-bound. He sustained the skin tear moving from a shower chair. He also has pressure sores on his buttocks. He has an appoint with wound care in 2 days. 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 - Present Medications Home Medications: Ambulatory Orders Medication Instructions Recorded Confirmed amLODIPine [Norvasc] 10 mg PO DAILY 01/05/17 07/07/23 lisinopriL [Lisinopril] 40 mg PO DAILY 01/05/17 07/07/23 Baclofen 20 mg PO TID 10/04/19 07/07/23 Ferrous Sulfate 325 mg PO DAILY 05/29/21 07/07/23 Gabapentin [Neurontin] 200 mg PO TID 03/19/23 07/07/23 Potassium Citrate [Potassium 15 meq PO TID 03/19/23 07/07/23 Citrate ER] Bisacodyl Supp [Dulcolax Supp] 10 mg RC Q48H 04/01/23 07/07/23 Cholecalciferol [Vitamin D3] 50 mcg PO DAILY 04/01/23 07/07/23 Multivitamin 1 tab PO DAILY 04/01/23 07/07/23 Furosemide [Lasix] 40 mg PO DAILY #30 tab 04/14/23 07/07/23 Lidocaine [Lidocan III] 1 each TP DAILY #30 patch 04/14/23 07/07/23 Amino Acids/Protein Hydrolys 90 ml PO TID 05/18/23 07/07/23 [Proteinex Liquid] Hydromorphone HCl [Dilaudid] 2 mg PO Q8HR PRN 05/18/23 07/07/23 Mineral Oil [Mineral Oil Enema] 1 ea RC PRN PRN 05/18/23 07/07/23 Naloxone HCl Nasal [Narcan Nasal] 4 mg NS ONCE PRN 05/18/23 07/07/23 Psyllium [Metamucil] 1 packet PO DAILY 05/18/23 07/07/23 Senna [Senokot] 2 tab PO DAILY PRN 05/18/23 07/07/23 polyethylene glycoL 3350 [Miralax] 17 gm PO DAILY PRN 05/18/23 07/07/23 Bisacodyl Supp [Dulcolax Supp] 10 mg NE DAILY PRN 07/07/23 07/07/23 DAPTOmycin [Daptomycin] 550 mg IV DAILY 07/07/23 07/07/23 Melatonin 3 mg PO HS 07/07/23 07/07/23 Meloxicam 7.5 mg PO DAILY PRN 07/07/23 07/07/23 Meropenem 2 gm IV TID 07/07/23 07/07/23 Tolterodine Tartrate [Tolterodine 4 mg PO DAILY 07/07/23 07/07/23 Tartrate ER] - Allergies Allergies/Adverse Reactions: Allergies Allergy/AdvReac Type Severity Reaction Status Date / Time carbenicillin Allergy Respiratory Verified 08/02/23 19:20 [From Geocillin] clindamycin Allergy Rash Verified 08/02/23 19:20 Latex, Natural Rubber Allergy Unknown Verified 08/02/23 19:20 - Social History Does the pt smoke?: No Smoking Status: Never smoker Does the pt drink ETOH?: No Does the pt have substance abuse?: No - Immunizations Immunizations are current?: Yes - POLST Patient has POLST: No POLST Status: Full Code PD ED PE NORMAL - Vitals Vital signs reviewed: Yes - General General: Alert and oriented X 3, No acute distress - HEENT HEENT: Moist mucous membranes - Rectal Rectal: Other (Patient has chronic nonhealing wounds to the bilateral buttocks. No new lacerations. No bleeding. There is chronic redness and skin breakdown but does not appear acutely infected.) - Derm Derm: Warm and dry - Neuro Neuro: Alert and oriented X 3 - Psych Psych: Normal mood, Normal affect Results - Vitals Vitals: Vital Signs - 24 hr 08/02/23 08/02/23 19:22 20:58 Temperature 37.2 C 37.0 C Heart Rate 115 H 88 Respiratory 16 17 Rate Blood Pressure 117/72 O2 Saturation 97 98 Oxygen O2 Source Room air PD Medical Decision Making - ED course Complexity details: considered differential, d/w patient ED course: Patient with chronic wounds of the buttocks. No acute lacerations or indication for repair. Has an appoint with wound care on Thursday. No emergency medical condition at this time. No fevers. No chills. No evidence of sepsis or active infection. No indication for laboratory testing. Patient counseled regarding signs and symptoms for which I believe and urgent re-evaluation would be necessary. Patient with good understanding of and agreement to plan and is comfortable going home at this time This document was made in part using voice recognition software. While efforts are made to proofread this document, sound alike and grammatical errors may occur. Departure - Departure Disposition: Home, Self Care Clinical Impression: Skin tear Condition: Good Instructions: ED Wound Care Follow-Up: Ruby Varghese MD [Primary Care Provider] - Serg Velazquez MD [Provider Admit Priv/Credential] - Comments: Please follow-up with wound care as scheduled on Thursday. Please return if you worsen. Forms: PCP List Discharge Date/Time: 08/02/23 20:58
[2023-08-02 21:04] VITALS: O2SAT 98
== END 2023-08-02 20:58 | disposition home or self-care (01) ==
LOC: ED 19:09
DX: L89.319 Pressure ulcer of right buttock, unspecified stage (principal); L89.329 Pressure ulcer of left buttock, unspecified stage; I10 Essential (primary) hypertension; G47.30 Sleep apnea, unspecified; G82.20 Paraplegia, unspecified; Z99.3 Dependence on wheelchair; Z86.010 Personal history of colon polyps; Z79.899 Other long term (current) drug therapy
CPT/HCPCS: 99282; 99283

== ENCOUNTER 2023-11-17 14:37 | Outpatient (CLI) | payer MEDICARE, BC ==
--- NOTE | 2023-11-17 18:15 | Ultrasound Report ---
Renal (Retroperitoneal) HISTORY: NEPHROLITHIASIS COMPARISON: None. TECHNIQUE: Ultrasound of the kidneys was performed. FINDINGS: Right Kidney: 10.0 cm in length. 0.8 cm in cortical thickness. 1.8 cm simple cyst in the midpole. No rmal echogenicity. No hydronephrosis or renal stone. Left Kidney: 11.3 cm in length. 0.9 cm in cortical thickness. 1.0 cm simple cyst in the lower pole. N ormal echogenicity. No hydronephrosis or renal stone. Urinary Bladder:Unremarkable Additional Findings: IMPRESSION: 1.No hydronephrosis or renal stone of either kidney. Reviewed by: Colleen Wilson MD on 11/17/2023 6:13 PM PDT Approved by: Colleen Wilson MD on 11/17/2023 6:13 PM PDT Station ID: [id number]
== END 2023-11-17 14:38 | disposition home or self-care (01) ==
LOC: DI 14:37
PROVIDERS: ATTEND Urology
DX: N20.0 Calculus of kidney (principal)